=== PATIENT | female | born 1950 | race Caucasian/White ===

== ENCOUNTER 2019-06-17 08:07 | Observation (INO) | payer MEDICARE, OTHER, SELFPAY ==
[2019-06-11 08:24] VITALS: BMI 24.9
[2019-06-17] VITALS (31 sets, daily range): BP systolic 67–143; BP diastolic 41–73; PULSE 53–121; RESP 13–28; TEMP 35.8–36.7; O2SAT 95–100; BMI 24.9
--- NOTE | 2019-06-17 | PATH_ITS ---
[facility] Accession Number: [id number] . 01 Material submitted: . PART A: colon - COLON POLYP 20 CM PART B: anus - ANAL MASS . 02 Diagnosis: A. Colon, Polyp 20 cm, Biopsy: Hyperplastic polyp. . B. Anal Mass, Biopsy: Inflammatory cloacogenic polyp. Negative for dysplasia and malignancy. MRV 06/19/2019 0932 Local . 02 Electronically signed: . Beth Cooper MD, Pathologist NPI- [id number] . 01 Gross description: . A. Received in a formalin-filled container, labeled colon polyp 20 cm, consists of a pink-san unoriented soft tissue, 0.8 x 0.5 x 0.3 cm. The presumed cauterized base is inked blue and the specimen is sectioned and entirely submitted in A1. B. Received in a formalin-filled container, labeled anal biopsy/mass, and consists of two unoriented pink-san smooth to cauterized soft tissue fragments, 2.3 cm up to 2.5 cm, which has a combined weight of 1.0 grams. The cauterized bases are inked blue. Sectioning reveals focally hemorrhagic, otherwise grossly unremarkable cut surfaces. Specimen is sectioned and entirely submitted as follows: B1-2 - smaller tissue fragment; B3-4 - larger tissue fragment, sectioned, entirely submitted. (MS:[id number]) /MRV 06/18/2019 1619 Local . 02 Pathologist provided ICD-10: K63.5 . 02 CPT . 390009, [id number] Performed at: [address], [place], [place] [id number] MD Phil Batres MD Phone: [phone] Performed at: 02 [facility] [place] [address] [place] [id number] MD Beth Cooper MD Phone: [phone]
[2019-06-17] MEDS: LACTATED RINGERS 1,000 ML 100 ML IV (08:41)
--- NOTE | 2019-06-17 09:09 | PM.PREOP ---
Pre-operative Note Interval Note History & Physical reviewed/Exam performed by Physician: Yes Changes to H&P: No
--- NOTE | 2019-06-17 09:55 | SUR.OPER ---
Lithotomy on padded OR bed, head on pillow, arms secured on padded arm boards at <90 degrees abduction. Legs secured in padded yellow fins stirrups.
[2019-06-17] MEDS: BUPIVACAINE 0.25% (PF) VIAL 30 ML INJ (10:19)
[2019-06-17] MEDS: DIBUCAINE 1% OINT 28 GM 1 APPLIC TOP (10:20)
--- NOTE | 2019-06-17 10:57 | PM.OP.1 ---
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 She is brought to the operating room for examination under anesthesia as well as colonoscopy. Surgeon: Shawn Reed Anesthesia Type: General Operative Notes Findings: Polyp < 1cm 20 cm from anal verge. Prolapsed anal mass fribale and fibrotic 2 cm from right lateral position. Specimen(s): other (polyp from 20 cm from anal verge, anal mass) Estimated Blood Loss (mL): 20 Procedure in detail: The was brought to the operating room and placed on the operating room table. Bilateral lower extremity compression devices were applied. General anesthesia was induced and she was intubated with an LMA. She was placed in lithotomy and prepped and draped in the usual fashion. Time out was performed. A rectal exam demonstrated the prolapsing anal mass. Colonoscope was placed into the rectum and advanced through the colon to the cecum. The ileocecal valve was identified. The scope was then slowly withdrawn examining colon thoroughly in all directions. A <1 cm polyp 20 cm from the anal verge was identified and biopsied using forceps. The site was hemostatic. The remainder of the colon was notable only for diverticulosis. Next the exam under anesthesia was performed. 20 ml of 0.25% bupivicaine was injected into the intersphincteric groove. Inspection of the anal canal demonstrated a prolapsed fibrotic mass at the right lateral position. On closed inspection I suspect that it is a chronically prolapsed and fibrotic hemorrhoid. The mass was grapsed and elevated off the internal sphincter and removed using electocautery. The mucosal defect was then closed using a runnning Chromic suture. Hemostatsis was achieved. A gell foam was placed into the canal. She emerged from anesthesia and was transfered to post op in stable condition. Post-operative Condition: stable Disposition: same day surgery
--- NOTE | 2019-06-17 11:32 | SUR.PHASEII ---
Report received. Gauze dressing checked, one pack of gauze half saturated with blood. Dr. Reed notified, VVO that it is ok to change gauze. Gauze changed. Spouse present. Call light within reach.
--- NOTE | 2019-06-17 12:03 | SUR.PHASEII ---
Patient requested to void, up to bathroom, sba. Passed dark red fluid. Pt cleaned and new gauze applied to bottom.
--- NOTE | 2019-06-17 12:07 | SUR.PHASEII ---
Pt reported discomfort. Crackers, pudding, water provided. Pt dozing and has not taken anything po. Spouse at bedside.
--- NOTE | 2019-06-17 13:11 | SUR.PHASEII ---
Dr. Reed notified regarding oozing from rectum, pad changed again by Pito. MD evaluated patient, ok for patient to discharge per MD. Patient reported discomfort at rectum, declined pain medication. Patient ambulated to bathroom, sba.
--- NOTE | 2019-06-17 13:28 | SUR.PHASEII ---
Pt up to the bathroom, dark fluid noted in the toilet. Dr. Reed notified. Also, discussed RR 28. Ok for patient to discharge per MD.
[2019-06-17] MEDS: LACTATED RINGERS 1,000 ML 42 ML IV ×2 (14:25→15:45)
--- NOTE | 2019-06-17 14:26 | SUR.PHASEII ---
1400 Pt up to the bathroom, passed medium red fluid in toilet. C/O feeling dizzy and the floor looked purple. VS taken, BP low. Pt assisted back to bed. Dr. Reed notified, VVO for new IV and fluids. LR infusing to LT AC. PO fluid provided. Monitor placed. Call light within reach. Patient's spouse notified.
--- NOTE | 2019-06-17 14:47 | SUR.PHASEII ---
Pt up to the bathroom, sba. Passed medium/dark red fluid, denied passing urine. Pt c/o feeling dizzy, swayed on her feet. Assisted to sit and transferred to chair and then bed. VS stable. Call light within reach.
--- NOTE | 2019-06-17 16:07 | SUR.PHASEII ---
Report called to Stephanie
--- NOTE | 2019-06-17 16:45 | SUR.PHASEII ---
Dr. Reed evaluated patient and recommended that the patient stay overnight. Pt's spouse at bedside. Pt was up to the bathroom with Suzy and passed dark red fluid, Dr. Reed evaluated the output. Pt had denied voiding during an earlier trip to the bathroom, this RN is unsure if patient has voided, Dr. Reed aware. ordered second bolus of LR. Bag hung. Report called to Stephanie. J-loop applied to IV, bolus infusing. Pt transferred to the floor with two belongings bags. Report given to Stephanie, LYNN stable. Small amt of pink drainage to david-pad. LR infusing.
[2019-06-17] MEDS: DEXTROSE 5%-0.9% NS 1,000 ML 100 ML IV (16:51)
[2019-06-17] MEDS: ONDANSETRON 4 MG/2 ML INJ (17:15)
[2019-06-17] MEDS: ONDANSETRON 4 MG/2 ML INJ IV (17:30)
[2019-06-17 17:47] LABS: Hematocrit 31.2 % (36-46); Hemoglobin 9.8 g/dL (12.0-16.0); Mean Corpuscular HGB Conc 31.4 % (30-36); Mean Corpuscular Hemoglobin 26.7 PG (26-34); Platelet Count 294 X10^3/uL (150-400); Red Blood Cell Count 3.67 X10^6/uL (4.0-5.2); Red Cell Distribution Width 14.6 % (11.6-14.8); White Blood Cell Count 16.5 X10^3/uL (4.5-11.0)
[2019-06-17 18:03] LABS: Neutrophils Absolute Manual 14355 /uL (3000-5900); Total Cells Counted 100
[2019-06-17 18:04] LABS: RBC Morphology Normal Morphology
[2019-06-17 18:26] LABS: BUN Creatinine Ratio 17.1 (6-22); Blood Urea Nitrogen 12 mg/dL (7-17); Carbon Dioxide 23 mmol/L (22-32); Chloride 101 mmol/L (98-107); Estimated Glomerular Filt Rate > 60.0 mL/min (>60); Glucose 286 mg/dL (80-110); HEMOLYSIS < 15 (0-50); Potassium 3.5 mmol/L (3.4-5.1); Sodium 131 mmol/L (137-145)
[2019-06-17 18:38] LABS: Troponin I < 0.012 ng/mL (0.01-0.034)
--- NOTE | 2019-06-17 19:53 | PC.NURSE ---
Addendum entered by Shahla Recinos R.N. 06/17/19 22:51: 2200: Pt has been resting quietly the past 2hrs. IV bolus completed, new rate of 125cc/hr per MD resumed. No clots noted at this time. Call light w/in reach, bed alarm on for pt safety. Continue w/plan of care. Original Note: SHIFT NOTE:[id number] Pt arrived to room at 1620 Alert/drowsy. Lungs clear, SpO2 98% RA Continues w/low B/P of 94/46 Assisted to BSC, pt had red rectal drainage, Became slightly weak after activity. Call light w/in reach, bed alarm on for pt safety. 1710: Pt call light on,. RN answered light, Pt unresponsive, rapid response called. Unresponsive for approximately 2-3 minutes. Pt responded slowly. Dr. Moscoso and Dr. Reed present. B/P 101/61 P= 122, SpO2 100% RA C/O nausea, zofran given at 1730 and EKG completed. Second IV line started by TECHNICAL COMMUNICATION TEACHER. Labs drawn. per MD orders. 1900: Pt repositioned and brief changed. Pt had large amount for rectal drainage and large clots noted Dr. Reed notified and came to check pt. Order received for an NS bolus. Bolus infusing at this time. SO Paul arrived at 1945. Call light w/in reach, bed alrm on for pt safety.
[2019-06-17] MEDS: SODIUM CHLORIDE 0.9% 1,000 ML 1000 ML IV (22:50)
[2019-06-17] MEDS: ACETAMINOPHEN 325 MG TABLET 650 MG PO (23:52)
[2019-06-18] VITALS (22 sets, daily range): BP systolic 99–126; BP diastolic 49–74; PULSE 70–89; RESP 10–22; TEMP 36.4–37; O2SAT 96–100
--- NOTE | 2019-06-18 00:47 | PC.NURSE ---
Addendum entered by Rosario Ortiz R.N. 06/18/19 06:44: H/H critical 6.4/19.5. Dr. Reed notified. Orders to transfuse 2 units PRBC's and recheck H/H post transfusion. If stable and no active bleeding she will be discharged. Addendum entered by Rosario Ortiz R.N. 06/18/19 06:09: Pt asleep in NAD. Dr. Reed at bedside to assess - plan to discharge today. No further rectal bleeding. BP remains stable overnight. Addendum entered by Rosario Ortiz R.N. 06/18/19 02:10: SCD's removed d/t patient agitation and confusion. She is very impulsive and attempts to get OOB. SCD's are adding to her fall risk. Original Note: Pt confused, impulsive. Needs frequent reorientation. VSS, afebrile in NAD. Denies pain. Up to BSC with SBA using FWW. Strength is WNL but coordination is poor as is safety awareness. Voiding without difficulty. No further rectal bleeding at this time and BP remains stable. Bed alarm verified active.
[2019-06-18] MEDS: SODIUM CHLORIDE 0.9% 1,000 ML 125 ML IV (01:19)
[2019-06-18] MEDS: ACETAMINOPHEN 325 MG TABLET 650 MG PO ×2 (05:35→14:32)
[2019-06-18 06:40] LABS: Add Manual Diff / Slide Review NO; Basophils Absolute Auto 0 /uL (0-100); Eosinophils Absolute Auto 0 /uL (0-450); Lymphocytes Absolute Auto 1400 /uL (1100-4500); Lymphocytes Percent Auto 9.5 % (25-40); Mean Corpuscular HGB Conc 32.9 % (30-36); Mean Corpuscular Hemoglobin 27.3 PG (26-34); Mean Corpuscular Volume 82.9 fL (80-100); Monocytes Absolute Auto 900 /uL (0-900); Monocytes Percent Auto 6.2 % (3-14); Neutrophils Absolute Auto 12100 /uL (1500-7000); Neutrophils Percent Auto 84.3 % (50-75); Platelet Count 215 X10^3/uL (150-400); Red Blood Cell Count 2.35 X10^6/uL (4.0-5.2); White Blood Cell Count 14.4 X10^3/uL (4.5-11.0)
[2019-06-18 06:42] LABS: Hematocrit 19.5 % (36-46)
[2019-06-18 06:43] LABS: Hemoglobin 6.4 g/dL (12.0-16.0)
--- NOTE | 2019-06-18 06:43 | P.DS_ITS ---
History of Present Illness History of Present Illness Date Patient Seen: 06/19/19 Time Patient Seen: 08:30 Chief complaint: [id number] Narrative: This 68-year-old female who has chronic rectal bleeding and was found to have a mass within her anal canal. Who is referred to the office for evaluation of the an anal mass which appeared friable and fibrotic prolapsed and originating from near the dentate line. It was difficult for her to tolerate sufficient examination in the the office and therefore she was taken to the operating room for an examination under anesthesia as well as colonoscopy to evaluate for any other source of GI bleed. Discharge Providers Provider Discharge Date: 06/19/19 Primary care physician: Ale Scott DO Discharge provider: Shawn Reed MD Summary Hospital Course Discharge Diagnosis: Acute blood loss anemia Chronic anemia Dementia Traumatic brain injury Anal mass Hospital Course: The patient was taken to the operating room and underwent a colonoscopy as well as an excision of an anal mass.. Postprocedure she had hypotension to the mid 90s as well as was passing some clots of blood per rectum. She was admitted to the hospital for observation and fluid resuscitation. Upon transfer to the floor a rapid response was called for decreased level of consciousness. It should be noted that the patient has a traumatic brain injury and dementia and is disoriented at baseline. A cardiac evaluation was performed including troponin EKG and these studies were normal. The initial hematocrit was the 30 but this was when the patient was dehydrated secondary to the colonoscopy prep. Following morning the hematocrit was 19 and she received 2 units of packed red blood cells and she responded appropriately. She continued to intermittently pass some clots of blood. A bedside anoscopy was performed that was negative for any active bleeding. However her systolic blood pressure remained in the 100s she was not tachycardic but because she was intermittently passing blood clots she was taken to the operating room for examination under anesthesia. The operating room demonstrated that she had some friable mucosa within the anal canal that was persistently oozing there was no franklyn hemorrhage at this time. The area was oversewn and topical hemostatic agent was placed. Overnight she did well she had no further passage of bloody bowel movements her vital signs remain stable and a repeat of HCT was 24. At this point she was stable for discharge home. Exam Vital Signs (past 8 hours): - 06/17/19 23:00 06/17/19 23:59 06/18/19 03:00 Temperature 97.3 F L Pulse Rate 89 Respiratory Rate 18 Blood Pressure 102/46 L Pulse Oximetry 100 100 100 06/18/19 03:29 Temperature 97.8 F Pulse Rate 88 Respiratory Rate 18 Blood Pressure 122/52 L Pulse Oximetry 100 Oxygen Delivery Method Room Air Oxygen Flow Rate 0 Narrative Exam Narrative: General adult female alert disoriented at baseline secondary to dimension traumatic brain injury. Chest nonlabored respirations Abdomen soft nontender nondistended Rectal exam incision clean dry intact no bloody discharge. Objective Labs Result Diagrams: 06/19/19 05:50 06/17/19 18:04 Labs: Laboratory Results - last 24 hr 06/17/19 06/17/19 06/17/19 17:30 18:04 18:04 WBC 16.5 H RBC 3.67 L Hgb 9.8 L Hct 31.2 L MCV 85.0 MCH 26.7 MCHC 31.4 RDW 14.6 Plt Count 294 Neut % (Auto) Lymph % (Auto) [place] % (Auto) Eos % (Auto) Baso % (Auto) Neut # (Auto) Lymph # (Auto) [place] # (Auto) Eos # (Auto) Baso # (Auto) Total Counted 100 Seg Neutrophils % 84.0 H Band Neutrophils % 3.0 Lymphocytes % (Manual) 11.0 L Monocytes % (Manual) 2.0 Neutrophils # (Manual) 00356 H RBC Morphology Normal morphology Sodium 131 L Potassium 3.5 Chloride 101 Carbon Dioxide 23 BUN 12 Creatinine 0.70 Estimated GFR > 60.0 BUN/Creatinine Ratio 17.1 Glucose 286 H Calcium 8.0 L Total Creatine Kinase Cancelled CK-MB (CK-2) Cancelled CK-MB (CK-2) Rel Index Cancelled Troponin I Cancelled < 0.012 06/18/19 05:51 WBC 14.4 H RBC 2.35 L Hgb 6.4 L* Hct 19.5 L* MCV 82.9 MCH 27.3 MCHC 32.9 RDW 14.0 Plt Count 215 Neut % (Auto) 84.3 H Lymph % (Auto) 9.5 L [place] % (Auto) 6.2 Eos % (Auto) 0.0 L Baso % (Auto) 0.0 Neut # (Auto) 39216 H Lymph # (Auto) 1400 [place] # (Auto) 900 Eos # (Auto) 0 Baso # (Auto) 0 Total Counted Seg Neutrophils % Band Neutrophils % Lymphocytes % (Manual) Monocytes % (Manual) Neutrophils # (Manual) RBC Morphology Sodium Potassium Chloride Carbon Dioxide BUN Creatinine Estimated GFR BUN/Creatinine Ratio Glucose Calcium Total Creatine Kinase CK-MB (CK-2) CK-MB (CK-2) Rel Index Troponin I Discharge Plan Discharge Plan Patient Disposition: Home Discharge Med Rec/Prescriptions Prescriptions: New docusate sodium [Colace] 100 mg capsule 100 mg PO BID Qty: 30 RF: 0 oxycodone 5 mg tablet 5 mg PO Q6H PRN (Reason: pain) Qty: 30 RF: 0 ferrous sulfate [Iron (ferrous sulfate)] 325 mg (65 mg iron) tablet 325 mg PO Q OTHER DAY Qty: 90 RF: 0 mineral oil Oil 15 ml PO DAILY Qty: 4000 RF: 0 Continued acetaminophen 500 mg capsule 500 mg PO Q4H PRN (Reason: Pain) RF: 0 Follow up/Referrals: Shawn Reed MD [Physician] - Ale Scott DO [Primary Care Provider] - Provider Discharge Instructions Diet: Regular Skin/Wound/Dressing Care Skin care: Sitz bath three times daily Report to your healthcare provider any signs of infection, such as:: chills, fever and increased pain Visit Report/Discharge Packet Instructions: DI for Colon Polypectomy, DI for Hemorrhoids, DI for Rectal Bleeding Stand Alone Forms: Colonoscopy Result: Is[facility] Surg Discharge Data Primary Care Provider: Ale Scott Attending Provider: Shawn Reed Admit Date/Time: 06/17/19 08:07 Discharges patient from system. Discharge Date/Time: 06/19/19 10:30
[2019-06-18 09:33] LABS: Hematocrit 19.4 % (36-46); Hemoglobin 6.3 g/dL (12.0-16.0)
--- NOTE | 2019-06-18 15:49 | PC.NURSE ---
GI: Pt is difficult to assess due to hx of tbi. She is disoriented to all except she knows her name and birthdate. keeps asking why she is here and whats going on. Information given each time requested. Does have call light and shown use however instead she gets oob on own, she must have bed/chair alarm at all times. Has had a sm amt of dk burgandy stool/clots w/each void, about q1hr. This am was the most and mod size, after that the stool was quarter size but was still clots. Dr. Reed made aware and he has been here twice to see pt. When he came at noon he gave the patient 2 fleets enemas with scant return of some clot/stool material, however after that she has had sl more bleeding and Dr. Reed was made aware. Except for during the time she got the enemas she has had no pain and denies any gi discomfort. Heart up to 120's this am when she got up, now it only goes up to 100's. has received 1 unit of bld and no sxs of transfusion reaction seen. Has been dizzy when up but she thought she was less dizzy this afternoon. Did have a syncopal episode yesterday and pt is a high fall risk, has room close to station and curtain is left open for easy viewing except when care is given. BP sl increased after unit of bld and Dr. Reed made aware and gave okay to give the second one. Cont w/poc.
--- NOTE | 2019-06-18 15:54 | PM.PNPO.1 ---
Subjective Subjective Date Patient Seen: 06/18/19 Time Patient Seen: 15:54 Interval history: Patient had an episode of decreased responsiveness yesterday that triggered a rapid response. She had an EKG that was normal, normal cardiac markers. Her systolic blood pressure was mid 90s not tachycardic. She had undergone a colonoscopy and excision of an anal mass earlier in the day and was passing some clots per rectum for which she was kept in observation. Upon transfer to the floor she had this rapid response. She received crystalloid product with improvement in her blood pressure and continued to intermittently pass clots per rectum overnight. This morning nurses report that she is passing no further clot I examined her performed an anoscopy at the bedside which was negative for active bleeding. Hematocrit this am is 19 from 30 yesterday. 2 units of packed red blood cells have been ordered 1st unit has been transfused as of now with improvement in her BP. Exam Vital Signs (past 8 hours): - 06/18/19 08:30 06/18/19 11:16 06/18/19 11:39 Temperature 97.7 F 97.7 F 97.9 F Pulse Rate 74 71 70 Respiratory Rate 14 16 14 Blood Pressure 99/49 L 108/54 L 100/53 L Pulse Oximetry 100 100 06/18/19 11:40 Temperature Pulse Rate Respiratory Rate Blood Pressure 102/52 L Pulse Oximetry Oxygen Delivery Method Room Air Oxygen Flow Rate 0 Narrative Exam Narrative: General -Adult female alert disoriented at baseline secondary to dementia and TBI Abdomen: soft non tender Rectal-Anoscopy performed no active bleeding observed. Objective Labs Result Diagrams: 06/18/19 08:30 06/17/19 18:04 Labs: Laboratory Results - last 24 hr 06/17/19 06/17/19 06/17/19 17:30 18:04 18:04 WBC 16.5 H RBC 3.67 L Hgb 9.8 L Hct 31.2 L MCV 85.0 MCH 26.7 MCHC 31.4 RDW 14.6 Plt Count 294 Neut % (Auto) Lymph % (Auto) [place] % (Auto) Eos % (Auto) Baso % (Auto) Neut # (Auto) Lymph # (Auto) [place] # (Auto) Eos # (Auto) Baso # (Auto) Total Counted 100 Seg Neutrophils % 84.0 H Band Neutrophils % 3.0 Lymphocytes % (Manual) 11.0 L Monocytes % (Manual) 2.0 Neutrophils # (Manual) 95705 H RBC Morphology Normal morphology Sodium 131 L Potassium 3.5 Chloride 101 Carbon Dioxide 23 BUN 12 Creatinine 0.70 Estimated GFR > 60.0 BUN/Creatinine Ratio 17.1 Glucose 286 H Calcium 8.0 L Total Creatine Kinase Cancelled CK-MB (CK-2) Cancelled CK-MB (CK-2) Rel Index Cancelled Troponin I Cancelled < 0.012 Blood Type Antibody Screen Crossmatch 06/18/19 06/18/19 06/18/19 05:51 08:30 08:30 WBC 14.4 H RBC 2.35 L Hgb 6.4 L* 6.3 L* Hct 19.5 L* 19.4 L* MCV 82.9 MCH 27.3 MCHC 32.9 RDW 14.0 Plt Count 215 Neut % (Auto) 84.3 H Lymph % (Auto) 9.5 L [place] % (Auto) 6.2 Eos % (Auto) 0.0 L Baso % (Auto) 0.0 Neut # (Auto) 27344 H Lymph # (Auto) 1400 [place] # (Auto) 900 Eos # (Auto) 0 Baso # (Auto) 0 Total Counted Seg Neutrophils % Band Neutrophils % Lymphocytes % (Manual) Monocytes % (Manual) Neutrophils # (Manual) RBC Morphology Sodium Potassium Chloride Carbon Dioxide BUN Creatinine Estimated GFR BUN/Creatinine Ratio Glucose Calcium Total Creatine Kinase CK-MB (CK-2) CK-MB (CK-2) Rel Index Troponin I Blood Type O Positive Antibody Screen Negative Crossmatch See Detail Assessment & Plan Post-op Postoperative Procedures: Procedures Operation Date: 06/17/19 09:15 Actual Procedures Side Surgeon p Exam Under Anesthesia Rectal Shawn Reed MD s COLONOSCOPY , POLYPECTOMY, EXCISION ANAL MASS Shawn Reed MD Operation Date: 06/18/19 17:15 <No data on this case meets the specified criteria> Postoperative status narrative: pod 1 SP colonoscopy with polyp biopsy and resection of anal mass with continued bleeding per rectum. Bedside anoscopy performed but unable to visualize source of bleeding, will bring to OR for exam under anesthesia. Discussed and consent obtained from significant other.
--- NOTE | 2019-06-18 16:01 | CM.DANOTE ---
Patient is a 68 year old female who was admitted on 06/17/19 for Surgical Procedure. Pt has [facility] and [facility] for insurance and her PCP is Dr. Ale Scott. EMR was reviewed. Per Surgeon, pt requiring a unit of packed blood and if stable can d/c home this evening. Per RN, pt not remaining stable and Surgeon rounded on pt again and requiring more blood and return to OR this evening due to ongoing rectal bleeding/blood clots and syncope with critical H/H. Plan: SW to follow in the morning for bedside assessment to determine if pt will be safe for d/c home when medically stable and any further identified needs. DOUGLAS Rasmussen
--- NOTE | 2019-06-18 18:55 | SUR.OPER ---
Prone on padded OR bed, head in foam head support, gel chest rolls, gel pad under knees, pillow under lower legs, toes free of pressure, arms secured on padded arm boards at <90 degrees abduction. Safety belt at thigh.
[2019-06-18] MEDS: THROMBIN (RECOMBINANT) 5,000 UNIT VIAL 5000 UNIT TOP (19:23)
[2019-06-18] MEDS: DIBUCAINE 1% OINT 28 GM 1 APPLIC TOP (19:23)
--- NOTE | 2019-06-18 19:44 | PM.OP.1 ---
Operative Date/Time/Diagnoses Date of procedure: 06/18/19 Time of procedure: 19:44 Pre-op diagnosis: rectal bleeding Post-op diagnosis: same Procedure & Clinicians Procedure: Examination under anesthesia, sigmoidoscopy Same procedure as scheduled: Yes Indications: A this is a 68-year-old female who yesterday underwent a colonoscopy and excision of an anal mass. Postoperatively she has continued to pass blood clots per rectum and she has had anemia and mild hypotension. Bedside anoscopy was performed but was unable to visualize the source of bleeding and she returns to the operating room for examination under anesthesia. Surgeon: Shawn Reed Click Yes if Unassisted: Yes Anesthesia Type: General Operative Notes Findings: No franklyn hemorrhage slow mucosal oozing from the site of the anal mass excision. Specimen(s): none sent Estimated Blood Loss (mL): 10 Procedure in detail: Patient was brought to the operating room and the general anesthesia was induced she was intubated with LMA. She was then placed into the prone position. She was prepped and draped in sterile fashion. Time-out was performed ensure the correct patient procedure necessary equipment within the operating room. The [place] retractor was placed. Inspection of the anal canal was made and there was no franklyn hemorrhage. There was some slow mucosal oozing near the prior excision of the anal mass. Using Vicryl suture the area of mucosal bleeding was oversewn in [id number] fashion. There were a couple of other spots of friable mucosa that was oozing and this was controlled with electrocautery. A rigid sigmoidoscopy was then performed which demonstrated no further bleeding. The anal canal and rectum were thoroughly irrigated and the effluent was clear. Topical thrombin and Gelfoam was then placed into the anal canal. Complications: none Post-operative Condition: stable Disposition: observation
[2019-06-18 19:59] LABS: Mean Corpuscular HGB Conc 33.4 % (30-36); Mean Corpuscular Hemoglobin 28.5 PG (26-34); Mean Corpuscular Volume 85.4 fL (80-100); Platelet Count 190 X10^3/uL (150-400); Red Blood Cell Count 3.16 X10^6/uL (4.0-5.2); Red Cell Distribution Width 14.5 % (11.6-14.8); White Blood Cell Count 16.1 X10^3/uL (4.5-11.0)
[2019-06-18] MEDS: LACTATED RINGERS 1,000 ML 42 ML IV (22:21)
[2019-06-19 02:00] VITALS: O2SAT 97
[2019-06-19 04:33] VITALS: BP 113/37; PULSE 91; RESP 20; TEMP 36.8; O2SAT 98
[2019-06-19 06:00] VITALS: O2SAT 97
[2019-06-19 06:02] LABS: Add Manual Diff / Slide Review NO; Basophils Absolute Auto 0 /uL (0-100); Basophils Percent Auto 0.3 % (0-2); Eosinophils Absolute Auto 0 /uL (0-450); Eosinophils Percent Auto 0.2 % (2-4); Hemoglobin 8.1 g/dL (12.0-16.0); Lymphocytes Absolute Auto 1500 /uL (1100-4500); Lymphocytes Percent Auto 11.9 % (25-40); Mean Corpuscular HGB Conc 34.1 % (30-36); Mean Corpuscular Hemoglobin 28.7 PG (26-34); Mean Corpuscular Volume 84.1 fL (80-100); Monocytes Absolute Auto 1000 /uL (0-900); Monocytes Percent Auto 8.4 % (3-14); Neutrophils Absolute Auto 9700 /uL (1500-7000); Neutrophils Percent Auto 79.2 % (50-75); Platelet Count 175 X10^3/uL (150-400); Red Blood Cell Count 2.83 X10^6/uL (4.0-5.2); Red Cell Distribution Width 14.4 % (11.6-14.8); White Blood Cell Count 12.2 X10^3/uL (4.5-11.0)
--- NOTE | 2019-06-19 06:06 | PC.NURSE ---
Pt had 1 small bloody BM this morning around 0500
[2019-06-19 06:08] LABS: Hematocrit 23.8 % (36-46)
[2019-06-19 07:20] VITALS: BP 105/46; PULSE 86; RESP 17; TEMP 37.5; O2SAT 98
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
== END 2019-06-19 10:30 | disposition home or self-care (01) ==
LOC: OR 10:55 → AC 06-18 11:39
PROVIDERS: Admitting Provider Surgery; Family Provider Family Medicine; PCP Family Medicine; Visit Provider Surgery
PROC: (CPT 45990; principal; 2019-06-17 09:15)
PROC: 0DJD8ZZ Inspection of Lower Intestinal Tract, Via Natural or Artificial Opening Endoscopic (ICD-10-PCS; CPT 45378; 2019-06-17 09:15)
DX: K62.89 Other specified diseases of anus and rectum (principal); F03.90 Unspecified dementia, unspecified severity, without behavioral disturbance, psychotic disturbance, mood disturbance, and anxiety; R55 Syncope and collapse; Z87.820 Personal history of traumatic brain injury; K62.0 Anal polyp; K57.30 Diverticulosis of large intestine without perforation or abscess without bleeding; K63.5 Polyp of colon
CPT/HCPCS: 46922; 45380; 45990; 46999; 45330; 36415; 36430; 80048; 82962; 84484; 85014; 85018; 85025; 85027; 86850; 86900; 86901; 93005; 93010; 94762; G0378; P9016; J1100; J1885; J2405; J2704; J3010

== ENCOUNTER → 2019-07-16 13:51 | Outpatient (CLI) | payer MEDICARE, OTHER, SELFPAY ==
[2019-07-16 12:22] VITALS: BMI 24.9
[2019-07-16 14:30] LABS: Add Manual Diff / Slide Review NO; Basophils Absolute Auto 0 /uL (0-100); Basophils Percent Auto 0.5 % (0-2); Eosinophils Absolute Auto 100 /uL (0-450); Eosinophils Percent Auto 1.8 % (2-4); Hematocrit 31.1 % (36-46); Hemoglobin 10.2 g/dL (12.0-16.0); Lymphocytes Absolute Auto 1300 /uL (1100-4500); Lymphocytes Percent Auto 21.8 % (25-40); Mean Corpuscular HGB Conc 32.9 % (30-36); Mean Corpuscular Hemoglobin 27.1 PG (26-34); Mean Corpuscular Volume 82.4 fL (80-100); Monocytes Absolute Auto 800 /uL (0-900); Monocytes Percent Auto 13.8 % (3-14); Neutrophils Absolute Auto 3600 /uL (1500-7000); Neutrophils Percent Auto 62.1 % (50-75); Platelet Count 434 X10^3/uL (150-400); Red Blood Cell Count 3.77 X10^6/uL (4.0-5.2); Red Cell Distribution Width 15.5 % (11.6-14.8); White Blood Cell Count 5.8 X10^3/uL (4.5-11.0)
[2019-07-16 14:34] LABS: Appearance Urine UA CLOUDY; Bilirubin Urine UA NEGATIVE (NEGATIVE); Color Urine UA YELLOW; Glucose Urine UA NEGATIVE (Negative); Ketones Urine UA NEGATIVE (NEGATIVE); Leukocyte Esterase Urine UA 3+ (NEGATIVE); Nitrite Urine UA POSITIVE (Negative); Occult Blood Urine UA 3+ (Negative); Protein Urine UA 1+ (Negative)
[2019-07-16 14:44] LABS: Bacteria Urine Many (>30); RBC Urine >100/HPF (0-5/HPF); Squamous Epithelial Cell Urine 1-5 /HPF (0-5/HPF); WBC Urine >100/HPF (0-5/HPF)
[2019-07-16 15:51] LABS: Alanine Aminotransferase 13 IU/L (<35); Albumin 3.9 g/dL (3.5-5.0); Albumin Globulin Ratio 1.1 (1.0-2.8); Alkaline Phosphatase 101 U/L (38-126); Aspartate Aminotransferase 25 IU/L (14-36); Bilirubin Total 0.4 mg/dL (0.2-1.3); Blood Urea Nitrogen 9 mg/dL (7-17); Calcium 8.9 mg/dL (8.4-10.2); Carbon Dioxide 28 mmol/L (22-32); Chloride 103 mmol/L (98-107); Cholesterol 205 mg/dL (140-199); Estimated Glomerular Filt Rate 54.8 mL/min (>60); Globulin 3.6 g/dL (1.7-4.1); Glucose 121 mg/dL (80-110); HDL Cholesterol 29 mg/dL (40-60); HEMOLYSIS < 15 (0-50); LDL Cholesterol Calculated 150 mg/dL (<100); Potassium 3.5 mmol/L (3.4-5.1); Sodium 140 mmol/L (137-145); Total Protein 7.5 g/dL (6.3-8.2); Triglycerides 128 mg/dL (35-150)
[2019-07-16 16:55] LABS: Folate 5.7 ng/mL (2.76-20.0); Vitamin B12 402 pg/mL (239-931)
== END ==
PROVIDERS: PCP Family Medicine; Visit Provider Family Medicine
DX: K62.5 Hemorrhage of anus and rectum (principal); K62.89 Other specified diseases of anus and rectum; K92.1 Melena; Z91.018 Allergy to other foods; R41.3 Other amnesia
CPT/HCPCS: 36415; 80053; 80061; 81003; 81015; 82607; 82746; 84443; 85025

== ENCOUNTER → 2019-07-22 16:07 | Outpatient (CLI) | payer MEDICARE, OTHER, SELFPAY ==
[2019-07-16 16:33] VITALS: BMI 24.9
[2019-07-22 17:19] LABS: Hematocrit 32.4 % (36-46); Hemoglobin 10.5 g/dL (12.0-16.0); Mean Corpuscular HGB Conc 32.5 % (30-36); Mean Corpuscular Volume 83.1 fL (80-100); Platelet Count 549 X10^3/uL (150-400); Red Cell Distribution Width 15.2 % (11.6-14.8); White Blood Cell Count 6.3 X10^3/uL (4.5-11.0)
== END ==
PROVIDERS: Family Provider Family Medicine; PCP Family Medicine; Visit Provider Nurse Practitioner Family
DX: D64.9 Anemia, unspecified (principal)
CPT/HCPCS: 36415; 85027

== ENCOUNTER → 2020-01-23 16:48 | Outpatient (CLI) | payer MEDICARE, OTHER, SELFPAY ==
[2019-07-16 16:33] VITALS: BMI 24.9
--- NOTE | 2020-01-23 16:50 | DI.RAD.S_ITS ---
PROCEDURE: XR KNEE RT 3V INDICATIONS: knee pain TECHNIQUE: 3 views of the knee were acquired. COMPARISON: None. FINDINGS: Bones: No fractures or dislocations. No suspicious bony lesions. Mild tricompartmental periarticular osteophyte formation. Soft tissues: No joint effusion. No suspicious soft tissue calcifications. IMPRESSION: Osteoarthritis. No acute fracture. No osseous lesion. If symptoms and/or clinical suspicion for pathology persist, further assessment with repeat, or advanced imaging (e.g., CT, MRI, or bone scan) may be helpful for further assessment. Dictated by: Emily Massey M.D. on 01/23/2020 at 17:57 Approved by: Emily Massey M.D. on 01/23/2020 at 17:57
== END ==
PROVIDERS: Family Provider Family Medicine; PCP Nurse Practitioner Family; Referring Provider Nurse Practitioner Family; Visit Provider Nurse Practitioner Family
DX: M25.561 Pain in right knee (principal); M17.11 Unilateral primary osteoarthritis, right knee
CPT/HCPCS: 73562

== ENCOUNTER 2020-07-12 20:35 | Emergency (ER) | payer MEDICARE, OTHER, SELFPAY ==
[2019-07-16 16:33] VITALS: BMI 24.9
[2020-07-12] VITALS (8 sets, daily range): BP systolic 88–143; BP diastolic 52–63; PULSE 75–98; RESP 16; TEMP 36.4–37; O2SAT 98–100; BMI 28.3
--- NOTE | 2020-07-12 20:47 | ED.ABDPAIN ---
HPI - Abdominal Pain General Chief Complaint: Abdominal Pain Stated Complaint: thinks constipated Time Seen by Provider: 07/12/20 20:40 Source: patient and family Mode of arrival: Ambulatory Limitations: altered mental status History of Present Illness HPI narrative: 69-year-old female nonsmoker with history of traumatic brain injury, prior weight loss surgery presents with her significant other the chief complaint of significant abdominal pain. Due to her traumatic brain injury she has a very poor historian and unable to contribute much to the history and review of systems. As a consequence, this is a largely coming from her significant other at the bedside. She has had no change in her diet, no vomiting and no fever. She takes no medications. It seems that this is likely to be present just over the course of today. She has no other symptoms. Related Data Previous Rx's Medication Instructions Recorded diclofenac sodium 1 % topical gel 2 gram TOP QID #100 gram 01/23/20 naproxen 500 mg tablet 500 mg PO BID #60 tab 01/23/20 Allergies Allergy/AdvReac Type Severity Reaction Status Date / Time sulfite Allergy Severe anaphylactic Verified 01/23/20 16:06 shock adhesive AdvReac Mild takes my Verified 01/23/20 16:06 skin off msg Allergy Severe Anaphylaxis Uncoded 01/23/20 16:06 Review of Systems Review of Systems ROS Unobtainable: Unobtainable due to mental status/LOC Patient History Medical History Allergies (~1974) Blood glucose elevated Chicken pox (~1949) Chronic back pain (~2014) Decreased GFR Dementia (~2014) Depression (~2014) Diverticulitis Frequent headaches Headache (~2014) Hearing loss History of musculoskeletal disorder (~2014) Mixed hyperlipidemia Mumps (~1949) Pain Right knee pain TBI (traumatic brain injury) Tinnitus (~2014) Surgical History Anesthesia History of hand surgery (~1998) History of removal of skin mole (~2016) Hx of laparoscopic gastric banding (~2002) Social History household members: significant other Smoking Status: Never smoker alcohol intake: never Smoking Status: Never smoker Substance Use Type: does not use Exam Narrative Exam Narrative: GENERAL: [69] year old patient appears stated age. Well-nourished, well-developed patient, in mild distress. Pleasantly confused HEAD: Atraumatic. Normocephalic. EYES: Pupils equal round and reactive. Extraocular motions intact. No scleral icterus. No injection or drainage. ENT: Nose without bleeding, purulent drainage. Throat without erythema, tonsillar hypertrophy or exudate. Airway patent. NECK: Trachea midline. Non tender CARDIOVASCULAR: Regular rate and rhythm without murmurs, gallops, or rubs. RESPIRATORY: Clear to auscultation. Breath sounds equal bilaterally. No wheezes, rales, or rhonchi. GASTROINTESTINAL: Abdomen soft, non-tender, nondistended. Decreased bowel sounds in all 4 quadrants EXTREMITIES: No edema or joint tenderness. BACK: Nontender without deformity or crepitance. No flank tenderness. NEURO: Alert, confused about date and location (this is baseline per significant other at bedside) SKIN: No rash or erythema of visible areas Initial Vital Signs Initial Vital Signs: Vital Signs Temperature 97.6 F 07/12/20 21:00 Pulse Rate 75 07/12/20 21:00 Respiratory Rate 16 07/12/20 21:00 Blood Pressure 88/52 L 07/12/20 21:00 Pulse Oximetry 100 07/12/20 21:00 Course Course Course Narrative: Patient has had 2 very large bowel movements at the bedside. Orders Ordered: ED Orders 07/12/20 20:43 GI Panel (Film Array) Stat 07/12/20 21:03 EKG-12 Lead Stat 07/12/20 21:20 Complete Blood Count AUTO DIFF Stat Comprehensive Metabolic Panel Stat Lipase Stat Partial Thromboplastin Time Stat Prothrombin Time INR Stat 07/12/20 21:48 CT abdomen pelvis w con Stat Discontinued Medications Sodium Chloride (Normal Saline 0.9%) 500 mls @ 1,000 mls/hr IV BOLUS ONE Stop: 07/12/20 22:16 Last Infusion: 07/12/20 22:34 Dose: 0 mls/hr Documented by: Admin: 07/12/20 21:52 Dose: 1,000 mls/hr Documented by: VICENTE Reevaluation(s) Reevaluation #1: at time of discharge she has a soft, nontender belly with bowel sounds present in all 4 quadrants Vital Signs Vital signs: Vital Signs - 8 hr 07/12/20 21:00 07/12/20 22:21 07/12/20 22:22 Temperature 97.6 F Pulse Rate 75 98 H 93 H Respiratory Rate 16 Blood Pressure 88/52 L 143/63 H Pulse Oximetry 100 98 99 07/12/20 22:30 07/12/20 22:45 07/12/20 23:00 Temperature Pulse Rate 89 88 Respiratory Rate Blood Pressure 128/62 131/56 L 128/62 Pulse Oximetry 99 99 99 07/12/20 23:15 Temperature Pulse Rate 87 Respiratory Rate Blood Pressure 134/55 L Pulse Oximetry 98 MDM - Abdominal Pain Lab Data Result diagrams: 07/12/20 21:20 07/12/20 21:20 Labs: Lab Results 07/12/20 07/12/20 07/12/20 Range/Units 20:43 21:20 21:20 WBC 12.0 H (4.5-11.0) X10^3/uL RBC 4.64 (4.0-5.2) X10^6/uL Hgb 12.1 (12.0-16.0) g/dL Hct 37.9 (36-46) % MCV 81.7 (80-100) fL MCH 26.2 (26-34) PG MCHC 32.0 (30-36) % RDW 14.2 (11.6-14.8) % Plt Count 308 (150-400) X10^3/uL Neut % (Auto) 89.6 H (50-75) % Lymph % (Auto) 4.7 L (25-40) % Roberts % (Auto) 5.4 (3-14) % Eos % (Auto) 0.1 L (2-4) % Baso % (Auto) 0.2 (0-2) % Neut # (Auto) 68884 H (8305-4663) /uL Lymph # (Auto) 600 L (4532-9453) /uL Roberts # (Auto) 600 (0-900) /uL Eos # (Auto) 0 (0-450) /uL Baso # (Auto) 0 (0-100) /uL PT 12.0 (10.1-12.7) SECONDS INR 1.0 (0.9-1.3) APTT 26 L (26.4-36.2) SECONDS Sodium (137-145) mmol/L Potassium (3.4-5.1) mmol/L Chloride (98-107) mmol/L Carbon Dioxide (22-32) mmol/L BUN (7-17) mg/dL Creatinine (0.52-1.04) mg/dL Estimated GFR (>60) mL/min BUN/Creatinine Ratio (6-22) Glucose (80-110) mg/dL Calcium (8.4-10.2) mg/dL Total Bilirubin (0.2-1.3) mg/dL AST (14-36) IU/L ALT (<35) IU/L Alkaline Phosphatase (38-126) U/L Total Protein (6.3-8.2) g/dL Albumin (3.5-5.0) g/dL Globulin (1.7-4.1) g/dL Albumin/Globulin Ratio (1.0-2.8) Lipase (23-300) U/L Stl C. cayetanensis PCR Not detected (Not Detect) Stool Rotavirus (PCR) Not detected (Not Detect) Stool Adenovirus (PCR) Not detected (Not Detect) Stool Astrovirus (PCR) Not detected (Not Detect) Stool Cryptosporidium PCR Not detected (Not Detect) Stl E.coli Shiga Tox PCR Not detected (Not Detect) St Sh/Enteroin Ecoli PCR Not detected (Not Detect) Stool E coli O157 PCR Not detected (Not Detect) Stl Enterotoxigenic E PCR Not detected (Not Detect) Stool EPEC (PCR) Not detected (Not Detect) Stl E. histolytica PCR Not detected (Not Detect) Stool Giardia Lamblia PCR Not detected (Not Detect) Stool Sapovirus (PCR) Not detected (Not Detect) Stl P. shigelloides PCR Not detected (Not Detect) St Y.enterocolitica PCR Not detected (Not Detect) Stool Vibrio (PCR) Not detected (Not Detect) Stl Vibrio cholerae PCR Not detected (Not Detect) Stl Enteroaggr Ecoli PCR Not detected (Not Detect) Stl Norovirus GI/GII PCR Not detected (Not Detect) Campylobacter (PCR) Not detected (Not Detect) C. difficile Tox (PCR) Not detected (Not Detect) Salmonella (PCR) Not detected (Not Detect) 11/30/20 Range/Units 21:20 WBC (4.5-11.0) X10^3/uL RBC (4.0-5.2) X10^6/uL Hgb (12.0-16.0) g/dL Hct (36-46) % MCV (80-100) fL MCH (26-34) PG MCHC (30-36) % RDW (11.6-14.8) % Plt Count (150-400) X10^3/uL Neut % (Auto) (50-75) % Lymph % (Auto) (25-40) % Roberts % (Auto) (3-14) % Eos % (Auto) (2-4) % Baso % (Auto) (0-2) % Neut # (Auto) (5767-4919) /uL Lymph # (Auto) (9760-3860) /uL Roberts # (Auto) (0-900) /uL Eos # (Auto) (0-450) /uL Baso # (Auto) (0-100) /uL PT (10.1-12.7) SECONDS INR (0.9-1.3) APTT (26.4-36.2) SECONDS Sodium 138 (137-145) mmol/L Potassium 3.8 (3.4-5.1) mmol/L Chloride 105 (98-107) mmol/L Carbon Dioxide 25 (22-32) mmol/L BUN 18 H (7-17) mg/dL Creatinine 1.00 (0.52-1.04) mg/dL Estimated GFR 54.7 L (>60) mL/min BUN/Creatinine Ratio 18.0 (6-22) Glucose 148 H (80-110) mg/dL Calcium 9.0 (8.4-10.2) mg/dL Total Bilirubin 0.5 (0.2-1.3) mg/dL AST 24 (14-36) IU/L ALT 11 (<35) IU/L Alkaline Phosphatase 98 (38-126) U/L Total Protein 8.0 (6.3-8.2) g/dL Albumin 4.1 (3.5-5.0) g/dL Globulin 3.9 (1.7-4.1) g/dL Albumin/Globulin Ratio 1.1 (1.0-2.8) Lipase 49 (23-300) U/L Stl C. cayetanensis PCR (Not Detect) Stool Rotavirus (PCR) (Not Detect) Stool Adenovirus (PCR) (Not Detect) Stool Astrovirus (PCR) (Not Detect) Stool Cryptosporidium PCR (Not Detect) Stl E.coli Shiga Tox PCR (Not Detect) St Sh/Enteroin Ecoli PCR (Not Detect) Stool E coli O157 PCR (Not Detect) Stl Enterotoxigenic E PCR (Not Detect) Stool EPEC (PCR) (Not Detect) Stl E. histolytica PCR (Not Detect) Stool Giardia Lamblia PCR (Not Detect) Stool Sapovirus (PCR) (Not Detect) Stl P. shigelloides PCR (Not Detect) St Y.enterocolitica PCR (Not Detect) Stool Vibrio (PCR) (Not Detect) Stl Vibrio cholerae PCR (Not Detect) Stl Enteroaggr Ecoli PCR (Not Detect) Stl Norovirus GI/GII PCR (Not Detect) Campylobacter (PCR) (Not Detect) C. difficile Tox (PCR) (Not Detect) Salmonella (PCR) (Not Detect) Imaging Data CT scan - abdomen/pelvis: Radiologist's Impression: No evidence of acute abdominal or pelvic process MDM Narrative Medical decision making narrative: Multiple etiologies for patient's symptoms considered including: [bowel obstruction vs. gastric surgery problem vs. diverticulitis vs. other] Patient's symptoms improved over duration of stay with above-stated therapies. Findings and discharge diagnosis discussed with patient/family followed by verbalization of understanding Return precautions discussed with patient/family whom verbalize understanding. Discharge Plan Departure Patient Disposition: Home Clinical Impression: Abdominal pain Qualifiers: Abdominal location: generalized Qualified Code(s): R10.84 - Generalized abdominal pain Instructions: DI for Abdominal Pain-Adult Activity Restrictions/Additional Instructions: *You have been diagnosed with [ Abdominal pain, likely due to constipation. Labs and CT scan are very reassuring and don't show any significant abnormalities ] *What to do: *Take medications as directed *Follow up with your primary care provider in 2-3 days, call for an appointment. Let them know you were seen in the Emergency Department and that we ask that you be seen in follow up *Return to ER if you should have any new, worsening or concerning symptoms *You have been diagnosed with [ abdominal pain due to constipation ] *What to do: *Take over the counter medications as directed: 1. Metamucil - bulk forming laxative adds fiber 2. Colace - softens your stool 3. Dulcolax Suppository - stimulates your bowels from the bottom Prescriptions: No Action naproxen 500 mg tablet 500 mg PO BID Qty: 60 RF: 0 diclofenac sodium 1 % gel 2 gram TOP QID Qty: 100 RF: 0 Referrals: Tasneem Romero ARNP [Primary Care Provider] -
[2020-07-12 21:27] LABS: Add Manual Diff / Slide Review NO; Basophils Absolute Auto 0 /uL (0-100); Basophils Percent Auto 0.2 % (0-2); Eosinophils Absolute Auto 0 /uL (0-450); Eosinophils Percent Auto 0.1 % (2-4); Hematocrit 37.9 % (36-46); Hemoglobin 12.1 g/dL (12.0-16.0); Lymphocytes Absolute Auto 600 /uL (1100-4500); Lymphocytes Percent Auto 4.7 % (25-40); Mean Corpuscular Hemoglobin 26.2 PG (26-34); Mean Corpuscular Volume 81.7 fL (80-100); Monocytes Absolute Auto 600 /uL (0-900); Monocytes Percent Auto 5.4 % (3-14); Neutrophils Absolute Auto 10800 /uL (1500-7000); Neutrophils Percent Auto 89.6 % (50-75); Platelet Count 308 X10^3/uL (150-400); Red Blood Cell Count 4.64 X10^6/uL (4.0-5.2); Red Cell Distribution Width 14.2 % (11.6-14.8)
[2020-07-12 21:41] LABS: PTT Partial Thromboplastin Tim 26 SECONDS (26.4-36.2)
[2020-07-12 21:43] LABS: Alanine Aminotransferase 11 IU/L (<35); Albumin 4.1 g/dL (3.5-5.0); Albumin Globulin Ratio 1.1 (1.0-2.8); Alkaline Phosphatase 98 U/L (38-126); Aspartate Aminotransferase 24 IU/L (14-36); Bilirubin Total 0.5 mg/dL (0.2-1.3); Blood Urea Nitrogen 18 mg/dL (7-17); Carbon Dioxide 25 mmol/L (22-32); Chloride 105 mmol/L (98-107); Estimated Glomerular Filt Rate 54.7 mL/min (>60); Globulin 3.9 g/dL (1.7-4.1); Glucose 148 mg/dL (80-110); HEMOLYSIS 16 (0-50); Lipase 49 U/L (23-300); Potassium 3.8 mmol/L (3.4-5.1); Sodium 138 mmol/L (137-145)
--- NOTE | 2020-07-12 21:48 | DI.CT.S_ITS ---
PROCEDURE: CT ABDOMEN PELVIS W CON INDICATIONS: severe abdominal pain, history of gastric sleeve TECHNIQUE: After the administration of intravenous contrast, 5 mm thick sections acquired from the diaphragm to the symphysis. 5 mm coronal and sagittal reformats were acquired. For radiation dose reduction, the following was used: automated exposure control, adjustment of mA and/or kV according to patient size. COMPARISON: None. FINDINGS: Image quality: Excellent. ABDOMEN: Lung bases: Lung bases are clear. Heart size is normal. Solid organs: Liver is normal in size and enhancement. Gallbladder is unremarkable. Biliary system is non dilated. Pancreas enhances normally. Spleen is normal in size and enhancement. No adrenal nodules. Kidneys demonstrate normal size and enhancement, without hydronephrosis. Peritoneum and bowel: Gastric lap band. The bowel has fluid contents. There is mild colonic wall thickening extending from the proximal transverse colon through the rectum. There is a relatively large amount of fecal debris present in the rectum. No free fluid or air. Nodes and vessels: No retroperitoneal or mesenteric adenopathy by size criteria. Aorta and inferior vena cava are normal in size. Miscellaneous: No ventral hernias. PELVIS: Genitourinary: Bladder wall thickness is normal. Miscellaneous: No inguinal hernias or adenopathy. 5.9 x 5.7 x 4.4 cm right adnexal dermoid cyst. Bones: No suspicious bony lesions. No vertebral body compression fractures. IMPRESSION: 1. Findings are consistent with acute colitis extending from the proximal transverse colon through the rectum. Consider infectious versus inflammatory colitis. Ischemic colitis less likely. 2. 5.9 cm dermoid. Comment: Findings were discussed with Shoshana Romero NP at the time of study dictation on 07/13/20 at 0942 hours. Dictated by: Marc Aldana M.D. on 07/13/2020 at 8:22 Approved by: Marc Aldana M.D. on 07/13/2020 at 9:43
[2020-07-12] MEDS: SODIUM CHLORIDE 0.9% 500 ML 1000 ML IV (21:52)
[2020-07-12 22:32] LABS: Adenovirus F 40/41 Not Detected (Not Detect); Astrovirus Not Detected (Not Detect); Campylobacter Not Detected (Not Detect); Clostridium difficile toxin AB Not Detected (Not Detect); Cryptosporidium Not Detected (Not Detect); Cyclospora cayetanensis Not Detected (Not Detect); Entamoeba histolytica Not Detected (Not Detect); Enteroaggregative E.coli Not Detected (Not Detect); Enteropathogenic E.coli Not Detected (Not Detect); Enterotoxigenic E.coli It/st Not Detected (Not Detect); Giardia lamblia Not Detected (Not Detect); Norovirus GI/GII Not Detected (Not Detect); Plesiomonsa shigelloides Not Detected (Not Detect); Rotavirus A Not Detected (Not Detect); Salmonella Not Detected (Not Detect); Sapovirus Not Detected (Not Detect); Shiga-like toxin-prod E.coli Not Detected (Not Detect); Shigella/Enteroinvasive E.coli Not Detected (Not Detect); Vibrio Not Detected (Not Detect); Vibrio cholerae Not Detected (Not Detect); Yersinia enterocolitica Not Detected (Not Detect)
== END 2020-07-12 23:34 | disposition home or self-care (01) ==
PROVIDERS: Emergency Provider Emergency Medicine; Family Provider Family Medicine; PCP Nurse Practitioner Family
DX: R10.84 Generalized abdominal pain (principal); R41.0 Disorientation, unspecified
CPT/HCPCS: 36415; 74177; 80053; 83690; 85025; 85610; 85730; 87507; 93005; 93010; 96360; 99284; Q9967

== ENCOUNTER → 2020-07-23 15:16 | Outpatient (CLI) | payer MEDICARE, OTHER, SELFPAY ==
[2019-07-16 16:33] VITALS: BMI 24.9
--- NOTE | 2020-07-23 15:18 | DI.US.S_ITS ---
PROCEDURE: US PELVIC COMPLETE INDICATIONS: RIGHT ADNEXAL DERMOID CYST SEEN ON CATSCAN TECHNIQUE: Real-time scanning was performed of the pelvic organs, with image documentation. Additional endovaginal scanning was necessary due to incomplete visualization of the adnexal and endometrial structures by transabdominal scanning. COMPARISON: [facility], CT, CT ABDOMEN PELVIS W CON, 07/12/2020, 22:10. FINDINGS: Transabdominal scanning: Limited scanning through the kidneys shows no hydronephrosis. No pathologic free abdominal or pelvic fluid. Endovaginal scanning: Uterus: Uterus is normal in size at 4.9 x 2.5 x 3.1 cm. The endometrium measures 3.0 mm in combined thickness. Mild microcystic changes of the endometrial complex. Myometrial calcifications noted. Ovaries: Right ovary is not visualized. Heterogeneous, solid mass visualized within the right adnexa as was seen on prior CT scan measuring 6.5 x 4.8 x 6.8 cm. Left ovarian simple cyst measuring 1.6 x 1.3 x 1.3 cm. IMPRESSION: 1. Heterogeneous complex right adnexal mass as was seen on prior CT scan with sonographic appearance highly suggestive of ovarian dermoid. 2. Normal endometrial complex thickness with mild microcystic changes. Follow-up ultrasound in 6 weeks is recommended to assess for interval changes/resolution. 3. Simple 16 mm left ovarian cyst. Dictated by: Teodoro GARCIA Interpreted: Concepcion Max MD on 07/23/2020 at 16:57 Approved by: Concepcion Max M.D. on 07/23/2020 at 17:59
== END ==
PROVIDERS: Family Provider Family Medicine; PCP Nurse Practitioner Family; Referring Provider Obstetrics & Gynecology; Visit Provider Obstetrics & Gynecology
DX: R93.5 Abnormal findings on diagnostic imaging of other abdominal regions, including retroperitoneum (principal); N94.9 Unspecified condition associated with female genital organs and menstrual cycle; D27.0 Benign neoplasm of right ovary; N83.292 Other ovarian cyst, left side
CPT/HCPCS: 76830; 76856

== ENCOUNTER → 2020-07-28 17:06 | Outpatient (CLI) | payer MEDICARE, OTHER, SELFPAY ==
[2019-07-16 16:33] VITALS: BMI 24.9
[2020-07-28 17:42] LABS: Hematocrit 37.4 % (36-46); Mean Corpuscular HGB Conc 32.1 % (30-36); Mean Corpuscular Hemoglobin 26.7 PG (26-34); Mean Corpuscular Volume 83.2 fL (80-100); Platelet Count 328 X10^3/uL (150-400); Red Cell Distribution Width 14.3 % (11.6-14.8); White Blood Cell Count 8.7 X10^3/uL (4.5-11.0)
[2020-07-28 17:59] LABS: Hemoglobin A1C% w Est Avg Glu 5.7 % (4.0-6.0)
[2020-07-28 18:11] LABS: Alanine Aminotransferase 12 IU/L (<35); Albumin 4.1 g/dL (3.5-5.0); Albumin Globulin Ratio 1.1 (1.0-2.8); Alkaline Phosphatase 94 U/L (38-126); Aspartate Aminotransferase 25 IU/L (14-36); BUN Creatinine Ratio 12.2 (6-22); Bilirubin Total 0.4 mg/dL (0.2-1.3); Blood Urea Nitrogen 11 mg/dL (7-17); Calcium 9.1 mg/dL (8.4-10.2); Carbon Dioxide 29 mmol/L (22-32); Chloride 103 mmol/L (98-107); Cholesterol 232 mg/dL (140-199); Estimated Glomerular Filt Rate > 60.0 mL/min (>60); Globulin 3.6 g/dL (1.7-4.1); Glucose 112 mg/dL (80-110); HDL Cholesterol 57 mg/dL (40-60); HEMOLYSIS < 15 (0-50); LDL Cholesterol Calculated 137 mg/dL (<100); Potassium 4.2 mmol/L (3.4-5.1); Sodium 138 mmol/L (137-145); Total Protein 7.7 g/dL (6.3-8.2); Triglycerides 192 mg/dL (35-150)
[2020-07-28 18:33] LABS: Carcinoembryonic Antigen 0.9 ng/mL (0.1-3.0)
[2020-07-29 07:14] LABS: Cancer (Carbohydrate) Ag 19-9 < 2 U/mL (0-35)
[2020-07-30 12:03] LABS: Human Epididymis Prot 4 80.5 pmol/L (0.0-96.9)
== END ==
PROVIDERS: Family Provider Family Medicine; PCP Nurse Practitioner Family; Referring Provider Obstetrics & Gynecology; Visit Provider Obstetrics & Gynecology
DX: E78.2 Mixed hyperlipidemia (principal); R73.9 Hyperglycemia, unspecified; N94.9 Unspecified condition associated with female genital organs and menstrual cycle; D64.9 Anemia, unspecified; R94.4 Abnormal results of kidney function studies
CPT/HCPCS: 36415; 80053; 80061; 82378; 83036; 85027; 86301; 86304; 86305

== ENCOUNTER → 2020-09-15 15:46 | Outpatient (CLI) | payer MEDICARE, OTHER, SELFPAY ==
[2019-07-16 16:33] VITALS: BMI 24.9
--- NOTE | 2020-09-15 15:48 | DI.US.S_ITS ---
PROCEDURE: US PELVIC COMPLETE INDICATIONS: F/U adnexal mass, cysts TECHNIQUE: Real-time scanning was performed of the pelvic organs, with image documentation. Additional endovaginal scanning was necessary due to incomplete visualization of the adnexal and endometrial structures by transabdominal scanning. COMPARISON: [facility], , US PELVIC COMPLETE, 07/23/2020, 15:54. FINDINGS: Uterus: Uterus is normal in size at 5.8 x 2.2 x 3.5 cm. The endometrium measures 2 mm in combined thickness. No discrete uterine fibroid is seen. No gross endometrial mass or fluid. Ovaries: Compared to previous study, previously described heterogeneously hypoechoic and solid appearing mass within right adnexa is again seen now measures 6.2 x 4.5 x 6.4 cm in size. This was previously measured at 6.5 x 4.8 x 6.8 centimeters in size. Left ovary measures 2.8 x 1.2 x 2.1 cm in size. A 1.6 x 1.3 x 1.6 centimeter simple cyst is seen in left ovary unchanged from previous study. Other: No pathologic free abdominal or pelvic fluid. IMPRESSION: 1. Interval slight decrease in size of patient's known complex right adnexal mass as above with sonographic features suggestive of ovarian dermoid. 2. Patient's known left ovarian cyst is unchanged in size and appearance. 3. No endometrial mass or fluid is seen on the current study. No discrete uterine fibroid. Dictated by: Mason Paula M.D. on 09/15/2020 at 17:34 Approved by: Mason Paula M.D. on 09/15/2020 at 17:41
== END ==
PROVIDERS: Family Provider Family Medicine; PCP Nurse Practitioner Family; Referring Provider Obstetrics & Gynecology; Visit Provider Obstetrics & Gynecology
DX: N83.292 Other ovarian cyst, left side (principal); N94.89 Other specified conditions associated with female genital organs and menstrual cycle; R93.89 Abnormal findings on diagnostic imaging of other specified body structures
CPT/HCPCS: 76856

== ENCOUNTER → 2020-11-23 07:56 | Outpatient (CLI) | payer MEDICARE, OTHER, SELFPAY ==
[2019-07-16 16:33] VITALS: BMI 24.9
[2020-11-23] MEDS: COVID-19 VACC #1, MRNA(MOD) 100 MCG/0.5 ML VIAL IM (08:10)
== END ==
PROVIDERS: Family Provider Family Medicine; PCP Nurse Practitioner Family; Visit Provider Internal Medicine
DX: Z23 Encounter for immunization (principal)
CPT/HCPCS: 0011A; 91301

== ENCOUNTER → 2020-12-22 12:53 | Outpatient (CLI) | payer MEDICARE, OTHER, SELFPAY ==
[2019-07-16 16:33] VITALS: BMI 24.9
[2020-12-22] MEDS: COVID-19 VACC #2, MRNA(MOD) 100 MCG/0.5 ML VIAL IM (12:55)
== END ==
PROVIDERS: Family Provider Family Medicine; PCP Nurse Practitioner Family; Visit Provider Internal Medicine
DX: Z23 Encounter for immunization (principal)
CPT/HCPCS: 0012A; 91301

== ENCOUNTER → 2021-03-14 15:51 | Outpatient (CLI) | payer MEDICARE, OTHER, SELFPAY ==
[2019-07-16 16:33] VITALS: BMI 24.9
--- NOTE | 2021-03-14 15:53 | DI.US.S_ITS ---
PROCEDURE: US PELVIC COMPLETE INDICATIONS: 6 MO FOLLOW UP. TECHNIQUE: Real-time scanning was performed of the pelvic organs, with image documentation. Additional endovaginal scanning was necessary due to incomplete visualization of the adnexal and endometrial structures by transabdominal scanning. COMPARISON: [facility], CT, CT ABDOMEN PELVIS W CON, 07/12/2020, 22:10. [facility], US, US PELVIC COMPLETE, 09/15/2020, 16:11. FINDINGS: Uterus: Uterus is normal in size at 5.7 x 1.9 x 2.8 cm. The endometrium measures 2.8 mm in combined thickness. Microcystic changes of the endometrial complex. Ovaries: Complex right ovarian mass with characteristics suspicious for ovarian dermoid similar to prior examination measuring 6.4 x 4.9 x 6.1 cm compared to 6.1 x 4.5 x 6.4 cm on prior examination. Left ovarian cyst also is present measuring up to 1.6 cm. Other: No pathologic free abdominal or pelvic fluid. IMPRESSION: 1. Probable right ovarian dermoid not significant changed from prior examination. If indicated, pre and post-contrast gynecologic protocol MRI could be performed for further assessment. 2. Simple left ovarian cyst. 3. Microcystic changes of the endometrial complex which is otherwise normal in thickness at 2.8 mm. Recommend clinical correlation and follow-up. Dictated by: Teodoro GARCIA Interpreted: Sahil Jc MD on 03/14/2021 at 16:50 Transcribed by: CORINNA on 03/14/2021 at 16:52 Approved by: Sahil Jc M.D. on 03/14/2021 at 17:22
== END ==
PROVIDERS: Family Provider Family Medicine; PCP Nurse Practitioner Family; Referring Provider Obstetrics & Gynecology; Visit Provider Obstetrics & Gynecology
DX: Z09 Encounter for follow-up examination after completed treatment for conditions other than malignant neoplasm (principal); N83.292 Other ovarian cyst, left side; N94.9 Unspecified condition associated with female genital organs and menstrual cycle
CPT/HCPCS: 76830; 76856

== ENCOUNTER 2021-04-04 11:14 | Emergency (ER) | payer MEDICARE, OTHER, SELFPAY ==
[2019-07-16 16:33] VITALS: BMI 24.9
[2021-04-04 11:36] VITALS: BP 119/59; PULSE 68; RESP 18; TEMP 36.9; O2SAT 97
--- NOTE | 2021-04-04 11:59 | DI.CT.S_ITS ---
PROCEDURE: CT HEAD/BRAIN WO CON INDICATIONS: Fall TECHNIQUE: Noncontrast 4.5 mm thick angled axial sections acquired from the foramen magnum to the vertex, with coronal and sagittal reformats. For radiation dose reduction, the following was used: automated exposure control, adjustment of mA and/or kV according to patient size. COMPARISON: [facility], MR, BRAIN W&WO CONTRAST, 04/20/2015, 18:03. FINDINGS: Image quality: Excellent. CSF spaces: Basal cisterns are patent. No extra-axial fluid collections. The ventricles are symmetric in size and shape. Brain: No intracranial bleeds or masses. There is cerebral volume loss for age, with resultant ventricular and sulcal prominence. There are periventricular and deep white matter chronic small vessel ischemic changes. There is intracranial internal carotid artery atherosclerosis. Skull and face: Calvarium and visualized facial bones appear intact, without suspicious lesions. Sinuses: Visualized sinuses and mastoids are clear. IMPRESSION: No acute intracranial hemorrhage is seen. No acute intracranial process is seen. Note is made of age-appropriate brain parenchymal volume loss and chronic small vessel ischemic changes. Dictated by: Don Covington M.D. on 04/04/2021 at 11:08 Approved by: Don Covington M.D. on 04/04/2021 at 11:10
[2021-04-04 12:30] LABS: Add Manual Diff / Slide Review NO; Basophils Absolute Auto 100 /uL (0-100); Basophils Percent Auto 0.9 % (0-2); Eosinophils Absolute Auto 100 /uL (0-450); Eosinophils Percent Auto 0.9 % (2-4); Hematocrit 36.6 % (36-46); Hemoglobin 11.8 g/dL (12.0-16.0); Lymphocytes Absolute Auto 1700 /uL (1100-4500); Lymphocytes Percent Auto 18.9 % (25-40); Mean Corpuscular HGB Conc 32.3 % (30-36); Mean Corpuscular Hemoglobin 26.4 PG (26-34); Mean Corpuscular Volume 81.6 fL (80-100); Monocytes Absolute Auto 900 /uL (0-900); Neutrophils Absolute Auto 6300 /uL (1500-7000); Neutrophils Percent Auto 69.3 % (50-75); Platelet Count 282 X10^3/uL (150-400); Red Blood Cell Count 4.49 X10^6/uL (4.0-5.2); Red Cell Distribution Width 13.9 % (11.6-14.8); White Blood Cell Count 9.1 X10^3/uL (4.5-11.0)
[2021-04-04 12:38] LABS: Alanine Aminotransferase 10 IU/L (<35); Albumin Globulin Ratio 1.2 (1.0-2.8); Alkaline Phosphatase 85 U/L (38-126); Aspartate Aminotransferase 24 IU/L (14-36); BUN Creatinine Ratio 11.1 (6-22); Bilirubin Total 0.8 mg/dL (0.2-1.3); Blood Urea Nitrogen 10 mg/dL (7-17); Calcium 9.1 mg/dL (8.4-10.2); Carbon Dioxide 26 mmol/L (22-32); Chloride 106 mmol/L (98-107); Estimated Glomerular Filt Rate > 60.0 mL/min (>60); Globulin 3.4 g/dL (1.7-4.1); Glucose 104 mg/dL (80-110); HEMOLYSIS < 15 (0-50); Lipase 25 U/L (23-300); Potassium 3.9 mmol/L (3.4-5.1); Sodium 138 mmol/L (137-145); Total Protein 7.4 g/dL (6.3-8.2)
--- NOTE | 2021-04-04 12:42 | DI.RAD.S_ITS ---
PROCEDURE: XR TIBIA FUBULA RT 2V INDICATIONS: Fall, knee pain TECHNIQUE: 2 views of the tibia and fibula were acquired. COMPARISON: [facility], CR, XR ANKLE RT 2V, 04/04/2021, 12:44. [facility], CR, XR FEMUR RT MIN 2V, 04/04/2021, 12:44. [facility], CR, XR KNEE RT 1TO2V, 04/04/2021, 12:44. FINDINGS: Bones: No fractures or dislocations. No suspicious bony lesions. Degenerative joint disease in right knee. Calcaneal spurring. Soft tissues: No suspicious soft tissue calcifications or masses. IMPRESSION: No fracture or dislocation. Dictated by: Jun Wade M.D. on 04/04/2021 at 13:38 Approved by: Jun Wade M.D. on 04/04/2021 at 13:39
--- NOTE | 2021-04-04 12:42 | DI.RAD.S_ITS ---
PROCEDURE: XR KNEE RT 1TO2V INDICATIONS: Fall , knee pain TECHNIQUE: 2 views of the knee were acquired. COMPARISON: [facility], , XR KNEE RT 3V, 01/23/2020, 16:44. FINDINGS: Bones: No fractures or dislocations. No suspicious bony lesions. Degenerative joint disease, severe at the patellofemoral joint and moderate at the medial femorotibial joint. Soft tissues: Small joint effusion. No suspicious soft tissue calcifications. IMPRESSION: 1. No acute osseous abnormalities. 2. Degenerative joint disease. 3. Small knee joint effusion. Dictated by: Jun Wade M.D. on 04/04/2021 at 13:36 Approved by: Jun Wade M.D. on 04/04/2021 at 13:37
--- NOTE | 2021-04-04 12:42 | DI.RAD.S_ITS ---
PROCEDURE: XR CHEST 1V INDICATIONS: ?Syncope TECHNIQUE: One view of the chest was acquired. COMPARISON: [facility], CT, CT ABDOMEN PELVIS W CON, 04/04/2021, 12:48. [facility], CR, CHEST 1VW (PORTABLE), 02/09/2015, 9:28. FINDINGS: Surgical changes and devices: None. Lungs and pleura: Lungs are clear. No pleural effusions or pneumothorax. Mediastinum: The cardiac contours are within normal limits. The aorta demonstrates calcification and tortuosity. Bones and chest wall: No suspicious bony lesions. Age-appropriate bony degenerative changes are seen. Mild levoconvex scoliotic curvature is noted. Overlying soft tissues appear unremarkable. IMPRESSION: No acute portable chest abnormality can be seen. Dictated by: Don Covington M.D. on 04/04/2021 at 12:17 Approved by: Don Covington M.D. on 04/04/2021 at 12:18
--- NOTE | 2021-04-04 12:42 | DI.RAD.S_ITS ---
PROCEDURE: XR FEMUR RT MIN 2V INDICATIONS: WENT DOWN SLOW ON SUNDAY TECHNIQUE: 2 views of the femur were acquired. COMPARISON: [facility], CR, XR KNEE RT 3V, 01/23/2020, 16:44. [facility], CT, CT ABDOMEN PELVIS W CON, 04/04/2021, 12:48. [facility], CR, XR FOOT RT 2V, 04/04/2021, 12:44. [facility], CR, XR KNEE RT 1TO2V, 04/04/2021, 12:44. [facility], CR, XR ANKLE RT 2V, 04/04/2021, 12:44. [facility], CR, XR TIBIA FIBULA RT 2V, 04/04/2021, 12:44. [facility], CR, XR TIBIA FIBULA LT 2V, 04/04/2021, 12:44. [facility], CR, XR CHEST 1V, 04/04/2021, 12:44. [facility], CT, CT HEAD/BRAIN WO CON, 04/04/2021, 12:00. FINDINGS: Bones: No fractures or dislocations. No suspicious bony lesions. (The distal femur is not included within the field of view of this study, yet it is included on the accompanying knee plain films. Age-appropriate bony degenerative changes are seen. Soft tissues: No suspicious soft tissue calcifications or masses. IMPRESSION: Unremarkable femur plain films. Dictated by: Don Covington M.D. on 04/04/2021 at 12:21 Approved by: Don Covington M.D. on 04/04/2021 at 12:21
--- NOTE | 2021-04-04 12:42 | DI.RAD.S_ITS ---
PROCEDURE: XR ANKLE RT 2V INDICATIONS: Fall TECHNIQUE: 2 views of the ankle were acquired. COMPARISON: [facility], CT, CT ABDOMEN PELVIS W CON, 04/04/2021, 12:48. [facility], CR, XR FOOT RT 2V, 04/04/2021, 12:44. [facility], CR, XR KNEE RT 1TO2V, 04/04/2021, 12:44. [facility], CR, XR FEMUR RT MIN 2V, 04/04/2021, 12:44. [facility], CR, XR TIBIA FIBULA RT 2V, 04/04/2021, 12:44. [facility], CR, XR TIBIA FIBULA LT 2V, 04/04/2021, 12:44. [facility], CR, XR CHEST 1V, 04/04/2021, 12:44. FINDINGS: Bones: No acute fractures or dislocations. There is a remote, chronic unhealed rounded fracture fragment seen distal to the medial malleolus measuring 2 mm. Ankle mortise is normally aligned. No suspicious bony lesions. The talar dome demonstrates no franklyn abnormality. Age-appropriate bony degenerative changes are seen. A plantar calcaneal spur is seen. Soft tissues: No tibiotalar joint effusion. Achilles tendon appears normal. IMPRESSION: No acute fractures are seen by plain film. Remote medial malleolar avulsion fracture fragment seen. Dictated by: Don Covington M.D. on 04/04/2021 at 12:18 Approved by: Don Covington M.D. on 04/04/2021 at 12:20
--- NOTE | 2021-04-04 12:42 | DI.RAD.S_ITS ---
PROCEDURE: XR TIBIA FIBULA LT 2V INDICATIONS: Fall, knee pain TECHNIQUE: 2 views of the tibia and fibula were acquired. COMPARISON: [facility], CT, CT ABDOMEN PELVIS W CON, 04/04/2021, 12:48. [facility], CR, XR ANKLE RT 2V, 04/04/2021, 12:44. [facility], CR, XR KNEE RT 1TO2V, 04/04/2021, 12:44. [facility], CR, XR FEMUR RT MIN 2V, 04/04/2021, 12:44. [facility], CR, XR TIBIA FIBULA RT 2V, 04/04/2021, 12:44. [facility], CR, XR CHEST 1V, 04/04/2021, 12:44. [facility], CR, XR FOOT RT 2V, 04/04/2021, 12:44. [facility], CT, CT HEAD/BRAIN WO CON, 04/04/2021, 12:00. FINDINGS: Bones: No fractures or dislocations. No suspicious bony lesions. Age-appropriate bony degenerative changes are seen. Soft tissues: No suspicious soft tissue calcifications or masses. IMPRESSION: No displaced fractures can be seen on these plain films. Dictated by: Don Covington M.D. on 04/04/2021 at 12:22 Approved by: Don Covington M.D. on 04/04/2021 at 12:22
--- NOTE | 2021-04-04 12:45 | DI.CT.S_ITS ---
PROCEDURE: CT ABDOMEN PELVIS W CON INDICATIONS: Abdominal pain. The patient fell yesterday. TECHNIQUE: After the administration of intravenous contrast, axial sections acquired from the lung bases to the pubic symphysis. Coronal and sagittal reformats were performed. For radiation dose reduction, the following was used: automated exposure control, adjustment of mA and/or kV according to patient size. COMPARISON: [facility], CT, CT ABDOMEN PELVIS W CON, 07/12/2020, 22:10. FINDINGS: Image quality: Excellent. Lung bases: Lung bases a clear. Esophagus is mildly distended. There is concentric thickening of the distal esophagus. Small hiatal hernia. Heart: No significant findings. ABDOMEN: Liver: Liver is normal in size. Mild hepatic steatosis. Gallbladder: Unremarkable. Biliary ducts: Unremarkable. Pancreas: Unremarkable. Spleen: Unremarkable. Adrenal Glands: Unremarkable. Kidneys and Ureters: Kidneys are normal in size. There are cortical scars in kidneys bilaterally, left greater than right. No renal stone or hydronephrosis. Stomach and Bowel: Postsurgical changes related to gastric banding. Small bowel loops and colon are normal in caliber. There is a moderate amount of stool in colon. There are a few colonic diverticula. No CT findings to suggest acute diverticulitis. Appendix is normal. Peritoneum: No abnormal intraperitoneal fluid. No free air. Ventral Wall: No hernias. Abdominal Nodes: No retroperitoneal or mesenteric adenopathy by size criteria. Vessels: Aorta and inferior vena cava are normal in size. Mild atherosclerosis. PELVIS: Pelvic Organs: There is a mass in the right adnexa measuring 4.5 x 5.1 x 6.1 cm, containing both fluid and fat, compatible with an ovarian dermoid. It is unchanged compared to 07/12/2020. Uterus and left ovary are normal. No pathological free-fluid in the cul-de-sac. Bladder: Unremarkable. Pelvic Nodes: No enlarged lymph nodes. Miscellaneous: No hernias are seen. Bones: No fractures. Mild degenerative changes in lumbar spine. IMPRESSION: 1. No acute visceral injuries in abdomen or pelvis. 2. Small hiatal hernia. Mild distension and concentric thickening of the distal esophagus. If clinically indicated, EGD may be obtained for further evaluation. 3. Mild diverticulosis without diverticulitis. 4. A 4.5 x 5.1 x 6.1 cm right ovarian dermoid. 5. Hepatic steatosis. Dictated by: Jun Wade M.D. on 04/04/2021 at 13:09 Approved by: Jun Wade M.D. on 04/04/2021 at 13:35
--- NOTE | 2021-04-04 12:46 | DI.RAD.S_ITS ---
PROCEDURE: XR FOOT RT 2V INDICATIONS: Fall TECHNIQUE: 2 views of the foot were acquired. COMPARISON: [facility], CT, CT ABDOMEN PELVIS W CON, 04/04/2021, 12:48. [facility], CR, XR ANKLE RT 2V, 04/04/2021, 12:44. [facility], CR, XR KNEE RT 1TO2V, 04/04/2021, 12:44. [facility], CR, XR FEMUR RT MIN 2V, 04/04/2021, 12:44. [facility], CR, XR TIBIA FIBULA RT 2V, 04/04/2021, 12:44. [facility], CR, XR TIBIA FIBULA LT 2V, 04/04/2021, 12:44. [facility], CR, XR CHEST 1V, 04/04/2021, 12:44. [facility], CT, CT HEAD/BRAIN WO CON, 04/04/2021, 12:00. FINDINGS: Bones: No fractures or dislocations. No suspicious bony lesions. Toe alignment abnormalities are seen. A plantar calcaneal spur is seen. Soft tissues: No tibiotalar joint effusion. Achilles tendon appears normal. IMPRESSION: No acute fractures are seen. Degenerative changes can be seen. Dictated by: Don Covington M.D. on 04/04/2021 at 12:20 Approved by: Don Covington M.D. on 04/04/2021 at 12:20
[2021-04-04 13:13] VITALS: PULSE 62; RESP 19; O2SAT 100
[2021-04-04 13:14] VITALS: BP 139/64; PULSE 60; RESP 24; O2SAT 100
[2021-04-04] MEDS: ACETAMINOPHEN 325 MG TABLET 975 MG PO (13:14)
[2021-04-04 13:34] LABS: Troponin I < 0.012 ng/mL (0.01-0.034)
[2021-04-04 13:43] LABS: Appearance Urine UA SL CLOUDY; Bilirubin Urine UA NEGATIVE (NEGATIVE); Color Urine UA YELLOW; Glucose Urine UA NEGATIVE (Negative); Ketones Urine UA NEGATIVE (NEGATIVE); Leukocyte Esterase Urine UA 2+ (NEGATIVE); Nitrite Urine UA POSITIVE (Negative); Occult Blood Urine UA 2+ (Negative); Protein Urine UA NEGATIVE (Negative); Specific Gravity Urine UA <=1.005 (1.000-1.035); Urobilinogen Urine UA 0.2 E.U./dL (0.2)
--- NOTE | 2021-04-04 13:51 | PC.NURSE ---
DOUGLAS Barriga in to consult on pt
[2021-04-04 13:52] LABS: Bacteria Urine Many (>30); Culture Indicated Urine Specimen Cultured; RBC Urine 1-5/HPF (0-5/HPF); Squamous Epithelial Cell Urine 1-5 /HPF (0-5/HPF); WBC Urine 10-30/HPF (0-5/HPF)
--- NOTE | 2021-04-04 13:55 | CM.SWNOTE ---
SCREEN MAKING SUPERVISOR Note SCREEN MAKING SUPERVISOR receives consult and enters room to meet with patient and S/O Paul. Patient is 70 y/o female who present to this ED with concern for abdominal pain and recent fall. S/O endorses that patient is typically independent with ambulating and does not have trouble with walking. 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 Patient receives Medicare insurance and S/O endorses patient would not qualify for medicaid. S/O endorses that he cooks for patient but she does not eat food provided to her and he has concern for her nutrition, he endorses he cooks well balanced meals and has even tried providing her with ensure. S/O endorses that patient has memory loss issues, where she lets the dog out, locks doors, and reorganizes things and S/O has difficulty locating them. S/O endorses that he works but he is starting to realize that he doesn't want to leave her alone for long periods of time. It is reported that patient has son and daughter in law in [place] and S/O has contacted son to discuss appropriate higher level of care for patient. SCREEN MAKING SUPERVISOR discusses caregivers and HH. S/O endorses that he knows that caregivers are thousands of dollars a week and he does not want to drain her money. S/O and patient decline HH and believe it will not be helpful, S/O endorses that it is a memory issue for her. S/O endorses that she can take care of herself but sometimes does not wash her hair. SCREEN MAKING SUPERVISOR discusses caregivers as an appropriate option if the goal is for patient to stay at home. SCREEN MAKING SUPERVISOR encourages patient's son coordinate with s/o to identify higher level of care for patient. SCREEN MAKING SUPERVISOR discusses support groups for S/O, he declines. SCREEN MAKING SUPERVISOR provides S/O with senior resource guide. Plan: Patient to d/c to home when medically clear, family to coordinate higher level of care for patient. DOUGLAS Agee
[2021-04-04] MEDS: NITROFURANTOIN ER 100 MG CAPSULE PO (16:03)
[2021-04-04 16:12] VITALS: BP 128/78; PULSE 80; RESP 16; O2SAT 97
--- NOTE | 2021-04-09 10:19 | ED.ABDPAIN ---
HPI - Abdominal Pain <Celine Armenta PA-C - Last Filed: 04/09/21 11:06> General Chief Complaint: Abdominal Pain Stated Complaint: Fell from abd pain- hit head and knee on pavement Time Seen by Provider: 04/04/21 11:50 Source: patient Mode of arrival: Wheelchair Limitations: no limitations History of Present Illness HPI narrative: 70-year-old female with past medical history dementia, depression, headaches, chronic back pain presents to the ED with 2 days of abdominal pain. patient brought in by her partner who states that patient complained of abdominal pain last night while in the car, patient asked to stop at the store to use the bathroom. When patient got out of the car, she doubled over in pain collapsed to the sidewalk. From sitting position, patient fell sideways. Positive head strike with abrasion to right forehead , right knee injury. Patient endorses right-sided knee pain, pain with and ambulation. in the ED, patient denies abdominal pain, endorses right-sided, denies headache. Patient not on blood thinners. Patient denies fever, chills, chest pain, shortness of breath, nausea, vomiting, dysuria, back pain, numbness, tingling, weakness. The patient's partner, patient's memory loss has been worsening over the last 6 years, with increased anorexia and confusion. Patient's partner endorses being overwhelmed trying to manage this situation, does not have any outside help to assist with patient. Would like to obtain some assistance. tetanus up-to-date. Related Data Allergies Allergy/AdvReac Type Severity Reaction Status Date / Time sulfite Allergy Severe anaphylactic Verified 08/09/20 15:42 shock adhesive AdvReac Mild takes my Verified 08/09/20 15:42 skin off msg Allergy Severe Anaphylaxis Uncoded 08/09/20 15:42 Review of Systems <Celine Armenta PA-C - Last Filed: 04/09/21 11:06> Constitutional Constitutional: Denies chills, Denies fatigue, Denies fever(s), Denies frequent falls, Denies lethargy and Denies weakness Eyes Eyes: Denies change in vision, Denies eye discharge, Denies irritation and Denies loss of vision ENT Ears, Nose, Mouth, and Throat: Denies change in voice, Denies dizziness, Denies neck pain, Denies sore throat and Denies throat swelling Cardiovascular Cardiovascular: Denies chest pain, Denies irregular heart rhythm, Denies lightheadedness, Denies palpitations, Denies dyspnea, Denies dyspnea on exertion and Denies orthopnea Respiratory Respiratory: Denies cough, Denies dyspnea, Denies dyspnea on exertion and Denies wheezing Gastrointestinal Gastrointestinal: Reports abdominal pain, Denies change in bowel habits, Denies diarrhea, Denies nausea and Denies vomiting Genitourinary Genitourinary: Denies hematuria, Denies dysuria and Denies urinary urgency Musculoskeletal Musculoskeletal: Denies neck pain and Denies numbness Comments: R knee pain Integumentary/Breasts Skin/Breast: Denies pruritus, Denies erythema, Denies rash and Denies wounds Neurologic Neurologic: Denies behavioral changes, Denies confusion, Denies dizziness, Denies frequent falls, Denies loss of vision, Denies numbness and Denies weakness Psychiatric Psychiatric: Denies anxiety, Denies behavioral changes, Denies confusion, Denies depression, Denies homicidal ideation and Denies suicidal ideation Endocrine Endocrine: Denies fatigue, Denies flushing and Denies palpitations Hematologic/Lymphatic Hematologic/Lymphatic: Denies easy bruising Allergic/Immunologic Allergic/Immunologic: Denies urticaria, Denies throat swelling and Denies wheezing Patient History <Celine Armenta PA-C - Last Filed: 04/09/21 11:06> Medical History Adnexal cyst (06/2020) Allergies (~1974) Blood glucose elevated Chicken pox (~1949) Chronic back pain (~2014) Colitis, infectious Constipation Decreased GFR Dementia (~2014) Depression (~2014) Diverticulitis Frequent headaches Headache (~2014) Hearing loss History of musculoskeletal disorder (~2014) Mixed hyperlipidemia Mumps (~1949) Pain Right knee pain TBI (traumatic brain injury) Tinnitus (~2014) Surgical History Anesthesia History of hand surgery (~1998) History of removal of skin mole (~2016) Hx of laparoscopic gastric banding (~2002) Social History household members: significant other Smoking Status: Never smoker alcohol intake: never Smoking Status: Never smoker Substance Use Type: does not use Exam <Hymkacie Armenta PA-C - Last Filed: 04/09/21 11:06> Initial Vital Signs Initial Vital Signs: Vital Signs Temperature 98.5 F 04/04/21 11:36 Pulse Rate 68 04/04/21 11:36 Respiratory Rate 18 04/04/21 11:36 Blood Pressure 119/59 L 04/04/21 11:36 Pulse Oximetry 97 04/04/21 11:36 Const General: cooperative HENMT Head: normocephalic and abrasion (Abrasion to R brow. Not bleeding, no signs of infection.) Ears: external ears normal and TM's normal bilaterally Nose: external nose normal and No nasal discharge Face and sinus: sinuses nontender, face symmetric, no sinus tenderness and No dry mucous membranes Mouth: oral mucosae normal and moist mucous membranes Teeth and gingiva: dentition normal Throat: tonsils normal and uvula midline Eyes General: appearance normal, both eyes and all related structures Eyelids: eyelids normal Conjunctivae: conjunctivae normal Sclera: sclerae normal Pupils: PERRL EOM: EOM intact bilaterally Neck Neck: normal visual inspection, trachea midline, No lymphadenopathy, No midline deformity and No JVD Lymphatic: No lymphedema Chest Chest: normal inspection of the chest Resp Effort & Inspection: normal respiratory effort, able to speak in complete sentences, no respiratory distress and no use of accessory muscles Auscultation: clear to auscultation bilaterally, no rales, no rhonchi and no wheezes Cardio Rate: regular rate Rhythm: regular rhythm Heart Sounds: no click, no gallops, no murmurs and no rubs Pulses: normal peripheral pulses GI Inspection: non-distended Palpation: soft, no hepatosplenomegaly, No guarding, No pulsatile mass and tender Auscultation: normal bowel sounds Other: abdomen my snell tender to palpation, lower quadrants, left greater than right. Negative CVA tenderness General: No CVA tenderness Back/Spine/Pelvis Back: No CVA tenderness Cervical Spine: cervical ROM normal and No pain with cervical ROM Thoracic/Lumbar Spine: thoracic and lumbar spine normal to inspection Skin General: no rashes or lesions noted, No jaundice and No petechiae Trauma: abrasion ( right brow, right knee) Neuro General: patient alert, patient oriented x3, gait normal and no focal motor deficits Speech: speech normal Extrem General: full ROM, no clubbing, cyanosis or edema, no pedal edema and no calf tenderness Other: tenderness to palpation of right knee, ambulation limited by pain in right leg. Full range of motion of bilateral extremities, neurovascularly intact, cap refill less than 2 seconds Psych Appearance: well kempt Mental Status: mental status grossly normal Attitude: cooperative Thought Content: normal and suicidality Judgment: judgment good <Radames Harden DO - Last Filed: 04/21/21 07:08> Initial Vital Signs Initial Vital Signs: Vital Signs Temperature 98.5 F 04/04/21 11:36 Pulse Rate 68 04/04/21 11:36 Respiratory Rate 18 04/04/21 11:36 Blood Pressure 119/59 L 04/04/21 11:36 Pulse Oximetry 97 04/04/21 11:36 Course <Celine Armenta PA-C - Last Filed: 04/09/21 11:06> Course Course Narrative: Negative head CT, negative CT abdomen and pelvis, x-rays negative for fractures/dislocations, EKG NSR, CXR with no acute processes. UA positive for UTI, will treat with Macrobid. Discharge home with ED return precautions. Orders Ordered: Discontinued Medications Acetaminophen (Acetaminophen 325 Mg Tablet) 975 mg PO NOW ONE Stop: 04/04/21 12:48 Last Admin: 04/04/21 13:14 Dose: 975 mg Documented by: LORRILE Sodium Chloride (Normal Saline 0.9%) 1,000 mls @ 150 mls/hr IV CONT [facility] Last Admin: 04/04/21 13:14 Dose: Not Given Documented by: HANS Nitrofurantoin Macrocrystals (Nitrofurantoin Er 100 Mg Capsule) 100 mg PO NOW ONE Stop: 04/04/21 15:54 Last Admin: 04/04/21 16:03 Dose: 100 mg Documented by: HANS <Radames Harden DO - Last Filed: 04/21/21 07:08> Orders Ordered: Discontinued Medications Acetaminophen (Acetaminophen 325 Mg Tablet) 975 mg PO NOW ONE Stop: 04/04/21 12:48 Last Admin: 04/04/21 13:14 Dose: 975 mg Documented by: LORRILE Sodium Chloride (Normal Saline 0.9%) 1,000 mls @ 150 mls/hr IV CONT [facility] Last Admin: 04/04/21 13:14 Dose: Not Given Documented by: HANS Nitrofurantoin Macrocrystals (Nitrofurantoin Er 100 Mg Capsule) 100 mg PO NOW ONE Stop: 04/04/21 15:54 Last Admin: 04/04/21 16:03 Dose: 100 mg Documented by: HANS MDM - Abdominal Pain <Hyma ALEJANDRO Armenta - Last Filed: 04/09/21 11:06> Lab Data Lab results narrative: Labs within normal limits. Positive UTI. Result diagrams: 04/04/21 12:19 04/04/21 12:19 Labs: Lab Results 04/04/21 04/04/21 04/04/21 Range/Units 12:19 12:19 12:19 WBC 9.1 (4.5-11.0) X10^3/uL RBC 4.49 (4.0-5.2) X10^6/uL Hgb 11.8 L (12.0-16.0) g/dL Hct 36.6 (36-46) % MCV 81.6 (80-100) fL MCH 26.4 (26-34) PG MCHC 32.3 (30-36) % RDW 13.9 (11.6-14.8) % Plt Count 282 (150-400) X10^3/uL Neut % (Auto) 69.3 (50-75) % Lymph % (Auto) 18.9 L (25-40) % Barrow % (Auto) 10.0 (3-14) % Eos % (Auto) 0.9 L (2-4) % Baso % (Auto) 0.9 (0-2) % Neut # (Auto) 6300 (8775-1068) /uL Lymph # (Auto) 1700 (4069-6634) /uL Barrow # (Auto) 900 (0-900) /uL Eos # (Auto) 100 (0-450) /uL Baso # (Auto) 100 (0-100) /uL Sodium 138 (137-145) mmol/L Potassium 3.9 (3.4-5.1) mmol/L Chloride 106 (98-107) mmol/L Carbon Dioxide 26 (22-32) mmol/L BUN 10 (7-17) mg/dL Creatinine 0.90 (0.52-1.04) mg/dL Estimated GFR > 60.0 (>60) mL/min BUN/Creatinine Ratio 11.1 (6-22) Glucose 104 (80-110) mg/dL Calcium 9.1 (8.4-10.2) mg/dL Total Bilirubin 0.8 (0.2-1.3) mg/dL AST 24 (14-36) IU/L ALT 10 (<35) IU/L Alkaline Phosphatase 85 (38-126) U/L Troponin I < 0.012 (0.01-0.034) ng/mL Total Protein 7.4 (6.3-8.2) g/dL Albumin 4.0 (3.5-5.0) g/dL Globulin 3.4 (1.7-4.1) g/dL Albumin/Globulin Ratio 1.2 (1.0-2.8) Lipase 25 (23-300) U/L Urine Color Urine Appearance Urine pH (4.5-8.0) Ur Specific Jenison (1.000-1.035) Urine Protein (Negative) Urine Glucose (UA) (Negative) g/dL Urine Ketones (NEGATIVE) Urine Occult Blood (Negative) Urine Nitrate (Negative) Urine Bilirubin (NEGATIVE) Urine Urobilinogen (0.2) E.U./dL Ur Leukocyte Esterase (NEGATIVE) Urine RBC (0-5/HPF) Urine WBC (0-5/HPF) Ur Squamous Epith Cells (0-5/HPF) Urine Bacteria (None) Ur Culture Indicated? 04/04/21 Range/Units 13:35 WBC (4.5-11.0) X10^3/uL RBC (4.0-5.2) X10^6/uL Hgb (12.0-16.0) g/dL Hct (36-46) % MCV (80-100) fL MCH (26-34) PG MCHC (30-36) % RDW (11.6-14.8) % Plt Count (150-400) X10^3/uL Neut % (Auto) (50-75) % Lymph % (Auto) (25-40) % Barrow % (Auto) (3-14) % Eos % (Auto) (2-4) % Baso % (Auto) (0-2) % Neut # (Auto) (6361-3147) /uL Lymph # (Auto) (9344-1237) /uL Barrow # (Auto) (0-900) /uL Eos # (Auto) (0-450) /uL Baso # (Auto) (0-100) /uL Sodium (137-145) mmol/L Potassium (3.4-5.1) mmol/L Chloride (98-107) mmol/L Carbon Dioxide (22-32) mmol/L BUN (7-17) mg/dL Creatinine (0.52-1.04) mg/dL Estimated GFR (>60) mL/min BUN/Creatinine Ratio (6-22) Glucose (80-110) mg/dL Calcium (8.4-10.2) mg/dL Total Bilirubin (0.2-1.3) mg/dL AST (14-36) IU/L ALT (<35) IU/L Alkaline Phosphatase (38-126) U/L Troponin I (0.01-0.034) ng/mL Total Protein (6.3-8.2) g/dL Albumin (3.5-5.0) g/dL Globulin (1.7-4.1) g/dL Albumin/Globulin Ratio (1.0-2.8) Lipase (23-300) U/L Urine Color Yellow Urine Appearance Sl cloudy Urine pH 7.0 (4.5-8.0) Ur Specific Jenison <=1.005 (1.000-1.035) Urine Protein Negative (Negative) Urine Glucose (UA) Negative (Negative) g/dL Urine Ketones Negative (NEGATIVE) Urine Occult Blood 2+ H (Negative) Urine Nitrate Positive H (Negative) Urine Bilirubin Negative (NEGATIVE) Urine Urobilinogen 0.2 (0.2) E.U./dL Ur Leukocyte Esterase 2+ H (NEGATIVE) Urine RBC 1-5/hpf D (0-5/HPF) Urine WBC 10-30/hpf H (0-5/HPF) Ur Squamous Epith Cells 1-5 /hpf (0-5/HPF) Urine Bacteria Many (>30) H (None) Ur Culture Indicated? Specimen cultured Imaging Data Extremity x-ray #1: Radiologist's Impression: PROCEDURE: XR FOOT RT 2V INDICATIONS: Fall TECHNIQUE: 2 views of the foot were acquired. COMPARISON: Merged With [facility], CT, CT ABDOMEN PELVIS W CON, 04/04/2021, 12:48. Merged With [facility], CR, XR ANKLE RT 2V, 04/04/2021, 12:44. Merged With [facility], CR, XR KNEE RT 1TO2V, 04/04/2021, 12:44. Merged With [facility], CR, XR FEMUR RT MIN 2V, 04/04/2021, 12:44. Merged With [facility], CR, XR TIBIA FIBULA RT 2V, 04/04/2021, 12:44. Merged With [facility], CR, XR TIBIA FIBULA LT 2V, 04/04/2021, 12:44. Merged With [facility], CR, XR CHEST 1V, 04/04/2021, 12:44. Merged With [facility], CT, CT HEAD/BRAIN WO CON, 04/04/2021, 12:00. FINDINGS: Bones: No fractures or dislocations. No suspicious bony lesions. Toe alignment abnormalities are seen. A plantar calcaneal spur is seen. Soft tissues: No tibiotalar joint effusion. Achilles tendon appears normal. IMPRESSION: No acute fractures are seen. Degenerative changes can be seen. Dictated by: Don Covington M.D. on 04/04/2021 at 12:20 Approved by: Don Covington M.D. on 04/04/2021 at 12:20 Extremity x-ray #2: Radiologist's Impression: PROCEDURE: XR TIBIA FUBULA RT 2V INDICATIONS: Fall, knee pain TECHNIQUE: 2 views of the tibia and fibula were acquired. COMPARISON: Merged With [facility], CR, XR ANKLE RT 2V, 04/04/2021, 12:44. Merged With [facility], CR, XR FEMUR RT MIN 2V, 04/04/2021, 12:44. Merged With [facility], CR, XR KNEE RT 1TO2V, 04/04/2021, 12:44. FINDINGS: Bones: No fractures or dislocations. No suspicious bony lesions. Degenerative joint disease in right knee. Calcaneal spurring. Soft tissues: No suspicious soft tissue calcifications or masses. IMPRESSION: No fracture or dislocation. Dictated by: Jun Wade M.D. on 04/04/2021 at 13:38 Approved by: Jun Wade M.D. on 04/04/2021 at 13 Extremity x-ray #3: Radiologist's Impression: PROCEDURE: XR KNEE RT 1TO2V INDICATIONS: Fall , knee pain TECHNIQUE: 2 views of the knee were acquired. COMPARISON: Merged With [facility], CR, XR KNEE RT 3V, 01/23/2020, 16:44. FINDINGS: Bones: No fractures or dislocations. No suspicious bony lesions. Degenerative joint disease, severe at the patellofemoral joint and moderate at the medial femorotibial joint. Soft tissues: Small joint effusion. No suspicious soft tissue calcifications. IMPRESSION: 1. No acute osseous abnormalities. 2. Degenerative joint disease. 3. Small knee joint effusion. Dictated by: Jun Wade M.D. on 04/04/2021 at 13:36 Approved by: Jun Wade M.D. on 04/04/2021 at 13:37 Femur x-ray: Radiologist's Impression: PROCEDURE: XR FEMUR RT MIN 2V INDICATIONS: WENT DOWN SLOW ON SUNDAY TECHNIQUE: 2 views of the femur were acquired. COMPARISON: Merged With [facility], CR, XR KNEE RT 3V, 01/23/2020, 16:44. Merged With [facility], CT, CT ABDOMEN PELVIS W CON, 04/04/2021, 12:48. Merged With [facility], CR, XR FOOT RT 2V, 04/04/2021, 12:44. Merged With [facility], CR, XR KNEE RT 1TO2V, 04/04/2021, 12:44. Merged With [facility], CR, XR ANKLE RT 2V, 04/04/2021, 12:44. Merged With [facility], CR, XR TIBIA FIBULA RT 2V, 04/04/2021, 12:44. Merged With [facility], CR, XR TIBIA FIBULA LT 2V, 04/04/2021, 12:44. Merged With [facility], CR, XR CHEST 1V, 04/04/2021, 12:44. Merged With [facility], CT, CT HEAD/BRAIN WO CON, 04/04/2021, 12:00. FINDINGS: Bones: No fractures or dislocations. No suspicious bony lesions. (The distal femur is not included within the field of view of this study, yet it is included on the accompanying knee plain films. Age-appropriate bony degenerative changes are seen. Soft tissues: No suspicious soft tissue calcifications or masses. IMPRESSION: Unremarkable femur plain films. Dictated by: Don Covington M.D. on 04/04/2021 at 12:21 Approved by: Don Covington M.D. on 04/04/2021 at 12:21 CT scan - abdomen/pelvis: Radiologist's Impression: PROCEDURE: CT ABDOMEN PELVIS W CON INDICATIONS: Abdominal pain. The patient fell yesterday. TECHNIQUE: After the administration of intravenous contrast, axial sections acquired from the lung bases to the pubic symphysis. Coronal and sagittal reformats were performed. For radiation dose reduction, the following was used: automated exposure control, adjustment of mA and/or kV according to patient size. COMPARISON: Merged With [facility], CT, CT ABDOMEN PELVIS W CON, 07/12/2020, 22:10. FINDINGS: Image quality: Excellent. Lung bases: Lung bases a clear. Esophagus is mildly distended. There is concentric thickening of the distal esophagus. Small hiatal hernia. Heart: No significant findings. ABDOMEN: Liver: Liver is normal in size. Mild hepatic steatosis. Gallbladder: Unremarkable. Biliary ducts: Unremarkable. Pancreas: Unremarkable. Spleen: Unremarkable. Adrenal Glands: Unremarkable. Kidneys and Ureters: Kidneys are normal in size. There are cortical scars in kidneys bilaterally, left greater than right. No renal stone or hydronephrosis. Stomach and Bowel: Postsurgical changes related to gastric banding. Small bowel loops and colon are normal in caliber. There is a moderate amount of stool in colon. There are a few colonic diverticula. No CT findings to suggest acute diverticulitis. Appendix is normal. Peritoneum: No abnormal intraperitoneal fluid. No free air. Ventral Wall: No hernias. Abdominal Nodes: No retroperitoneal or mesenteric adenopathy by size criteria. Vessels: Aorta and inferior vena cava are normal in size. Mild atherosclerosis. PELVIS: Pelvic Organs: There is a mass in the right adnexa measuring 4.5 x 5.1 x 6.1 cm, containing both fluid and fat, compatible with an ovarian dermoid. It is unchanged compared to 07/12/2020. Uterus and left ovary are normal. No pathological free-fluid in the cul-de-sac. Bladder: Unremarkable. Pelvic Nodes: No enlarged lymph nodes. Miscellaneous: No hernias are seen. Bones: No fractures. Mild degenerative changes in lumbar spine. IMPRESSION: 1. No acute visceral injuries in abdomen or pelvis. 2. Small hiatal hernia. Mild distension and concentric thickening of the distal esophagus. If clinically indicated, EGD may be obtained for further evaluation. 3. Mild diverticulosis without diverticulitis. 4. A 4.5 x 5.1 x 6.1 cm right ovarian dermoid. 5. Hepatic steatosis. Dictated by: Jun Wade M.D. on 04/04/2021 at 13:09 Approved by: Jun Wade M.D. on 04/04/2021 at 13:35 CT scan - head: Radiologist's Impression: PROCEDURE: CT ABDOMEN PELVIS W CON INDICATIONS: Abdominal pain. The patient fell yesterday. TECHNIQUE: After the administration of intravenous contrast, axial sections acquired from the lung bases to the pubic symphysis. Coronal and sagittal reformats were performed. For radiation dose reduction, the following was used: automated exposure control, adjustment of mA and/or kV according to patient size. COMPARISON: Merged With [facility], CT, CT ABDOMEN PELVIS W CON, 07/12/2020, 22:10. FINDINGS: Image quality: Excellent. Lung bases: Lung bases a clear. Esophagus is mildly distended. There is concentric thickening of the distal esophagus. Small hiatal hernia. Heart: No significant findings. ABDOMEN: Liver: Liver is normal in size. Mild hepatic steatosis. Gallbladder: Unremarkable. Biliary ducts: Unremarkable. Pancreas: Unremarkable. Spleen: Unremarkable. Adrenal Glands: Unremarkable. Kidneys and Ureters: Kidneys are normal in size. There are cortical scars in kidneys bilaterally, left greater than right. No renal stone or hydronephrosis. Stomach and Bowel: Postsurgical changes related to gastric banding. Small bowel loops and colon are normal in caliber. There is a moderate amount of stool in colon. There are a few colonic diverticula. No CT findings to suggest acute diverticulitis. Appendix is normal. Peritoneum: No abnormal intraperitoneal fluid. No free air. Ventral Wall: No hernias. Abdominal Nodes: No retroperitoneal or mesenteric adenopathy by size criteria. Vessels: Aorta and inferior vena cava are normal in size. Mild atherosclerosis. PELVIS: Pelvic Organs: There is a mass in the right adnexa measuring 4.5 x 5.1 x 6.1 cm, containing both fluid and fat, compatible with an ovarian dermoid. It is unchanged compared to 07/12/2020. Uterus and left ovary are normal. No pathological free-fluid in the cul-de-sac. Bladder: Unremarkable. Pelvic Nodes: No enlarged lymph nodes. Miscellaneous: No hernias are seen. Bones: No fractures. Mild degenerative changes in lumbar spine. IMPRESSION: 1. No acute visceral injuries in abdomen or pelvis. 2. Small hiatal hernia. Mild distension and concentric thickening of the distal esophagus. If clinically indicated, EGD may be obtained for further evaluation. 3. Mild diverticulosis without diverticulitis. 4. A 4.5 x 5.1 x 6.1 cm right ovarian dermoid. 5. Hepatic steatosis. Dictated by: Jun Wade M.D. on 04/04/2021 at 13:09 Approved by: uJn Wade M.D. on 04/04/2021 at 13:35 Chest x-ray: Radiologist's Impression: ROCEDURE: XR CHEST 1V INDICATIONS: ?Syncope TECHNIQUE: One view of the chest was acquired. COMPARISON: Merged With [facility], CT, CT ABDOMEN PELVIS W CON, 04/04/2021, 12:48. [facility], CR, CHEST 1VW (PORTABLE), 02/09/2015, 9:28. FINDINGS: Surgical changes and devices: None. Lungs and pleura: Lungs are clear. No pleural effusions or pneumothorax. Mediastinum: The cardiac contours are within normal limits. The aorta demonstrates calcification and tortuosity. Bones and chest wall: No suspicious bony lesions. Age-appropriate bony degenerative changes are seen. Mild levoconvex scoliotic curvature is noted. Overlying soft tissues appear unremarkable. IMPRESSION: No acute portable chest abnormality can be seen. Dictated by: Don Covington M.D. on 04/04/2021 at 12:17 Approved by: Don Covington M.D. on 04/04/2021 at 12:18 ECG Data Interpretation: NSR MDM Narrative Medical decision making narrative: 70-year-old female with past medical history dementia, depression, headaches, chronic back pain presents to the ED with 2 days of abdominal pain. Consider diverticulitis versus appendicitis versus UTI versus constipation versus syncope vs ACS vs intracranial hemorrhage versus fractures /dislocations. will order labs, UA, right extremity x-rays, CT head, CT abdomen pelvis, CXR, troponin. Will give Tylenol for pain, IV hydration. Will reassess. Dispo dependent on results of workup. <Radames Harden DO - Last Filed: 04/21/21 07:08> Lab Data Labs: Lab Results 04/04/21 04/04/21 04/04/21 Range/Units 12:19 12:19 12:19 WBC 9.1 (4.5-11.0) X10^3/uL RBC 4.49 (4.0-5.2) X10^6/uL Hgb 11.8 L (12.0-16.0) g/dL Hct 36.6 (36-46) % MCV 81.6 (80-100) fL MCH 26.4 (26-34) PG MCHC 32.3 (30-36) % RDW 13.9 (11.6-14.8) % Plt Count 282 (150-400) X10^3/uL Neut % (Auto) 69.3 (50-75) % Lymph % (Auto) 18.9 L (25-40) % Barrow % (Auto) 10.0 (3-14) % Eos % (Auto) 0.9 L (2-4) % Baso % (Auto) 0.9 (0-2) % Neut # (Auto) 6300 (2106-0350) /uL Lymph # (Auto) 1700 (1587-7207) /uL Barrow # (Auto) 900 (0-900) /uL Eos # (Auto) 100 (0-450) /uL Baso # (Auto) 100 (0-100) /uL Sodium 138 (137-145) mmol/L Potassium 3.9 (3.4-5.1) mmol/L Chloride 106 (98-107) mmol/L Carbon Dioxide 26 (22-32) mmol/L BUN 10 (7-17) mg/dL Creatinine 0.90 (0.52-1.04) mg/dL Estimated GFR > 60.0 (>60) mL/min BUN/Creatinine Ratio 11.1 (6-22) Glucose 104 (80-110) mg/dL Calcium 9.1 (8.4-10.2) mg/dL Total Bilirubin 0.8 (0.2-1.3) mg/dL AST 24 (14-36) IU/L ALT 10 (<35) IU/L Alkaline Phosphatase 85 (38-126) U/L Troponin I < 0.012 (0.01-0.034) ng/mL Total Protein 7.4 (6.3-8.2) g/dL Albumin 4.0 (3.5-5.0) g/dL Globulin 3.4 (1.7-4.1) g/dL Albumin/Globulin Ratio 1.2 (1.0-2.8) Lipase 25 (23-300) U/L Urine Color Urine Appearance Urine pH (4.5-8.0) Ur Specific Jenison (1.000-1.035) Urine Protein (Negative) Urine Glucose (UA) (Negative) g/dL Urine Ketones (NEGATIVE) Urine Occult Blood (Negative) Urine Nitrate (Negative) Urine Bilirubin (NEGATIVE) Urine Urobilinogen (0.2) E.U./dL Ur Leukocyte Esterase (NEGATIVE) Urine RBC (0-5/HPF) Urine WBC (0-5/HPF) Ur Squamous Epith Cells (0-5/HPF) Urine Bacteria (None) Ur Culture Indicated? 04/04/21 Range/Units 13:35 WBC (4.5-11.0) X10^3/uL RBC (4.0-5.2) X10^6/uL Hgb (12.0-16.0) g/dL Hct (36-46) % MCV (80-100) fL MCH (26-34) PG MCHC (30-36) % RDW (11.6-14.8) % Plt Count (150-400) X10^3/uL Neut % (Auto) (50-75) % Lymph % (Auto) (25-40) % Barrow % (Auto) (3-14) % Eos % (Auto) (2-4) % Baso % (Auto) (0-2) % Neut # (Auto) (9306-4342) /uL Lymph # (Auto) (3079-2594) /uL Barrow # (Auto) (0-900) /uL Eos # (Auto) (0-450) /uL Baso # (Auto) (0-100) /uL Sodium (137-145) mmol/L Potassium (3.4-5.1) mmol/L Chloride (98-107) mmol/L Carbon Dioxide (22-32) mmol/L BUN (7-17) mg/dL Creatinine (0.52-1.04) mg/dL Estimated GFR (>60) mL/min BUN/Creatinine Ratio (6-22) Glucose (80-110) mg/dL Calcium (8.4-10.2) mg/dL Total Bilirubin (0.2-1.3) mg/dL AST (14-36) IU/L ALT (<35) IU/L Alkaline Phosphatase (38-126) U/L Troponin I (0.01-0.034) ng/mL Total Protein (6.3-8.2) g/dL Albumin (3.5-5.0) g/dL Globulin (1.7-4.1) g/dL Albumin/Globulin Ratio (1.0-2.8) Lipase (23-300) U/L Urine Color Yellow Urine Appearance Sl cloudy Urine pH 7.0 (4.5-8.0) Ur Specific Jenison <=1.005 (1.000-1.035) Urine Protein Negative (Negative) Urine Glucose (UA) Negative (Negative) g/dL Urine Ketones Negative (NEGATIVE) Urine Occult Blood 2+ H (Negative) Urine Nitrate Positive H (Negative) Urine Bilirubin Negative (NEGATIVE) Urine Urobilinogen 0.2 (0.2) E.U./dL Ur Leukocyte Esterase 2+ H (NEGATIVE) Urine RBC 1-5/hpf D (0-5/HPF) Urine WBC 10-30/hpf H (0-5/HPF) Ur Squamous Epith Cells 1-5 /hpf (0-5/HPF) Urine Bacteria Many (>30) H (None) Ur Culture Indicated? Specimen cultured Discharge Plan Departure Patient Disposition: Home Clinical Impression: Abdominal pain Instructions: DI for Urinary Tract Infection (UTI) Referrals: Tasneem Romero ARNP [Primary Care Provider] - <Radames Harden DO - Last Filed: 04/21/21 07:08> Cosign ED Attending Cosignature Attestation: Dr Harden Co-Sign Statement: I was available for consultation during this patient's emergency department visit. This chart is signed by myself for administrative purposes only. I did not have direct contact with this patient during this visit. They were seen independently by the APC.
== END 2021-04-04 16:13 | disposition home or self-care (01) ==
PROVIDERS: Emergency Provider Student in an Organized Health Care Education/Training Program; Family Provider Family Medicine; PCP Nurse Practitioner Family
DX: R10.9 Unspecified abdominal pain (principal); S00.81XA Abrasion of other part of head, initial encounter; M25.561 Pain in right knee; R55 Syncope and collapse; F03.90 Unspecified dementia, unspecified severity, without behavioral disturbance, psychotic disturbance, mood disturbance, and anxiety; W19.XXXA Unspecified fall, initial encounter
CPT/HCPCS: 36415; 70450; 71045; 73552; 73560; 73590; 73600; 73620; 74177; 80053; 81001; 83690; 84484; 85025; 87077; 87086; 87186; 93005; 93010; 99284; Q9967

== ENCOUNTER → 2021-05-23 08:38 | Outpatient (CLI) | payer MEDICARE, OTHER, SELFPAY ==
[2019-07-16 16:33] VITALS: BMI 24.9
[2021-05-23 11:53] LABS: COVID19 -Nasal RAPID Negative (Negative)
== END ==
PROVIDERS: Family Provider Family Medicine; PCP Nurse Practitioner Family; Referring Provider Surgery; Visit Provider Surgery
DX: Z20.822 Contact with and (suspected) exposure to COVID-19 (principal); Z01.812 Encounter for preprocedural laboratory examination
CPT/HCPCS: 87635; C9803

== ENCOUNTER 2021-05-24 07:49 | Day surgery (SDC) | payer MEDICARE, OTHER, SELFPAY ==
[2019-07-16 16:33] VITALS: BMI 24.9
[2021-05-24] VITALS (8 sets, daily range): BP systolic 75–121; BP diastolic 32–66; PULSE 56–70; RESP 10–16; TEMP 35.5–36.6; O2SAT 96–100; BMI 26.1
--- NOTE | 2021-05-24 | PATH_ITS ---
[facility] Accession Number: [id number] . 01 Material submitted: . esophagus - DISTAL ESOPHAGUS . 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 Negative for fungal organisms on AB/PAS stain. Negative for cytomegalovirus or herpes simplex virus inclusions by immunohistochemistry. Negative for dysplasia or malignancy. MRV 05/27/2021 1452 Local . 02 Comment: The histologic findings would be consistent with Adrian's esophagus in the appropriate endoscopic setting. . 02 Electronically signed: . Rufus Jo MD, PhD, Pathologist NPI- [id number] . 01 Gross description: . DISTAL ESOPHAGUS: Received in formalin are 4 fragment(s) of san, soft tissue measuring 0.8 x 0.3 x 0.1 cm to 0.3 x 0.2 x 0.1 cm submitted entirely in 1 cassette(s) /KAYLA 05/25/2021 0503 Local . 02 Microscopic: . An AB/PAS stain highlights an area of specialized intestinal metaplasia; no fungal organisms are identified. Immunohistochemical stains* are negative for cytomegalovirus or herpes simplex virus inclusions, respectively. All control stains show appropriate reactivity. . * This test was developed and its performance characteristics determined by [facility]. It has not been cleared or approved by the U.S. Food and Drug Administration. The FDA has determined that such clearance or approval is not necessary. This test is used for clinical purposes. It should not be regarded as investigational or for research. . 02 Pathologist provided ICD-10: K22.70, K22.10 . 02 CPT . 438259, O29939, S66165, 122722 Performed at: [address], [facility] [place] [id number] MD Phil Batres MD Phone: [phone] Performed at: 02 [facility] [address] [place] [id number] MD Beth Cooper MD Phone: [phone]
[2021-05-24] MEDS: LACTATED RINGERS 1,000 ML 200 ML IV (08:28)
--- NOTE | 2021-05-24 09:47 | PM.PREOP ---
Pre-operative Note Interval Note History & Physical reviewed/Exam performed by Physician: Yes Changes to H&P: No
--- NOTE | 2021-05-24 10:22 | PM.OP.EGD ---
Operative Date/Time/Diagnoses Date of procedure: 05/24/21 Time of procedure: 10:23 Pre-op diagnosis: esophageal dysphagia Post-op diagnosis: other (errosive esophagitis) Procedure & Clinicians Study performed: EGD Same procedure as scheduled: Yes Indications: dysphagia Surgeon: Shawn Reed Procedure Notes Procedure in detail: Time out was performed. Procedural sedation was administered by anesthesia. A bite block was placed. the scope was inserted into the mouth and advanced through the esophagus. The distal esophagous was significant for extensive cirrumferential errosive esophagitis. There was no esophageal stricture. The scope passed easily into the stomach. The pylorus was intubated and the duodenum was normal to the 2nd portion. The scope was retroflexed within the stomach and there was a moderate sized hiatal hernia. No gastric ulcers, or gastritis. The scope was withdrawn into the esophagus the Z line was seen at approximately 35 cm from the incisions but this was difficult to assess as there was signficant inflamation and mucosal errosion. Multiple biopsies of the inflamed distal esophagus were taken with the forceps. Stomach was desufflated and scope removed. Patient tolerated procedure well. Findings: other findings (extensive errosive esophagitis) Specimen(s): other (distal esophagus) Complications: none Impression: errosive esophagitis Post-procedure Recommendations: Reflux diet, Start medication(s) (Omeprazole, Carafate) and Other recommendation(s) Disposition: same day surgery
== END 2021-05-24 11:35 | disposition home or self-care (01) ==
PROVIDERS: Family Provider Family Medicine; PCP Nurse Practitioner Family; Referring Provider Surgery; Visit Provider Surgery
PROC: 0DJ08ZZ Inspection of Upper Intestinal Tract, Via Natural or Artificial Opening Endoscopic (ICD-10-PCS; CPT 43235; principal; 2021-05-24 09:15)
DX: K22.70 Barrett's esophagus without dysplasia (principal); K44.9 Diaphragmatic hernia without obstruction or gangrene
CPT/HCPCS: 43239; J2704; J3010

== ENCOUNTER 2021-07-04 06:51 | Inpatient (IN) | payer MEDICARE, OTHER, SELFPAY ==
[2019-07-16 16:33] VITALS: BMI 24.9
[2021-07-04] VITALS (26 sets, daily range): BP systolic 88–161; BP diastolic 32–70; PULSE 67–92; RESP 12–18; TEMP 36.4–38.8; O2SAT 92–99; BMI 24.3
--- NOTE | 2021-07-04 | DI.RAD.S_ITS ---
PROCEDURE: XR ABDOMEN 1V INDICATIONS: RIGHT STENT PLACEMENT TECHNIQUE: One intraoperative view of the abdomen acquired. COMPARISON: [facility], CT, CT ABDOMEN PELVIS W CON, 07/04/2021, 8:47. FINDINGS: Right renal stent superior aspect is within the renal collecting system. There is mild to moderate right hydronephrosis. IMPRESSION: Intraoperative guidance provided. Expected appearance of the superior portion of the right ureteral stent. Dictated by: Noam Holm M.D. on 07/04/2021 at 14:46 Approved by: Noam Holm M.D. on 07/04/2021 at 14:48
--- NOTE | 2021-07-04 07:09 | DI.RAD.S_ITS ---
PROCEDURE: XR LUMBAR SPINE 2-3V INDICATIONS: lower back pain TECHNIQUE: 3 views of the lumbar spine were acquired. COMPARISON: [facility], , -SPINE 2-3 VIEWS, 03/03/2015, 12:41. FINDINGS: Bones: 5 [id number] vertebrae are present. There is normal bony alignment. No vertebral body compression fractures. No suspicious bony lesions. Multilevel degenerative disc and foraminal narrowing is present most severe at L5-S1. Soft tissues: Overlying bowel gas pattern is normal. No suspicious soft tissue calcifications. Moderate colonic stool. IMPRESSION: Lumbar degenerative changes. Colonic stool consistent with constipation. Dictated by: Rina Valle M.D. on 07/04/2021 at 8:21 Approved by: Rina Valle M.D. on 07/04/2021 at 8:22
--- NOTE | 2021-07-04 07:10 | DI.RAD.S_ITS ---
PROCEDURE: XR CHEST 1V INDICATIONS: cough TECHNIQUE: One view of the chest was acquired. COMPARISON: [facility], CR, XR CHEST 1V, 04/04/2021, 12:44. FINDINGS: Surgical changes and devices: None. Lungs and pleura: There is a very minimal coarsening within the right base. Mediastinum: Mediastinal contours appear normal. Heart size is normal. Bones and chest wall: No suspicious bony lesions. Overlying soft tissues appear unremarkable. IMPRESSION: Minimal right basilar coarsening possibly dependent change versus developing pneumonia. Dictated by: Rina Valle M.D. on 07/04/2021 at 8:22 Approved by: Rina Valle M.D. on 07/04/2021 at 8:23
--- NOTE | 2021-07-04 07:12 | ED_ITS ---
HPI - Back Pain/Injury General Chief Complaint: Back Pain/Injury Stated Complaint: body pain/coughing up saliva Time Seen by Provider: 07/04/21 06:59 Source: patient and family Mode of arrival: Wheelchair Limitations: other (Dementia) History of Present Illness HPI Narrative: Patient is a 70-year-old female. 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 She does have a history of dementia and memory loss. Recently had procedures performed by general surgery for evaluation of epigastric pain and there was ?inflammation ?in the area. He does have Protonix that he is giving her however he states that she does have quite a bit of difficulty with swallowing the medication. He brought her in today because overnight she started to complain of lower back pain and then ?whole body pain? he also states she is coughing up quite a bit of saliva. The patient complains of low back pain. Seems uncomfortable in the bed. She denies chest pain. She denies shortness of breath. She denies abdominal pain. Related Data Previous Rx's Medication Instructions Recorded omeprazole 40 mg capsule,delayed 40 mg PO BID #90 cap 05/24/21 release Allergies Allergy/AdvReac Type Severity Reaction Status Date / Time sulfite Allergy Severe anaphylactic Verified 05/24/21 08:11 shock adhesive AdvReac Mild takes my Verified 05/24/21 08:11 skin off msg Allergy Severe Anaphylaxis Uncoded 05/24/21 08:11 Review of Systems Review of Systems Narrative: Review systems is provided by the patient however cotton breeder bedside states she does have quite a bit of memory issues. Constitutional Constitutional: Denies fever(s) and Denies headache(s) ENT Ears, Nose, Mouth, and Throat: Denies headache(s) Cardiovascular Cardiovascular: Denies chest pain Respiratory Respiratory: Reports cough and Reports excessive phlegm production Gastrointestinal Gastrointestinal: Denies abdominal pain Genitourinary Genitourinary: Denies dysuria Musculoskeletal Musculoskeletal: Reports back pain Integumentary/Breasts Skin/Breast: Reports system reviewed and no additional complaints, except as documented Neurologic Neurologic: Reports confusion and Denies headache(s) Psychiatric Psychiatric: Reports confusion Hematologic/Lymphatic On Anticoagulants: No Allergic/Immunologic Allergic/Immunologic: Reports system reviewed and no additional complaints, except as documented Patient History Medical History Adnexal cyst (06/2020) Allergies (~1974) Blood glucose elevated Chicken pox (~1949) Chronic back pain (~2014) Colitis, infectious Constipation Decreased GFR Dementia (~2014) Depression (~2014) Diverticulitis Esophageal thickening (04/2021) Frequent headaches Headache (~2014) Hearing loss History of musculoskeletal disorder (~2014) Mixed hyperlipidemia Mumps (~1949) Pain Right knee pain TBI (traumatic brain injury) Tinnitus (~2014) Surgical History Anesthesia History of hand surgery (~1998) History of removal of skin mole (~2016) Hx of laparoscopic gastric banding (~2002) Social History household members: significant other Previous occupational history: retired Smoking Status: Never smoker alcohol intake: never substance use type: does not use Smoking Status: Never smoker Substance Use Type: does not use Exam Initial Vital Signs Initial Vital Signs: Vital Signs Temperature 97.6 F 07/04/21 07:03 Pulse Rate 68 07/04/21 07:03 Respiratory Rate 16 07/04/21 07:03 Blood Pressure 144/63 H 07/04/21 07:03 Pulse Oximetry 99 07/04/21 07:03 Const General: No acute distress HENMT Head: normal to inspection and normocephalic Chest Chest: normal inspection of the chest Resp Effort & Inspection: normal respiratory effort Auscultation: clear to auscultation bilaterally Cardio Rate: regular rate Rhythm: regular rhythm GI Inspection: non-distended Palpation: soft and No tender Back/Spine/Pelvis Thoracic/Lumbar Spine: paraspinal tenderness and lumbar spinal tenderness Skin General: no rashes or lesions noted Neuro General: patient alert, patient awake and moves all extremities Extrem General: capillary refill normal Psych Appearance: grossly normal and well kempt Scores GCS [place] coma scale eye opening: Spontaneous [place] coma scale verbal response: Confused [place] coma scale motor response: Obey commands Jesus Manuel coma scale total score: 14 Course Orders Ordered: ED Orders 07/04/21 07:09 XR lumbar spine 2-3V Stat 07/04/21 07:10 XR chest 1V Stat EKG-12 Lead Stat 07/04/21 07:47 Complete Blood Count AUTO DIFF Stat Comprehensive Metabolic Panel Stat Lactate (Lactic Acid) Stat Lipase Stat Procalcitonin Stat Troponin & CK Cardiac Panel Stat 07/04/21 08:00 COVID19 -Nasal swab/Pre-Proc Stat 07/04/21 08:47 CT abdomen pelvis w con Stat 07/04/21 09:00 Urinalysis and Microscopic Stat Urine Culture Stat 07/04/21 09:10 Blood Culture Stat 07/04/21 10:09 Consult to Urology Stat Bisacodyl (Bisacodyl 10 Mg Supp) 10 mg NE DAILY PRN PRN Reason: Constipation Haloperidol (Haloperidol 5 Mg/Ml Vial) 5 mg IV Q8HR PRN PRN Reason: Agitation Last Admin: 07/04/21 11:58 Dose: 5 mg Documented by: ALVA Heparin Sodium (Porcine) (Heparin 5,000 Unit/Ml Vial) 5,000 unit SUBCUT BID DOMINGO Sodium Chloride (Normal Saline 0.45%) 1,000 mls @ 100 mls/hr IV CONT DOMINGO Last Admin: 07/04/21 12:05 Dose: 100 mls/hr Documented by: ALVA Morphine Sulfate (Morphine 2 Mg/Ml Inj) 2 mg IV Q4HR PRN PRN Reason: Pain, Moderate (4-6) Naloxone HCl (Naloxone 0.4 Mg/Ml Vial) 0.2 mg IV Q2MIN PRN PRN Reason: Opiate Reversal Ondansetron HCl (Ondansetron 4 Mg/2 Ml Inj) 4 mg IV Q8HR PRN PRN Reason: Nausea And Vomiting Sennosides (Sennosides 8.6 Mg Tablet) 17.2 mg PO BEDTIME DOMINGO Discontinued Medications Sodium Chloride (Normal Saline 0.9%) 1,000 mls @ 1,000 mls/hr IV BOLUS ONE Stop: 07/04/21 09:33 Last Infusion: 07/04/21 11:14 Dose: 0 mls/hr Documented by: Admin: 07/04/21 08:50 Dose: 1,000 mls/hr Documented by: ZOEY Ceftriaxone Sodium 1,000 mg/ (Sodium Chloride) 100 mls @ 200 mls/hr IV NOW ONE Stop: 07/04/21 09:53 Last Admin: 07/04/21 12:04 Dose: 200 mls/hr Documented by: ALVA Lorazepam (Lorazepam 2 Mg/Ml Inj) 1 mg IV NOW ONE Stop: 07/04/21 09:34 Last Admin: 07/04/21 09:36 Dose: 1 mg Documented by: ZOEY Morphine Sulfate (Morphine 4 Mg/Ml Inj) 4 mg IV NOW ONE Stop: 07/04/21 07:10 Last Admin: 07/04/21 07:42 Dose: 4 mg Documented by: ZOEY Vital Signs Vital signs: Vital Signs - 8 hr 07/04/21 07:03 07/04/21 08:04 07/04/21 08:30 Temperature 97.6 F Pulse Rate 68 69 69 Respiratory Rate 16 Blood Pressure 144/63 H 161/70 H Pulse Oximetry 99 97 98 07/04/21 08:31 07/04/21 08:51 Temperature Pulse Rate 67 84 Respiratory Rate Blood Pressure 112/55 L 145/67 H Pulse Oximetry 99 98 MDM - Back Pain/Injury Lab Data Attestation: I reviewed the patient's lab results. Result diagrams: 07/04/21 07:47 07/04/21 07:47 Labs: Lab Results 07/04/21 07/04/21 07/04/21 Range/Units 07:47 07:47 07:47 WBC 15.2 H (4.5-11.0) X10^3/uL RBC 4.72 (4.0-5.2) X10^6/uL Hgb 12.3 (12.0-16.0) g/dL Hct 38.2 (36-46) % MCV 80.9 (80-100) fL MCH 26.1 (26-34) PG MCHC 32.2 (30-36) % RDW 14.2 (11.6-14.8) % Plt Count 276 (150-400) X10^3/uL Neut % (Auto) 92.7 H (50-75) % Lymph % (Auto) 4.0 L (25-40) % [place] % (Auto) 2.6 L (3-14) % Eos % (Auto) 0.0 L (2-4) % Baso % (Auto) 0.7 (0-2) % Neut # (Auto) 95846 H (5602-3384) /uL Lymph # (Auto) 600 L (9592-4338) /uL [place] # (Auto) 400 (0-900) /uL Eos # (Auto) 0 (0-450) /uL Baso # (Auto) 100 (0-100) /uL Sodium 139 (137-145) mmol/L Potassium 3.2 L (3.4-5.1) mmol/L Chloride 102 (98-107) mmol/L Carbon Dioxide 27 (22-32) mmol/L BUN 12 (7-17) mg/dL Creatinine 1.18 H (0.52-1.04) mg/dL Estimated GFR 45.0 L (>60) mL/min BUN/Creatinine Ratio 10.2 (6-22) Glucose 168 H (80-110) mg/dL Lactate 2.4 H (0.7-2.1) mmol/L Calcium 9.5 (8.4-10.2) mg/dL Total Bilirubin 0.9 (0.2-1.3) mg/dL AST 26 (14-36) IU/L ALT 13 (<35) IU/L Alkaline Phosphatase 82 (38-126) U/L Total Creatine Kinase 93 (30-135) U/L CK-MB (CK-2) TNP CK-MB (CK-2) Rel Index TNP Troponin I < 0.012 (0.01-0.034) ng/mL Total Protein 7.9 (6.3-8.2) g/dL Albumin 4.3 (3.5-5.0) g/dL Globulin 3.6 (1.7-4.1) g/dL Albumin/Globulin Ratio 1.2 (1.0-2.8) Lipase 44 (23-300) U/L Procalcitonin (<0.5) ng/mL Urine Color Urine Appearance Urine pH (4.5-8.0) Ur Specific [place] (1.000-1.035) Urine Protein (Negative) Urine Glucose (UA) (Negative) g/dL Urine Ketones (NEGATIVE) Urine Occult Blood (Negative) Urine Nitrate (Negative) Urine Bilirubin (NEGATIVE) Urine Urobilinogen (0.2) E.U./dL Ur Leukocyte Esterase (NEGATIVE) Urine RBC (0-5/HPF) Urine WBC (0-5/HPF) Ur Squamous Epith Cells (0-5/HPF) Urine Bacteria (None) Ur Culture Indicated? SARS-CoV-2 (PCR) (Negative) 11/22/21 11/22/21 11/22/21 Range/Units 07:47 08:00 09:00 WBC (4.5-11.0) X10^3/uL RBC (4.0-5.2) X10^6/uL Hgb (12.0-16.0) g/dL Hct (36-46) % MCV (80-100) fL MCH (26-34) PG MCHC (30-36) % RDW (11.6-14.8) % Plt Count (150-400) X10^3/uL Neut % (Auto) (50-75) % Lymph % (Auto) (25-40) % [place] % (Auto) (3-14) % Eos % (Auto) (2-4) % Baso % (Auto) (0-2) % Neut # (Auto) (2318-6730) /uL Lymph # (Auto) (0719-8485) /uL [place] # (Auto) (0-900) /uL Eos # (Auto) (0-450) /uL Baso # (Auto) (0-100) /uL Sodium (137-145) mmol/L Potassium (3.4-5.1) mmol/L Chloride (98-107) mmol/L Carbon Dioxide (22-32) mmol/L BUN (7-17) mg/dL Creatinine (0.52-1.04) mg/dL Estimated GFR (>60) mL/min BUN/Creatinine Ratio (6-22) Glucose (80-110) mg/dL Lactate (0.7-2.1) mmol/L Calcium (8.4-10.2) mg/dL Total Bilirubin (0.2-1.3) mg/dL AST (14-36) IU/L ALT (<35) IU/L Alkaline Phosphatase (38-126) U/L Total Creatine Kinase (30-135) U/L CK-MB (CK-2) CK-MB (CK-2) Rel Index Troponin I (0.01-0.034) ng/mL Total Protein (6.3-8.2) g/dL Albumin (3.5-5.0) g/dL Globulin (1.7-4.1) g/dL Albumin/Globulin Ratio (1.0-2.8) Lipase (23-300) U/L Procalcitonin 0.08 (<0.5) ng/mL Urine Color Yellow Urine Appearance Cloudy Urine pH 6.5 (4.5-8.0) Ur Specific [place] 1.010 (1.000-1.035) Urine Protein 1+ H (Negative) Urine Glucose (UA) Negative (Negative) g/dL Urine Ketones Trace H (NEGATIVE) Urine Occult Blood 3+ H (Negative) Urine Nitrate Positive H (Negative) Urine Bilirubin Negative (NEGATIVE) Urine Urobilinogen 0.2 (0.2) E.U./dL Ur Leukocyte Esterase 2+ H (NEGATIVE) Urine RBC 10-30/hpf H (0-5/HPF) Urine WBC >100/hpf H (0-5/HPF) Ur Squamous Epith Cells 0-1 /hpf (0-5/HPF) Urine Bacteria Many (>30) H (None) Ur Culture Indicated? Specimen cultured SARS-CoV-2 (PCR) Negative (Negative) Imaging Data Chest x-ray: Radiologist's Impression: [address] [address] XRay Report Signed Patient: Marlin Aleman MR#: [id number] : 1950 Acct:[id number] Age/Sex: 70 / F Date of Service: 07/04/21 Loc: ED Accession Number: [id number] ?? Procedure: XR chest 1V Ordering Provider: Radames Harden D.O. PROCEDURE:? XR CHEST 1V ? INDICATIONS:? cough ? TECHNIQUE:? One view of the chest was acquired.? ? COMPARISON:? [facility], , XR CHEST 1V, 04/04/2021, 12:44. ? FINDINGS:? ? Surgical changes and devices:? None.? ? Lungs and pleura:? There is a very minimal coarsening within the right base. ? Mediastinum:? Mediastinal contours appear normal.? Heart size is normal.? ? Bones and chest wall:? No suspicious bony lesions.? Overlying soft tissues appear unremarkable.? ? IMPRESSION:? Minimal right basilar coarsening possibly dependent change versus developing pneumonia. ? ? Dictated by: Rina Valle M.D. on 07/04/2021 at 8:22 ? ? Approved by: Rina Valle M.D. on 07/04/2021 at 8:23? lumbar spine x-ray: Radiologist's Impression: [address] [address] XRay Report Signed Patient: Marlin Aleman MR#: [id number] : 1950 Acct:[id number] Age/Sex: 70 / F Date of Service: 07/04/21 Loc: ED Accession Number: [id number] ?? Procedure: XR lumbar spine 2-3V Ordering Provider: Radames Harden D.O. PROCEDURE:? XR LUMBAR SPINE 2-3V ? INDICATIONS:? lower back pain ? TECHNIQUE:? 3 views of the lumbar spine were acquired.? ? COMPARISON:? [facility], , L-SPINE 2-3 VIEWS, 03/03/2015, 12:41. ? FINDINGS:? ? Bones:? 5 [id number] vertebrae are present.? There is normal bony alignment.? No vertebral body compression fractures.? No suspicious bony lesions.? Multilevel degenerative disc and foraminal narrowing is present most severe at L5-S1. ? Soft tissues:? Overlying bowel gas pattern is normal.? No suspicious soft tissue calcifications.? Moderate colonic stool. ? ? IMPRESSION:? Lumbar degenerative changes.? Colonic stool consistent with constipation. ? ? Dictated by: Rina Valle M.D. on 07/04/2021 at 8:21 ? ? Approved by: Rina Valle M.D. on 07/04/2021 at 8:22? CT scan - abdomen/pelvis: Radiologist's Impression: [address] [address] [address] Scan Report Signed Patient: Marlin Aleman MR#: [id number] : 1950 Acct:[id number] Age/Sex: 70 / F Date of Service: 07/04/21 Loc: ED Accession Number: [id number] ?? Procedure: CT abdomen pelvis w con Ordering Provider: Radames Harden D.O. PROCEDURE:? CT ABDOMEN PELVIS W CON ? INDICATIONS:? Generalized abdominal pain ? TECHNIQUE:? After the administration of IV contrast, axial sections were acquired from the lung bases to the pubic symphysis.? Coronal and sagittal reformats were performed.? For radiation dose reduction, the following was used:? automated exposure control, adjustment of mA and/or kV according to patient size. ? COMPARISON:? [facility], CT, CT ABDOMEN PELVIS W CON, 04/04/2021, 12:48. ? FINDINGS:? Image quality:? Excellent.? ? Lung bases:? Unremarkable.? ? Heart:? No significant findings. ? ? ABDOMEN: Liver:? Liver is at the upper limits of normal in size with steatosis. Gallbladder:? The gallbladder is unremarkable.? ? Biliary ducts:? Unremarkable.? ? Pancreas:? Unremarkable.? ? Spleen:? Unremarkable.? ? Adrenal Glands:? Unremarkable.? ? Kidneys and Ureters:? The right kidney demonstrates interval [id number] hydronephrosis and hydroureter.? There is a calcification within the mid ureter seen on series 2, image 60 measuring 3 mm, not visualized within this region on prior exam.? In addition, there is an ill-defined soft tissue prominence at the anterior margin of the right psoas muscle measuring 10 and my 17 mm seen on series 2, image 44. It causes mild anterior displacement of the right ureter.? This was not present on prior exam.. ? Stomach and Bowel:? Stomach, small bowel loops, and colon are unremarkable.? There is marked diffuse esophageal thickening within the visualized distal portion.? It is noted that this was present on prior exam.? Postsurgical changes reflecting gastric banding are noted.? Peritoneum:? No abnormal intraperitoneal fluid.? No free air.? ? Ventral Wall: ? No hernia.? Abdominal Nodes:? No retroperitoneal or mesenteric adenopathy by size criteria.? Vessels:? Aorta and inferior vena cava are normal in size.? ? PELVIS: Pelvic Organs:? As identified on prior exam, there is a fat containing mass within the right adnexa it is unchanged compared to prior exam. Bladder:? Unremarkable.? ? Pelvic Nodes: No enlarged lymph nodes.? Miscellaneous: No inguinal hernias are seen. ? ? ? Bones:? Unremarkable.? IMPRESSION:? ? 1.? Interval development of right hydronephrosis and hydroureter secondary to calcification within the mid ureter. ? 2. Soft tissue density along the anterior margin of the right psoas muscle possibly lymph node or focus of infection or inflammation.? Recommend interval follow-up to document resolution. ? 3. Fat containing mass within the pelvis, unchanged.? ? ? Dictated by: Rina Valle M.D. on 07/04/2021 at 9:12 ? ? Approved by: Rina Valle M.D. on 07/04/2021 at 9:39?? ECG Data Attestation: I personally reviewed and interpreted this ECG as follows: Interpretation: Sinus rhythm Ventricular rate of 77 Normal QRS Normal axis No ST T wave changes MDM Narrative Medical decision making narrative: The review of systems that is listed above is with the patient stated upon arrival however I do have some concern about her ability to answer questions. The family member at bedside states she has been more altered recently. Her urinalysis today is consistent with a urinary tract infection. Review of prior culture shows at pansensitive E coli. She was given Rocephin here in the emergency department. We will hold on 30 cc/kilogram of fluid based on her normal blood pressure. I also would like to hold on this because the CT scan does show a right-sided ureteral stone with hydronephrosis and giving that amount of fluid would cause more discomfort and more hydronephrosis. I did discuss the case with Dr. De La Torre on-call for Urology who will see the patient as a inpatient. I do feel that the patient needs admitted for further evaluation and treatment. Also discussed the case with hospitalist who will admit. I did discuss the admission with the patient's family at bedside. They expressed understanding and agreement. Discharge Plan Departure Patient Disposition: Admitted As Inpatient Clinical Impression: Urinary tract infection, Altered mental status, Right ureteral stone, Hydronephrosis Admit Date/Time: 07/04/21 10:18 Admit Provider: Sheryl Orozco
[2021-07-04] MEDS: MORPHINE 4 MG/ML INJ IV (07:42)
[2021-07-04] MEDS: ONDANSETRON 4 MG/2 ML INJ (07:46)
[2021-07-04 08:06] LABS: Add Manual Diff / Slide Review NO; Basophils Absolute Auto 100 /uL (0-100); Basophils Percent Auto 0.7 % (0-2); Eosinophils Absolute Auto 0 /uL (0-450); Hematocrit 38.2 % (36-46); Hemoglobin 12.3 g/dL (12.0-16.0); Lymphocytes Absolute Auto 600 /uL (1100-4500); Mean Corpuscular HGB Conc 32.2 % (30-36); Mean Corpuscular Hemoglobin 26.1 PG (26-34); Mean Corpuscular Volume 80.9 fL (80-100); Monocytes Absolute Auto 400 /uL (0-900); Monocytes Percent Auto 2.6 % (3-14); Neutrophils Absolute Auto 14100 /uL (1500-7000); Neutrophils Percent Auto 92.7 % (50-75); Platelet Count 276 X10^3/uL (150-400); Red Blood Cell Count 4.72 X10^6/uL (4.0-5.2); Red Cell Distribution Width 14.2 % (11.6-14.8); White Blood Cell Count 15.2 X10^3/uL (4.5-11.0)
[2021-07-04 08:20] LABS: Lactate (Lactic Acid) 2.4 mmol/L (0.7-2.1)
[2021-07-04 08:21] LABS: Alanine Aminotransferase 13 IU/L (<35); Albumin 4.3 g/dL (3.5-5.0); Albumin Globulin Ratio 1.2 (1.0-2.8); Alkaline Phosphatase 82 U/L (38-126); Aspartate Aminotransferase 26 IU/L (14-36); BUN Creatinine Ratio 10.2 (6-22); Bilirubin Total 0.9 mg/dL (0.2-1.3); Blood Urea Nitrogen 12 mg/dL (7-17); Calcium 9.5 mg/dL (8.4-10.2); Carbon Dioxide 27 mmol/L (22-32); Chloride 102 mmol/L (98-107); Creatine Kinase 93 U/L (30-135); Globulin 3.6 g/dL (1.7-4.1); Glucose 168 mg/dL (80-110); HEMOLYSIS < 15 (0-50); Lipase 44 U/L (23-300); Potassium 3.2 mmol/L (3.4-5.1); Sodium 139 mmol/L (137-145); Total Protein 7.9 g/dL (6.3-8.2)
[2021-07-04 08:30] LABS: COVID19 -Nasal RAPID Negative (Negative)
[2021-07-04 08:33] LABS: Troponin I < 0.012 ng/mL (0.01-0.034)
--- NOTE | 2021-07-04 08:47 | DI.CT.S_ITS ---
PROCEDURE: CT ABDOMEN PELVIS W CON INDICATIONS: Generalized abdominal pain TECHNIQUE: After the administration of IV contrast, axial sections were acquired from the lung bases to the pubic symphysis. Coronal and sagittal reformats were performed. For radiation dose reduction, the following was used: automated exposure control, adjustment of mA and/or kV according to patient size. COMPARISON: [facility], CT, CT ABDOMEN PELVIS W CON, 04/04/2021, 12:48. FINDINGS: Image quality: Excellent. Lung bases: Unremarkable. Heart: No significant findings. ABDOMEN: Liver: Liver is at the upper limits of normal in size with steatosis. Gallbladder: The gallbladder is unremarkable. Biliary ducts: Unremarkable. Pancreas: Unremarkable. Spleen: Unremarkable. Adrenal Glands: Unremarkable. Kidneys and Ureters: The right kidney demonstrates interval [id number] hydronephrosis and hydroureter. There is a calcification within the mid ureter seen on series 2, image 60 measuring 3 mm, not visualized within this region on prior exam. In addition, there is an ill-defined soft tissue prominence at the anterior margin of the right psoas muscle measuring 10 and my 17 mm seen on series 2, image 44. It causes mild anterior displacement of the right ureter. This was not present on prior exam.. Stomach and Bowel: Stomach, small bowel loops, and colon are unremarkable. There is marked diffuse esophageal thickening within the visualized distal portion. It is noted that this was present on prior exam. Postsurgical changes reflecting gastric banding are noted. Peritoneum: No abnormal intraperitoneal fluid. No free air. Ventral Wall: No hernia. Abdominal Nodes: No retroperitoneal or mesenteric adenopathy by size criteria. Vessels: Aorta and inferior vena cava are normal in size. PELVIS: Pelvic Organs: As identified on prior exam, there is a fat containing mass within the right adnexa it is unchanged compared to prior exam. Bladder: Unremarkable. Pelvic Nodes: No enlarged lymph nodes. Miscellaneous: No inguinal hernias are seen. Bones: Unremarkable. IMPRESSION: 1. Interval development of right hydronephrosis and hydroureter secondary to calcification within the mid ureter. 2. Soft tissue density along the anterior margin of the right psoas muscle possibly lymph node or focus of infection or inflammation. Recommend interval follow-up to document resolution. 3. Fat containing mass within the pelvis, unchanged. Dictated by: Rina Valle M.D. on 07/04/2021 at 9:12 Approved by: Rina Valle M.D. on 07/04/2021 at 9:39
[2021-07-04] MEDS: SODIUM CHLORIDE 0.9% 1,000 ML 1000 ML IV (08:50)
[2021-07-04 08:56] LABS: Procalcitonin 0.08 ng/mL (<0.5)
[2021-07-04 09:29] LABS: Appearance Urine UA CLOUDY; Bilirubin Urine UA NEGATIVE (NEGATIVE); Color Urine UA YELLOW; Glucose Urine UA NEGATIVE (Negative); Ketones Urine UA TRACE (NEGATIVE); Leukocyte Esterase Urine UA 2+ (NEGATIVE); Nitrite Urine UA POSITIVE (Negative); Occult Blood Urine UA 3+ (Negative); Protein Urine UA 1+ (Negative); Urobilinogen Urine UA 0.2 E.U./dL (0.2)
[2021-07-04] MEDS: LORazepam 2 MG/ML INJ 1 MG IV (09:36)
[2021-07-04 09:46] LABS: RBC Urine 10-30/HPF (0-5/HPF); WBC Urine >100/HPF (0-5/HPF); pH Urine UA 6.5 (4.5-8.0)
[2021-07-04 09:47] LABS: Bacteria Urine Many (>30); Culture Indicated Urine Specimen Cultured; Squamous Epithelial Cell Urine 0-1 /HPF (0-5/HPF)
[2021-07-04 09:51] LABS: Reflexed Lactate in 2 Hours Y
[2021-07-04 10:59] LABS: Lactate 2HR (Lactic Acid Rflx) 2.4 mmol/L (0.7-2.1)
--- NOTE | 2021-07-04 11:23 | PC.NURSE ---
pt started to have hematuria via cath.. dr. bermudez aware. pt had a very large soft bm on bsc
[2021-07-04] MEDS: HALOPERIDOL 5 MG/ML VIAL IV (11:58)
[2021-07-04] MEDS: cefTRIAXone 1,000 MG in SODIUM CHLORIDE 0.9% 100 ML 200 ML IV (12:04)
[2021-07-04] MEDS: SODIUM CHLORIDE 0.45% 1,000 ML 100 ML IV (12:05)
--- NOTE | 2021-07-04 12:39 | PM.HP.1 ---
History of Present Illness History of Present Illness Date Patient Seen: 07/04/21 Chief complaint: body pain/coughing up saliva Narrative: PLEASANTLY ALTERED 71-YEAR-OLD FEMALE PRESENTED TO THE HOSPITAL ER DUE TO BODY ACHE. PATIENT WAS DIAGNOSED WITH A URINARY TRACT INFECTION. SHE HAS A HISTORY OF FOR PRIOR E COLI UTI. PER LAST CULTURE THIS WAS A PANSENSITIVE ORGANISM. AT THIS TIME SHE IS SIGNIFICANTLY ALTERED AND UNABLE TO PROVIDE A RELIABLE REVIEW OF SYSTEM OR HISTORY. MOST OF THE HISTORY WAS TAKEN FROM THE EMR /ER REPORT. IN THE ER, A SLIGHT ELEVATED BLOOD PRESSURE WELL TEMPERATURE NOTED. SIGNIFICANT LEUKOCYTOSIS WITH A WBC LEVEL ABOVE 15,000 APPRECIATED. SOME DECREASED KIDNEY FUNCTION ALSO APPRECIATED. URINALYSIS WAS POSITIVE FOR NITRATES WELL LEUKOCYTES ESTERASE CT OF THE HEAD WAS NEGATIVE Patient History Medical History Adnexal cyst (06/2020) Allergies (~1974) Blood glucose elevated Chicken pox (~1949) Chronic back pain (~2014) Colitis, infectious Constipation Decreased GFR Dementia (~2014) Depression (~2014) Diverticulitis Esophageal thickening (04/2021) Frequent headaches Headache (~2014) Hearing loss History of musculoskeletal disorder (~2014) Mixed hyperlipidemia Mumps (~1949) Pain Right knee pain TBI (traumatic brain injury) Tinnitus (~2014) Surgical History Anesthesia History of hand surgery (~1998) History of removal of skin mole (~2016) Hx of laparoscopic gastric banding (~2002) Family & Social History Social History: household members significant other Prior Living Arrangements House Safety & Behavioral: Feels Safe in Current Yes Environment Been Physically Hurt or No Threatened By a Person Suicidal Ideation Description None Suicide Plan Description No Plan Tobacco & Substance use: Smoking Status Never smoker alcohol intake never Substance Use Type does not use Meds Home Medications and Allergies Home Medications Medication Instructions Recorded Confirmed Type omeprazole 40 mg capsule,delayed 40 mg PO BID #90 cap 05/24/21 07/04/21 Rx release Allergies Allergy/AdvReac Type Severity Reaction Status Date / Time sulfite Allergy Severe anaphylactic Verified 05/24/21 08:11 shock adhesive AdvReac Mild takes my Verified 05/24/21 08:11 skin off msg Allergy Severe Anaphylaxis Uncoded 05/24/21 08:11 Exam Vital Signs (past 8 hours): - 07/04/21 07:03 07/04/21 08:04 07/04/21 08:30 Temperature 97.6 F Pulse Rate 68 69 69 Respiratory Rate 16 Blood Pressure 144/63 H 161/70 H Pulse Oximetry 99 97 98 07/04/21 08:31 07/04/21 08:51 07/04/21 11:35 Temperature 97.6 F Pulse Rate 67 84 74 Respiratory Rate 18 Blood Pressure 112/55 L 145/67 H 144/62 H Pulse Oximetry 99 98 98 Oxygen Delivery Method Room Air Oxygen Flow Rate 0 Narrative Exam Narrative: NO ACUTE DISTRESS. PATIENT IS ALTERED MENTALLY HEAD ATRAUMATIC NORMOCEPHALIC NECK : SUPPLE WITHOUT ADENOPATHY NO CAROTID BRUITS EYE: PERRLA, NORMAL CONJUNCTIVA; NO JAUNDICE CHEST: REGULAR RATE. NO RUBS. PMI IS NON DISPLACED. NO MURMURS; NORMAL S1-S2 PULMONARY: DECREASED BS OVER THE BASES. MILD BIBASILAR CRACKLES NOTED; NO INCREASED DULLNESS TO PERCUSSION ABDOMEN: SOFT. NONTENDER. NONDISTENDED. BOWEL SOUNDS ARE PRESENT IN ALL 4 QUADRANTS. NO MASS. EXTREMITIES: NO EDEMA.. NO CYANOSIS CLUBBING NOTED. NEURO: CRANIAL NERVES 2-12 GROSSLY INTACT. NO FOCAL NEUROLOGICAL DEFICIT NOTED. SOME RIGORS APPRECIATED. ENCEPHALOPATHY MSK: NORMAL PASSIVE AND ACTIVERANGE OF MOTION FOR AGE. NO JOINT EFFUSION. SKIN: NORMAL FOR ETHNICITY; NO ECCHYMOSIS. NO LESION. GOOD TURGOR.; NO RASHES : NORMAL EXTERNAL GENITALIA. NO PURULENT DRAINAGE. NGUYEN CATHETER IN PLACE. YELLOWISH URINE APPRECIATED PSYCH : ALTERED AND SLIGHTLY AGITATED. Objective Labs Result Diagrams: 07/04/21 07:47 07/04/21 07:47 Labs: Laboratory Results - last 24 hr 07/04/21 07/04/21 07/04/21 07:47 07:47 07:47 WBC 15.2 H RBC 4.72 Hgb 12.3 Hct 38.2 MCV 80.9 MCH 26.1 MCHC 32.2 RDW 14.2 Plt Count 276 Neut % (Auto) 92.7 H Lymph % (Auto) 4.0 L [place] % (Auto) 2.6 L Eos % (Auto) 0.0 L Baso % (Auto) 0.7 Neut # (Auto) 02264 H Lymph # (Auto) 600 L [place] # (Auto) 400 Eos # (Auto) 0 Baso # (Auto) 100 Sodium 139 Potassium 3.2 L Chloride 102 Carbon Dioxide 27 BUN 12 Creatinine 1.18 H Estimated GFR 45.0 L BUN/Creatinine Ratio 10.2 Glucose 168 H Lactate 2.4 H Calcium 9.5 Total Bilirubin 0.9 AST 26 ALT 13 Alkaline Phosphatase 82 Total Creatine Kinase 93 CK-MB (CK-2) TNP CK-MB (CK-2) Rel Index TNP Troponin I < 0.012 Total Protein 7.9 Albumin 4.3 Globulin 3.6 Albumin/Globulin Ratio 1.2 Lipase 44 Procalcitonin Urine Color Urine Appearance Urine pH Ur Specific [place] Urine Protein Urine Glucose (UA) Urine Ketones Urine Occult Blood Urine Nitrate Urine Bilirubin Urine Urobilinogen Ur Leukocyte Esterase Urine RBC Urine WBC Ur Squamous Epith Cells Urine Bacteria Ur Culture Indicated? SARS-CoV-2 (PCR) 07/04/21 07/04/21 07/04/21 07:47 08:00 09:00 WBC RBC Hgb Hct MCV MCH MCHC RDW Plt Count Neut % (Auto) Lymph % (Auto) [place] % (Auto) Eos % (Auto) Baso % (Auto) Neut # (Auto) Lymph # (Auto) [place] # (Auto) Eos # (Auto) Baso # (Auto) Sodium Potassium Chloride Carbon Dioxide BUN Creatinine Estimated GFR BUN/Creatinine Ratio Glucose Lactate Calcium Total Bilirubin AST ALT Alkaline Phosphatase Total Creatine Kinase CK-MB (CK-2) CK-MB (CK-2) Rel Index Troponin I Total Protein Albumin Globulin Albumin/Globulin Ratio Lipase Procalcitonin 0.08 Urine Color Yellow Urine Appearance Cloudy Urine pH 6.5 Ur Specific [place] 1.010 Urine Protein 1+ H Urine Glucose (UA) Negative Urine Ketones Trace H Urine Occult Blood 3+ H Urine Nitrate Positive H Urine Bilirubin Negative Urine Urobilinogen 0.2 Ur Leukocyte Esterase 2+ H Urine RBC 10-30/hpf H Urine WBC >100/hpf H Ur Squamous Epith Cells 0-1 /hpf Urine Bacteria Many (>30) H Ur Culture Indicated? Specimen cultured SARS-CoV-2 (PCR) Negative 07/04/21 10:30 WBC RBC Hgb Hct MCV MCH MCHC RDW Plt Count Neut % (Auto) Lymph % (Auto) [place] % (Auto) Eos % (Auto) Baso % (Auto) Neut # (Auto) Lymph # (Auto) [place] # (Auto) Eos # (Auto) Baso # (Auto) Sodium Potassium Chloride Carbon Dioxide BUN Creatinine Estimated GFR BUN/Creatinine Ratio Glucose Lactate 2.4 H Calcium Total Bilirubin AST ALT Alkaline Phosphatase Total Creatine Kinase CK-MB (CK-2) CK-MB (CK-2) Rel Index Troponin I Total Protein Albumin Globulin Albumin/Globulin Ratio Lipase Procalcitonin Urine Color Urine Appearance Urine pH Ur Specific [place] Urine Protein Urine Glucose (UA) Urine Ketones Urine Occult Blood Urine Nitrate Urine Bilirubin Urine Urobilinogen Ur Leukocyte Esterase Urine RBC Urine WBC Ur Squamous Epith Cells Urine Bacteria Ur Culture Indicated? SARS-CoV-2 (PCR) Assessment & Plan Assessment & Plan narrative: PROBLEM LIST METABOLIC/ TOXIC ENCEPHALOPATHY URINARY TRACT INFECTION. LIKES A GRAM-NEGATIVE RODS KIDNEY STONE. UROLOGY ON BOARD SEPSIS. PRESENT ON ARRIVAL LEUKOCYTOSIS FAILED LIKELY EXERCISE DUE TO INFECTIOUS PROCESS ACUTE KIDNEY INJURY. COULD BE PRERENAL AZOTEMIA POSSIBLE INTRAVASCULAR FLUID DEPLETION HYPERTENSION. ESSENTIAL HYPOKALEMIA. PLAN PATIENT HAS BEEN REFERRED TO THE UROLOGY TEAM FOR ASSISTANCE SHE WILL BE KEPT NPO IN PREPARATION FOR POSSIBLE TRIP TO THE OR FOR STENT PLACEMENT CONTINUE IV ANTIBIOTICS WITH ROCEPHIN DAILY LABS WILL BE ORDERED TO FOLLOW KIDNEY FUNCTION CLOSELY MONITOR INPUT AND OUTPUT CLOSELY AVOID ALL NEPHROTOXINS PHARMACY TO DOSE ALL MEDICATIONS FOR GFR MONITOR ELECTROLYTES CLOSELY WILL FOLLOW CULTURE CLOSELY IN REGARD TO HER SEPSIS BLOOD CULTURES BEEN SENT FROM THE ER WILL AWAIT URINE CULTURE WELL. PREVIOUS URINE CULTURE GREW E COLI SHOWS PANSENSITIVE ASPIRATION, FALL, AND SKIN PRECAUTIONS WILL BE ORDERED INCENTIVE SPIROMETER TO BE ORDERED WHEN POSSIBLE PATIENT WILL BE REFERRED TO PHYSICAL THERAPY TEAM WELL ONCE MENTATION IMPROVED ADDITIONAL MANAGEMENT PER CLINICAL COURSE DURATION OF STAY POSSIBLE 2-4 DAYS Time Spent With Patient Critical Care time: I spent a total of [] minutes of critical care time on this patient's care today; this time is exclusive of procedural time.
--- NOTE | 2021-07-04 13:16 | PM.CN ---
History of Present Illness Consult details Date Patient Seen: 07/04/21 Time Patient Seen: 13:16 Chief complaint: body pain/coughing up saliva Reason for consult: Right mid ureteral calculus and urinary tract infection, altered mental sta Requesting provider: Radames Harden Narrative: This is a 70-year-old female who reported to the emergency department with altered mental status, coughing up saliva, body pain. While in the emergency department she was found to have evidence of urinary tract infection and a mid ureteral right-sided calculus. Dr. goode her asked that I be consulted for cystoscopy with stent placement to relieve the obstruction. Patient has multiple other medical concerns at this point. Her white count is in the 15,000 range. She has a history of urinary tract infection which was a pansensitive E coli, this was approximately 1 month ago. She has received ceftriaxone. She is seen in the intensive care unit and is sedated the us know history of present illness can be obtained from her. Consent was obtained from her son, with which the procedure, risks, alternatives were discussed with the patient and his questions were answered. He wishes for me to proceed. Meds Home Medications and Allergies Home Medications Medication Instructions Recorded Confirmed Type omeprazole 40 mg capsule,delayed 40 mg PO BID #90 cap 05/24/21 07/04/21 Rx release Allergies Allergy/AdvReac Type Severity Reaction Status Date / Time sulfite Allergy Severe anaphylactic Verified 05/24/21 08:11 shock adhesive AdvReac Mild takes my Verified 05/24/21 08:11 skin off msg Allergy Severe Anaphylaxis Uncoded 05/24/21 08:11 Review of Systems Review of Systems ROS: Yes unobtainable due to mental status Exam Vital Signs (past 8 hours): - 07/04/21 07:03 07/04/21 08:04 07/04/21 08:30 Temperature 97.6 F Pulse Rate 68 69 69 Respiratory Rate 16 Blood Pressure 144/63 H 161/70 H Pulse Oximetry 99 97 98 07/04/21 08:31 07/04/21 08:51 07/04/21 11:35 Temperature 97.6 F Pulse Rate 67 84 74 Respiratory Rate 18 Blood Pressure 112/55 L 145/67 H 144/62 H Pulse Oximetry 99 98 98 Oxygen Delivery Method Room Air Oxygen Flow Rate 0 Narrative Exam Narrative: General: This is a sedated female resting in the bed. She has obvious [place] and rigors. Her temperature has risen to 99. Lungs: Coarse distant breath sounds Cardiovascular exam: Regular rate and rhythm at approximately 84 beats per minute Abdomen: Soft, without appreciable mass. Unable to assess tenderness due to sedation Objective Labs Result Diagrams: 07/04/21 07:47 07/04/21 07:47 Labs: Laboratory Results - last 24 hr 07/04/21 07/04/21 07/04/21 07:47 07:47 07:47 WBC 15.2 H RBC 4.72 Hgb 12.3 Hct 38.2 MCV 80.9 MCH 26.1 MCHC 32.2 RDW 14.2 Plt Count 276 Neut % (Auto) 92.7 H Lymph % (Auto) 4.0 L [place] % (Auto) 2.6 L Eos % (Auto) 0.0 L Baso % (Auto) 0.7 Neut # (Auto) 02144 H Lymph # (Auto) 600 L [place] # (Auto) 400 Eos # (Auto) 0 Baso # (Auto) 100 Sodium 139 Potassium 3.2 L Chloride 102 Carbon Dioxide 27 BUN 12 Creatinine 1.18 H Estimated GFR 45.0 L BUN/Creatinine Ratio 10.2 Glucose 168 H Lactate 2.4 H Calcium 9.5 Total Bilirubin 0.9 AST 26 ALT 13 Alkaline Phosphatase 82 Total Creatine Kinase 93 CK-MB (CK-2) TNP CK-MB (CK-2) Rel Index TNP Troponin I < 0.012 Total Protein 7.9 Albumin 4.3 Globulin 3.6 Albumin/Globulin Ratio 1.2 Lipase 44 Procalcitonin Urine Color Urine Appearance Urine pH Ur Specific [place] Urine Protein Urine Glucose (UA) Urine Ketones Urine Occult Blood Urine Nitrate Urine Bilirubin Urine Urobilinogen Ur Leukocyte Esterase Urine RBC Urine WBC Ur Squamous Epith Cells Urine Bacteria Ur Culture Indicated? SARS-CoV-2 (PCR) 07/04/21 07/04/21 07/04/21 07:47 08:00 09:00 WBC RBC Hgb Hct MCV MCH MCHC RDW Plt Count Neut % (Auto) Lymph % (Auto) [place] % (Auto) Eos % (Auto) Baso % (Auto) Neut # (Auto) Lymph # (Auto) [place] # (Auto) Eos # (Auto) Baso # (Auto) Sodium Potassium Chloride Carbon Dioxide BUN Creatinine Estimated GFR BUN/Creatinine Ratio Glucose Lactate Calcium Total Bilirubin AST ALT Alkaline Phosphatase Total Creatine Kinase CK-MB (CK-2) CK-MB (CK-2) Rel Index Troponin I Total Protein Albumin Globulin Albumin/Globulin Ratio Lipase Procalcitonin 0.08 Urine Color Yellow Urine Appearance Cloudy Urine pH 6.5 Ur Specific [place] 1.010 Urine Protein 1+ H Urine Glucose (UA) Negative Urine Ketones Trace H Urine Occult Blood 3+ H Urine Nitrate Positive H Urine Bilirubin Negative Urine Urobilinogen 0.2 Ur Leukocyte Esterase 2+ H Urine RBC 10-30/hpf H Urine WBC >100/hpf H Ur Squamous Epith Cells 0-1 /hpf Urine Bacteria Many (>30) H Ur Culture Indicated? Specimen cultured SARS-CoV-2 (PCR) Negative 07/04/21 10:30 WBC RBC Hgb Hct MCV MCH MCHC RDW Plt Count Neut % (Auto) Lymph % (Auto) [place] % (Auto) Eos % (Auto) Baso % (Auto) Neut # (Auto) Lymph # (Auto) [place] # (Auto) Eos # (Auto) Baso # (Auto) Sodium Potassium Chloride Carbon Dioxide BUN Creatinine Estimated GFR BUN/Creatinine Ratio Glucose Lactate 2.4 H Calcium Total Bilirubin AST ALT Alkaline Phosphatase Total Creatine Kinase CK-MB (CK-2) CK-MB (CK-2) Rel Index Troponin I Total Protein Albumin Globulin Albumin/Globulin Ratio Lipase Procalcitonin Urine Color Urine Appearance Urine pH Ur Specific [place] Urine Protein Urine Glucose (UA) Urine Ketones Urine Occult Blood Urine Nitrate Urine Bilirubin Urine Urobilinogen Ur Leukocyte Esterase Urine RBC Urine WBC Ur Squamous Epith Cells Urine Bacteria Ur Culture Indicated? SARS-CoV-2 (PCR) COUNT INCLUDES THE [facility] Medical History Adnexal cyst (06/2020) Allergies (~1974) Blood glucose elevated Chicken pox (~1949) Chronic back pain (~2014) Colitis, infectious Constipation Decreased GFR Dementia (~2014) Depression (~2014) Diverticulitis Esophageal thickening (04/2021) Frequent headaches Headache (~2014) Hearing loss History of musculoskeletal disorder (~2014) Mixed hyperlipidemia Mumps (~1949) Pain Right knee pain TBI (traumatic brain injury) Tinnitus (~2014) Surgical History Anesthesia History of hand surgery (~1998) History of removal of skin mole (~2017) Hx of laparoscopic gastric banding (~2002) Social History household members: significant other Previous occupational history: retired Tobacco & Substance Use Smoking Status: Never smoker alcohol intake: never substance use type: does not use Assessment & Plan Assessment and plan (1) Right ureteral stone: Status: Acute (2) Urinary tract infection: Qualifiers: Urinary tract infection type: acute cystitis Hematuria presence: without hematuria Qualified Code(s): N30.00 - Acute cystitis without hematuria Status: Acute (3) Altered mental status: Qualifiers: Altered mental status type: delirium Qualified Code(s): R41.0 - Disorientation, unspecified Status: Acute (4) Hydronephrosis: Qualifiers: Hydronephrosis type: with renal calculous obstruction Qualified Code(s): N13.2 - Hydronephrosis with renal and ureteral calculous obstruction Status: Acute Plan Assessment and plan: Patient with multiple medical problems at present that in the face of an obstructing right ureteral stone 3 mm and urinary tract infection. Plan is for cystoscopy with right ureteral stent placement the patient then will return to the ICU in care of the hospitalist. COVID-19 COVID-19 status: Negative Result date/Date tested (Pos, Neg/Pending): 07/04/21 Time Spent With Patient Time with patient: less than 30 minutes Critical Care time: I spent a total of [] minutes of critical care time on this patient's care today; this time is exclusive of procedural time.
--- NOTE | 2021-07-04 13:18 | SUR.OPER ---
Lithotomy on padded OR bed, head on pillow, arms secured on padded arm boards at <90 degrees abduction. Legs secured in padded yellow fins stirrups.
--- NOTE | 2021-07-04 13:25 | PM.PREOP ---
Pre-operative Note COVID-19 COVID-19 status: Negative Result date/Date tested (Pos, Neg/Pending): 07/04/21 Interval Note History & Physical reviewed/Exam performed by Physician: Yes Changes to H&P: No
[2021-07-04] MEDS: LACTATED RINGERS 1,000 ML 42 ML IV (13:36)
--- NOTE | 2021-07-04 13:39 | SUR.HOLD ---
1315 Brought down from Acute care for kidney stone removal. Altered level of consciousness. Consents signed by son. Has fever of 102, blankets removed
--- NOTE | 2021-07-04 14:25 | P.OP_ITS ---
Procedure & Clinicians Procedure: Cystoscopy with right ureteral stent placement Same procedure as scheduled: Yes Indications: This is a 70-year-old female who presented to the emergency department with complaint of coughing of saliva, abdominal pain, mental status changes. She was found to have in addition to these things a mid right ureteral calculus and evidence of urinary tract infection. She was admitted to the hospitalist service and I was consulted for stent placement. Specific patient presents at this time for cystoscopy with right ureteral stent placement. Surgeon: Paul De La Torre Click Yes if Unassisted: Yes Anesthesia Type: General Operative Notes Findings: Findings: External genitalia was normal. The urethral meatus exhibits a small caruncle and mucosa is normal along the length of the urethra. The bladder exhibits changes of cystitis ureteral orifices in normal position the left exhibiting clear efflux. At the right ureteral orifice there is some purulent material in evidence. At fluoroscopy there is evidence of contrast retention in the collecting system. The stone is not distinctly identified. There is mild hydronephrosis. Within the bladder there are no masses tumors or growths no stones are noted within the bladder. The 7 [place] multi length stent was left in good position without a string. After placement of the stent a vigorous purulent outflow was noted. Closure Type: not applicable Specimen(s): none sent Prosthetic devices, grafts, tissues, transplants, or devices: Seven [place] multi length stent left in the right collecting system. Applied: other (Seven [place] multilink stent right collecting system no string) Estimated Blood Loss (mL): 0 Blood products transfused: none Procedure in detail: Procedure in detail: After an informed consent was obtained from her son, the patient was identified and brought to the operating room where she was placed in the supine position. Anesthesia was induced and maintained. With insurance of adequate anesthesia the patient was transitioned to the lithotomy position, prepped and draped in a sterile fashion for transurethral procedure. After prepping, draping and ensuring an adequate level of anesthesia 21 [place] cystoscope was passed through the urethra into the bladder. Cystoscopy was performed. Findings are as noted. The right ureteral orifice was identified and a hybrid guidewire was passed up and in into the collecting system under fluoroscopic visualization. With the wire in place the stent was passed over the wire position in the renal pelvis under fluoroscopic visualization and in the bladder under direct vision. A grasping forceps was inserted and the stent grasped and the nylon harness was cut on 1 side and removed. The position of the stent was reassessed again for during with direct vision and fluoroscopically. With the stent in good position the scope was removed and a 16 [place] 5 cc Harper catheter passed through the urethra and into the bladder. Once in the bladder the balloon was filled with 10 cc of sterile water in the catheter was placed to gravity drainage. The patient was awakened taken to the postanesthesia care unit to be transition back to the ICU under the care of the hospitalist service. There were no complications and the patient tolerated the procedure well Complications: none Post-operative Condition: critical Disposition: PACU Plan for aftercare: Patient will transition to the ICU where she came from and back to the care of the hospitalist.
--- NOTE | 2021-07-04 15:18 | SUR.PHASEI ---
report called to [facility]. patient is back at baseline per pre-op RN and MDA.
[2021-07-04] MEDS: KCL 20 MEQ IN NS 1,000 ML 84 MEQ IV (15:39)
[2021-07-04] MEDS: HEPARIN 5,000 UNIT/ML VIAL 5000 UNIT SUBCUT (21:35)
[2021-07-05] VITALS (10 sets, daily range): BP systolic 93–127; BP diastolic 44–72; PULSE 58–68; RESP 14–19; TEMP 36.3–36.8; O2SAT 94–98
--- NOTE | 2021-07-05 00:50 | PC.NURSE ---
Patient is mostly nonresponsive. Does arouse to voice but responds only with sounds but did follow simple direction. Breath sounds diminished but CTA with RA sat of 97%. HRR. BP initially 105/49 but now at 0000 is hypotensive at 96/44. BT present. Indwelling catheter is patent; urine is peach colored. Is not moving on her own so staff is repositioning q2h. Bilateral calf SCD's applied at shift change. FLACC score is 0. Fall risk score is high at RN discretion and bed alarm is activated.
[2021-07-05] MEDS: KCL 20 MEQ IN NS 1,000 ML 84 MEQ IV (03:49)
[2021-07-05 05:10] LABS: Add Manual Diff / Slide Review NO; Basophils Absolute Auto 200 /uL (0-100); Basophils Percent Auto 1.3 % (0-2); Eosinophils Absolute Auto 0 /uL (0-450); Hematocrit 32.6 % (36-46); Hemoglobin 10.5 g/dL (12.0-16.0); Lymphocytes Absolute Auto 800 /uL (1100-4500); Lymphocytes Percent Auto 4.7 % (25-40); Mean Corpuscular HGB Conc 32.1 % (30-36); Mean Corpuscular Hemoglobin 26.2 PG (26-34); Mean Corpuscular Volume 81.4 fL (80-100); Monocytes Absolute Auto 500 /uL (0-900); Neutrophils Absolute Auto 16200 /uL (1500-7000); Platelet Count 197 X10^3/uL (150-400); Red Cell Distribution Width 14.8 % (11.6-14.8); White Blood Cell Count 17.8 X10^3/uL (4.5-11.0)
[2021-07-05 05:30] LABS: Alanine Aminotransferase 9 IU/L (<35); Alkaline Phosphatase 50 U/L (38-126); Aspartate Aminotransferase 21 IU/L (14-36); Bilirubin Total 0.3 mg/dL (0.2-1.3); Blood Urea Nitrogen 16 mg/dL (7-17); Calcium 8.5 mg/dL (8.4-10.2); Carbon Dioxide 25 mmol/L (22-32); Chloride 109 mmol/L (98-107); Estimated Glomerular Filt Rate 46.9 mL/min (>60); Glucose 119 mg/dL (80-110); HEMOLYSIS < 15 (0-50); Potassium 4.4 mmol/L (3.4-5.1); Sodium 139 mmol/L (137-145)
[2021-07-05] MEDS: HEPARIN 5,000 UNIT/ML VIAL 5000 UNIT SUBCUT ×2 (09:49→21:08)
--- NOTE | 2021-07-05 11:22 | PM.PN.1 ---
Subjective Subjective Date Patient Seen: 07/05/21 Interval history: PATIENT IS ALTERED MENTALLY. REVIEW OF SYSTEM REMAINS UNRELIABLE NO SIGNIFICANT ISSUES REPORTED BY NURSING OVERNIGHT PATIENT HAS BEEN VERY SOMNOLENT Exam Vital Signs (past 8 hours): - 07/05/21 03:51 07/05/21 03:53 07/05/21 07:35 Temperature 97.4 F L 97.3 F L Pulse Rate 58 L 67 Respiratory Rate 14 18 Blood Pressure 93/49 L 102/60 Pulse Oximetry 94 95 98 Oxygen Delivery Method Room Air Oxygen Flow Rate 0 Narrative Exam Narrative: NO ACUTE DISTRESS. PATIENT IS ALERT AND AWAKE BUT NOT ORIENTED TO TIME / PLACE VITAL SIGNS STABLE HEAD ATRAUMATIC NORMOCEPHALIC NECK : SUPPLE WITHOUT ADENOPATHY NO CAROTID BRUITS EYE: EOMI, PERRLA, NORMAL CONJUNCTIVA; NO JAUNDICE CHEST: REGULAR RATE. NO RUBS. PMI IS NON DISPLACED. NO MURMURS; NORMAL S1-S2 PULMONARY: DECREASED BS OVER THE BASES. MILD BIBASILAR CRACKLES NOTED; NO INCREASED DULLNESS TO PERCUSSION ABDOMEN: OBESE BUTSOFT. NONTENDER. NONDISTENDED. BOWEL SOUNDS ARE PRESENT IN ALL 4 QUADRANTS. NO MASS. EXTREMITIES: TRACE BILATERAL LOWER EXTREMITY EDEMA.. NO CYANOSIS CLUBBING NOTED. NEURO: CRANIAL NERVES 2-12 GROSSLY INTACT. NO FOCAL NEUROLOGICAL DEFICIT NOTED. ENCEPHALOPATHY MSK: NORMAL RANGE OF MOTION FOR AGE. NO JOINT EFFUSION. SKIN: FAIR SKIN TURGOR. NO OPEN LESION : NORMAL EXTERNAL GENITALIA. NGUYEN CATHETER IN PLACE. YELLOWISH URINE APPRECIATED PSYCH : CALM. COOPERATIVE. HOWEVER ENCEPHALOPATHY/ CONFUSION APPRECIATED. Objective Labs Result Diagrams: 07/05/21 04:55 07/05/21 04:55 Labs: Laboratory Results - last 24 hr 07/05/21 07/05/21 04:55 04:55 WBC 17.8 H RBC 4.00 Hgb 10.5 L Hct 32.6 L MCV 81.4 MCH 26.2 MCHC 32.1 RDW 14.8 Plt Count 197 Neut % (Auto) 91.0 H Lymph % (Auto) 4.7 L [place] % (Auto) 3.0 Eos % (Auto) 0.0 L Baso % (Auto) 1.3 Neut # (Auto) 81446 H Lymph # (Auto) 800 L [place] # (Auto) 500 Eos # (Auto) 0 Baso # (Auto) 200 H Sodium 139 Potassium 4.4 D Chloride 109 H Carbon Dioxide 25 BUN 16 Creatinine 1.14 H Estimated GFR 46.9 L BUN/Creatinine Ratio 14.0 Glucose 119 H Calcium 8.5 Phosphorus 4.0 Total Bilirubin 0.3 AST 21 ALT 9 Alkaline Phosphatase 50 Total Protein 6.0 L Albumin 3.0 L Globulin 3.0 Albumin/Globulin Ratio 1.0 PFSH Medical History Adnexal cyst (06/2020) Allergies (~1974) Blood glucose elevated Chicken pox (~1949) Chronic back pain (~2014) Colitis, infectious Constipation Decreased GFR Dementia (~2014) Depression (~2014) Diverticulitis Esophageal thickening (04/2021) Frequent headaches Headache (~2014) Hearing loss History of musculoskeletal disorder (~2014) Mixed hyperlipidemia Mumps (~1949) Pain Right knee pain TBI (traumatic brain injury) Tinnitus (~2014) Surgical History Anesthesia History of hand surgery (~1998) History of removal of skin mole (~2016) Hx of laparoscopic gastric banding (~2002) Social History household members: significant other Previous occupational history: retired Smoking Status: Never smoker alcohol intake: never substance use type: does not use Assessment & Plan Assessment & Plan narrative: ?PROBLEM LIST ?METABOLIC/ TOXIC ENCEPHALOPATHY . SLIGHT IMPROVEMENT THIS MORNING ?URINARY TRACT INFECTION.? GRAM-NEGATIVE RODS. AWAITING CULTURES ?KIDNEY STONE.? STATUS POST DAY 0 OF STENT URETHRAL PLACEMENT ON THE RIGHT. UROLOGY ON BOARD ?SEPSIS.? PRESENT ON ARRIVAL ?LEUKOCYTOSIS DUE TO INFECTIOUS PROCESS. WORSENING OVERNIGHT ?ACUTE KIDNEY INJURY.? COULD BE PRERENAL AZOTEMIA. STABLE ?POSSIBLE INTRAVASCULAR FLUID DEPLETION ?HYPERTENSION.? ESSENTIAL ?HYPOKALEMIA.? RESOLVED PLAN THE PATIENT WILL BE CONTINUED ON IV FLUID WITH OUR DECREASE THE RATE TO DECREASE THE RISK OF FLUID OVERLOAD CONTINUE IV ANTIBIOTICS. CEFEPIME AND FLAGYL WILL BE ORDERED URINE CULTURE GROWING GRAM-NEGATIVE RODS AWAITING SENSITIVITY IN IDENTIFICATION REPORT PRIOR TO MAKE SIGNIFICANT CHANGES TO THE ANTIBIOTICS WBC NOTED TO BE SLIGHTLY MORE ELEVATED TODAY HOWEVER THIS IS EXPECTED NO SIGN OF ACUTE COMPLICATIONS POSTOPERATIVELY NGUYEN CATHETER WITH URINE PRESENT IN THE BAG. NO GROSS BLOODY SUBSTANCE APPRECIATED ASSISTANCE FROM NEUROLOGY IS GREATLY APPRECIATED SINCE PATIENT MENTATION HAS IMPROVED, WILL START ON FULL LIQUID DIET AND ADVANCE DIET TOLERATED ASPIRATION PRECAUTION TO BE MAINTAINED AT ALL TIMES WILL CONSULT PHYSICAL THERAPY ORDER PLACED FOR PATIENT TO BE OUT OF BED AND IN CHAIR. SHOULD BE IN CHAIR FOR EVERY MEAL ADDITIONAL MANAGEMENT PER CLINICAL COURSE POSSIBLE DISCHARGE IN 2-3 DAYS Time Spent With Patient Critical Care time: I spent a total of [] minutes of critical care time on this patient's care today; this time is exclusive of procedural time.
[2021-07-05] MEDS: CEFEPIME 1 GM in SODIUM CHLORIDE 0.9% 100 ML 200 ML IV ×2 (11:44→21:15)
[2021-07-05] MEDS: metroNIDAZOLE 500 MG TABLET PO ×3 (14:18→21:23)
--- NOTE | 2021-07-05 14:45 | PT.IIE ---
Current Diagnoses Hydronephrosis with renal and ureteral calculous obstruction (07/04/21) Calculus of ureter (07/04/21) Acute cystitis without hematuria (07/04/21) Disorientation, unspecified (07/04/21) Surgery Performed Operation Date: 07/04/21 13:30 Actual Procedures p Cystoscopy w/ Ureteral Procedure Placement of Ureteral Stent(Right) - Paul De La Torre MD Surgical History (Last Reviewed 07/04/21 @ 13:20 by Paul De La Torre MD) Anesthesia Medical History (Last Reviewed 07/04/21 @ 13:20 by Paul De La Torre MD) Adnexal cyst (06/2020) Allergies (~1974) Blood glucose elevated Chicken pox (~1949) Chronic back pain (~2014) Colitis, infectious Constipation Decreased GFR Dementia (~2014) Depression (~2014) Diverticulitis Esophageal thickening (04/2021) Frequent headaches Headache (~2014) Hearing loss History of musculoskeletal disorder (~2014) Mixed hyperlipidemia Mumps (~1949) Pain Right knee pain TBI (traumatic brain injury) Tinnitus (~2014) Physical Therapy Inpatient Evaluation/Re-Eval M1 PT/OT-IP Prior Functional Status Start: 07/05/21 16:25 Freq: NEEDED Status: Active Protocol: Document 07/05/21 14:45 AB (Rec: 07/05/21 16:41 AB [id number]) Medical Review Prior Functional Status Medical History Reviewed Yes Communication able to make needs known but unable to provide info due to cognitive issues; pt has dx of dementia Mobility and Gait pt unable to provide accurate information and stated stated she does not know; stated that she is independent with mobility but does not know if she uses an AD or not Social History Household Members significant other Living Arrangements House Number of Stairs To Enter/Railing? stated that she has cement steps with R rail to get into the house but cannot remember how many and does not know if they only have 1 level or a 2 level house M2 PT-IP Current Condition Start: 07/05/21 16:25 Freq: NEEDED Status: Active Protocol: Document 07/05/21 14:45 AB (Rec: 07/05/21 16:41 AB [id number]) Physical Therapy Current Condition Current Condition Evaluation Date 07/05/21 Treatment Diagnosis UTI; difficulty in walking Onset Date 07/04/21 M3 PT-IP Subjective Start: 07/05/21 16:25 Freq: NEEDED Status: Active Protocol: Document 07/05/21 14:45 AB (Rec: 07/05/21 16:41 AB [email or web address]) Subjective Physical Therapy Visit Type Type Initial Evaluation Visit Start Time 14:45 Visit Stop Time 15:15 Total Visit Minutes 30 Number of PHOTO EDITOR Visits 0 Physical Therapy Visit Comments Patient Comments pt is agreeable to do PT M4 PT-IP Mobility and Gait Start: 07/05/21 16:25 Freq: NEEDED Status: Active Protocol: Document 07/05/21 14:45 AB (Rec: 07/05/21 16:41 AB [email or web address]) PT-Bed Mobility Assessment Supine to Sit Supine to Sit Standby Assistance PT-Transfer Assessment Sit to and From Stand Sit to and from Stand Contact Guard Assistance,1 Person Assistance,Use of Upper Extremities Equipment Transfer Assistive Device Gait Belt,Front Wheeled Walker Orthotic/Prosthetic Devices or Brace: No Transfers Transfer Destination Chair Transfer Technique ambulated using FWW Transfer Ability Level of Assist Contact Guard Assistance, Minimal Assistance,1 Person Assistance,Use of Upper Extremities Comments Mobility Comments pt completed supine to sit SBA . able to sit on EOB SBA. completed sit to stand CGA and ambulated to the chair using FWW CGA to min A. Assessed ambulation without AD and completed 10 ft min A and cues . presents with unsteady gait with increase lateral trunk lean to the L, decrease LE elevation during ambulation. pt agreed to stay up on chair and positioned. call light and table placed within reach. informed NAC that pt will need a chair alarm. pt with short term and snf memory loss affecting safety awareness. Gait Assessment Gait Gait Assistance Required: Contact Guard Assist,Minimum Assistance Distance (Feet) 20 Able to Maintain Weight Bearing Status Yes During Gait Assistive Devices Assistive Device None,Gait Belt,Front Wheeled Walker Orthotic/Prosthetic Devices or Brace: No Gait Deviations General Gait Pattern Antalgic,Decreased Stride Length,Decreased Feet Clearance,Lateral Trunk Lean Factors Limiting Gait Function Factors Limiting Gait Function Decreased Activity Tolerance, Decreased Strength,Difficulty Following Directions,Poor Balance,Poor Safety Awareness PT-Balance Assessment Sitting Balance and Reactions Static Sitting Balance Ability Good Dynamic Sitting Balance Ability Good Standing Balance and Reactions Static Standing Balance Ability Fair Dynamic Standing Balance Ability Fair Device Used FWW M5 PT-IP Objective Assessments Start: 07/05/21 16:25 Freq: NEEDED Status: Active Protocol: Document 07/05/21 14:45 AB (Rec: 07/05/21 16:41 AB [email or web address]) Orientation Orientation/Cognition Level of Alertness Confusional State Orientation Name Safety Awareness Decreased Safety Awareness Memory Description Short Term Impaired,Differential Specialist Impaired Gross Range of Motion Lower Extremity ROM Assessment Within Functional Limits Strength Lower Extremity Strength Assessment Within Functional Limits Muscle Tone Muscle Tone WNL Yes M6 PT-IP Treatment Start: 07/05/21 16:25 Freq: NEEDED Status: Active Protocol: Document 07/05/21 14:45 AB (Rec: 07/05/21 16:41 AB [email or web address]) Physical Therapy Treatment Education Education Provided Safety M7 PT-IP Assessment and Plan Start: 07/05/21 16:25 Freq: NEEDED Status: Active Protocol: Document 07/05/21 14:45 AB (Rec: 07/05/21 16:41 AB [email or web address]) PT Summary Assessment and Plan Potential Rehabilitation Potential Fair Status of Condition at Evaluation Stable Summary Impairments Pain,ROM,Strength,Balance, Coordination,Sensation,Tone, Cognition,Bed Mobility, Transfers,Gait,Activity Tolerance Assessment Summary pt requiring CGA to min A with ambulation using FWW but with cognitive issues affecting safety awareness. Pt needs 24 /7 assist availability for safe d/c home. pt lives with her spouse but stated that spouse goes to work but pt has dx dementia and information provided is not accurate. will have to assess further. Goals Bed Mobility Goal Independent Transfer Goal Independent,Front Wheeled Walker Gait Goal Independent,Front Wheel Walker Gait Distance 300 Other Goals improve ambulation without AD 250 ft mod I Days to Meet Goals 10 Frequency of Treatment Frequency Of Treatment Once a Day Treatment Plan Physical Therapy Treatment Plan Bed Mobility Training,Transfer Training,Gait Training, Therapeutic Exercise,Balance Retraining,Discharge Planning, Hot or Cold Pack,Neuromuscular Re-ed,Coordination Retraining Recommendations To Nursing Amount of Assist Needed 1 Person Assist Discharge Recommendations PT Discharge Recommendations Home with 24/7 Assist Available Transportation Needs at Discharge Private Vehicle
--- NOTE | 2021-07-05 17:15 | CM.DANOTE ---
DCP Assessment: patient is a 70 yr old female who was admitted for UTI and altered mental status. CM attempted to meet with patient but she was very altered and unable to work on DC planning with CM at this time. Cm attempted to call patients and LVM for him. According to PT notes- she is independent with ADLs unknown if she lives in a single story or two story home I: Medicare and [facility] Plan: Unknown at this time- CM department will follow up with patient tomorrow to see if she is able to work on DC plan. Mackenzie Osborne RN Case manger Discharge Planning/Care Management Advanced directive, confirm from FAMILY Start: 07/04/21 12:04 Freq: Q24H Status: Active Protocol: Document 07/04/21 12:04 HCW (Rec: 07/04/21 18:16 HCW [id number]) Advance Directive, confirm on record Time 18:16 Person contacted son Copy received No Document 07/05/21 12:04 JDG (Rec: 07/05/21 14:35 JDG [id number]) Advance Directive, confirm on record Time 18:16 Person contacted son Copy received No CM Discharge Assessment Start: 07/05/21 17:11 Freq: Status: Active Protocol: Document 07/05/21 17:11 HS (Rec: 07/05/21 17:14 HS [id number]) Discharge Planning Assessment Assigned Brisket Puller Mackenzie Osborne RNmedical practice manager DPOA/Assigned Designee Name Paul Simental Contact Information [phone] Advance Directives? Yes Advance Directives on File No History Provided By Patient Prior Living Arrangements House Household Members significant other Comment unknown patient unable to remember Independent with ADL's Yes: patient states she is Independent with ADL Is patient alert and oriented? No: A&O x3 DME Already Rented / Owned FWW / Walker Barriers to Discharge No Discharge Plan Home Referrals Initiated None needed Whiteboard Updated in Patient Room with Yes name and ext. # of Brisket Puller Review Status In Process Next Review Type Continued Stay Review
[2021-07-05] MEDS: SENNOSIDES 8.6 MG TABLET 17.2 MG PO (21:12)
[2021-07-05] MEDS: HALOPERIDOL 5 MG/ML VIAL IV (23:59)
[2021-07-06] VITALS (10 sets, daily range): BP systolic 120–127; BP diastolic 58–65; PULSE 75–80; RESP 16–18; TEMP 36.8–37; O2SAT 94–96
[2021-07-06] MEDS: MORPHINE 2 MG/ML INJ IV ×2 (01:51→22:22)
[2021-07-06] MEDS: KCL 20 MEQ IN NS 1,000 ML 50 MEQ IV ×2 (02:41→15:39)
[2021-07-06] MEDS: QUETIAPINE 25 MG TABLET PO (03:38)
[2021-07-06 05:16] LABS: Add Manual Diff / Slide Review NO; Basophils Absolute Auto 0 /uL (0-100); Basophils Percent Auto 0.2 % (0-2); Eosinophils Absolute Auto 0 /uL (0-450); Eosinophils Percent Auto 0.1 % (2-4); Hematocrit 33.9 % (36-46); Hemoglobin 10.8 g/dL (12.0-16.0); Lymphocytes Absolute Auto 1100 /uL (1100-4500); Lymphocytes Percent Auto 8.2 % (25-40); Mean Corpuscular HGB Conc 31.7 % (30-36); Mean Corpuscular Hemoglobin 25.7 PG (26-34); Monocytes Absolute Auto 700 /uL (0-900); Monocytes Percent Auto 5.3 % (3-14); Neutrophils Absolute Auto 12000 /uL (1500-7000); Neutrophils Percent Auto 86.2 % (50-75); Platelet Count 189 X10^3/uL (150-400); Red Blood Cell Count 4.19 X10^6/uL (4.0-5.2); Red Cell Distribution Width 14.7 % (11.6-14.8); White Blood Cell Count 13.9 X10^3/uL (4.5-11.0)
[2021-07-06 05:32] LABS: Alanine Aminotransferase 11 IU/L (<35); Albumin 3.2 g/dL (3.5-5.0); Alkaline Phosphatase 70 U/L (38-126); Aspartate Aminotransferase 26 IU/L (14-36); BUN Creatinine Ratio 18.2 (6-22); Bilirubin Total 0.4 mg/dL (0.2-1.3); Blood Urea Nitrogen 18 mg/dL (7-17); Calcium 8.5 mg/dL (8.4-10.2); Carbon Dioxide 23 mmol/L (22-32); Chloride 108 mmol/L (98-107); Estimated Glomerular Filt Rate 55.1 mL/min (>60); Globulin 3.2 g/dL (1.7-4.1); Glucose 66 mg/dL (80-110); HEMOLYSIS < 15 (0-50); Phosphorous 2.3 mg/dL (2.8-4.1); Potassium 3.8 mmol/L (3.4-5.1); Sodium 137 mmol/L (137-145); Total Protein 6.4 g/dL (6.3-8.2)
[2021-07-06] MEDS: HEPARIN 5,000 UNIT/ML VIAL 5000 UNIT SUBCUT ×2 (09:59→22:22)
[2021-07-06] MEDS: metroNIDAZOLE 500 MG TABLET PO (10:02)
[2021-07-06] MEDS: CEFEPIME 1 GM in SODIUM CHLORIDE 0.9% 100 ML 200 ML IV (10:09)
--- NOTE | 2021-07-06 11:40 | PT.IPTN ---
Current Diagnoses Hydronephrosis with renal and ureteral calculous obstruction (07/04/21) Calculus of ureter (07/04/21) Acute cystitis without hematuria (07/04/21) Disorientation, unspecified (07/04/21) Surgery Performed Operation Date: 07/04/21 13:30 Actual Procedures p Cystoscopy w/ Ureteral Procedure Placement of Ureteral Stent(Right) - Paul De La Torre MD Physical Therapy Treatment Note M2 PT-IP Current Condition Start: 07/05/21 16:25 Freq: NEEDED Status: Active Protocol: Document 07/05/21 14:45 AB (Rec: 07/05/21 16:41 AB [email or web address]) Physical Therapy Current Condition Current Condition Evaluation Date 07/05/21 Treatment Diagnosis UTI; difficulty in walking Onset Date 07/04/21 M3 PT-IP Subjective Start: 07/05/21 16:25 Freq: NEEDED Status: Active Protocol: Document 07/06/21 11:40 AB (Rec: 07/06/21 13:10 AB [email or web address]) Subjective Physical Therapy Visit Type Type Treatment Note Visit Start Time 11:40 Visit Stop Time 12:00 Total Visit Minutes 20 Number of SMALL BUSINESS DIRECTOR Visits 0 Physical Therapy Visit Comments Patient Comments agreed to get out of bed M4 PT-IP Mobility and Gait Start: 07/05/21 16:25 Freq: NEEDED Status: Active Protocol: Document 07/06/21 11:40 AB (Rec: 07/06/21 13:10 AB [email or web address]) PT-Bed Mobility Assessment Supine to Sit Supine to Sit Standby Assistance PT-Transfer Assessment Sit to and From Stand Sit to and from Stand Minimal Assistance,1 Person Assistance,Use of Upper Extremities Equipment Transfer Assistive Device Gait Belt,Front Wheeled Walker Orthotic/Prosthetic Devices or Brace: No Transfers Transfer Destination Chair Transfer Technique ambulated using FWW Transfer Ability Level of Assist Moderate Assistance,1 Person Assistance,Use of Upper Extremities Comments Mobility Comments checked on pt this morning and son in room. Pt is asleep and a bit restless in bed. son confirmed that pt is independent with all mobilities and ambulation without AD and that she is usually by herself at home when her significant other goes to work. son unable to provide much home set up information. check nurse and stated that pt did not sleep well last night and just started falling asleep early this morning. informed son that PT will have pt sleep for a while and come back to get pt up for lunch and agreed. Checked back on pt and pt is awake but still groggy. agreed to get up. completed supine to sit SBA. able to sit on EOB SBA. tends to keep her eyes closed and required cues to open her eyes. completed sit to stand min A and ambulated using FWW mod A and cues to the chair. positioned pt on chair. call light and table placed within reach. Gait Assessment Gait Gait Assistance Required: Moderate Assistance Distance (Feet) 12 Able to Maintain Weight Bearing Status Yes During Gait Assistive Devices Assistive Device Gait Belt,Front Wheeled Walker Orthotic/Prosthetic Devices or Brace: No Gait Deviations General Gait Pattern Antalgic,Decreased Stride Length,Decreased Feet Clearance Factors Limiting Gait Function Factors Limiting Gait Function Decreased Activity Tolerance, Decreased Strength,Difficulty Following Directions,Limited Range of Motion,Poor Balance, Poor Safety Awareness M5 PT-IP Objective Assessments Start: 07/05/21 16:25 Freq: NEEDED Status: Active Protocol: Document 07/05/21 14:45 AB (Rec: 07/05/21 16:41 AB [email or web address]) Orientation Orientation/Cognition Level of Alertness Confusional State Orientation Name Safety Awareness Decreased Safety Awareness Memory Description Short Term Impaired,Jail Impaired Gross Range of Motion Lower Extremity ROM Assessment Within Functional Limits Strength Lower Extremity Strength Assessment Within Functional Limits Muscle Tone Muscle Tone WNL Yes M6 PT-IP Treatment Start: 07/05/21 16:25 Freq: NEEDED Status: Active Protocol: Document 07/06/21 11:40 AB (Rec: 07/06/21 13:10 AB [email or web address]) Physical Therapy Treatment Education Education Provided Safety M7 PT-IP Assessment and Plan Start: 07/05/21 16:25 Freq: NEEDED Status: Active Protocol: Document 07/06/21 11:40 AB (Rec: 07/06/21 13:10 AB [email or web address]) PT Summary Assessment and Plan Potential Rehabilitation Potential Fair Summary Impairments Pain,ROM,Strength,Balance, Coordination,Sensation,Tone, Cognition,Bed Mobility, Transfers,Gait,Activity Tolerance Progress Towards Goals Slow Progress due to Medical Issues,Slow Progress due to Activity Tolerance Assessment Summary pt requiring increase assistance today due to pt being sleepy. Nurse stated that pt did not sleep well last night. pt assisted on chair for lunch and pt agreed to move but still sleepy during mobility. Son confirmed that pt is mostly by herself at home and currently require 24/7 assist availability. pt will require SNF rehab to improve strength and function. Goals Bed Mobility Goal Independent Transfer Goal Independent,Front Wheeled Walker Gait Goal Independent,Front Wheel Walker Gait Distance 300 Other Goals improve ambulation without AD 250 ft mod I Days to Meet Goals 10 Frequency of Treatment Frequency Of Treatment Once a Day Treatment Plan Physical Therapy Treatment Plan Bed Mobility Training,Transfer Training,Gait Training, Therapeutic Exercise,Balance Retraining,Discharge Planning, Hot or Cold Pack,Neuromuscular Re-ed,Coordination Retraining Recommendations To Nursing Amount of Assist Needed 1 Person Assist Discharge Recommendations PT Discharge Recommendations SNF Rehab Transportation Needs at Discharge Private Vehicle
--- NOTE | 2021-07-06 12:48 | PM.PN.1 ---
Subjective Subjective Interval history: PATIENT IS ALERT, AWAKE HOWEVER SHE REMAINS SOMEHOW ENCEPHALOPATHIC NOT SURE OF HER BASELINE MENTATION HER REVIEW OF SYSTEM IS UNRELIABLE DUE TO MENTATION AT THIS TIME Exam Vital Signs (past 8 hours): - 07/06/21 11:15 07/06/21 12:01 Temperature 98.5 F Pulse Rate 80 Respiratory Rate 16 Blood Pressure 127/58 L Pulse Oximetry 94 95 Oxygen Delivery Method Room Air Oxygen Flow Rate 0 Narrative Exam Narrative: NO ACUTE DISTRESS.? PATIENT IS ALERT AND AWAKE? BUT NOT ORIENTED TO TIME / PLACE. ORIENTED TO PERSON VITAL SIGNS STABLE HEAD ATRAUMATIC NORMOCEPHALIC NECK : SUPPLE WITHOUT ADENOPATHY NO CAROTID BRUITS EYE:? EOMI, PERRLA, NORMAL CONJUNCTIVA; NO JAUNDICE CHEST:? REGULAR RATE.? ? NO RUBS.? PMI IS NON DISPLACED.? NO MURMURS; NORMAL S1-S2 PULMONARY:? DECREASED BS OVER THE BASES.? MILD BIBASILAR CRACKLES NOTED; NO INCREASED DULLNESS TO PERCUSSION ABDOMEN: ? OBESE BUTSOFT.? NONTENDER.? NONDISTENDED.? BOWEL SOUNDS ARE PRESENT IN ALL 4 QUADRANTS.? NO MASS. EXTREMITIES:? TRACE BILATERAL LOWER EXTREMITY EDEMA..? NO CYANOSIS CLUBBING NOTED. NEURO:? CRANIAL NERVES 2-12 GROSSLY INTACT. NO FOCAL NEUROLOGICAL DEFICIT NOTED. ENCEPHALOPATHY MSK:? NORMAL RANGE OF MOTION FOR AGE.? NO JOINT EFFUSION. SKIN: ? FAIR SKIN TURGOR.? NO OPEN LESION :? NORMAL EXTERNAL GENITALIA. NGUYEN CATHETER IN PLACE.? YELLOWISH URINE APPRECIATED PSYCH : ? CALM.? COOPERATIVE.? HOWEVER ENCEPHALOPATHY/ CONFUSION APPRECIATED. Objective Labs Result Diagrams: 07/06/21 04:45 07/06/21 04:45 Labs: Laboratory Results - last 24 hr 07/06/21 07/06/21 04:45 04:45 WBC 13.9 H RBC 4.19 Hgb 10.8 L Hct 33.9 L MCV 81.0 MCH 25.7 L MCHC 31.7 RDW 14.7 Plt Count 189 Neut % (Auto) 86.2 H Lymph % (Auto) 8.2 L [place] % (Auto) 5.3 Eos % (Auto) 0.1 L Baso % (Auto) 0.2 Neut # (Auto) 17870 H Lymph # (Auto) 1100 [place] # (Auto) 700 Eos # (Auto) 0 Baso # (Auto) 0 Sodium 137 Potassium 3.8 Chloride 108 H Carbon Dioxide 23 BUN 18 H Creatinine 0.99 Estimated GFR 55.1 L BUN/Creatinine Ratio 18.2 Glucose 66 L Calcium 8.5 Phosphorus 2.3 L D Total Bilirubin 0.4 AST 26 ALT 11 Alkaline Phosphatase 70 Total Protein 6.4 Albumin 3.2 L Globulin 3.2 Albumin/Globulin Ratio 1.0 [facility] Medical History Adnexal cyst (06/2020) Allergies (~1974) Blood glucose elevated Chicken pox (~1949) Chronic back pain (~2014) Colitis, infectious Constipation Decreased GFR Dementia (~2014) Depression (~2014) Diverticulitis Esophageal thickening (04/2021) Frequent headaches Headache (~2014) Hearing loss History of musculoskeletal disorder (~2014) Mixed hyperlipidemia Mumps (~1949) Pain Right knee pain TBI (traumatic brain injury) Tinnitus (~2014) Surgical History Anesthesia History of hand surgery (~1998) History of removal of skin mole (~2016) Hx of laparoscopic gastric banding (~2002) Social History household members: significant other Previous occupational history: retired Smoking Status: Never smoker alcohol intake: never substance use type: does not use Assessment & Plan Assessment & Plan narrative: PROBLEM LIST ?METABOLIC/ TOXIC ENCEPHALOPATHY .? SLIGHT IMPROVEMENT THIS MORNING ?URINARY TRACT INFECTION.? GRAM-NEGATIVE RODS.? AWAITING CULTURES ?KIDNEY STONE.?? STATUS POST DAY 0 OF STENT URETHRAL PLACEMENT? ON THE RIGHT. UROLOGY ON BOARD ?SEPSIS.? PRESENT ON ARRIVAL ?LEUKOCYTOSIS ? DUE TO INFECTIOUS PROCESS.? IMPROVED OVERNIGHT ?ACUTE KIDNEY INJURY.? COULD BE PRERENAL AZOTEMIA.? STABLE ?POSSIBLE INTRAVASCULAR FLUID DEPLETION ?HYPERTENSION.? ESSENTIAL ?HYPOKALEMIA.? RESOLVED ?PLAN 07/05 CULTURE RESULTS NOTED WITH PANSENSITIVE E COLI SPOKE TO PHARMACY TEAM AND ANTIBIOTICS SWITCHED TO ORAL TABLETS WILL START ON CEFDINIR FOR ANOTHER 7 DAYS WBC DID IMPROVE OVERNIGHT HOWEVER WILL MONITOR CLOSELY AND SWITCH BACK TO IV ANTIBIOTICS IF NEEDED PATIENT REMAINED WITH ENCEPHALOPATHY COULD BE UNDERLYING DEMENTIA. WORSENING WITH THE CURRENT DISEASE PROCESS WILL CONTINUE CURRENT MANAGEMENT OTHERWISE DISCHARGE FOR CLINICAL COURSE. MIGHT NEED PLACEMENT TO [facility] ON DISPOSITION 07/04 ?THE PATIENT WILL BE CONTINUED ON IV FLUID ?WITH OUR DECREASE THE RATE TO DECREASE THE RISK OF FLUID OVERLOAD ?CONTINUE IV? ANTIBIOTICS.? CEFEPIME AND FLAGYL WILL BE ORDERED ?URINE CULTURE GROWING GRAM-NEGATIVE RODS ?AWAITING SENSITIVITY IN IDENTIFICATION REPORT PRIOR TO MAKE SIGNIFICANT CHANGES TO THE ANTIBIOTICS ?WBC NOTED TO BE SLIGHTLY MORE ELEVATED TODAY HOWEVER THIS IS EXPECTED ?NO SIGN OF ACUTE COMPLICATIONS POSTOPERATIVELY ?NGUYEN CATHETER WITH URINE PRESENT IN THE BAG.? NO GROSS BLOODY SUBSTANCE APPRECIATED ?ASSISTANCE FROM NEUROLOGY IS GREATLY APPRECIATED ?SINCE PATIENT MENTATION HAS IMPROVED, WILL START ON FULL LIQUID DIET AND ADVANCE DIET TOLERATED ?ASPIRATION PRECAUTION TO BE MAINTAINED AT ALL TIMES ?WILL CONSULT PHYSICAL THERAPY ?ORDER PLACED FOR PATIENT TO BE OUT OF BED AND IN CHAIR. ? SHOULD BE IN CHAIR FOR? EVERY MEAL ?ADDITIONAL MANAGEMENT PER CLINICAL COURSE ?POSSIBLE DISCHARGE IN 2-3 DAYS Time Spent With Patient Critical Care time: I spent a total of [] minutes of critical care time on this patient's care today; this time is exclusive of procedural time.
[2021-07-06] MEDS: SODIUM,POTASSIUM PHOSPHATES PACKET 2 EACH PO (13:56)
--- NOTE | 2021-07-06 16:44 | PC.NURSE ---
Pt napping most of shift. Sat in chair for some time this afternoon Lungs clear, SpO2 94% RA Call light w/in reach, bed alarm on for pt safety. Continue w/plan of care.
[2021-07-06] MEDS: HALOPERIDOL 5 MG/ML VIAL IV (22:22)
[2021-07-06] MEDS: SENNOSIDES 8.6 MG TABLET 17.2 MG PO (22:51)
[2021-07-06] MEDS: CEFDINIR 300 MG CAPSULE PO (22:51)
[2021-07-07] VITALS: O2SAT 94
[2021-07-07 00:36] VITALS: O2SAT 94
[2021-07-07] MEDS: MORPHINE 2 MG/ML INJ IV (02:03)
[2021-07-07 04:00] VITALS: O2SAT 94
[2021-07-07 04:57] LABS: Add Manual Diff / Slide Review NO; Basophils Absolute Auto 0 /uL (0-100); Basophils Percent Auto 0.4 % (0-2); Eosinophils Absolute Auto 0 /uL (0-450); Eosinophils Percent Auto 0.6 % (2-4); Hematocrit 32.5 % (36-46); Hemoglobin 10.5 g/dL (12.0-16.0); Lymphocytes Absolute Auto 1100 /uL (1100-4500); Lymphocytes Percent Auto 13.4 % (25-40); Mean Corpuscular HGB Conc 32.3 % (30-36); Mean Corpuscular Volume 80.5 fL (80-100); Monocytes Absolute Auto 600 /uL (0-900); Monocytes Percent Auto 7.8 % (3-14); Neutrophils Absolute Auto 6100 /uL (1500-7000); Neutrophils Percent Auto 77.8 % (50-75); Platelet Count 200 X10^3/uL (150-400); Red Blood Cell Count 4.04 X10^6/uL (4.0-5.2); Red Cell Distribution Width 14.5 % (11.6-14.8); White Blood Cell Count 7.9 X10^3/uL (4.5-11.0)
[2021-07-07 05:15] LABS: Alanine Aminotransferase 9 IU/L (<35); Alkaline Phosphatase 54 U/L (38-126); Aspartate Aminotransferase 21 IU/L (14-36); Bilirubin Total 0.4 mg/dL (0.2-1.3); Blood Urea Nitrogen 11 mg/dL (7-17); Calcium 8.3 mg/dL (8.4-10.2); Carbon Dioxide 22 mmol/L (22-32); Chloride 108 mmol/L (98-107); Estimated Glomerular Filt Rate > 60.0 mL/min (>60); Globulin 2.9 g/dL (1.7-4.1); Glucose 60 mg/dL (80-110); HEMOLYSIS < 15 (0-50); Phosphorous 2.9 mg/dL (2.8-4.1); Potassium 3.8 mmol/L (3.4-5.1); Sodium 137 mmol/L (137-145); Total Protein 5.9 g/dL (6.3-8.2)
[2021-07-07] MEDS: KCL 20 MEQ IN NS 1,000 ML 50 MEQ IV (06:42)
--- NOTE | 2021-07-07 08:26 | PC.NURSE ---
Pt attempting to get out of bed. Sitting on edge of bed. Assisted to get back into bed and repositioned. Pt states I have to use the restroom. I have to pee. Reminded patient that she has a catheter in her bladder that is draining her urine. Pt relaxed for the remainder of the assessment.
[2021-07-07] MEDS: HEPARIN 5,000 UNIT/ML VIAL 5000 UNIT SUBCUT (10:10)
[2021-07-07] MEDS: CEFDINIR 300 MG CAPSULE PO (10:10)
[2021-07-07 11:00] VITALS: BP 140/71; PULSE 71; RESP 18; TEMP 36.4; O2SAT 96
--- NOTE | 2021-07-07 11:22 | P.DS_ITS ---
History of Present Illness History of Present Illness Chief complaint: body pain/coughing up saliva Narrative: PLEASANTLY ALTERED 71-YEAR-OLD FEMALE PRESENTED TO THE HOSPITAL ER DUE TO BODY ACHE. PATIENT WAS DIAGNOSED WITH A URINARY TRACT INFECTION. SHE HAS A HISTORY OF FOR PRIOR E COLI UTI. PER LAST CULTURE THIS WAS A PANSENSITIVE ORGANISM. AT THIS TIME SHE IS SIGNIFICANTLY ALTERED AND UNABLE TO PROVIDE A RELIABLE REVIEW OF SYSTEM OR HISTORY. MOST OF THE HISTORY WAS TAKEN FROM THE EMR /ER REPORT. IN THE ER, A SLIGHT ELEVATED BLOOD PRESSURE WELL TEMPERATURE NOTED. SIGNIFICANT LEUKOCYTOSIS WITH A WBC LEVEL ABOVE 15,000 APPRECIATED. SOME DECREASED KIDNEY FUNCTION ALSO APPRECIATED. URINALYSIS WAS POSITIVE FOR NITRATES WELL LEUKOCYTES ESTERASE CT OF THE HEAD WAS NEGATIVE Discharge Providers Provider Date of admission: 07/04/21 10:18 Discharge Date: 07/07/21 Primary care physician: LYNDON López Consults: 07/04/21 10:09 Consult to Urology Stat Comment: Consulting Provider: Paul De La Torre Reason for consultation: Ureteral stone Has provider been notified: Yes 07/05/21 11:29 Consult to Physical Therapy Evaluate & Treat Comment: Physician Instructions: Evaluate and Treat Discharge provider: Asuncion Wyatt DO Summary Hospital Course Discharge Diagnosis: ACUTE METABOLIC /TOXIC ENCEPHALOPATHY. BACK TO BASELINE SEPSIS. PRESENT ON ARRIVAL URINARY TRACT INFECTION/ ACUTE PYELONEPHRITIS DUE TO E COLI LEUKOCYTOSIS RESOLVED Hospital Course: THIS IS A VERY PLEASANT BUT DEMENTED 68-YEAR-OLD FEMALE ADMITTED TO THE HOSPITAL WITH CHANGE IN MENTATION THIS WAS SECONDARY TO URINARY TRACT INFECTION CAUSING SEVERE TOXIC ENCEPHALOPATHY. AT THIS TIME E COLI IS GROWING FROM THE URINE CULTURE. PANSENSITIVE E COLI IS REPORTED. SHE WILL BE DISCHARGED ON CEFDINIR. I SPOKE TO PATIENT'S SONS AT LENGTH IN REGARD TO THE CASE PRIOR TO DISCHARGE. QUESTIONS AND CONCERNS ADDRESSED EVERYONE IN THE ROOM SATISFACTION AND UNDERSTANDING Status at Discharge Cognitive/behavioral status at discharge: at baseline, confused Functional status at discharge: uses cane/walker Overall status at discharge: patient is progressing back to baseline Exam Vital Signs (past 8 hours): - 07/07/21 04:00 07/07/21 11:00 Temperature 97.5 F L Pulse Rate 71 Respiratory Rate 18 Blood Pressure 140/71 Pulse Oximetry 94 96 Oxygen Delivery Method Room Air Oxygen Flow Rate 0 Narrative Exam Narrative: NO ACUTE DISTRESS.? PATIENT IS ALERT AND AWAKE, ORIENTED PLACE AND TO PERSON THIS MORNING VITAL SIGNS STABLE HEAD ATRAUMATIC NORMOCEPHALIC NECK : SUPPLE WITHOUT ADENOPATHY NO CAROTID BRUITS EYE:? EOMI, PERRLA, NORMAL CONJUNCTIVA; NO JAUNDICE CHEST:? REGULAR RATE.? ? NO RUBS.? PMI IS NON DISPLACED.? NO MURMURS; NORMAL S1- S2 PULMONARY:? DECREASED BS OVER THE BASES.? MILD BIBASILAR CRACKLES NOTED; NO INCREASED DULLNESS TO PERCUSSION ABDOMEN: ? OBESE BUTSOFT.? NONTENDER.? NONDISTENDED.? BOWEL SOUNDS ARE PRESENT IN ALL 4 QUADRANTS.? NO MASS. EXTREMITIES:? TRACE BILATERAL LOWER EXTREMITY EDEMA..? NO CYANOSIS CLUBBING NOTED. NEURO:? CRANIAL NERVES 2-12 GROSSLY INTACT. NO FOCAL NEUROLOGICAL DEFICIT NOTED. BASELINE DEMENTIA MSK:? NORMAL RANGE OF MOTION FOR AGE.? NO JOINT EFFUSION. SKIN: ? FAIR SKIN TURGOR.? NO OPEN LESION :? NORMAL EXTERNAL GENITALIA. NGUYEN CATHETER IN PLACE.? YELLOWISH URINE APPRECIATED PSYCH : ? CALM.? COOPERATIVE.? BASELINE DEMENTIA Objective Labs Result Diagrams: 07/07/21 04:40 07/07/21 04:40 Labs: Laboratory Results - last 24 hr 07/07/21 07/07/21 04:40 04:40 WBC 7.9 RBC 4.04 Hgb 10.5 L Hct 32.5 L MCV 80.5 MCH 26.0 MCHC 32.3 RDW 14.5 Plt Count 200 Neut % (Auto) 77.8 H Lymph % (Auto) 13.4 L [place] % (Auto) 7.8 Eos % (Auto) 0.6 L Baso % (Auto) 0.4 Neut # (Auto) 6100 Lymph # (Auto) 1100 [place] # (Auto) 600 Eos # (Auto) 0 Baso # (Auto) 0 Sodium 137 Potassium 3.8 Chloride 108 H Carbon Dioxide 22 BUN 11 Creatinine 0.92 Estimated GFR > 60.0 BUN/Creatinine Ratio 12.0 Glucose 60 L Calcium 8.3 L Phosphorus 2.9 Total Bilirubin 0.4 AST 21 ALT 9 Alkaline Phosphatase 54 Total Protein 5.9 L Albumin 3.0 L Globulin 2.9 Albumin/Globulin Ratio 1.0 [facility] Medical History Adnexal cyst (06/2020) Allergies (~1974) Blood glucose elevated Chicken pox (~1950) Chronic back pain (~2014) Colitis, infectious Constipation Decreased GFR Dementia (~2014) Depression (~2014) Diverticulitis Esophageal thickening (04/2021) Frequent headaches Headache (~2014) Hearing loss History of musculoskeletal disorder (~2014) Mixed hyperlipidemia Mumps (~1949) Pain Right knee pain TBI (traumatic brain injury) Tinnitus (~2014) Surgical History Anesthesia History of hand surgery (~1998) History of removal of skin mole (~2016) Hx of laparoscopic gastric banding (~2002) Social History household members: significant other Previous occupational history: retired Smoking Status: Never smoker alcohol intake: never substance use type: does not use Discharge Plan Discharge Plan Patient Disposition: Home Health Service Discharge orders & Medications Prescriptions: New cefdinir 300 mg Capsule 300 mg PO BID Qty: 14 0RF Acidophilus Capsule 500 mmu cells PO TID Qty: 30 0RF Discontinued omeprazole 40 mg capsule,delayed release(DR/EC) 40 mg PO BID Qty: 90 0RF Follow up/Referrals: Tasneem Romero ARNP [Primary Care Provider] - Diet/Activity/Treatments Diet: Low-fat and Low-cholesterol Diet comment: MECHANICAL SOFT Skin/Wound/Dressing Care Report to your healthcare provider any signs of infection, such as:: chills, fever, night sweats, increased pain and unusual drainage Discharge Data Primary Care Provider: Tasneem Romero
--- NOTE | 2021-07-07 13:05 | PT.IPTN ---
Addendum entered and electronically signed by Dylon Ibrahim 07/07/21 13:21: Dispensed FWW for DC home use. Discharging to son's home that has a ramp entrance. No stair training required. Original Note: Current Diagnoses Hydronephrosis with renal and ureteral calculous obstruction (07/04/21) Calculus of ureter (07/04/21) Acute cystitis without hematuria (07/04/21) Disorientation, unspecified (07/04/21) Surgery Performed Operation Date: 07/04/21 13:30 Actual Procedures p Cystoscopy w/ Ureteral Procedure Placement of Ureteral Stent(Right) - Paul De La Torre MD Physical Therapy Treatment Note M2 PT-IP Current Condition Start: 07/05/21 16:25 Freq: NEEDED Status: Active Protocol: Document 07/05/21 14:45 AB (Rec: 07/05/21 16:41 AB [id number]) Physical Therapy Current Condition Current Condition Evaluation Date 07/05/21 Treatment Diagnosis UTI; difficulty in walking Onset Date 07/04/21 M3 PT-IP Subjective Start: 07/05/21 16:25 Freq: NEEDED Status: Active Protocol: Document 07/07/21 09:52 ER (Rec: 07/07/21 12:13 ER [id number]) Subjective Physical Therapy Visit Type Type Treatment Note Visit Start Time 09:52 Visit Stop Time 10:19 Total Visit Minutes 27 Notes STANTON Osborne lead treatement and provided education under the direct supervision of MARJORIE Mejia. Number of [employer] Visits 1 Physical Therapy Visit Comments Patient Comments Pt agreeable to do PT. M4 PT-IP Mobility and Gait Start: 07/05/21 16:25 Freq: NEEDED Status: Active Protocol: Document 07/07/21 09:52 ER (Rec: 07/07/21 12:13 ER [id number]) PT-Bed Mobility Assessment Supine to Sit Supine to Sit Minimal Assistance,1 Person Assistance Scooting Scooting to Edge of Bed Standby Assistance PT-Transfer Assessment Sit to and From Stand Sit to and from Stand Contact Guard Assistance,1 Person Assistance,Use of Upper Extremities Equipment Transfer Assistive Device Gait Belt,Front Wheeled Walker Orthotic/Prosthetic Devices or Brace: No Transfers Transfer Destination Chair Transfer Technique ambulated using FWW Transfer Ability Level of Assist Contact Guard Assistance,1 Person Assistance,Use of Upper Extremities Comments Mobility Comments Pt in bed, asleep, upon arrival. Vitals: Supine: BP 135/68, HR 70, SaO2 95%, EOB: BP 129/78, HR 76, Sao2 95; Standing: BP 131/75, HR 85. Pt sup>sit with Iliana+1 and cues for supporting on UE. Pt. scooted to EOB SBA, with repeated cues to scoot until feet touched floor. Pt sit> stand using FWW with UE support and CGA+1 plus cues for hand placement and coming to fully erect posture. Pt ambulated 15' around bed to cabinet and back to chair using FWW and CGA. Cues for when to turn, obstacle avoidance. Pt stand>sit onto chair with FWW and UE support. CGA plus cues for looking back to see chair, alligning body with chair, backing up to chair, lreaching back to chair, however Pt demonstrated good descent control without plopping. Pt. left in chair with chair alarm armed. Call light and all needs within easy reach. SonShree was present at end of treatment. Updated communications board to Iliana for nursing transfers and ambulation, and advised nursing of the status change. Gait Assessment Gait Gait Assistance Required: Contact Guard Assist Distance (Feet) 15 Able to Maintain Weight Bearing Status Yes During Gait Assistive Devices Assistive Device Gait Belt,Front Wheeled Walker Orthotic/Prosthetic Devices or Brace: No Gait Deviations General Gait Pattern Antalgic,Decreased Stride Length,Decreased Feet Clearance Factors Limiting Gait Function Factors Limiting Gait Function Decreased Activity Tolerance, Decreased Strength,Difficulty Following Directions,Limited Range of Motion,Poor Balance, Poor Safety Awareness Comments Gait Comments See mobility notes. PT-Balance Assessment Sitting Balance and Reactions Static Sitting Balance Ability Good Dynamic Sitting Balance Ability Good Standing Balance and Reactions Static Standing Balance Ability Fair Dynamic Standing Balance Ability Fair Device Used FWW M5 PT-IP Objective Assessments Start: 07/05/21 16:25 Freq: NEEDED Status: Active Protocol: Document 07/05/21 14:45 AB (Rec: 07/05/21 16:41 AB [id number]) Orientation Orientation/Cognition Level of Alertness Confusional State Orientation Name Safety Awareness Decreased Safety Awareness Memory Description Short Term Impaired,Fci Impaired Gross Range of Motion Lower Extremity ROM Assessment Within Functional Limits Strength Lower Extremity Strength Assessment Within Functional Limits Muscle Tone Muscle Tone WNL Yes M6 PT-IP Treatment Start: 07/05/21 16:25 Freq: NEEDED Status: Active Protocol: Document 07/07/21 09:52 ER (Rec: 07/07/21 12:13 ER [id number]) Physical Therapy Treatment Education Education Provided Safety M7 PT-IP Assessment and Plan Start: 07/05/21 16:25 Freq: NEEDED Status: Active Protocol: Document 07/07/21 09:52 ER (Rec: 07/07/21 12:13 ER [id number]) PT Summary Assessment and Plan Potential Rehabilitation Potential Fair Summary Impairments Pain,ROM,Strength,Balance, Coordination,Sensation,Tone, Cognition,Bed Mobility, Transfers,Gait,Activity Tolerance Progress Towards Goals Slow Progress due to Medical Issues,Slow Progress due to Activity Tolerance,Slow Progress - Other Assessment Summary Pt required Iliana+1 to come to sitting, but was CGA+1 for transfers and ambulation with FWW. Pt required repeated cues to keep eyes open throughout tx, and could only follow one step commands with repeated cueing. Son, Shree arrived partway through treatment and indicated that Pt was at home alone most of the time and that he and his brother were working on a plan to manage Pt care moving forward, taking her home with him vs going to rehab facility. Advised that Pt will need 24/7 care currently. Recommends SNF vs home 24/7 with HHPT to improve Pt strength, safety, balance, and functional mobility. Goals Bed Mobility Goal Independent Transfer Goal Independent,Front Wheeled Walker Gait Goal Independent,Front Wheel Walker Gait Distance 300 Other Goals improve ambulation without AD 250 ft mod I Days to Meet Goals 10 Frequency of Treatment Frequency Of Treatment Once a Day Treatment Plan Physical Therapy Treatment Plan Bed Mobility Training,Transfer Training,Gait Training, Therapeutic Exercise,Balance Retraining,Discharge Planning, Hot or Cold Pack,Neuromuscular Re-ed,Coordination Retraining Recommendations To Nursing Amount of Assist Needed 1 Person Assist Discharge Recommendations PT Discharge Recommendations Home with 24/7 Assist Available,Home Health,SNF Rehab,Home vs SNF Equipment Needed for Home Before need FWW at discharge if Discharge needed, when safe to return home. Transportation Needs at Discharge Private Vehicle
--- NOTE | 2021-07-07 13:45 | PC.NURSE ---
Discharged home with home health consult and going to stay with johnny Shah. Discharge instructions reviewed with johnny Shah. Per hospitalist, clay cath left in and home health can eval. Taken to private vehicle in wheelchair; son driving. All belongings with patient.
--- NOTE | 2021-07-07 14:20 | CM.DPNOTE ---
DC Note According to hospitalist, patient medically ready for DC. Met w/patient and son/DPMARICHUY Reddy. He explained that he and patient's partner Paul had been planning for the eventual move of patient from her home w/Paul to her son and LISA's home. DIL available to provide 05/03 assist. Barry requesting that patient return home w/he and his family today (Thanksgiving) w/HH, no agency preference. Updated Dr Wyatt. [facility] call [facility] per calendar rotation and they did not have openings for another week. Next placed call to [facility], they had availability for start of care Sunday07.11.21. Faxed completed and signed F2F, HH order for RN/PT/OT/SOCIAL SECURITY BENEFITS INTERVIEWER, H+P, DC Summary to [facility] Plan: DC home w/family and [facility] RN/PT/OT/SOCIAL SECURITY BENEFITS INTERVIEWER. Jd Reddy's address- [id number] [address] [id number] Brenda Mondragon MSW
== END 2021-07-07 13:00 | disposition home or self-care (01) | DRG 871 ==
LOC: ED 10:04 → AC 10:19
PROVIDERS: Hospitalist; Urology; Admitting Provider Internal Medicine; Emergency Provider Emergency Medicine; Family Provider Family Medicine; PCP Nurse Practitioner Family; Referring Provider Emergency Medicine; Visit Provider Internal Medicine
PROC: 0T9680Z Drainage of Right Ureter with Drainage Device, Via Natural or Artificial Opening Endoscopic (ICD-10-PCS; principal; 2021-07-04 13:30)
DX: A41.9 Sepsis, unspecified organism (principal); G92.8 Other toxic encephalopathy; N13.6 Pyonephrosis; N20.1 Calculus of ureter; N17.9 Acute kidney failure, unspecified; E87.6 Hypokalemia; R65.20 Severe sepsis without septic shock; B96.20 Unspecified Escherichia coli [E. coli] as the cause of diseases classified elsewhere; Z20.822 Contact with and (suspected) exposure to COVID-19
CPT/HCPCS: 36415; 52332; 71045; 72100; 74018; 74177; 76000; 80053; 81001; 82550; 83605; 83690; 84100; 84145; 84484; 85025; 87040; 87077; 87086; 87186; 87635; 93005; 94760; 96361; 96374; 96375; 97116; 97161; 97530; 99232; 99284; C9803; J0330; J0692; J0696; J1100; J1630; J1644; J2060; J2270; J2405; J2704; J3010; J7050

== ENCOUNTER 2021-07-09 13:35 | Emergency (ER) | payer MEDICARE, OTHER, SELFPAY ==
[2021-07-04 11:44] VITALS: BMI 24.3
[2021-07-09 13:41] VITALS: BP 127/58; PULSE 76; RESP 18; TEMP 36.4; O2SAT 98
--- NOTE | 2021-07-09 14:01 | ED.GENADULT ---
HPI - General Adult General Chief complaint: Urogenital-Female Stated complaint: pulled out catheter Time Seen by Provider: 07/09/21 13:59 Source: family Mode of arrival: Ambulatory Limitations: altered mental status History of Present Illness HPI narrative: Patient is a 70-year-old female. Has a history of dementia. Has a urinary catheter in place after having a urinary stent placement. Is here with her son. Reports were that the patient pulled the Harper catheter out. Patient is unable to provide any HPI. Related Data Previous Rx's Medication Instructions Recorded Lactobacillus acidophilus 500 mmu cells PO TID #30 cap 07/07/21 (Acidophilus) cefdinir 300 mg capsule 300 mg PO BID #14 cap 07/07/21 Allergies Allergy/AdvReac Type Severity Reaction Status Date / Time sulfite Allergy Severe anaphylactic Verified 05/24/21 08:11 shock adhesive AdvReac Mild takes my Verified 05/24/21 08:11 skin off msg Allergy Severe Anaphylaxis Uncoded 05/24/21 08:11 Review of Systems Review of Systems ROS Unobtainable: Unobtainable due to mental condition Genitourinary Genitourinary: Reports as per HPI Patient History Medical History Adnexal cyst (06/2020) Allergies (~1974) Blood glucose elevated Chicken pox (~1949) Chronic back pain (~2014) Colitis, infectious Constipation Decreased GFR Dementia (~2014) Depression (~2014) Diverticulitis Esophageal thickening (04/2021) Frequent headaches Headache (~2014) Hearing loss History of musculoskeletal disorder (~2014) Mixed hyperlipidemia Mumps (~1949) Pain Right knee pain TBI (traumatic brain injury) Tinnitus (~2014) Surgical History Anesthesia History of hand surgery (~1998) History of removal of skin mole (~2016) Hx of laparoscopic gastric banding (~2002) Social History household members: significant other Previous occupational history: retired Smoking Status: Never smoker alcohol intake: never substance use type: does not use Smoking Status: Never smoker Substance Use Type: does not use Exam Initial Vital Signs Initial Vital Signs: Vital Signs Temperature 97.6 F 07/09/21 13:41 Pulse Rate 76 07/09/21 13:41 Respiratory Rate 18 07/09/21 13:41 Blood Pressure 127/58 L 07/09/21 13:41 Pulse Oximetry 98 07/09/21 13:41 Resp Effort & Inspection: normal respiratory effort Cardio Rate: regular rate Other: Normal external genitalia. The Harper catheter itself is actually still in place. There is urine coming from the catheter. It appears that it was the tube that attaches the back get to the catheter that was dislodged. Neuro Other: Patient does follow commands Course Vital Signs Vital signs: Vital Signs - 8 hr 07/09/21 13:41 Temperature 97.6 F Pulse Rate 76 Respiratory Rate 18 Blood Pressure 127/58 L Pulse Oximetry 98 Medical Decision Making MDM Narrative Medical decision making narrative: Given her recent urologic procedures and stent placement I did not feel the need to remove the Harper catheter. I did not want to dislodge any stents. It was in the right position because it was draining urine. The tubing was replaced. Discharged home with return precautions. Discharge Plan Departure Patient Disposition: Home Clinical Impression: Complication of Harper catheter Instructions: How to Care for Your Harper Catheter -- Female Activity Restrictions/Additional Instructions: I recommend on Sunday you contact the urologist office and also her primary doctor for further workup. Return to the emergency department for any new or worsening symptoms Prescriptions: No Action cefdinir 300 mg Capsule 300 mg PO BID Qty: 14 0RF Acidophilus Capsule 500 mmu cells PO TID Qty: 30 0RF Referrals: Tasneem Romero ARNP [Primary Care Provider] -
--- NOTE | 2021-07-09 14:17 | PC.NURSE ---
patient came in with her son who is her DPOA. Son states that mom has memory issues, and pulled out her catheter. They brought the clay bag in. MD and nurse assessed and found the clay still in place and draining urine. A new clay bag was placed on her leg and education was given to the son to about clay care.
[2021-07-09 14:52] VITALS: BP 142/67; PULSE 98; RESP 14; O2SAT 98
== END 2021-07-09 14:52 | disposition home or self-care (01) ==
PROVIDERS: Emergency Provider Emergency Medicine; Family Provider Family Medicine; PCP Nurse Practitioner Family
DX: T83.028A Displacement of other urinary catheter, initial encounter (principal); Y73.2 Prosthetic and other implants, materials and accessory gastroenterology and urology devices associated with adverse incidents
CPT/HCPCS: 99281

== ENCOUNTER → 2021-07-21 12:09 | Outpatient (CLI) | payer MEDICARE, OTHER, SELFPAY ==
[2021-07-13 10:19] VITALS: BMI 24.3
--- NOTE | 2021-07-21 12:12 | DI.RAD.S_ITS ---
PROCEDURE: XR KUB INDICATIONS: catheter TECHNIQUE: One view of the abdomen acquired. COMPARISON: [facility], CT, CT ABDOMEN PELVIS W CON, 07/04/2021, 8:47. FINDINGS: Surgical changes and devices: Right-sided ureteral stent is seen. Left-sided lap band is again seen and unchanged. Bowel: Bowel gas pattern is normal. Soft tissues: No definite renal or ureteral calcification is identified in the current study. Visualized solid organ contours appear normal in size. Bones: No suspicious bony lesions. IMPRESSION: Right-sided ureteral stent in place. No obvious renal stone or ureteral stone is identified. No bowel obstruction or gross free air. Dictated by: Mason Paula M.D. on 07/21/2021 at 13:23 Approved by: Mason Paula M.D. on 07/21/2021 at 13:37
== END ==
PROVIDERS: Family Provider Family Medicine; PCP Nurse Practitioner Family; Referring Provider Urology; Visit Provider Urology
DX: N20.1 Calculus of ureter (principal); N30.00 Acute cystitis without hematuria; T83.9XXA Unspecified complication of genitourinary prosthetic device, implant and graft, initial encounter
CPT/HCPCS: 74018

== ENCOUNTER → 2021-07-21 13:36 | Outpatient (CLI) | payer MEDICARE, OTHER, SELFPAY ==
[2021-07-13 10:19] VITALS: BMI 24.3
== END ==
PROVIDERS: Family Provider Family Medicine; PCP Nurse Practitioner Family; Visit Provider Urology
DX: R30.0 Dysuria (principal)
CPT/HCPCS: 87086

== ENCOUNTER → 2021-07-21 13:59 | Outpatient (CLI) | payer MEDICARE, OTHER, SELFPAY ==
[2021-07-13 10:19] VITALS: BMI 24.3
--- NOTE | 2021-07-21 14:02 | DI.CT.S_ITS ---
PROCEDURE: CT ABDOMEN PELVIS WO/W CON INDICATIONS: Right calculus and right psoas soft tissue mass TECHNIQUE: Optional 5 mm thick noncontrast images acquired from the diaphragm to the symphysis pubis. After the administration of intravenous contrast, 5 mm thick images acquired from the diaphragm to the symphysis pubis after a 10-minute delay. 2 mm thick coronal and sagittal reformats were then performed of the kidneys and ureters. For radiation dose reduction, the following was used: automated exposure control, adjustment of mA and/or kV according to patient size. COMPARISON: [facility], CT, CT ABDOMEN PELVIS W CON, 07/04/2021, 8:47. FINDINGS: Image quality: Excellent. Lung bases: Lung bases are clear. Heart size is normal. Moderate calcification of the coronary vasculature. Urinary system: Both kidneys are normal in size, without hydronephrosis or nephrolithiasis on pre-contrast images. Moderate multifocal left renal scarring is present. Mild multifocal right renal scarring is present. A right ureteral stent is present. No perinephric fat stranding. There is normal bilateral renal enhancement. Renal calyces appear normal in morphology when filled with contrast. Opacified portions of both ureters demonstrate normal caliber. Bladder wall thickness is normal. No calcified bladder stones. Other solid organs: Liver is normal in size and enhancement. Gallbladder is grossly unremarkable . Biliary system is non dilated. Pancreas enhances normally. Spleen is normal in size and enhancement. No adrenal nodules. Peritoneum and bowel: There is moderate to severe distention of the distal esophagus. A gastric lap band is present. Moderate thickening of the distal esophagus. Bowel loops demonstrate normal wall thickness and caliber. No free fluid or air. Nodes and vessels: No retroperitoneal or mesenteric adenopathy by size criteria. Aorta and inferior vena cava are normal in size. Abdominal wall: No ventral hernias. Pelvis: No pathologic free pelvic fluid. No inguinal hernias or adenopathy. No change in well-circumscribed mass within the right anterior pelvis measuring 65 mm, containing predominantly fat density and a small amount of soft tissue density and curvilinear calcifications. Bones: No suspicious bony lesions. No vertebral body compression fractures. IMPRESSION: 1. No evidence of urinary tract calcification, nor obstruction. 2. Left greater than right renal scarring. 3. No evidence of renal neoplasm. 4. 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 5. Coronary artery disease. 6. Dilatation and thickening of the distal esophagus. Further assessment with endoscopy is recommended. Dictated by: Emily Massey M.D. on 07/21/2021 at 16:24 Approved by: Emily Massey M.D. on 07/21/2021 at 16:50
== END ==
PROVIDERS: Family Provider Family Medicine; PCP Nurse Practitioner Family; Referring Provider Urology; Visit Provider Urology
DX: T83.9XXA Unspecified complication of genitourinary prosthetic device, implant and graft, initial encounter (principal); N13.2 Hydronephrosis with renal and ureteral calculous obstruction; N30.00 Acute cystitis without hematuria; R41.0 Disorientation, unspecified; R19.00 Intra-abdominal and pelvic swelling, mass and lump, unspecified site; R30.0 Dysuria; K22.89 Other specified disease of esophagus; I25.10 Atherosclerotic heart disease of native coronary artery without angina pectoris
CPT/HCPCS: 74018; 74178; 81002; 87086; 99214; Q9967

== ENCOUNTER → 2021-07-27 16:13 | Outpatient (CLI) | payer MEDICARE, OTHER, SELFPAY ==
[2021-07-13 10:19] VITALS: BMI 24.3
== END ==
PROVIDERS: Family Provider Family Medicine; PCP Nurse Practitioner Family; Visit Provider Urology
DX: R30.0 Dysuria (principal)
CPT/HCPCS: 51701; 87086

== ENCOUNTER → 2021-08-03 13:20 | Outpatient (CLI) | payer MEDICARE, OTHER, SELFPAY ==
[2021-07-13 10:19] VITALS: BMI 24.3
== END ==
PROVIDERS: Family Provider Family Medicine; PCP Nurse Practitioner Family; Visit Provider Urology
DX: N39.0 Urinary tract infection, site not specified (principal); N13.2 Hydronephrosis with renal and ureteral calculous obstruction; R19.00 Intra-abdominal and pelvic swelling, mass and lump, unspecified site; Z96.0 Presence of urogenital implants
CPT/HCPCS: 52310; 81002; 87086

== ENCOUNTER 2021-08-14 17:06 | Inpatient (IN) | payer MEDICARE, OTHER, SELFPAY ==
[2021-07-13 10:19] VITALS: BMI 24.3
[2021-08-14] VITALS (20 sets, daily range): BP systolic 101–134; BP diastolic 53–66; PULSE 77–96; RESP 16–30; TEMP 36.2–36.7; O2SAT 96–100; BMI 24.9
[2021-08-14 18:33] LABS: COVID19 -Nasal RAPID Negative (Negative)
--- NOTE | 2021-08-14 18:55 | DI.CT.S_ITS ---
PROCEDURE: CT HEAD/BRAIN WO CON INDICATIONS: ? fall, dementia TECHNIQUE: Noncontrast 4.5 mm thick angled axial sections acquired from the foramen magnum to the vertex, with coronal and sagittal reformats. For radiation dose reduction, the following was used: automated exposure control, adjustment of mA and/or kV according to patient size. COMPARISON: [facility], CT, CT HEAD/BRAIN WO CON, 04/04/2021, 12:00. FINDINGS: Image quality: Excellent. CSF spaces: Basal cisterns are patent. No extra-axial fluid collections. The ventricles are symmetric in size and shape. Brain: No intracranial bleeds or masses. There is cerebral volume loss for age, with resultant ventricular and sulcal prominence. There are periventricular and deep white matter chronic small vessel ischemic changes. There is intracranial internal carotid artery atherosclerosis. Skull and face: Calvarium and visualized facial bones appear intact, without suspicious lesions. Sinuses: Visualized sinuses and mastoids are clear. IMPRESSION: No acute process. Dictated by: Emily Massey M.D. on 08/14/2021 at 19:42 Approved by: Emily Massey M.D. on 08/14/2021 at 19:43
[2021-08-14] MEDS: SODIUM CHLORIDE 0.9% 1,000 ML 1000 ML IV ×2 (19:27→21:00)
--- NOTE | 2021-08-14 19:44 | ED.NAVMDI ---
HPI - Nausea/Vomiting/Diarrhea General Chief complaint: Nausea/Vomiting/Diarrhea Stated complaint: throwing up and diarreha Time Seen by Provider: 08/14/21 18:55 Source: family Mode of arrival: Family Vehicle Limitations: no limitations History of Present Illness HPI Narrative: This is a 71-year-old female with possible fall. says she was in the bathroom he found her on the ground having vomiting and diarrhea. He states he thinks that she laid down. 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 He did not fall here fall or a thump. He states she has been doing well up until today. She was recently hospitalized with a UTI and a renal stent which was then removed. He states that she was on antibiotics. She had a repeat urine sample and her stent removed and is now off antibiotics. She does not take any other medications daily. Besides her TBI and short-term memory loss he states she does not have a lot of other medical issues. She had some sort of gastric bypass in [place] and frequently has difficulty eating solids and vomiting those up. She has not had any fevers or chills that they are aware of but she has been shaky today. He states she slept till noon and then stays up late at night which is her normal. Both the patient and he states she has not had any chest pain or shortness of breath. She denies any abdominal pain. She has had a little bit of a cough. Patient did have an episode of urinary incontinence today which is atypical. She does not have any other urinary symptoms she is aware of. He states she can be low in her blood pressure particularly when she is sick. Patient's states that he and her son are both the POA. Related Data Home Medications Medication Instructions Recorded Confirmed No Known Home Medications 08/15/21 08/15/21 Allergies Allergy/AdvReac Type Severity Reaction Status Date / Time sulfite Allergy Severe anaphylactic Verified 08/14/21 17:29 shock adhesive AdvReac Mild takes my Verified 08/14/21 17:29 skin off msg Allergy Severe Anaphylaxis Uncoded 08/14/21 17:29 nitrite AdvReac Diarrhea Uncoded 08/14/21 17:29 Review of Systems Review of Systems ROS Unobtainable: All systems reviewed & are unremarkable except as noted in HPI and below Patient History Medical History Adnexal cyst (06/2020) Allergies (~1974) Blood glucose elevated Chicken pox (~1949) Chronic back pain (~2014) Colitis, infectious Constipation Decreased GFR Dementia (~2014) Depression (~2014) Diverticulitis Esophageal thickening (04/2021) Frequent headaches Headache (~2014) Hearing loss History of musculoskeletal disorder (~2014) Mixed hyperlipidemia Mumps (~1949) Pain Retroperitoneal mass Right knee pain TBI (traumatic brain injury) Tinnitus (~2014) Surgical History Anesthesia History of hand surgery (~1998) History of removal of skin mole (~2016) Hx of laparoscopic gastric banding (~2002) Retained ureteral stent Family History Family/Other Kidney stones Urinary tract infection Social History household members: significant other Previous occupational history: retired Smoking Status: Never smoker alcohol intake: never substance use type: does not use Smoking Status: Never smoker Substance Use Type: does not use Exam Narrative Exam Narrative: GEN: well nourished, well appearing female, alert and oriented self and family, patient appears to be in mild distress. HEENT: Atraumatic, pupils are equal round reactive to light, extraocular movements are intact, nares are clear. Throat is clear without any exudates, erythema, tonsillar enlargement or uvular deviation HEART: Regular rate and rhythm without murmur, clicks, rubs. Pulses are equal in upper and lower extremities LUNGS:Lungs clear to auscultation, no wheezes, rales, crackles, chest moves symmetrically, no tachypnea accessory muscle use. ABD:bowel sounds normal, soft, non-tender, no guarding, rebound, rigidity, no masses noted, no hepatosplenomegaly, non-distended. :No CVA tenderness MSCL: Non-tender, no muscle atrophy, muscles strength 5/5 upper and lower extremities, full range of motion, normal gait NEURO:CN 2-12 intact, sensation normal SKIN: No rash, erythema or other skin changes noted. Initial Vital Signs Initial Vital Signs: Vital Signs Pulse Rate 88 08/14/21 17:52 Blood Pressure 102/58 L 08/14/21 17:52 Pulse Oximetry 99 08/14/21 17:52 Procedures Central Line Placement Right IJ: Time of procedure: 21:27 Time Out Performed: Yes Patient Placed on Monitor/Pulse Ox: Yes Prep: mask, gown and gloves Central Line Prep: Povidone-Iodine 1%, Chlorhexidine scrub and sterile drapes applied Local Anesthetic: lidocaine 1% Amount of anesthesia used (mL): 4 Ultrasound Used for Placement: Yes Central Line Lumen Inserted: triple Post Procedure: sutured in place, good blood return, all ports aspirated, flushed, capped and sterile dressing applied Post Procedure X-Ray: tip of catheter in good position and no pneumothorax seen Patient Tolerated Procedure: Well Complications: none Scores GCS [place] coma scale eye opening: Spontaneous [place] coma scale verbal response: Confused [place] coma scale motor response: Obey commands Jesus Manuel coma scale total score: 14 Course Orders Ordered: ED Orders 08/14/21 20:01 Chest [XR chest 1V] Stat 08/14/21 20:29 GI Panel (Film Array) Stat 08/14/21 20:42 Ictotest Urine Stat UA Complete [Urinalysis and Microscopic] Stat Urine Culture Stat 08/14/21 20:44 Respiratory Panel (Film Array) Stat 08/14/21 21:26 Chest [XR chest 1V] Stat 08/14/21 21:39 Complete Blood Count AUTO DIFF Stat Comprehensive Metabolic Panel Stat Lactate (Lactic Acid) Stat Lipase Stat Procalcitonin Stat Troponin & CK Cardiac Panel Stat 08/14/21 22:10 CT abdomen pelvis w con Stat 08/14/21 22:35 Blood Culture Stat Acetaminophen (Acetaminophen 325 Mg Tablet) 650 mg PO Q6HR PRN PRN Reason: Fever/Mild Pain (1-3) Enoxaparin Sodium (Enoxaparin 40 Mg/0.4 Ml Syringe) 40 mg SUBCUT DAILY DOMINGO Heparin Sodium (Porcine) (Heparin Flush (Cl/Picc/Mid-Line) 50 Unit/5 Ml Syringe) 50 unit IV PRN PRN PRN Reason: Flush Heparin Sodium (Porcine) (Heparin Flush (Cl/Picc/Mid-Line) 50 Unit/5 Ml Syringe) 50 unit IV BID DOMINGO Sodium Chloride (Normal Saline 0.9%) 1,000 mls @ 125 mls/hr IV CONT DOMINGO Stop: 09/14/21 06:14 Last Infusion: 08/15/21 00:36 Dose: 125 mls/hr Documented by: MARCO ANTONIO Infusion: 08/15/21 00:17 Dose: 0 mls/hr Documented by: Admin: 08/14/21 23:45 Dose: 150 mls/hr Documented by: NALDO Ceftriaxone Sodium 1,000 mg/ (Sodium Chloride) 100 mls @ 200 mls/hr IV Q24H DOMINGO Last Infusion: 08/15/21 02:05 Dose: 0 mls/hr Documented by: MARCO ANTONIO Admin: 08/15/21 01:33 Dose: 200 mls/hr Documented by: MARCO ANTONIO Naloxone HCl (Naloxone 0.4 Mg/Ml Vial) 0.2 mg IV Q2MIN PRN PRN Reason: Opiate Reversal Ondansetron HCl (Ondansetron 4 Mg/2 Ml Inj) 4 mg IV Q8HR PRN PRN Reason: Nausea And Vomiting Sodium Chloride (Sodium Chloride 0.9% Flush) 10 ml IV PRN PRN PRN Reason: Flush Sodium Chloride (Sodium Chloride 0.9% Flush) 10 ml IV BID [facility] Discontinued Medications Enoxaparin Sodium (Enoxaparin 40 Mg/0.4 Ml Syringe) 40 mg SUBCUT DAILY [facility] Sodium Chloride (Normal Saline 0.9%) 1,000 mls @ 1,000 mls/hr IV BOLUS ONE Stop: 08/14/21 19:55 Last Infusion: 08/14/21 22:18 Dose: 0 mls/hr Documented by: Admin: 08/14/21 19:27 Dose: 1,000 mls/hr Documented by: NALDO Sodium Chloride (Normal Saline 0.9%) 1,000 mls @ 1,000 mls/hr IV BOLUS ONE Stop: 08/14/21 21:02 Last Infusion: 08/15/21 00:11 Dose: 0 mls/hr Documented by: Admin: 08/14/21 21:00 Dose: 1,000 mls/hr Documented by: NALDO Piperacillin Sod/Tazobactam (Sod 4.5 gm/ Sodium Chloride) 100 mls @ 200 mls/hr IV NOW ONE Stop: 08/14/21 21:29 Last Infusion: 08/14/21 22:45 Dose: 0 mls/hr Documented by: Admin: 08/14/21 21:52 Dose: 200 mls/hr Documented by: NALDO Vancomycin HCl (Vancomycin) 1,000 mg in 200 mls @ 200 mls/hr IV NOW ONE Stop: 08/15/21 00:44 Last Infusion: 08/15/21 01:36 Dose: 0 mls/hr Documented by: MARCO ANTONIO Infusion: 08/15/21 00:36 Dose: 200 mls/hr Documented by: MARCO ANTONIO Infusion: 08/15/21 00:17 Dose: 0 mls/hr Documented by: Admin: 08/15/21 00:10 Dose: 200 mls/hr Documented by: NALDO Ondansetron HCl (Ondansetron 4 Mg/2 Ml Inj) 4 mg IV NOW ONE Stop: 08/14/21 20:16 Last Admin: 08/14/21 20:37 Dose: 4 mg Documented by: NALDO Reevaluation(s) Reevaluation #1: Patient is at normal baseline with confusion typically present. According to . Patient had some diarrhea here sample was collected. She has been hypotensive persistently and was difficult to access blood. She has a line and receiving fluids but after discussion with patient, who also spoke with her son decision was made to place a central line for ability to for repeated lab draws, pressors if needed as she will be admitted. Reevaluation #2: Patient appears much improved after fluids. She tolerated CT placement well. Consultations Consultation #1: [employer] Gabriella Beck, accepts for admission. Suspects UTI sepsis although nitrates leukocyte esterase negative, patient is positive for wbc's and bacteria. Patient's renal stent has been removed. There is no other obstructing changes. There is potential for other causes patient was covered with Zosyn and vanco admission. C diff was considered in stool sample was obtained and is currently pending. Other labs have all returned. Vital Signs Vital signs: Vital Signs - 8 hr 08/14/21 20:50 08/14/21 21:00 08/14/21 21:30 Pulse Rate 82 80 82 Respiratory Rate 16 30 H 20 Blood Pressure 127/66 119/58 L Pulse Oximetry 100 100 97 08/14/21 21:31 08/14/21 22:00 08/14/21 22:30 Pulse Rate 85 80 85 Respiratory Rate 20 23 18 Blood Pressure 111/53 L 109/54 L Pulse Oximetry 98 97 99 08/14/21 22:40 08/14/21 23:00 08/14/21 23:30 Pulse Rate 80 77 79 Respiratory Rate 20 20 Blood Pressure 108/54 L 101/53 L 114/55 L Pulse Oximetry 100 98 96 MDM - Nausea/Vomiting/Diarrhea Lab Data Result diagrams: 08/14/21 21:39 08/14/21 21:39 Labs: Lab Results 08/14/21 08/14/21 08/14/21 Range/Units 18:17 20:29 20:42 WBC (4.5-11.0) X10^3/uL RBC (4.0-5.2) X10^6/uL Hgb (12.0-16.0) g/dL Hct (36-46) % MCV (80-100) fL MCH (26-34) PG MCHC (30-36) % RDW (11.6-14.8) % Plt Count (150-400) X10^3/uL Neut % (Auto) (50-75) % Lymph % (Auto) (25-40) % [place] % (Auto) (3-14) % Eos % (Auto) (2-4) % Baso % (Auto) (0-2) % Neut # (Auto) (0074-9748) /uL Lymph # (Auto) (2512-1189) /uL [place] # (Auto) (0-900) /uL Eos # (Auto) (0-450) /uL Baso # (Auto) (0-100) /uL Sodium (137-145) mmol/L Potassium (3.4-5.1) mmol/L Chloride (98-107) mmol/L Carbon Dioxide (22-32) mmol/L BUN (7-17) mg/dL Creatinine (0.52-1.04) mg/dL Estimated GFR (>60) mL/min BUN/Creatinine Ratio (6-22) Glucose (80-110) mg/dL Lactate (0.7-2.1) mmol/L Calcium (8.4-10.2) mg/dL Total Bilirubin (0.2-1.3) mg/dL AST (14-36) IU/L ALT (<35) IU/L Alkaline Phosphatase (38-126) U/L Total Creatine Kinase (30-135) U/L CK-MB (CK-2) CK-MB (CK-2) Rel Index Troponin I (0.01-0.034) ng/mL Total Protein (6.3-8.2) g/dL Albumin (3.5-5.0) g/dL Globulin (1.7-4.1) g/dL Albumin/Globulin Ratio (1.0-2.8) Lipase (23-300) U/L Procalcitonin (<0.5) ng/mL Urine Color Yellow Urine Appearance Cloudy Urine pH 5.0 (4.5-8.0) Ur Specific [place] >=1.030 H (1.000-1.035) Urine Protein 2+ H (Negative) Urine Glucose (UA) Trace H (Negative) g/dL Urine Ketones Trace H (NEGATIVE) Urine Occult Blood 2+ H (Negative) Urine Nitrate Negative (Negative) Urine Bilirubin 2+ H (NEGATIVE) Ur Bilirubin Confirm Negative (Negative) Urine Urobilinogen 0.2 (0.2) E.U./dL Ur Leukocyte Esterase Negative (NEGATIVE) Urine RBC 5-10/hpf H (0-5/HPF) Urine WBC 5-10/hpf H (0-5/HPF) Urine Bacteria Many (>30) H (None) Hyaline Casts 5-10/lpf (None) Granular Casts 1-5/lpf (None) Urine Mucus 2+ H (Negative) Ur Culture Indicated? Specimen cultured Stl C. cayetanensis PCR Not detected (Not Detect) Stool Rotavirus (PCR) Not detected (Not Detect) Stool Adenovirus (PCR) Not detected (Not Detect) Stool Astrovirus (PCR) Not detected (Not Detect) Stool Cryptosporidium PCR Not detected (Not Detect) Stl E.coli Shiga Tox PCR Not detected (Not Detect) St Sh/Enteroin Ecoli PCR Not detected (Not Detect) Stool E coli O157 PCR Not Reportable Stl Enterotoxigenic E PCR Not detected (Not Detect) Stool EPEC (PCR) Not detected (Not Detect) Stl E. histolytica PCR Not detected (Not Detect) Stool Giardia Lamblia PCR Not detected (Not Detect) Stool Sapovirus (PCR) Not detected (Not Detect) Stl P. shigelloides PCR Not detected (Not Detect) St Y.enterocolitica PCR Not detected (Not Detect) Stool Vibrio (PCR) Not detected (Not Detect) Stl Vibrio cholerae PCR Not detected (Not Detect) Stl Enteroaggr Ecoli PCR Not detected (Not Detect) Stl Norovirus GI/GII PCR Not detected (Not Detect) Chlamy pneumoniae PCR (Not Detect) Adenovirus (PCR) (Not Detect) B. pertussis DNA (PCR) (Not Detecte) B.parapertussis DNA PCR (Not Detecte) Campylobacter (PCR) Not detected (Not Detect) C. difficile Tox (PCR) Not detected (Not Detect) Coronavirus OC43 (PCR) (Not Detect) Coronavirus HKU1 (PCR) (Not Detect) Coronavirus 229E (PCR) (Not Detect) SARS-CoV-2 (PCR) Negative (Negative) Coronavirus NL63 (PCR) (Not Detect) Human Metapneumovir PCR (Not Detect) Influenza Type A (PCR) (Not Detect) Influenza Type B (PCR) (Not Detect) M. pneumoniae (PCR) (Not Detect) Parainfluenza 1 (PCR) (Not Detect) Parainfluenza 2 (PCR) (Not Detect) Parainfluenza 3 (PCR) (Not Detect) Parainfluenza 4 (PCR) (Not Detect) RSV (PCR) (Not Detect) Entero/Rhino (PCR) (Not Detect) Salmonella (PCR) Not detected (Not Detect) 08/14/21 08/14/21 08/14/21 Range/Units 20:44 21:39 21:39 WBC 17.4 H (4.5-11.0) X10^3/uL RBC 4.29 (4.0-5.2) X10^6/uL Hgb 11.2 L (12.0-16.0) g/dL Hct 35.0 L (36-46) % MCV 81.6 (80-100) fL MCH 26.1 (26-34) PG MCHC 31.9 (30-36) % RDW 15.4 H (11.6-14.8) % Plt Count 316 (150-400) X10^3/uL Neut % (Auto) 93.0 H (50-75) % Lymph % (Auto) 3.1 L (25-40) % [place] % (Auto) 3.6 (3-14) % Eos % (Auto) 0.1 L (2-4) % Baso % (Auto) 0.2 (0-2) % Neut # (Auto) 45507 H (1789-4286) /uL Lymph # (Auto) 500 L (3517-0029) /uL [place] # (Auto) 600 (0-900) /uL Eos # (Auto) 0 (0-450) /uL Baso # (Auto) 0 (0-100) /uL Sodium 141 (137-145) mmol/L Potassium 3.6 (3.4-5.1) mmol/L Chloride 112 H (98-107) mmol/L Carbon Dioxide 24 (22-32) mmol/L BUN 14 (7-17) mg/dL Creatinine 1.02 (0.52-1.04) mg/dL Estimated GFR 53.1 L (>60) mL/min BUN/Creatinine Ratio 13.7 (6-22) Glucose 139 H (80-110) mg/dL Lactate (0.7-2.1) mmol/L Calcium 8.8 (8.4-10.2) mg/dL Total Bilirubin 0.5 (0.2-1.3) mg/dL AST 24 (14-36) IU/L ALT 15 (<35) IU/L Alkaline Phosphatase 79 (38-126) U/L Total Creatine Kinase (30-135) U/L CK-MB (CK-2) CK-MB (CK-2) Rel Index Troponin I (0.01-0.034) ng/mL Total Protein 7.1 (6.3-8.2) g/dL Albumin 3.6 (3.5-5.0) g/dL Globulin 3.5 (1.7-4.1) g/dL Albumin/Globulin Ratio 1.0 (1.0-2.8) Lipase 47 (23-300) U/L Procalcitonin (<0.5) ng/mL Urine Color Urine Appearance Urine pH (4.5-8.0) Ur Specific [place] (1.000-1.035) Urine Protein (Negative) Urine Glucose (UA) (Negative) g/dL Urine Ketones (NEGATIVE) Urine Occult Blood (Negative) Urine Nitrate (Negative) Urine Bilirubin (NEGATIVE) Ur Bilirubin Confirm (Negative) Urine Urobilinogen (0.2) E.U./dL Ur Leukocyte Esterase (NEGATIVE) Urine RBC (0-5/HPF) Urine WBC (0-5/HPF) Urine Bacteria (None) Hyaline Casts (None) Granular Casts (None) Urine Mucus (Negative) Ur Culture Indicated? Stl C. cayetanensis PCR (Not Detect) Stool Rotavirus (PCR) (Not Detect) Stool Adenovirus (PCR) (Not Detect) Stool Astrovirus (PCR) (Not Detect) Stool Cryptosporidium PCR (Not Detect) Stl E.coli Shiga Tox PCR (Not Detect) St Sh/Enteroin Ecoli PCR (Not Detect) Stool E coli O157 PCR Stl Enterotoxigenic E PCR (Not Detect) Stool EPEC (PCR) (Not Detect) Stl E. histolytica PCR (Not Detect) Stool Giardia Lamblia PCR (Not Detect) Stool Sapovirus (PCR) (Not Detect) Stl P. shigelloides PCR (Not Detect) St Y.enterocolitica PCR (Not Detect) Stool Vibrio (PCR) (Not Detect) Stl Vibrio cholerae PCR (Not Detect) Stl Enteroaggr Ecoli PCR (Not Detect) Stl Norovirus GI/GII PCR (Not Detect) Chlamy pneumoniae PCR Not detected (Not Detect) Adenovirus (PCR) Not detected (Not Detect) B. pertussis DNA (PCR) Not detected (Not Detecte) B.parapertussis DNA PCR Not detected (Not Detecte) Campylobacter (PCR) (Not Detect) C. difficile Tox (PCR) (Not Detect) Coronavirus OC43 (PCR) Not detected (Not Detect) Coronavirus HKU1 (PCR) Not detected (Not Detect) Coronavirus 229E (PCR) Not detected (Not Detect) SARS-CoV-2 (PCR) Not detected (Negative) Coronavirus NL63 (PCR) Not detected (Not Detect) Human Metapneumovir PCR Not detected (Not Detect) Influenza Type A (PCR) Not detected (Not Detect) Influenza Type B (PCR) Not detected (Not Detect) M. pneumoniae (PCR) Not detected (Not Detect) Parainfluenza 1 (PCR) Not detected (Not Detect) Parainfluenza 2 (PCR) Not detected (Not Detect) Parainfluenza 3 (PCR) Not detected (Not Detect) Parainfluenza 4 (PCR) Not detected (Not Detect) RSV (PCR) Not detected (Not Detect) Entero/Rhino (PCR) Not detected (Not Detect) Salmonella (PCR) (Not Detect) 08/14/21 08/14/21 08/14/21 Range/Units 21:39 21:39 21:39 WBC (4.5-11.0) X10^3/uL RBC (4.0-5.2) X10^6/uL Hgb (12.0-16.0) g/dL Hct (36-46) % MCV (80-100) fL MCH (26-34) PG MCHC (30-36) % RDW (11.6-14.8) % Plt Count (150-400) X10^3/uL Neut % (Auto) (50-75) % Lymph % (Auto) (25-40) % [place] % (Auto) (3-14) % Eos % (Auto) (2-4) % Baso % (Auto) (0-2) % Neut # (Auto) (9331-8299) /uL Lymph # (Auto) (3063-0823) /uL [place] # (Auto) (0-900) /uL Eos # (Auto) (0-450) /uL Baso # (Auto) (0-100) /uL Sodium (137-145) mmol/L Potassium (3.4-5.1) mmol/L Chloride (98-107) mmol/L Carbon Dioxide (22-32) mmol/L BUN (7-17) mg/dL Creatinine (0.52-1.04) mg/dL Estimated GFR (>60) mL/min BUN/Creatinine Ratio (6-22) Glucose (80-110) mg/dL Lactate 2.2 H (0.7-2.1) mmol/L Calcium (8.4-10.2) mg/dL Total Bilirubin (0.2-1.3) mg/dL AST (14-36) IU/L ALT (<35) IU/L Alkaline Phosphatase (38-126) U/L Total Creatine Kinase 67 (30-135) U/L CK-MB (CK-2) TNP CK-MB (CK-2) Rel Index TNP Troponin I < 0.012 (0.01-0.034) ng/mL Total Protein (6.3-8.2) g/dL Albumin (3.5-5.0) g/dL Globulin (1.7-4.1) g/dL Albumin/Globulin Ratio (1.0-2.8) Lipase (23-300) U/L Procalcitonin 8.68 H (<0.5) ng/mL Urine Color Urine Appearance Urine pH (4.5-8.0) Ur Specific [place] (1.000-1.035) Urine Protein (Negative) Urine Glucose (UA) (Negative) g/dL Urine Ketones (NEGATIVE) Urine Occult Blood (Negative) Urine Nitrate (Negative) Urine Bilirubin (NEGATIVE) Ur Bilirubin Confirm (Negative) Urine Urobilinogen (0.2) E.U./dL Ur Leukocyte Esterase (NEGATIVE) Urine RBC (0-5/HPF) Urine WBC (0-5/HPF) Urine Bacteria (None) Hyaline Casts (None) Granular Casts (None) Urine Mucus (Negative) Ur Culture Indicated? Stl C. cayetanensis PCR (Not Detect) Stool Rotavirus (PCR) (Not Detect) Stool Adenovirus (PCR) (Not Detect) Stool Astrovirus (PCR) (Not Detect) Stool Cryptosporidium PCR (Not Detect) Stl E.coli Shiga Tox PCR (Not Detect) St Sh/Enteroin Ecoli PCR (Not Detect) Stool E coli O157 PCR Stl Enterotoxigenic E PCR (Not Detect) Stool EPEC (PCR) (Not Detect) Stl E. histolytica PCR (Not Detect) Stool Giardia Lamblia PCR (Not Detect) Stool Sapovirus (PCR) (Not Detect) Stl P. shigelloides PCR (Not Detect) St Y.enterocolitica PCR (Not Detect) Stool Vibrio (PCR) (Not Detect) Stl Vibrio cholerae PCR (Not Detect) Stl Enteroaggr Ecoli PCR (Not Detect) Stl Norovirus GI/GII PCR (Not Detect) Chlamy pneumoniae PCR (Not Detect) Adenovirus (PCR) (Not Detect) B. pertussis DNA (PCR) (Not Detecte) B.parapertussis DNA PCR (Not Detecte) Campylobacter (PCR) (Not Detect) C. difficile Tox (PCR) (Not Detect) Coronavirus OC43 (PCR) (Not Detect) Coronavirus HKU1 (PCR) (Not Detect) Coronavirus 229E (PCR) (Not Detect) SARS-CoV-2 (PCR) (Negative) Coronavirus NL63 (PCR) (Not Detect) Human Metapneumovir PCR (Not Detect) Influenza Type A (PCR) (Not Detect) Influenza Type B (PCR) (Not Detect) M. pneumoniae (PCR) (Not Detect) Parainfluenza 1 (PCR) (Not Detect) Parainfluenza 2 (PCR) (Not Detect) Parainfluenza 3 (PCR) (Not Detect) Parainfluenza 4 (PCR) (Not Detect) RSV (PCR) (Not Detect) Entero/Rhino (PCR) (Not Detect) Salmonella (PCR) (Not Detect) 08/14/21 Range/Units 23:57 WBC (4.5-11.0) X10^3/uL RBC (4.0-5.2) X10^6/uL Hgb (12.0-16.0) g/dL Hct (36-46) % MCV (80-100) fL MCH (26-34) PG MCHC (30-36) % RDW (11.6-14.8) % Plt Count (150-400) X10^3/uL Neut % (Auto) (50-75) % Lymph % (Auto) (25-40) % [place] % (Auto) (3-14) % Eos % (Auto) (2-4) % Baso % (Auto) (0-2) % Neut # (Auto) (5010-9064) /uL Lymph # (Auto) (6035-8569) /uL [place] # (Auto) (0-900) /uL Eos # (Auto) (0-450) /uL Baso # (Auto) (0-100) /uL Sodium (137-145) mmol/L Potassium (3.4-5.1) mmol/L Chloride (98-107) mmol/L Carbon Dioxide (22-32) mmol/L BUN (7-17) mg/dL Creatinine (0.52-1.04) mg/dL Estimated GFR (>60) mL/min BUN/Creatinine Ratio (6-22) Glucose (80-110) mg/dL Lactate 1.0 (0.7-2.1) mmol/L Calcium (8.4-10.2) mg/dL Total Bilirubin (0.2-1.3) mg/dL AST (14-36) IU/L ALT (<35) IU/L Alkaline Phosphatase (38-126) U/L Total Creatine Kinase (30-135) U/L CK-MB (CK-2) CK-MB (CK-2) Rel Index Troponin I (0.01-0.034) ng/mL Total Protein (6.3-8.2) g/dL Albumin (3.5-5.0) g/dL Globulin (1.7-4.1) g/dL Albumin/Globulin Ratio (1.0-2.8) Lipase (23-300) U/L Procalcitonin (<0.5) ng/mL Urine Color Urine Appearance Urine pH (4.5-8.0) Ur Specific [place] (1.000-1.035) Urine Protein (Negative) Urine Glucose (UA) (Negative) g/dL Urine Ketones (NEGATIVE) Urine Occult Blood (Negative) Urine Nitrate (Negative) Urine Bilirubin (NEGATIVE) Ur Bilirubin Confirm (Negative) Urine Urobilinogen (0.2) E.U./dL Ur Leukocyte Esterase (NEGATIVE) Urine RBC (0-5/HPF) Urine WBC (0-5/HPF) Urine Bacteria (None) Hyaline Casts (None) Granular Casts (None) Urine Mucus (Negative) Ur Culture Indicated? Stl C. cayetanensis PCR (Not Detect) Stool Rotavirus (PCR) (Not Detect) Stool Adenovirus (PCR) (Not Detect) Stool Astrovirus (PCR) (Not Detect) Stool Cryptosporidium PCR (Not Detect) Stl E.coli Shiga Tox PCR (Not Detect) St Sh/Enteroin Ecoli PCR (Not Detect) Stool E coli O157 PCR Stl Enterotoxigenic E PCR (Not Detect) Stool EPEC (PCR) (Not Detect) Stl E. histolytica PCR (Not Detect) Stool Giardia Lamblia PCR (Not Detect) Stool Sapovirus (PCR) (Not Detect) Stl P. shigelloides PCR (Not Detect) St Y.enterocolitica PCR (Not Detect) Stool Vibrio (PCR) (Not Detect) Stl Vibrio cholerae PCR (Not Detect) Stl Enteroaggr Ecoli PCR (Not Detect) Stl Norovirus GI/GII PCR (Not Detect) Chlamy pneumoniae PCR (Not Detect) Adenovirus (PCR) (Not Detect) B. pertussis DNA (PCR) (Not Detecte) B.parapertussis DNA PCR (Not Detecte) Campylobacter (PCR) (Not Detect) C. difficile Tox (PCR) (Not Detect) Coronavirus OC43 (PCR) (Not Detect) Coronavirus HKU1 (PCR) (Not Detect) Coronavirus 229E (PCR) (Not Detect) SARS-CoV-2 (PCR) (Negative) Coronavirus NL63 (PCR) (Not Detect) Human Metapneumovir PCR (Not Detect) Influenza Type A (PCR) (Not Detect) Influenza Type B (PCR) (Not Detect) M. pneumoniae (PCR) (Not Detect) Parainfluenza 1 (PCR) (Not Detect) Parainfluenza 2 (PCR) (Not Detect) Parainfluenza 3 (PCR) (Not Detect) Parainfluenza 4 (PCR) (Not Detect) RSV (PCR) (Not Detect) Entero/Rhino (PCR) (Not Detect) Salmonella (PCR) (Not Detect) Imaging Data CT scan - head: Radiologist's Impression: Launch?[place] [address] CT Scan Report Signed Patient: Marlin Aleman MR#: [id number] : 1950 Acct:[id number] Age/Sex: 71 / F Date of Service: 08/14/21 Loc: ED Accession Number: [id number] ?? Procedure: CT head/brain wo con Ordering Provider: Lizet Sood D.O. PROCEDURE:? CT HEAD/BRAIN WO CON ? INDICATIONS:? ? fall, dementia ? TECHNIQUE:? Noncontrast 4.5 mm thick angled axial sections acquired from the foramen magnum to the vertex, with coronal and sagittal reformats.? For radiation dose reduction, the following was used:? automated exposure control, adjustment of mA and/or kV according to patient size.? ? COMPARISON:? [facility], CT, CT HEAD/BRAIN WO CON, 04/04/2021, 12:00. ? FINDINGS:? Image quality:? Excellent.? ? CSF spaces:? Basal cisterns are patent.? No extra-axial fluid collections.? The ventricles are symmetric in size and shape.? ? Brain:? No intracranial bleeds or masses.? There is cerebral volume loss for age, with resultant ventricular and sulcal prominence.? There are periventricular and deep white matter chronic small vessel ischemic changes.? There is intracranial internal carotid artery atherosclerosis.? ? Skull and face:? Calvarium and visualized facial bones appear intact, without suspicious lesions.? ? Sinuses:? Visualized sinuses and mastoids are clear.? ? IMPRESSION:? No acute process. ? ? Dictated by: Emily Massey M.D. on 08/14/2021 at 19:42 ? ? Approved by: Emily Massey M.D. on 08/14/2021 at 19:43?? CT scan - abdomen/pelvis: Radiologist's Impression: Launch?[place] [address] CT Scan Report Signed Patient: Marlin Aleman MR#: [id number] : 1950 Acct:[id number] Age/Sex: 71 / F Date of Service: 08/14/21 Loc: ED Accession Number: [id number] ?? Procedure: CT abdomen pelvis w con Ordering Provider: Lizet Sood D.O. PROCEDURE:? CT ABDOMEN PELVIS W CON ? INDICATIONS:? n/v recent stent removed, uti ? TECHNIQUE:? After the administration of IV contrast, axial sections were acquired from the lung bases to the pubic symphysis.? Coronal and sagittal reformats were performed.? For radiation dose reduction, the following was used:? automated exposure control, adjustment of mA and/or kV according to patient size. ? COMPARISON:? [facility], CT, CT ABDOMEN PELVIS W CON, 07/12/2020, 22:10.? [facility], CT, CT ABDOMEN PELVIS WO/W CON, 07/21/2021, 14:16.? [facility], CT, CT ABDOMEN PELVIS W CON, 07/04/2021, 8:47. ? FINDINGS:? Image quality:? Excellent.? ? Lung bases:? There is mild dependent atelectasis bilaterally.? There is a small hiatal hernia.? Concentric wall thickening of the visualized distal esophagus is redemonstrated. ? Heart:? Heart is normal in size. ? ? ABDOMEN: Liver:? There is hypodensity anteriorly within the left hepatic lobe along the falciform ligament consistent with focal fatty infiltration. Gallbladder:? Within normal limits without gallstones.? ? Biliary ducts:? No biliary ductal dilatation.? ? Pancreas:? Mild indistinct hypodensities redemonstrated within the pancreatic head and uncinate process without a discrete mass identified.? No pancreatic duct dilatation.? The appearance is similar to compared to the prior studies. Spleen:? Normal in size.? ? Adrenal Glands:? No adrenal nodules.? ? Kidneys and Ureters:? There is interval removal of the right ureteral stent.? No hydronephrosis.? No renal or ureteral stones identified.? Kidneys demonstrate symmetric enhancement bilaterally.? Areas cortical thinning are redemonstrated within the left kidney likely representing sequelae of prior infection, versus prior infarcts or trauma.? ? ? Stomach and Bowel:? A gastric lap band is redemonstrated.? Stomach, small bowel loops, and colon are normal in caliber and wall thickness.? No evidence of appendicitis.? Peritoneum:? No abnormal intraperitoneal fluid.? No free air.? ? Ventral Wall: ? No hernia.? Abdominal Nodes:? No retroperitoneal or mesenteric adenopathy by size criteria.? Vessels:? Aorta and inferior vena cava are normal in size.? ? PELVIS: Pelvic Organs:? A heterogeneous fat-containing mass is redemonstrated within the right hemipelvis, measuring up to approximately 5.7 x 4.9 cm in transverse dimension, similar in size compared to the prior studies.? The findings again consistent with an ovarian dermoid. Bladder:? There is a Harper catheter within a nondistended urinary bladder.? ? Pelvic Nodes: No enlarged lymph nodes.? Miscellaneous: No inguinal hernias are seen. ? ? ? Bones:? Visualized osseous structures demonstrate no suspicious focal lesions. ? IMPRESSION:? ? 1. No definite acute intra-abdominal abnormality. ? 2. Interval removal of the right ureteral stent.? No evidence of hydronephrosis or nephrolithiasis.? No perinephric stranding or perinephric fluid collections. ? 3. No evidence of appendicitis. ? 4. Concentric wall thickening of the visualized distal esophagus redemonstrated suggestive an esophagitis.? A gastric lap band is redemonstrated.? Recommend correlation clinically and with endoscopy if indicated. ? 5. Heterogeneous fat-containing right pelvic mass redemonstrated likely representing and ovarian dermoid.? ? ? Dictated by: Phil Sarah M.D. on 08/14/2021 at 22:40 ? ? Approved by: Phil Sarah M.D. on 08/14/2021 at 22:51? ECG Data Attestation: I personally reviewed and interpreted this ECG as follows: Prior ECG tracings: available for review Interpretation: Sinus rhythm, rate of 78 ME 136 QRS 86 and QTC of 469. No acute changes appreciated. Patient has prior from 07/04/2021 no new changes appreciated. MDM Narrative Medical decision making narrative: This is a 71-year-old female who comes emergency department for vomiting and diarrhea. Patient was recently hospitalized, she had urine infection and ultimately cried ureteral stent. She was discharged home followed up with urology who removed the stent and rechecked her urine which was negative after completing her antibiotics. Patient so far has been afebrile. She has been hypotensive, labs were difficult to obtain and ultimately or obtained via central line placement. Patient did respond to fluids and her pressure improved after 30 cc/kilos bolus. Patient urine is suspicious for infection with bacteria and white cells but no leukocyte esterase or nitrates. No other clear source of infection was found. C diff was entertained but is negative. She does have a leukocytosis, positive procalcitonin, cultures are pending. Her lactate was initially elevated and this is after at least a L bolus. It is trending down words. And her electrolytes and LFTs are otherwise reassuring. EKG, troponin are both negative. Patient was covered with Zosyn as well as vanco as she has had recent hospitalizations. She has not had any cold cough or congestion and is negative for COVID with no obvious signs of pneumonia on chest x-ray. The patient case was discussed with the hospitalist service who accepts for admission. Discharge Plan Departure Patient Disposition: Admitted As Inpatient Clinical Impression: Acute UTI, Sepsis Admit Date/Time: 08/14/21 23:58 Admit Provider: Pam Beck
--- NOTE | 2021-08-14 20:01 | DI.RAD.S_ITS ---
PROCEDURE: XR CHEST 1V INDICATIONS: n/v, cough TECHNIQUE: One view of the chest was acquired. COMPARISON: [facility], CR, XR CHEST 1V, 07/04/2021, 7:18. FINDINGS: Surgical changes and devices: None. Lungs and pleura: Lungs are clear. No pleural effusions or pneumothorax. Mediastinum: Mediastinal contours appear unchanged. Heart size is normal. There are mitral annular calcifications redemonstrated. Bones and chest wall: No suspicious bony lesions. Overlying soft tissues appear unremarkable. IMPRESSION: 1. No acute cardiopulmonary disease. Dictated by: Phil Sarah M.D. on 08/14/2021 at 20:35 Approved by: Phil Sarah M.D. on 08/14/2021 at 20:37
[2021-08-14] MEDS: ONDANSETRON 4 MG/2 ML INJ IV (20:37)
[2021-08-14 20:53] LABS: Appearance Urine UA CLOUDY; Bilirubin Urine UA 2+ (NEGATIVE); Color Urine UA YELLOW; Glucose Urine UA TRACE g/dL (Negative); Ketones Urine UA TRACE (NEGATIVE); Leukocyte Esterase Urine UA NEGATIVE (NEGATIVE); Nitrite Urine UA NEGATIVE (Negative); Occult Blood Urine UA 2+ (Negative); Protein Urine UA 2+ (Negative); Specific Gravity Urine UA >=1.030 (1.000-1.035); Urobilinogen Urine UA 0.2 E.U./dL (0.2)
[2021-08-14 21:10] LABS: Bacteria Urine Many (>30); Culture Indicated Urine Specimen Cultured; Granular Casts Urine 1-5/LPF; Hyaline Casts Urine 5-10/LPF; Ictotest Urine Negative (Negative); Mucus Urine 2+ (Negative); RBC Urine 5-10/HPF (0-5/HPF); WBC Urine 5-10/HPF (0-5/HPF)
--- NOTE | 2021-08-14 21:26 | DI.RAD.S_ITS ---
PROCEDURE: XR CHEST 1V INDICATIONS: central line placement TECHNIQUE: One view of the chest was acquired. COMPARISON: [facility], CR, XR CHEST 1V, 08/14/2021, 20:02. FINDINGS: Surgical changes and devices: There is a new right internal jugular catheter with the tip extending to the cavoatrial junction. Lungs and pleura: Lungs are clear. No pleural effusions or pneumothorax. Mediastinum: Mediastinal contours appear normal. Heart size is normal. Bones and chest wall: No suspicious bony lesions. Overlying soft tissues appear unremarkable. IMPRESSION: 1. No evidence of pneumothorax. 2. Right internal jugular catheter extends to the cavoatrial junction. Dictated by: Phil Sarah M.D. on 08/14/2021 at 21:55 Approved by: Phil Sarah M.D. on 08/14/2021 at 21:57
[2021-08-14] MEDS: PIPERACILLIN/TAZO 4.5 GM in SODIUM CHLORIDE 0.9% 100 ML 200 ML IV (21:52)
[2021-08-14 22:00] LABS: Add Manual Diff / Slide Review NO; Basophils Absolute Auto 0 /uL (0-100); Basophils Percent Auto 0.2 % (0-2); Creatine Kinase 67 U/L (30-135); Eosinophils Absolute Auto 0 /uL (0-450); Eosinophils Percent Auto 0.1 % (2-4); Hemoglobin 11.2 g/dL (12.0-16.0); Lymphocytes Absolute Auto 500 /uL (1100-4500); Lymphocytes Percent Auto 3.1 % (25-40); Mean Corpuscular HGB Conc 31.9 % (30-36); Mean Corpuscular Hemoglobin 26.1 PG (26-34); Mean Corpuscular Volume 81.6 fL (80-100); Monocytes Absolute Auto 600 /uL (0-900); Monocytes Percent Auto 3.6 % (3-14); Neutrophils Absolute Auto 16200 /uL (1500-7000); Platelet Count 316 X10^3/uL (150-400); Red Blood Cell Count 4.29 X10^6/uL (4.0-5.2); Red Cell Distribution Width 15.4 % (11.6-14.8); White Blood Cell Count 17.4 X10^3/uL (4.5-11.0)
[2021-08-14 22:01] LABS: Alanine Aminotransferase 15 IU/L (<35); Albumin 3.6 g/dL (3.5-5.0); Alkaline Phosphatase 79 U/L (38-126); Aspartate Aminotransferase 24 IU/L (14-36); BUN Creatinine Ratio 13.7 (6-22); Bilirubin Total 0.5 mg/dL (0.2-1.3); Blood Urea Nitrogen 14 mg/dL (7-17); Calcium 8.8 mg/dL (8.4-10.2); Carbon Dioxide 24 mmol/L (22-32); Chloride 112 mmol/L (98-107); Estimated Glomerular Filt Rate 53.1 mL/min (>60); Globulin 3.5 g/dL (1.7-4.1); Glucose 139 mg/dL (80-110); HEMOLYSIS < 15 (0-50); Lipase 47 U/L (23-300); Potassium 3.6 mmol/L (3.4-5.1); Sodium 141 mmol/L (137-145); Total Protein 7.1 g/dL (6.3-8.2)
[2021-08-14 22:06] LABS: Adenovirus Not Detected (Not Detect); B. parapertussis Not Detected (Not Detecte); Bordetella pertussis Not Detected (Not Detecte); Chlamydophila pneumoniae Not Detected (Not Detect); Coronavirus 229E Not Detected (Not Detect); Coronavirus HKU1 Not Detected (Not Detect); Coronavirus NL 63 Not Detected (Not Detect); Coronavirus OC43 Not Detected (Not Detect); Human Metapneumovirus Not Detected (Not Detect); Human Rhinovirus/Enterovirus Not Detected (Not Detect); Influenza A Not Detected (Not Detect); Influenza B Not Detected (Not Detect); Mycoplasma pneumoniae Not Detected (Not Detect); Parainfluenza Virus 1 Not Detected (Not Detect); Parainfluenza Virus 2 Not Detected (Not Detect); Parainfluenza Virus 3 Not Detected (Not Detect); Parainfluenza Virus 4 Not Detected (Not Detect); Respiratory Syncytial Virus Not Detected (Not Detect); SARS- CoV-2 Not Detected (Not Detecte)
--- NOTE | 2021-08-14 22:10 | DI.CT.S_ITS ---
PROCEDURE: CT ABDOMEN PELVIS W CON INDICATIONS: n/v recent stent removed, uti TECHNIQUE: After the administration of IV contrast, axial sections were acquired from the lung bases to the pubic symphysis. Coronal and sagittal reformats were performed. For radiation dose reduction, the following was used: automated exposure control, adjustment of mA and/or kV according to patient size. COMPARISON: [facility], CT, CT ABDOMEN PELVIS W CON, 07/12/2020, 22:10. [facility], CT, CT ABDOMEN PELVIS WO/W CON, 07/21/2021, 14:16. [facility], CT, CT ABDOMEN PELVIS W CON, 07/04/2021, 8:47. FINDINGS: Image quality: Excellent. Lung bases: There is mild dependent atelectasis bilaterally. There is a small hiatal hernia. Concentric wall thickening of the visualized distal esophagus is redemonstrated. Heart: Heart is normal in size. ABDOMEN: Liver: There is hypodensity anteriorly within the left hepatic lobe along the falciform ligament consistent with focal fatty infiltration. Gallbladder: Within normal limits without gallstones. Biliary ducts: No biliary ductal dilatation. Pancreas: Mild indistinct hypodensities redemonstrated within the pancreatic head and uncinate process without a discrete mass identified. No pancreatic duct dilatation. The appearance is similar to compared to the prior studies. Spleen: Normal in size. Adrenal Glands: No adrenal nodules. Kidneys and Ureters: There is interval removal of the right ureteral stent. No hydronephrosis. No renal or ureteral stones identified. Kidneys demonstrate symmetric enhancement bilaterally. Areas cortical thinning are redemonstrated within the left kidney likely representing sequelae of prior infection, versus prior infarcts or trauma. Stomach and Bowel: A gastric lap band is redemonstrated. Stomach, small bowel loops, and colon are normal in caliber and wall thickness. No evidence of appendicitis. Peritoneum: No abnormal intraperitoneal fluid. No free air. Ventral Wall: No hernia. Abdominal Nodes: No retroperitoneal or mesenteric adenopathy by size criteria. Vessels: Aorta and inferior vena cava are normal in size. PELVIS: Pelvic Organs: A heterogeneous fat-containing mass is redemonstrated within the right hemipelvis, measuring up to approximately 5.7 x 4.9 cm in transverse dimension, similar in size compared to the prior studies. The findings again consistent with an ovarian dermoid. Bladder: There is a Harper catheter within a nondistended urinary bladder. Pelvic Nodes: No enlarged lymph nodes. Miscellaneous: No inguinal hernias are seen. Bones: Visualized osseous structures demonstrate no suspicious focal lesions. IMPRESSION: 1. No definite acute intra-abdominal abnormality. 2. Interval removal of the right ureteral stent. No evidence of hydronephrosis or nephrolithiasis. No perinephric stranding or perinephric fluid collections. 3. No evidence of appendicitis. 4. Concentric wall thickening of the visualized distal esophagus redemonstrated suggestive an esophagitis. A gastric lap band is redemonstrated. Recommend correlation clinically and with endoscopy if indicated. 5. Heterogeneous fat-containing right pelvic mass redemonstrated likely representing and ovarian dermoid. Dictated by: Phil Sarah M.D. on 08/14/2021 at 22:40 Approved by: Phil Sarah M.D. on 08/14/2021 at 22:51
[2021-08-14 22:12] LABS: Troponin I < 0.012 ng/mL (0.01-0.034)
[2021-08-14 22:16] LABS: Lactate (Lactic Acid) 2.2 mmol/L (0.7-2.1)
[2021-08-14 22:50] LABS: Procalcitonin 8.68 ng/mL (<0.5)
--- NOTE | 2021-08-14 23:08 | PC.NURSE ---
Pt's partner states she was recently inpatient, treated for severe UTI and kidney stone symptoms. Partner states pt barely survived the infection, per the treating MD. Pt was found today, by partner, laying on the bathroom floor with vomit and feces surrounding her. Patient was bowel incontinent in the ER as well. Partner states this is new for pt. 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 MD aware.
[2021-08-14 23:45] LABS: Reflexed Lactate in 2 Hours Y
[2021-08-14] MEDS: SODIUM CHLORIDE 0.9% 1,000 ML 150 ML IV (23:45)
[2021-08-14 23:54] LABS: Campylobacter Not Detected (Not Detect); Clostridium difficile toxin AB Not Detected (Not Detect); Plesiomonsa shigelloides Not Detected (Not Detect); Salmonella Not Detected (Not Detect)
[2021-08-14 23:55] LABS: Adenovirus F 40/41 Not Detected (Not Detect); Astrovirus Not Detected (Not Detect); Cryptosporidium Not Detected (Not Detect); Cyclospora cayetanensis Not Detected (Not Detect); Entamoeba histolytica Not Detected (Not Detect); Enteroaggregative E.coli Not Detected (Not Detect); Enteropathogenic E.coli Not Detected (Not Detect); Enterotoxigenic E.coli It/st Not Detected (Not Detect); Giardia lamblia Not Detected (Not Detect); Norovirus GI/GII Not Detected (Not Detect); Rotavirus A Not Detected (Not Detect); Sapovirus Not Detected (Not Detect); Shiga-like toxin-prod E.coli Not Detected (Not Detect); Shigella/Enteroinvasive E.coli Not Detected (Not Detect); Vibrio Not Detected (Not Detect); Vibrio cholerae Not Detected (Not Detect); Yersinia enterocolitica Not Detected (Not Detect)
[2021-08-15] VITALS (7 sets, daily range): BP systolic 94–121; BP diastolic 42–67; PULSE 72–83; RESP 12–18; TEMP 36.2–36.9; O2SAT 96–100; BMI 24.4
[2021-08-15] MEDS: VANCOMYCIN 1,000 MG/200 ML PIGGYBACK 200 MG IV (00:10)
--- NOTE | 2021-08-15 00:52 | P.HP_ITS ---
History of Present Illness History of Present Illness Date Patient Seen: 08/15/21 Time Patient Seen: 00:30 Chief complaint: throwing up and diarreha Narrative: Marlin Aleman is a 71 y.o. 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 He had left before the patient arrived to the floor, history is provided by the ED provider and review of her internal medical record. Per the ED provider, she was in her usual state of health yesterday, but today, she slept in until noon, then he apparently thought she went to her bedroom to take a nap. He went in to check in on her and found her in the bathroom lying in vomit, urine and stool which is new for her. SO told the ED provider that he did not hear her fall or any signs of falling. She does not recall what happened. She recently had a urethral stent placed on July 04 and removed in the urologist's office on August 03. CT of the abdomen and pelvic, CT of the head and chest xray were negative for any acute process. She is afebrile, blood pressure 108/67, heart rate 73, respiratory rate 16, oxygen saturation of 97% on room air, she weighs 64.5 kg with a BMI of 24.4. She does have a elevated white count at 17.4, hemoglobin and hematocrit are 11.2 and 35 respectively, platelet count 316, she does have a left shift with a neutrophil count of 16,200, chloride is 112, her GFR is 53 though BUN creatinine are within normal limits, glucose 139, procalcitonin is 8.68, C difficile PCR was negative, viral PCR was negative including COVID-19 PCR. Stool PCR was negative for any bacterial organisms. Patient History Medical History Adnexal cyst (06/2020) Allergies (~1974) Blood glucose elevated Chicken pox (~1949) Chronic back pain (~2014) Colitis, infectious Constipation Decreased GFR Dementia (~2014) Depression (~2014) Diverticulitis Esophageal thickening (04/2021) Frequent headaches Headache (~2014) Hearing loss History of musculoskeletal disorder (~2014) Mixed hyperlipidemia Mumps (~1949) Pain Retroperitoneal mass Right knee pain TBI (traumatic brain injury) Tinnitus (~2014) Surgical History Anesthesia History of hand surgery (~1998) History of removal of skin mole (~2016) Hx of laparoscopic gastric banding (~2002) Retained ureteral stent Family & Social History Family History Family/Other Kidney stones Urinary tract infection Social History: household members significant other Safety & Behavioral: Feels Safe in Current Yes Environment Been Physically Hurt or No Threatened By a Person Tobacco & Substance use: Smoking Status Never smoker alcohol intake never Substance Use Type does not use Meds Home Medications and Allergies Home Medications Medication Instructions Recorded Confirmed Type No Known Home Medications 08/15/21 08/15/21 History Allergies Allergy/AdvReac Type Severity Reaction Status Date / Time sulfite Allergy Severe anaphylactic Verified 08/14/21 17:29 shock adhesive AdvReac Mild takes my Verified 08/14/21 17:29 skin off msg Allergy Severe Anaphylaxis Uncoded 08/14/21 17:29 nitrite AdvReac Diarrhea Uncoded 08/14/21 17:29 Review of Systems Review of Systems ROS: Yes unobtainable due to mental status Exam Vital Signs (past 8 hours): - 08/14/21 17:52 08/14/21 18:12 08/14/21 18:24 Temperature 97.1 F L Pulse Rate 88 83 82 Respiratory Rate 22 21 Blood Pressure 102/58 L 102/58 L 132/60 Pulse Oximetry 99 98 99 08/14/21 18:30 08/14/21 18:31 08/14/21 19:00 Temperature Pulse Rate 80 80 85 Respiratory Rate 20 18 21 Blood Pressure 102/55 L Pulse Oximetry 98 99 100 08/14/21 19:52 08/14/21 19:55 08/14/21 20:00 Temperature Pulse Rate 94 H 96 H 95 H Respiratory Rate 20 22 Blood Pressure 134/59 L 128/61 Pulse Oximetry 98 99 99 08/14/21 20:01 08/14/21 20:30 08/14/21 20:50 Temperature 98.1 F Pulse Rate 90 82 Respiratory Rate 16 Blood Pressure 127/61 127/66 Pulse Oximetry 98 100 08/14/21 21:00 08/14/21 21:30 08/14/21 21:31 Temperature Pulse Rate 80 82 85 Respiratory Rate 30 H 20 20 Blood Pressure 119/58 L 111/53 L Pulse Oximetry 100 97 98 08/14/21 22:00 08/14/21 22:30 08/14/21 22:40 Temperature Pulse Rate 80 85 80 Respiratory Rate 23 18 Blood Pressure 109/54 L 108/54 L Pulse Oximetry 97 99 100 08/14/21 23:00 08/14/21 23:30 08/15/21 00:38 Temperature Pulse Rate 77 79 Respiratory Rate 20 20 Blood Pressure 101/53 L 114/55 L Pulse Oximetry 98 96 97 Oxygen Delivery Method Room Air Oxygen Flow Rate 0 Narrative Exam Narrative: Gen: Alert, oriented to self, chronically ill appearing 70 y.o. female, appears to be in mild distress HEENT: normocephalic, atraumatic, conjunctiva clear, sclera non-icteric, oral mucosa pink and moist Neck: right sided central line intact. supple, full ROM, no JVD, trachea is midline Resp: Lungs CTA, non-labored breathing CV: RRR, no murmur or rubs Abd: soft, non-tender, normoactive BTs Skin: no lesions or rashes, dry and intact Neuro: Somewhat confused, alert and oriented to self only, w/no focal deficits. Speech weak and soft. Extremities: moves all 4 extremities, is ambulatory, negative Cynthia?s sign Psyche: normal mood and affect. Objective Labs Result Diagrams: 08/14/21 21:39 08/14/21 21:39 Labs: Laboratory Results - last 24 hr 08/14/21 08/14/21 08/14/21 18:17 20:29 20:42 WBC RBC Hgb Hct MCV MCH MCHC RDW Plt Count Neut % (Auto) Lymph % (Auto) [place] % (Auto) Eos % (Auto) Baso % (Auto) Neut # (Auto) Lymph # (Auto) [place] # (Auto) Eos # (Auto) Baso # (Auto) Sodium Potassium Chloride Carbon Dioxide BUN Creatinine Estimated GFR BUN/Creatinine Ratio Glucose Lactate Calcium Total Bilirubin AST ALT Alkaline Phosphatase Total Creatine Kinase CK-MB (CK-2) CK-MB (CK-2) Rel Index Troponin I Total Protein Albumin Globulin Albumin/Globulin Ratio Lipase Procalcitonin Urine Color Yellow Urine Appearance Cloudy Urine pH 5.0 Ur Specific Hope >=1.030 H Urine Protein 2+ H Urine Glucose (UA) Trace H Urine Ketones Trace H Urine Occult Blood 2+ H Urine Nitrate Negative Urine Bilirubin 2+ H Ur Bilirubin Confirm Negative Urine Urobilinogen 0.2 Ur Leukocyte Esterase Negative Urine RBC 5-10/hpf H Urine WBC 5-10/hpf H Urine Bacteria Many (>30) H Hyaline Casts 5-10/lpf Granular Casts 1-5/lpf Urine Mucus 2+ H Ur Culture Indicated? Specimen cultured Stl C. cayetanensis PCR Not detected Stool Rotavirus (PCR) Not detected Stool Adenovirus (PCR) Not detected Stool Astrovirus (PCR) Not detected Stool Cryptosporidium PCR Not detected Stl E.coli Shiga Tox PCR Not detected St Sh/Enteroin Ecoli PCR Not detected Stool E coli O157 PCR Not Reportable Stl Enterotoxigenic E PCR Not detected Stool EPEC (PCR) Not detected Stl E. histolytica PCR Not detected Stool Giardia Lamblia PCR Not detected Stool Sapovirus (PCR) Not detected Stl P. shigelloides PCR Not detected St Y.enterocolitica PCR Not detected Stool Vibrio (PCR) Not detected Stl Vibrio cholerae PCR Not detected Stl Enteroaggr Ecoli PCR Not detected Stl Norovirus GI/GII PCR Not detected Chlamy pneumoniae PCR Adenovirus (PCR) B. pertussis DNA (PCR) B.parapertussis DNA PCR Campylobacter (PCR) Not detected C. difficile Tox (PCR) Not detected Coronavirus OC43 (PCR) Coronavirus HKU1 (PCR) Coronavirus 229E (PCR) SARS-CoV-2 (PCR) Negative Coronavirus NL63 (PCR) Human Metapneumovir PCR Influenza Type A (PCR) Influenza Type B (PCR) M. pneumoniae (PCR) Parainfluenza 1 (PCR) Parainfluenza 2 (PCR) Parainfluenza 3 (PCR) Parainfluenza 4 (PCR) RSV (PCR) Entero/Rhino (PCR) Salmonella (PCR) Not detected 08/14/21 08/14/21 08/14/21 20:44 21:39 21:39 WBC 17.4 H RBC 4.29 Hgb 11.2 L Hct 35.0 L MCV 81.6 MCH 26.1 MCHC 31.9 RDW 15.4 H Plt Count 316 Neut % (Auto) 93.0 H Lymph % (Auto) 3.1 L [place] % (Auto) 3.6 Eos % (Auto) 0.1 L Baso % (Auto) 0.2 Neut # (Auto) 53553 H Lymph # (Auto) 500 L [place] # (Auto) 600 Eos # (Auto) 0 Baso # (Auto) 0 Sodium 141 Potassium 3.6 Chloride 112 H Carbon Dioxide 24 BUN 14 Creatinine 1.02 Estimated GFR 53.1 L BUN/Creatinine Ratio 13.7 Glucose 139 H Lactate Calcium 8.8 Total Bilirubin 0.5 AST 24 ALT 15 Alkaline Phosphatase 79 Total Creatine Kinase CK-MB (CK-2) CK-MB (CK-2) Rel Index Troponin I Total Protein 7.1 Albumin 3.6 Globulin 3.5 Albumin/Globulin Ratio 1.0 Lipase 47 Procalcitonin Urine Color Urine Appearance Urine pH Ur Specific Hope Urine Protein Urine Glucose (UA) Urine Ketones Urine Occult Blood Urine Nitrate Urine Bilirubin Ur Bilirubin Confirm Urine Urobilinogen Ur Leukocyte Esterase Urine RBC Urine WBC Urine Bacteria Hyaline Casts Granular Casts Urine Mucus Ur Culture Indicated? Stl C. cayetanensis PCR Stool Rotavirus (PCR) Stool Adenovirus (PCR) Stool Astrovirus (PCR) Stool Cryptosporidium PCR Stl E.coli Shiga Tox PCR St Sh/Enteroin Ecoli PCR Stool E coli O157 PCR Stl Enterotoxigenic E PCR Stool EPEC (PCR) Stl E. histolytica PCR Stool Giardia Lamblia PCR Stool Sapovirus (PCR) Stl P. shigelloides PCR St Y.enterocolitica PCR Stool Vibrio (PCR) Stl Vibrio cholerae PCR Stl Enteroaggr Ecoli PCR Stl Norovirus GI/GII PCR Chlamy pneumoniae PCR Not detected Adenovirus (PCR) Not detected B. pertussis DNA (PCR) Not detected B.parapertussis DNA PCR Not detected Campylobacter (PCR) C. difficile Tox (PCR) Coronavirus OC43 (PCR) Not detected Coronavirus HKU1 (PCR) Not detected Coronavirus 229E (PCR) Not detected SARS-CoV-2 (PCR) Not detected Coronavirus NL63 (PCR) Not detected Human Metapneumovir PCR Not detected Influenza Type A (PCR) Not detected Influenza Type B (PCR) Not detected M. pneumoniae (PCR) Not detected Parainfluenza 1 (PCR) Not detected Parainfluenza 2 (PCR) Not detected Parainfluenza 3 (PCR) Not detected Parainfluenza 4 (PCR) Not detected RSV (PCR) Not detected Entero/Rhino (PCR) Not detected Salmonella (PCR) 08/14/21 08/14/21 08/14/21 21:39 21:39 21:39 WBC RBC Hgb Hct MCV MCH MCHC RDW Plt Count Neut % (Auto) Lymph % (Auto) [place] % (Auto) Eos % (Auto) Baso % (Auto) Neut # (Auto) Lymph # (Auto) [place] # (Auto) Eos # (Auto) Baso # (Auto) Sodium Potassium Chloride Carbon Dioxide BUN Creatinine Estimated GFR BUN/Creatinine Ratio Glucose Lactate 2.2 H Calcium Total Bilirubin AST ALT Alkaline Phosphatase Total Creatine Kinase 67 CK-MB (CK-2) TNP CK-MB (CK-2) Rel Index TNP Troponin I < 0.012 Total Protein Albumin Globulin Albumin/Globulin Ratio Lipase Procalcitonin 8.68 H Urine Color Urine Appearance Urine pH Ur Specific Hope Urine Protein Urine Glucose (UA) Urine Ketones Urine Occult Blood Urine Nitrate Urine Bilirubin Ur Bilirubin Confirm Urine Urobilinogen Ur Leukocyte Esterase Urine RBC Urine WBC Urine Bacteria Hyaline Casts Granular Casts Urine Mucus Ur Culture Indicated? Stl C. cayetanensis PCR Stool Rotavirus (PCR) Stool Adenovirus (PCR) Stool Astrovirus (PCR) Stool Cryptosporidium PCR Stl E.coli Shiga Tox PCR St Sh/Enteroin Ecoli PCR Stool E coli O157 PCR Stl Enterotoxigenic E PCR Stool EPEC (PCR) Stl E. histolytica PCR Stool Giardia Lamblia PCR Stool Sapovirus (PCR) Stl P. shigelloides PCR St Y.enterocolitica PCR Stool Vibrio (PCR) Stl Vibrio cholerae PCR Stl Enteroaggr Ecoli PCR Stl Norovirus GI/GII PCR Chlamy pneumoniae PCR Adenovirus (PCR) B. pertussis DNA (PCR) B.parapertussis DNA PCR Campylobacter (PCR) C. difficile Tox (PCR) Coronavirus OC43 (PCR) Coronavirus HKU1 (PCR) Coronavirus 229E (PCR) SARS-CoV-2 (PCR) Coronavirus NL63 (PCR) Human Metapneumovir PCR Influenza Type A (PCR) Influenza Type B (PCR) M. pneumoniae (PCR) Parainfluenza 1 (PCR) Parainfluenza 2 (PCR) Parainfluenza 3 (PCR) Parainfluenza 4 (PCR) RSV (PCR) Entero/Rhino (PCR) Salmonella (PCR) 08/14/21 23:57 WBC RBC Hgb Hct MCV MCH MCHC RDW Plt Count Neut % (Auto) Lymph % (Auto) [place] % (Auto) Eos % (Auto) Baso % (Auto) Neut # (Auto) Lymph # (Auto) [place] # (Auto) Eos # (Auto) Baso # (Auto) Sodium Potassium Chloride Carbon Dioxide BUN Creatinine Estimated GFR BUN/Creatinine Ratio Glucose Lactate 1.0 Calcium Total Bilirubin AST ALT Alkaline Phosphatase Total Creatine Kinase CK-MB (CK-2) CK-MB (CK-2) Rel Index Troponin I Total Protein Albumin Globulin Albumin/Globulin Ratio Lipase Procalcitonin Urine Color Urine Appearance Urine pH Ur Specific Hope Urine Protein Urine Glucose (UA) Urine Ketones Urine Occult Blood Urine Nitrate Urine Bilirubin Ur Bilirubin Confirm Urine Urobilinogen Ur Leukocyte Esterase Urine RBC Urine WBC Urine Bacteria Hyaline Casts Granular Casts Urine Mucus Ur Culture Indicated? Stl C. cayetanensis PCR Stool Rotavirus (PCR) Stool Adenovirus (PCR) Stool Astrovirus (PCR) Stool Cryptosporidium PCR Stl E.coli Shiga Tox PCR St Sh/Enteroin Ecoli PCR Stool E coli O157 PCR Stl Enterotoxigenic E PCR Stool EPEC (PCR) Stl E. histolytica PCR Stool Giardia Lamblia PCR Stool Sapovirus (PCR) Stl P. shigelloides PCR St Y.enterocolitica PCR Stool Vibrio (PCR) Stl Vibrio cholerae PCR Stl Enteroaggr Ecoli PCR Stl Norovirus GI/GII PCR Chlamy pneumoniae PCR Adenovirus (PCR) B. pertussis DNA (PCR) B.parapertussis DNA PCR Campylobacter (PCR) C. difficile Tox (PCR) Coronavirus OC43 (PCR) Coronavirus HKU1 (PCR) Coronavirus 229E (PCR) SARS-CoV-2 (PCR) Coronavirus NL63 (PCR) Human Metapneumovir PCR Influenza Type A (PCR) Influenza Type B (PCR) M. pneumoniae (PCR) Parainfluenza 1 (PCR) Parainfluenza 2 (PCR) Parainfluenza 3 (PCR) Parainfluenza 4 (PCR) RSV (PCR) Entero/Rhino (PCR) Salmonella (PCR) Assessment & Plan Assessment & Plan narrative: Shahnaz Aleman is admitted for suspected sepsis secondary to a UTI. 1. Urinary tract infection, acute and present on admission * She was started on IV vancomycin and Zosyn in the emergency department * She will be continued on ceftriaxone 1 g daily * She was suspected of having sepsis however she had a errant reading of tachypnea on the monitor. Lactate was mildly elevated at 2.2 however came down nicely to 1.0 with fluid hydration so suspect she had dehydration secondary to vomiting and diarrhea * Urine cultures are pending * Patient has a Harper catheter, monitor fluid output * She had a elevated procalcitonin of 8.6 and will be repeated in the morning * Consider urology consult in the morning if no improvement 2. Diarrhea, nausea and vomiting, acute, present on admission * Clostridium difficile was negative * She will receive IV Zofran for nausea and vomiting * IV fluids for dehydration VTE Prophylaxis: Wells risk score 0 Enoxaparin 40 mg subQ once daily Bilateral SCDs Patient is admitted to the inpatient service due to the severity of disease, risks of further disease progression and this stay is expected to exceed 2 midnights. FEN: IV fluids: Normal saline at 125 mL per hour x2 L diet: General diet labs: CBC, C/BMP, liver enzymes, Mag, PT/INR Consultants None Dispo: Unknown at this time Code status: Presumed to be full code, earlier notes of indicated that the patient's life partner and her son are her surrogate and POA. Per ED nurse, patient's life partner will be contacting family members to get more involved decision making regarding her care. [X] I have utilized all available immediate resources to obtain, update, or review of the patient's current medications COVID-19 COVID-19 status: Negative Result date/Date tested (Pos, Neg/Pending): 08/14/21 Time Spent With Patient Critical Care time: I spent a total of [] minutes of critical care time on this patient's care today; this time is exclusive of procedural time. Scores Wells' Criteria for PE Clinical signs and symptoms of DVT: No PE is #1 Dx or equally likely: No Heart rate > 100: No Immobilization at least 3 days or surg in previous 4 weeks: No History of PE or DVT: No Hemoptysis: No Malignancy w/Treatment within 6 months or palliative: No Wells' PE Score total: 0 Quality VTE Deep Vein Thrombosis/Pulmonary Embolism Present on Admission: No MIPS - Admit I confirm the patient?s Advance Care Plan is present, Code status is documented, Surrogate decision maker is in patient?s record [If Yes, STOP here]: Yes MIPS - DC The patient has current or prior documentation of left ventricular ejection fraction (LVEF) less than 40%, or moderate or severely depressed left ventricular systolic function.: No
--- NOTE | 2021-08-15 01:15 | PC.ADMIT ---
Addendum entered by Morenita Bazzi R.N. 08/15/21 05:53: Kiran HANEY, informed that patient still complaining of nausea and is tachypneic. Tearful stating just shoot me. See new order for Harley and LYNDON states to give in addition to previous Zofran. Addendum entered by Morenita Bazzi R.N. 08/15/21 05:30: Patient attempting to crawl out of bed. Complaining of neck (central line site) discomfort with FLACC of 3. Medicated with Tylenol but only able to swallow 1 of the pills and then began belching and complaining of nausea. Afebrile with HR of 80 and respiratory rate of 40 and shallow; is tremory. Medicated with IV Zofran and is no longer belching but still states she is nauseated. Original Note: Patient admitted to room 215 per stretcher from ER. Reportedly came in due to nausea, vomiting and diarrhea. Is able to state her name and birthdate but is otherwise disoriented. Will follow commands. Can be impulsive but easily redirected. Breath sounds CTA with RA sat of 97%. HRR. Denied nausea (received Zofran in ER). BT present and abdomen is soft and non tender. Indwelling catheter (placed in ER) patent with clear, dark yellow urine in bag. Denied pain except for discomfort at site of central line placement. Able to move all extremities but is weak. Bilateral calf SCD's applied. Unable to state if she has fallen but due to dementia is considered high risk for falls so bed alarm activated. Instructed in call light and bed controls but doubtful if she will be able to remember how to use. Does appear to be able to reposition herself but will monitor and set up turn schedule if she does not do so. [id number] [facility] [address] Admission Note: The patient,Marlin Aleman,71 y/o, was given written information regarding hospital policies, unit procedures and contact persons. Patient's smoking status: Never smoker. Vital Signs - 8 hr 08/14/21 17:52 08/14/21 18:12 08/14/21 18:24 Temperature 97.1 F L Pulse Rate 88 83 82 Respiratory Rate 22 21 Blood Pressure 102/58 L 102/58 L 132/60 Pulse Oximetry 99 98 99 08/14/21 18:30 01/02/22 18:31 08/14/21 19:00 Temperature Pulse Rate 80 80 85 Respiratory Rate 20 18 21 Blood Pressure 102/55 L Pulse Oximetry 98 99 100 08/14/21 19:52 08/14/21 19:55 08/14/21 20:00 Temperature Pulse Rate 94 H 96 H 95 H Respiratory Rate 20 22 Blood Pressure 134/59 L 128/61 Pulse Oximetry 98 99 99 08/14/21 20:01 08/14/21 20:30 08/14/21 20:50 Temperature 98.1 F Pulse Rate 90 82 Respiratory Rate 16 Blood Pressure 127/61 127/66 Pulse Oximetry 98 100 08/14/21 21:00 08/14/21 21:30 08/14/21 21:31 Temperature Pulse Rate 80 82 85 Respiratory Rate 30 H 20 20 Blood Pressure 119/58 L 111/53 L Pulse Oximetry 100 97 98 08/14/21 22:00 08/14/21 22:30 08/14/21 22:40 Temperature Pulse Rate 80 85 80 Respiratory Rate 23 18 Blood Pressure 109/54 L 108/54 L Pulse Oximetry 97 99 100 08/14/21 23:00 08/14/21 23:30 08/15/21 00:38 Temperature 97.2 F L Pulse Rate 77 79 73 Respiratory Rate 20 20 16 Blood Pressure 101/53 L 114/55 L 108/67 Pulse Oximetry 98 96 97
[2021-08-15] MEDS: cefTRIAXone 1,000 MG in SODIUM CHLORIDE 0.9% 100 ML 200 ML IV (01:33)
[2021-08-15] MEDS: ACETAMINOPHEN 325 MG TABLET 650 MG PO (05:11)
[2021-08-15] MEDS: SODIUM CHLORIDE 0.9% FLUSH 10 ML IV ×2 (05:12→09:46)
[2021-08-15] MEDS: ONDANSETRON 4 MG/2 ML INJ IV (05:17)
[2021-08-15] MEDS: METOCLOPRAMIDE 10 MG/2 ML INJ 5 MG IV ×2 (06:08→18:29)
[2021-08-15 06:11] LABS: Procalcitonin 17.2 ng/mL (<0.5)
[2021-08-15] MEDS: SODIUM CHLORIDE 0.9% 1,000 ML 125 ML IV (09:43)
[2021-08-15] MEDS: ENOXAPARIN 40 MG/0.4 ML SYRINGE SUBCUT (09:46)
--- NOTE | 2021-08-15 11:22 | PC.NURSE ---
Patient's significant other (Paul) called to check in on patient. He reports she has short term memory loss chronically but it has worsened with her UTI problems. He also reports that she is a night owl and normally sleeps in until noon time each day. He is also concerns that she may not be bathing/showering frequently enough and that this could be part of her re occuring UTI's. Patient sleeping in bed at this time, will let her rest, call light within reach and bed alarm on for safety.
--- NOTE | 2021-08-15 14:20 | PM.PN.1 ---
Subjective Subjective Date Patient Seen: 08/15/21 Interval history: THIS IS A 71-YEAR-OLD FEMALE ADMITTED TO THE HOSPITAL WITH A URINARY TRACT INFECTION SHE HAS WHAT APPEAR TO BE UNDERLYING DEMENTIA BUT SEEMS TO BE AT BASELINE MENTALLY THIS MORNING SHE DENIES ANY ABDOMINAL PAIN. NO CHEST PAIN. NO SHORTNESS OF BREATH. NO DYSPNEA ON EXERTION SHE DENIES ANY FEVER OR CHILLS OVERNIGHT NO SIGNIFICANT ISSUES SEES ADMITTED TO THE HOSPITAL Exam Vital Signs (past 8 hours): - 08/15/21 08:00 Temperature 97.8 F Pulse Rate 72 Respiratory Rate 16 Blood Pressure 111/57 L Pulse Oximetry 96 Oxygen Delivery Method Room Air Oxygen Flow Rate 0 Narrative Exam Narrative: NO ACUTE DISTRESS. . WELL NOURISHED. VITAL SIGNS STABLE /AFEBRILE HEAD ATRAUMATIC NORMOCEPHALIC NECK : SUPPLE WITHOUT ADENOPATHY NO CAROTID BRUITS EYE: EOMI, PERRLA, NORMAL CONJUNCTIVA; NO JAUNDICE CHEST: REGULAR RATE. NO RUBS. PMI IS NON DISPLACED. NO MURMURS; NORMAL S1-S2 PULMONARY: DECREASED BS OVER THE BASES. MILD BIBASILAR CRACKLES NOTED; NO INCREASED DULLNESS TO PERCUSSION ABDOMEN: SOFT. NONTENDER. NONDISTENDED. BOWEL SOUNDS ARE PRESENT IN ALL 4 QUADRANTS. NO MASS. EXTREMITIES: 1+ NONPITTING BILATERAL LOWER EXTREMITY EDEMA.. NO CYANOSIS OR CLUBBING NOTED. NEURO: CRANIAL NERVES 2-12 GROSSLY INTACT. NO FOCAL NEUROLOGICAL DEFICIT NOTED. MSK: NORMAL RANGE OF MOTION FOR AGE. NO JOINT EFFUSION. NO GROSS DEFORMITIES. POOR MUSCULATURE SKIN: FAIR SKIN TURGOR. NO RASH : NORMAL EXTERNAL GENITALIA. PSYCH : APPROPRIATE MOOD AND AFFECT. ALERT AWAKE ORIENTED X2 Objective Labs Result Diagrams: 08/14/21 21:39 08/14/21 21:39 Labs: Laboratory Results - last 24 hr 08/14/21 08/14/21 08/14/21 18:17 20:29 20:42 WBC RBC Hgb Hct MCV MCH MCHC RDW Plt Count Neut % (Auto) Lymph % (Auto) [place] % (Auto) Eos % (Auto) Baso % (Auto) Neut # (Auto) Lymph # (Auto) [place] # (Auto) Eos # (Auto) Baso # (Auto) Sodium Potassium Chloride Carbon Dioxide BUN Creatinine Estimated GFR BUN/Creatinine Ratio Glucose Lactate Calcium Total Bilirubin AST ALT Alkaline Phosphatase Total Creatine Kinase CK-MB (CK-2) CK-MB (CK-2) Rel Index Troponin I Total Protein Albumin Globulin Albumin/Globulin Ratio Lipase Procalcitonin Urine Color Yellow Urine Appearance Cloudy Urine pH 5.0 Ur Specific [place] >=1.030 H Urine Protein 2+ H Urine Glucose (UA) Trace H Urine Ketones Trace H Urine Occult Blood 2+ H Urine Nitrate Negative Urine Bilirubin 2+ H Ur Bilirubin Confirm Negative Urine Urobilinogen 0.2 Ur Leukocyte Esterase Negative Urine RBC 5-10/hpf H Urine WBC 5-10/hpf H Urine Bacteria Many (>30) H Hyaline Casts 5-10/lpf Granular Casts 1-5/lpf Urine Mucus 2+ H Ur Culture Indicated? Specimen cultured Stl C. cayetanensis PCR Not detected Stool Rotavirus (PCR) Not detected Stool Adenovirus (PCR) Not detected Stool Astrovirus (PCR) Not detected Stool Cryptosporidium PCR Not detected Stl E.coli Shiga Tox PCR Not detected St Sh/Enteroin Ecoli PCR Not detected Stool E coli O157 PCR Not Reportable Stl Enterotoxigenic E PCR Not detected Stool EPEC (PCR) Not detected Stl E. histolytica PCR Not detected Stool Giardia Lamblia PCR Not detected Stool Sapovirus (PCR) Not detected Stl P. shigelloides PCR Not detected St Y.enterocolitica PCR Not detected Stool Vibrio (PCR) Not detected Stl Vibrio cholerae PCR Not detected Stl Enteroaggr Ecoli PCR Not detected Stl Norovirus GI/GII PCR Not detected Chlamy pneumoniae PCR Adenovirus (PCR) B. pertussis DNA (PCR) B.parapertussis DNA PCR Campylobacter (PCR) Not detected C. difficile Tox (PCR) Not detected Coronavirus OC43 (PCR) Coronavirus HKU1 (PCR) Coronavirus 229E (PCR) SARS-CoV-2 (PCR) Negative Coronavirus NL63 (PCR) Human Metapneumovir PCR Influenza Type A (PCR) Influenza Type B (PCR) M. pneumoniae (PCR) Parainfluenza 1 (PCR) Parainfluenza 2 (PCR) Parainfluenza 3 (PCR) Parainfluenza 4 (PCR) RSV (PCR) Entero/Rhino (PCR) Salmonella (PCR) Not detected 08/14/21 08/14/21 08/14/21 20:44 21:39 21:39 WBC 17.4 H RBC 4.29 Hgb 11.2 L Hct 35.0 L MCV 81.6 MCH 26.1 MCHC 31.9 RDW 15.4 H Plt Count 316 Neut % (Auto) 93.0 H Lymph % (Auto) 3.1 L [place] % (Auto) 3.6 Eos % (Auto) 0.1 L Baso % (Auto) 0.2 Neut # (Auto) 41104 H Lymph # (Auto) 500 L [place] # (Auto) 600 Eos # (Auto) 0 Baso # (Auto) 0 Sodium 141 Potassium 3.6 Chloride 112 H Carbon Dioxide 24 BUN 14 Creatinine 1.02 Estimated GFR 53.1 L BUN/Creatinine Ratio 13.7 Glucose 139 H Lactate Calcium 8.8 Total Bilirubin 0.5 AST 24 ALT 15 Alkaline Phosphatase 79 Total Creatine Kinase CK-MB (CK-2) CK-MB (CK-2) Rel Index Troponin I Total Protein 7.1 Albumin 3.6 Globulin 3.5 Albumin/Globulin Ratio 1.0 Lipase 47 Procalcitonin Urine Color Urine Appearance Urine pH Ur Specific [place] Urine Protein Urine Glucose (UA) Urine Ketones Urine Occult Blood Urine Nitrate Urine Bilirubin Ur Bilirubin Confirm Urine Urobilinogen Ur Leukocyte Esterase Urine RBC Urine WBC Urine Bacteria Hyaline Casts Granular Casts Urine Mucus Ur Culture Indicated? Stl C. cayetanensis PCR Stool Rotavirus (PCR) Stool Adenovirus (PCR) Stool Astrovirus (PCR) Stool Cryptosporidium PCR Stl E.coli Shiga Tox PCR St Sh/Enteroin Ecoli PCR Stool E coli O157 PCR Stl Enterotoxigenic E PCR Stool EPEC (PCR) Stl E. histolytica PCR Stool Giardia Lamblia PCR Stool Sapovirus (PCR) Stl P. shigelloides PCR St Y.enterocolitica PCR Stool Vibrio (PCR) Stl Vibrio cholerae PCR Stl Enteroaggr Ecoli PCR Stl Norovirus GI/GII PCR Chlamy pneumoniae PCR Not detected Adenovirus (PCR) Not detected B. pertussis DNA (PCR) Not detected B.parapertussis DNA PCR Not detected Campylobacter (PCR) C. difficile Tox (PCR) Coronavirus OC43 (PCR) Not detected Coronavirus HKU1 (PCR) Not detected Coronavirus 229E (PCR) Not detected SARS-CoV-2 (PCR) Not detected Coronavirus NL63 (PCR) Not detected Human Metapneumovir PCR Not detected Influenza Type A (PCR) Not detected Influenza Type B (PCR) Not detected M. pneumoniae (PCR) Not detected Parainfluenza 1 (PCR) Not detected Parainfluenza 2 (PCR) Not detected Parainfluenza 3 (PCR) Not detected Parainfluenza 4 (PCR) Not detected RSV (PCR) Not detected Entero/Rhino (PCR) Not detected Salmonella (PCR) 08/14/21 08/14/21 08/14/21 21:39 21:39 21:39 WBC RBC Hgb Hct MCV MCH MCHC RDW Plt Count Neut % (Auto) Lymph % (Auto) [place] % (Auto) Eos % (Auto) Baso % (Auto) Neut # (Auto) Lymph # (Auto) [place] # (Auto) Eos # (Auto) Baso # (Auto) Sodium Potassium Chloride Carbon Dioxide BUN Creatinine Estimated GFR BUN/Creatinine Ratio Glucose Lactate 2.2 H Calcium Total Bilirubin AST ALT Alkaline Phosphatase Total Creatine Kinase 67 CK-MB (CK-2) TNP CK-MB (CK-2) Rel Index TNP Troponin I < 0.012 Total Protein Albumin Globulin Albumin/Globulin Ratio Lipase Procalcitonin 8.68 H Urine Color Urine Appearance Urine pH Ur Specific [place] Urine Protein Urine Glucose (UA) Urine Ketones Urine Occult Blood Urine Nitrate Urine Bilirubin Ur Bilirubin Confirm Urine Urobilinogen Ur Leukocyte Esterase Urine RBC Urine WBC Urine Bacteria Hyaline Casts Granular Casts Urine Mucus Ur Culture Indicated? Stl C. cayetanensis PCR Stool Rotavirus (PCR) Stool Adenovirus (PCR) Stool Astrovirus (PCR) Stool Cryptosporidium PCR Stl E.coli Shiga Tox PCR St Sh/Enteroin Ecoli PCR Stool E coli O157 PCR Stl Enterotoxigenic E PCR Stool EPEC (PCR) Stl E. histolytica PCR Stool Giardia Lamblia PCR Stool Sapovirus (PCR) Stl P. shigelloides PCR St Y.enterocolitica PCR Stool Vibrio (PCR) Stl Vibrio cholerae PCR Stl Enteroaggr Ecoli PCR Stl Norovirus GI/GII PCR Chlamy pneumoniae PCR Adenovirus (PCR) B. pertussis DNA (PCR) B.parapertussis DNA PCR Campylobacter (PCR) C. difficile Tox (PCR) Coronavirus OC43 (PCR) Coronavirus HKU1 (PCR) Coronavirus 229E (PCR) SARS-CoV-2 (PCR) Coronavirus NL63 (PCR) Human Metapneumovir PCR Influenza Type A (PCR) Influenza Type B (PCR) M. pneumoniae (PCR) Parainfluenza 1 (PCR) Parainfluenza 2 (PCR) Parainfluenza 3 (PCR) Parainfluenza 4 (PCR) RSV (PCR) Entero/Rhino (PCR) Salmonella (PCR) 08/14/21 08/15/21 23:57 05:23 WBC RBC Hgb Hct MCV MCH MCHC RDW Plt Count Neut % (Auto) Lymph % (Auto) [place] % (Auto) Eos % (Auto) Baso % (Auto) Neut # (Auto) Lymph # (Auto) [place] # (Auto) Eos # (Auto) Baso # (Auto) Sodium Potassium Chloride Carbon Dioxide BUN Creatinine Estimated GFR BUN/Creatinine Ratio Glucose Lactate 1.0 Calcium Total Bilirubin AST ALT Alkaline Phosphatase Total Creatine Kinase CK-MB (CK-2) CK-MB (CK-2) Rel Index Troponin I Total Protein Albumin Globulin Albumin/Globulin Ratio Lipase Procalcitonin 17.2 H Urine Color Urine Appearance Urine pH Ur Specific [place] Urine Protein Urine Glucose (UA) Urine Ketones Urine Occult Blood Urine Nitrate Urine Bilirubin Ur Bilirubin Confirm Urine Urobilinogen Ur Leukocyte Esterase Urine RBC Urine WBC Urine Bacteria Hyaline Casts Granular Casts Urine Mucus Ur Culture Indicated? Stl C. cayetanensis PCR Stool Rotavirus (PCR) Stool Adenovirus (PCR) Stool Astrovirus (PCR) Stool Cryptosporidium PCR Stl E.coli Shiga Tox PCR St Sh/Enteroin Ecoli PCR Stool E coli O157 PCR Stl Enterotoxigenic E PCR Stool EPEC (PCR) Stl E. histolytica PCR Stool Giardia Lamblia PCR Stool Sapovirus (PCR) Stl P. shigelloides PCR St Y.enterocolitica PCR Stool Vibrio (PCR) Stl Vibrio cholerae PCR Stl Enteroaggr Ecoli PCR Stl Norovirus GI/GII PCR Chlamy pneumoniae PCR Adenovirus (PCR) B. pertussis DNA (PCR) B.parapertussis DNA PCR Campylobacter (PCR) C. difficile Tox (PCR) Coronavirus OC43 (PCR) Coronavirus HKU1 (PCR) Coronavirus 229E (PCR) SARS-CoV-2 (PCR) Coronavirus NL63 (PCR) Human Metapneumovir PCR Influenza Type A (PCR) Influenza Type B (PCR) M. pneumoniae (PCR) Parainfluenza 1 (PCR) Parainfluenza 2 (PCR) Parainfluenza 3 (PCR) Parainfluenza 4 (PCR) RSV (PCR) Entero/Rhino (PCR) Salmonella (PCR) [facility] Medical History Adnexal cyst (06/2020) Allergies (~1974) Blood glucose elevated Chicken pox (~1950) Chronic back pain (~2014) Colitis, infectious Constipation Decreased GFR Dementia (~2014) Depression (~2014) Diverticulitis Esophageal thickening (04/2021) Frequent headaches Headache (~2014) Hearing loss History of musculoskeletal disorder (~2014) Mixed hyperlipidemia Mumps (~1949) Pain Retroperitoneal mass Right knee pain TBI (traumatic brain injury) Tinnitus (~2014) Surgical History Anesthesia History of hand surgery (~1998) History of removal of skin mole (~2016) Hx of laparoscopic gastric banding (~2002) Retained ureteral stent Family History Family/Other Kidney stones Urinary tract infection Social History household members: significant other Previous occupational history: retired Smoking Status: Never smoker alcohol intake: never substance use type: does not use Assessment & Plan Assessment & Plan narrative: PROBLEM LIST POSSIBLE METABOLIC ENCEPHALOPATHY. RESOLVING SEPSIS. ASSOCIATED W/ TRACT INFECTION. PRESENT ON ARRIVAL URINARY TRACT INFECTION. G NEGATIVE BACTERIA SUSPECTED DEMENTIA. PER HISTORY PHYSICAL DEBILITY/DECONDITIONING. PHYSICAL THERAPY CONSULTED DIARRHEA. CONTINUE SYMPTOMATIC MANAGEMENT POSSIBLE FALL. NO S/S OF TRAUMA PLAN AWAITING BLOOD AND URINE CULTURE SENT ON ADMISSION CONTINUE CURRENT ANTIBIOTICS. PATIENT IS ON ROCEPHIN WILL ADD LACTOBACILLUS CHANGES TO THE ANTIBIOTICS THERAPY BE MADE ONCE CULTURE RESULTS ARE FINAL FOLLOW LABS DAILY MONITOR INPUT OUTPUT CLOSELY WILL CONSULT PT AND OT TO EVALUATE AND TREAT INDICATED WILL CONSULT CASE MANAGEMENT WELL AND REFER TO ALF FACILITY IF INDICATED FALL AND ASPIRATION PRECAUTION TO BE MAINTAINED AT ALL TIMES MONITOR SKIN CLOSELY FOR ANY SIGN OF BREAKDOWN PATIENT TO BE OUT OF BED WITH EACH MEAL NURSING STAFF TO KEEP THE LIGHT IN THE ROOM ON AT ALL TIMES TO DECREASE THE RISK OF SUNDOWNING ADDITIONAL MANAGEMENT PER CLINICAL COURSE Time Spent With Patient Critical Care time: I spent a total of [] minutes of critical care time on this patient's care today; this time is exclusive of procedural time. Quality VTE Deep Vein Thrombosis/Pulmonary Embolism Present on Admission: No
--- NOTE | 2021-08-15 15:20 | PT.IIE ---
Surgical History (Last Reviewed 08/15/21 @ 01:06 by LYNDON Khan) Anesthesia Retained ureteral stent Medical History (Last Reviewed 08/15/21 @ 01:06 by LYNDON Khan) Adnexal cyst (06/2020) Allergies (~1974) Blood glucose elevated Chicken pox (~1950) Chronic back pain (~2014) Colitis, infectious Constipation Decreased GFR Dementia (~2014) Depression (~2014) Diverticulitis Esophageal thickening (04/2021) Frequent headaches Headache (~2014) Hearing loss History of musculoskeletal disorder (~2014) Mixed hyperlipidemia Mumps (~1949) Pain Retroperitoneal mass Right knee pain TBI (traumatic brain injury) Tinnitus (~2014) Physical Therapy Inpatient Evaluation/Re-Eval M1 PT/OT-IP Prior Functional Status Start: 08/15/21 14:25 Freq: NEEDED Status: Active Protocol: Document 08/15/21 15:20 AW (Rec: 08/15/21 15:46 AW [id number]) Medical Review Prior Functional Status Medical History Reviewed Yes Communication Pt is able to make needs known but is inconsistent in responses and a poor historian . Mobility and Gait Pt states she uses no AD but then recognizes FWW and says she uses one sometimes. Further conversation with her partner, Paul, confirms that Marlin does not use any assistive device at home. Never needed one. Paul does state pt has chronic bilateral knee pain which limits her mobility occasionally. Activities of Daily Living and IADL's Pt's partner states pt is independent with dressing and toileting tasks. Frequent UTI' s have complicated toileting but pt remains independent typically. Per pt's partner, pt has lost interest in showering for the past 3-4 months even with caregiver support. Prior Functional Level (Other details) Pt was hospitalized in June with UTI and discharged to her son's home where her daughter in law has been filling in gaps to provide 24/ caregiver assist. Social History Household Members significant other Living Arrangements House Number of Floors (Floors) 3 or More Floors Number of Stairs To Enter/Railing? Cement steps with R rail to enter to main living level. Bedrooms are up one flight with unilateral rail. Daylight basement is accessible by stairs with unilateral rail. Home Environment High Toilet,Tub/Shower Additional Social History Comment Pt lives with her partner, Paul. Paul works full-time and is gone during daytime hours. Pt's daughter in law is a personal companion who left her job to become pt's full- time caregiver. M2 PT-IP Current Condition Start: 08/15/21 14:25 Freq: NEEDED Status: Active Protocol: Document 08/15/21 15:20 AW (Rec: 08/15/21 15:46 AW [id number]) Physical Therapy Current Condition Current Condition Evaluation Date 08/15/21 Treatment Diagnosis sepsis, UTI, impaired mobility and gait Onset Date 08/14/21 M3 PT-IP Subjective Start: 08/15/21 14:25 Freq: NEEDED Status: Active Protocol: Document 08/15/21 15:20 AW (Rec: 08/15/21 15:46 AW [id number]) Subjective Physical Therapy Visit Type Type Initial Evaluation Visit Start Time 14:42 Visit Stop Time 15:20 Total Visit Minutes 38 Notes Pt's partner contributed heavily to history over the phone after initial encounter. Physical Therapy Visit Comments Patient Comments Pt is willing to participate with PT Patient Goals Return home with family support. Therapy Pain Assessment Pain When Pain Assessed During Mobility Pain Present Pain Present Denied Pain M4 PT-IP Mobility and Gait Start: 08/15/21 14:25 Freq: NEEDED Status: Active Protocol: Document 08/15/21 15:20 AW (Rec: 08/15/21 16:00 AW [id number]) PT-Bed Mobility Assessment Rolling Type of Rolling Roll to Right,Roll to Left Level of Assist Contact Guard Assistance Supine to Sit Supine to Sit Standby Assistance Scooting Scooting to Edge of Bed Standby Assistance PT-Transfer Assessment Sit to and From Stand Sit to and from Stand Contact Guard Assistance,Use of Upper Extremities Equipment Transfer Assistive Device Gait Belt,Front Wheeled Walker Orthotic/Prosthetic Devices or Brace: No Transfers Transfer Destination Chair Transfer Technique Stand Step Pivot Transfer Ability Level of Assist Contact Guard Assistance Comments Mobility Comments Pt was lying in bed as PT arrived. BP 103/49 HR 74. During supine strength assesssment, PT noted soiled bed and called nursing. Nursing assisted with bed change as pt rolled side to side with use of bedrails but otherwise SBA. She sat up EOB SBA and stood CGA with some initial unsteadiness. She walked with FWW CGA 100 feet. She walked another 25 feet without AD CGA/min A for balance. On return to the room , she transferred to the chair CGA and RN placed chair alarm . Pt was left with call light and tray table in reach. Gait Assessment Gait Gait Assistance Required: Contact Guard Assist,Minimum Assistance Distance (Feet) 125 Assistive Devices Assistive Device None,Gait Belt,Front Wheeled Walker Orthotic/Prosthetic Devices or Brace: No Gait Deviations General Gait Pattern Antalgic,Decreased Stride Length,Decreased Feet Clearance,Flexed Trunk Factors Limiting Gait Function Factors Limiting Gait Function Decreased Activity Tolerance, Poor Balance,Poor Safety Awareness Comments Gait Comments Pt can be impulsive and needed frequent reminders to allow time for IV and catheter management during mobility. SBA/CGA with FWW. Terra without AD. See mobility comments for details. Stair Climbing Assessment Comments Stair Climbing Comments Not assessed. PT-Balance Assessment Sitting Balance and Reactions Static Sitting Balance Ability Good Dynamic Sitting Balance Ability Good Standing Balance and Reactions Static Standing Balance Ability Fair Dynamic Standing Balance Ability Fair Device Used with and without FWW M5 PT-IP Objective Assessments Start: 08/15/21 14:25 Freq: NEEDED Status: Active Protocol: Document 08/15/21 15:20 AW (Rec: 08/15/21 16:00 AW [id number]) Orientation Orientation/Cognition Level of Alertness Confusional State Orientation Name Language Function Ability No Deficits Noted Safety Awareness Decreased Safety Awareness Memory Description Short Term Impaired Comments Oriented to self only. Gross Range of Motion Lower Extremity ROM Assessment Within Functional Limits Strength Lower Extremity Strength Assessment Within Functional Limits Sensation Assessment Sensation Gross Sensation WNL Muscle Tone Muscle Tone WNL Yes M6 PT-IP Treatment Start: 08/15/21 14:25 Freq: NEEDED Status: Active Protocol: Document 08/15/21 15:20 AW (Rec: 08/15/21 16:00 AW [id number]) Physical Therapy Treatment Education Education Provided Safety M7 PT-IP Assessment and Plan Start: 08/15/21 14:25 Freq: NEEDED Status: Active Protocol: Document 08/15/21 15:20 AW (Rec: 08/15/21 16:00 AW [id number]) PT Summary Assessment and Plan Potential Rehabilitation Potential Fair Status of Condition at Evaluation Evolving Summary Impairments Balance,Cognition,Gait, Activity Tolerance Assessment Summary Marlin is a 71 yo woman admitted with sepsis secondary to UTI. This is her second admission in two months for same. She has underlying dementia and is a poor historian. Per phone conversation with her partner, Paul, pt is ambulatory without assistive device at baseline. She needs some assist with ADL's and caregivers manage her medications. On assessment, pt required CGA for ambulation with FWW and min assist without assistive device. Pt's partner indicates she will discharge back to his house and his [id number] (a personal companion) will continue to provide 24/7 assist. Paul notes that having 24/7 care and social interaction has improved pt's mood and mentation. PT anticipates pt will be safe to return home with 24/7 assist and would benefit from home health PT although pt's family is currently refusing HH. Goals Bed Mobility Goal Independent Transfer Goal Standby Assistance Gait Goal Standby Assistance,Front Wheel Walker Gait Distance 150 Other Goals - up/down 15 steps with unilateral rail SBA - improve gait to 150 feet without AD SBA Days to Meet Goals 5 Frequency of Treatment Frequency Of Treatment Once a Day Treatment Plan Physical Therapy Treatment Plan Bed Mobility Training,Transfer Training,Gait Training, Therapeutic Exercise,Balance Retraining,Discharge Planning, Hot or Cold Pack,Neuromuscular Re-ed Other Recommendations and Next Treatment gait training with and without Focus FWW; assess for safety at home without AD; stairs when able Precautions Other Precautions falls risk Recommendations To Nursing Amount of Assist Needed 1 Person Assist Discharge Recommendations PT Discharge Recommendations Home with 24/7 Assist Available,Home Health Equipment Needed for Home Before FWW if unsafe without Discharge Transportation Needs at Discharge Private Vehicle
--- NOTE | 2021-08-15 15:46 | CM.DANOTE ---
Patient is a 71 yo female who was admitted on 08/14/21 for V/N/Diarrhea. Pt has MCR and NICHOLAS DEWITT for insurance and her PCP is Tasneem Romero. EMR was reviewed. Per MD, pt with hx of TBI which resulted in memory issues/dementia and admitted for UTI likely sepsis. PT/OT ordered and pending. Pt was last admitted in Jun 2021 a couple months ago for similar and was able to d/c home with son/DIL assist and [facility]. Pt lives in [place] alone but has [facility] who stays with pt sometimes and assists and son/DIL have been discussing moving pt into their home in [facility] ([address] [facility] [address]) but has not happened yet. SW met bedside with pt and explained role and RN stepped bedside too for update as pt remains pleasantly confused with memory issues and not reliable historian. Pt states she felt good walking with PT today and not weak or unsteady. Per RN, pt was able to ambulate well with walker with PT and RN spoke to pt's son who confirms that plan is his quit her job and will be pt's evp global multimedia sales caregiver after d/c and they will likely try CG in pt's home first although there are multiple stairs and they may need to move pt to their home in [facility] if not manageable in pt's home. Son confirmed that [facility] had been working with pt but due to memory issues could not retain the training and therefore they may not feel HH needed at d/c. SW called [facility] and confirmed pt is open to services with them and would just need Resume Orders if HH needed. SW faxed H&P to review. Plan: SW to follow for further PT/OT and discussion with son to confirm plan of d/c home with family assist and if they want to Resume [facility]. DOUGLAS Rasmussen Discharge Planning/Care Management Advanced directive, confirm from FAMILY Start: 08/15/21 00:44 Freq: Q24H Status: Active Protocol: Document 08/15/21 09:00 CLP (Rec: 08/15/21 11:22 CLP [id number]) Advance Directive, confirm on record Time 09:30 Person contacted Paul MITCHELL) Copy received No CM Discharge Assessment Start: 08/15/21 15:43 Freq: Status: Active Protocol: Document 08/15/21 15:44 BF (Rec: 08/15/21 15:46 BF [id number]) Discharge Planning Assessment Assigned Inbound Sales Representative DOUGLAS Santos/Assigned Designee Name johnny Colby Advance Directives? Yes Advance Directives on File No History Provided By Patient,Family Member,Medical Record Has Patient been admitted in last 30 No days? Comment here in Jun 2021 couple months ago and went home with family assist and [facility] Prior Living Arrangements House Household Members significant other,none Type of transporation used prior to Relies on Others admit Independent with ADL's No Is patient alert and oriented? No Needs Assistance With Bathing,Meal Prep,Managing Medications,Home Chores / Shopping Caregiver for Another No Community Services used prior to Physical Therapy,Home Health admission: Nurse Comment Open with [facility] DME Already Rented / Owned FWW / Walker Patient/Family Preference Home with Home Health Barriers to Discharge No Discharge Plan Home with Home Health Community Services Physical Therapy,Occupational Therapy,Home Health Aid,Home Health Nurse Transportation Arrangement Likely family to transport home when stable Referrals Initiated None needed Additional Comment Already open with [facility] Whiteboard Updated in Patient Room with Yes name and ext. # of Inbound Sales Representative Review Status In Process Please Provide Date Initial DC 08/15/21 Assessment Was Performed Next Review Type Continued Stay Review
[2021-08-15] MEDS: LACTOBACILLUS ACIDOPHILUS TABLET 1 EACH PO (16:35)
--- NOTE | 2021-08-15 18:01 | PC.NURSE ---
Patient accidentally pulled out her right wrist IV. New IV placed to right wrist/forearm without difficulty, and IV fluids restarted at normal saline 50cc/hr to run continuously per MD order. Harper catheter dc'd per order, patient tolerated well. Neckline dc'd per order, patient tolerated well, gauze with tegaderm in place to site, CDI. Patient sitting upright in bed having dinner. Ate lunch without difficulty. Denies n/v or abdominal pain. Bed alarm on and call light within reach for safety.
[2021-08-15] MEDS: SODIUM CHLORIDE 0.9% 1,000 ML 50 ML IV (18:31)
[2021-08-16] VITALS (7 sets, daily range): BP systolic 102–141; BP diastolic 52–71; PULSE 70–90; RESP 16–22; TEMP 36.6–37.4; O2SAT 94–99
--- NOTE | 2021-08-16 00:29 | PC.NURSE ---
Patient is more alert and communicative tonight. Is able to state her name and birthdate but is otherwise confused and sometimes interaction is more word salad. Breath sounds CTA with RA sat of 100%. HRR. Denied nausea. BT present and did get up to bathroom and had moderate, loose, brown incontinent stool in pad and small amount in toilet. Had catheter removed on previous shift and voided in toilet but was unmeasured. Is able to turn herself in bed. Is impulsive and does not use call light and attempts to get up by herself so is requiring close staff observation to prevent falls and IV dislodgement; bed alarm is activated. Ambulated to bathroom without assistive device and appeared steady on feet. Denied pain. SCD's not in use as increases patient restlessness. Fall risk score is high.
[2021-08-16] MEDS: cefTRIAXone 1,000 MG in SODIUM CHLORIDE 0.9% 100 ML 200 ML IV (00:41)
[2021-08-16 06:44] LABS: Add Manual Diff / Slide Review NO; Basophils Absolute Auto 0 /uL (0-100); Basophils Percent Auto 0.3 % (0-2); Eosinophils Absolute Auto 100 /uL (0-450); Eosinophils Percent Auto 2.4 % (2-4); Hematocrit 28.5 % (36-46); Hemoglobin 9.2 g/dL (12.0-16.0); Lymphocytes Absolute Auto 1700 /uL (1100-4500); Lymphocytes Percent Auto 26.7 % (25-40); Mean Corpuscular HGB Conc 32.1 % (30-36); Mean Corpuscular Hemoglobin 26.6 PG (26-34); Mean Corpuscular Volume 82.9 fL (80-100); Monocytes Absolute Auto 500 /uL (0-900); Monocytes Percent Auto 8.4 % (3-14); Neutrophils Absolute Auto 3900 /uL (1500-7000); Neutrophils Percent Auto 62.2 % (50-75); Platelet Count 218 X10^3/uL (150-400); Red Blood Cell Count 3.44 X10^6/uL (4.0-5.2); Red Cell Distribution Width 16.2 % (11.6-14.8); White Blood Cell Count 6.2 X10^3/uL (4.5-11.0)
[2021-08-16 06:58] LABS: Alanine Aminotransferase 9 IU/L (<35); Alkaline Phosphatase 57 U/L (38-126); Aspartate Aminotransferase 20 IU/L (14-36); BUN Creatinine Ratio 9.2 (6-22); Bilirubin Total 0.3 mg/dL (0.2-1.3); Blood Urea Nitrogen 8 mg/dL (7-17); Calcium 8.5 mg/dL (8.4-10.2); Carbon Dioxide 21 mmol/L (22-32); Chloride 117 mmol/L (98-107); Estimated Glomerular Filt Rate > 60.0 mL/min (>60); Globulin 2.9 g/dL (1.7-4.1); Glucose 80 mg/dL (80-110); HEMOLYSIS < 15 (0-50); Phosphorous 3.1 mg/dL (2.8-4.1); Potassium 3.4 mmol/L (3.4-5.1); Sodium 144 mmol/L (137-145); Total Protein 5.9 g/dL (6.3-8.2)
[2021-08-16] MEDS: LACTOBACILLUS ACIDOPHILUS TABLET 1 EACH PO ×2 (09:27→13:01)
[2021-08-16] MEDS: SODIUM CHLORIDE 0.9% FLUSH 10 ML IV (09:27)
[2021-08-16] MEDS: POTASSIUM CHLORIDE 20 MEQ/15 ML UDC 40 MEQ PO (09:27)
[2021-08-16] MEDS: ENOXAPARIN 40 MG/0.4 ML SYRINGE SUBCUT (09:27)
--- NOTE | 2021-08-16 10:21 | OT.IP.EVAL ---
Past Medical History (Last Reviewed 08/15/21 @ 01:06 by LYNDON Khan) Adnexal cyst (06/2020) Allergies (~1974) Blood glucose elevated Chicken pox (~1949) Chronic back pain (~2014) Colitis, infectious Constipation Decreased GFR Dementia (~2014) Depression (~2014) Diverticulitis Esophageal thickening (04/2021) Frequent headaches Headache (~2014) Hearing loss History of hand surgery (~1998) History of musculoskeletal disorder (~2014) History of removal of skin mole (~2016) Hx of laparoscopic gastric banding (~2002) Mixed hyperlipidemia Mumps (~1949) Pain Retroperitoneal mass Right knee pain TBI (traumatic brain injury) Tinnitus (~2014) Surgical History (Last Reviewed 08/15/21 @ 01:06 by LYNDON Khan) Anesthesia History of hand surgery (~1998) History of removal of skin mole (~2016) Hx of laparoscopic gastric banding (~2002) Retained ureteral stent Occupational Therapy Inpatient Evaluation/Re-Eval M1 PT/OT-IP Prior Functional Status Start: 08/15/21 14:25 Freq: NEEDED Status: Active Protocol: Document 08/16/21 10:00 [facility] (Rec: 08/16/21 11:40 [facility] [id number]) Medical Review Prior Functional Status Medical History Reviewed Yes Communication Pt is able to make needs known but is inconsistent in responses and a poor historian . Mobility and Gait Pt states she uses no AD but then recognizes FWW and says she uses one sometimes. Further conversation with her partner, Paul, confirms that Marlin does not use any assistive device at home. Never needed one. Paul does state pt has chronic bilateral knee pain which limits her mobility occasionally. Activities of Daily Living and IADL's Pt's partner states pt is independent with dressing and toileting tasks. Frequent UTI' s have complicated toileting but pt remains independent typically. Per pt's partner, pt has lost interest in showering for the past 3-4 months even with caregiver support. Prior Functional Level (Other details) Pt was hospitalized in June with UTI and discharged to her son's home where her daughter in law has been filling in gaps to provide 24/7 caregiver assist. Social History Household Members significant other,none Living Arrangements House Number of Floors (Floors) 3 or More Floors Number of Stairs To Enter/Railing? Cement steps with R rail to enter to main living level. Bedrooms are up one flight with unilateral rail. Daylight basement is accessible by stairs with unilateral rail. Home Environment High Toilet,Tub/Shower Additional Social History Comment Pt lives with her partner, Paul. Paul works full-time and is gone during daytime hours. Pt's daughter in law is a marine animal trainer who left her job to become pt's full- time caregiver. M2 OT-IP Current Condition Start: 08/16/21 11:29 Freq: Status: Active Protocol: Document 08/16/21 10:00 [facility] (Rec: 08/16/21 11:40 [facility] [id number]) Occupational Therapy Current Condition Current Condition Evaluation Date 08/16/21 Treatment Diagnosis UTi/sepsis Diagnosis Onset Date 08/14/21 M3 OT- IP Subjective and Pain Start: 08/16/21 11:29 Freq: Status: Active Protocol: Document 08/16/21 10:00 [facility] (Rec: 08/16/21 11:40 [facility] [id number]) OT- Subjective Occupational Therapy Visit Type Type Initial Evaluation Visit Start Time 10:00 Visit Stop Time 10:21 Total Visit Minutes 21 Occupational Therapy Visit Comments Patient Comments Pt agreed to get up to brush here teeth. Patient/Caregiver Goals To go home. OT Pain Assessment Pain When Pain Assessed At Rest Pain Present Pain Present Denied Pain M4 OT- IP ADL's Start: 08/16/21 11:29 Freq: Status: Active Protocol: Document 08/16/21 10:00 [facility] (Rec: 08/16/21 11:40 [facility] [id number]) OT [id number] Comments OT Self-Feeding Comments Not at meal time. OT ADL-Grooming General Evaluation Grooming Ability Standby Assistance Areas Needing Assistance Retrieving/Set-up of Grooming Items Comments OT Grooming Comments set-up assist OT ADL-Oral Care General Eval Oral Care Ability Independent OT ADL-Dressing General Eval Lower Body Dressing Ability Independent Comments OT Dressing Comments Pt able to heavenly/doff her socks from the edge of the bed. OT ADL-Toileting Comments OT Toileting Comments Pt states not having to go at this time. M5 OT- IP IADL's Start: 08/16/21 11:29 Freq: Status: Active Protocol: Document 08/16/21 10:00 [facility] (Rec: 08/16/21 11:40 [facility] [id number]) OT-Instrumental Activities of Daily Living Home Safety Awareness Awareness of Need for Assistance at Home Decreased Awareness Ability to Problem Solve Emergency Unable to Problem Solve Situations Home Safety Comments Pt has dementia/memory issues from history of TBI and that her friend and family provide care for all her needs. Medication Management Medication Management Caregiver Administers Money Management Money Management Caregiver Provides Assistance Meal Preparation Meal Preparation Caregiver Provides Assist House Supervisor House Supervisor Caregiver Provides Assist Driving Driving Caregiver Provides Assist M6 OT- IP Functional Cognition Start: 08/16/21 11:29 Freq: Status: Active Protocol: Document 08/16/21 10:00 [facility] (Rec: 08/16/21 11:40 [facility] [id number]) Cognitive Factors Limiting Selfcare Function Cognitive Ability Level of Alertness Alert,Confusional State Patient Orientation Name Attention Span Ability Capable of Focused Attention, Capable of Sustained Attention Ability to Follow Commands Able to Follow One Step Commands Memory Description Short Term Impaired,Working Impaired Cognitive Comments Cognitive Assessment Comments Pt able to follow routine tasks of ADl needs. Pt is a poor historian and has decreased STM. M7 OT- IP Mobility and Balance Start: 08/16/21 11:29 Freq: Status: Active Protocol: Document 08/16/21 10:00 [facility] (Rec: 08/16/21 11:40 [facility] [id number]) OT- Bed Mobility Assessment Supine to Sit Supine to Sit Assist Standby Assistance Sit to Supine Sit to Supine Assist Standby Assistance OT-Transfer Assessment Sit to and From Stand Sit to and from Stand Contact Guard Assistance Transfers Transfer Ability Standby Assistance,Contact Guard Assistance Technique Transfer Destination Bed Transfer Technique Stand Step Pivot Devices Transfer Assistive Devices None,Gait Belt,Front Wheeled Walker Comments Mobility Comments Pt needing CGA without use of FWW and with FWW occasional CGA much mostly able to walk in the room with SBA. OT- Balance Assessment Sitting Balance and Reactions Static Sitting Balance Ability Normal Dynamic Sitting Balance Ability Good Standing Balance and Reactions Static Standing Balance Ability Fair M8 OT- IP Objective Assessments Start: 08/16/21 11:29 Freq: Status: Active Protocol: Document 08/16/21 10:00 [facility] (Rec: 08/16/21 11:40 [facility] [id number]) OT Gross Range of Motion Upper Extremity Range of Motion Assessment Within Functional Limits OT Strength Upper Extremity Strength Assessment Within Functional Limits OT-Muscle Tone Assessment Muscle Tone WNL Yes M9 OT- IP Assessment and Plan Start: 08/16/21 11:29 Freq: Status: Active Protocol: Document 08/16/21 10:00 [facility] (Rec: 08/16/21 11:40 [facility] [id number]) OT Summary Assessment and Plan Potential Rehabilitation Potential Good Analytic Complexity at Evaluation Moderate Summary OT Impairments Balance,Functional Cognition, Functional Mobility,Toileting, Bathing,Toilet Transfers, Shower Transfers Progress Towards Goals Progressing Toward Goals Assessment Summary Pt MOD complexity and here due to UTI/sepsis. Pt has a supportive family to assist her at home for all needs, especially as pt has dementia/ memory issues from history of TBI. Goals Dressing Goal Independent Toileting Goal Independent Bathing Goal Standby Assistance Toilet Transfer Goal Independent Shower Transfer Goal Standby Assistance Days to Meet Goals 5 Frequency of Treatment Frequency Of Treatment Once a Day Treatment Plan OT Treatment Plan ADL Training,Functional Cognition Training,Functional Mobility,Patient/Family Education,Discharge Planning Other Treatment Recommendations and Next toileting needs Treatment Focus Discharge Recommendations OT Discharge Recommendations Home with 05/03 Assist Available Transportation Needs at Discharge Private Vehicle
--- NOTE | 2021-08-16 11:02 | PT.IPTN ---
Physical Therapy Treatment Note M2 PT-IP Current Condition Start: 08/15/21 14:25 Freq: NEEDED Status: Active Protocol: Document 08/15/21 15:20 AW (Rec: 08/15/21 15:46 AW [id number]) Physical Therapy Current Condition Current Condition Evaluation Date 08/15/21 Treatment Diagnosis sepsis, UTI, impaired mobility and gait Onset Date 08/14/21 M3 PT-IP Subjective Start: 08/15/21 14:25 Freq: NEEDED Status: Active Protocol: Document 08/16/21 10:39 KS (Rec: 08/16/21 12:14 KS [id number]) Subjective Physical Therapy Visit Type Type Treatment Note Visit Start Time 10:39 Visit Stop Time 11:02 Total Visit Minutes 23 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 of 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 HELPER Visits 1 Physical Therapy Visit Comments Patient Comments Pt is willing to participate with PT M4 PT-IP Mobility and Gait Start: 08/15/21 14:25 Freq: NEEDED Status: Active Protocol: Document 08/16/21 10:39 KS (Rec: 08/16/21 12:14 KS [id number]) PT-Transfer Assessment Sit to and From Stand Sit to and from Stand Contact Guard Assistance,Use of Upper Extremities Equipment Transfer Assistive Device Gait Belt,Front Wheeled Walker Orthotic/Prosthetic Devices or Brace: No Transfers Transfer Destination Chair Transfer Technique Pt ambulated w/ FWW Transfer Ability Level of Assist Contact Guard Assistance Comments Mobility Comments Pt in bathroo w/ RN FIRST ASSIST upon arrival from therapy and agreeable to ambulation. Pt sit<>stand CGA w/ use of hand rail. She then ambulated to sink w/ gait belt but no AD CGA. After hand washing, she ambulated ~80 ft to stairs and ascended/descended 9 steps total w/ step to pattern R hand rail and cues for sequencing. She then ambualted additional 80 ft back to room CGA no AD and sat in chair and then completed 1x10 bilateral ankle pumps, SLR, and glute sets. Pt left in chair w/ alarm on and all needs in reach. Gait Assessment Gait Gait Assistance Required: Contact Guard Assist,Minimum Assistance Distance (Feet) 160 Assistive Devices Assistive Device None,Gait Belt Orthotic/Prosthetic Devices or Brace: No Gait Deviations General Gait Pattern Antalgic,Decreased Stride Length,Decreased Feet Clearance,Flexed Trunk Factors Limiting Gait Function Factors Limiting Gait Function Decreased Activity Tolerance, Poor Balance,Poor Safety Awareness Comments Gait Comments Pt ambulated ~160 ft w/o AD and CGA. She was slightly unsteady, but had no LOB and denied fatigue. Pt denies any recent falls. Stair Climbing Assessment Evaluation Level of Assist On Stairs Contact Guard Assistance,1 Person Assistance Devices Stair Climbing Assistive Devices Right Railing Technique/Endurance Stair Climbing Direction Ascend and Descend Stair Climbing Technique Step to Step Number of Steps Climbed 3 Stair Climbing Set # Repetitions (reps) 3 Comments Stair Climbing Comments Pt ascended/descended 3 steps x3 w/ R rail and step to pattern w/ cues for safety and sequencing and CGA. PT-Balance Assessment Sitting Balance and Reactions Static Sitting Balance Ability Good Dynamic Sitting Balance Ability Good Standing Balance and Reactions Static Standing Balance Ability Fair Dynamic Standing Balance Ability Fair Device Used with and without FWW M5 PT-IP Objective Assessments Start: 08/15/21 14:25 Freq: NEEDED Status: Active Protocol: Document 08/15/21 15:20 AW (Rec: 08/15/21 16:00 AW [id number]) Orientation Orientation/Cognition Level of Alertness Confusional State Orientation Name Language Function Ability No Deficits Noted Safety Awareness Decreased Safety Awareness Memory Description Short Term Impaired Comments Oriented to self only. Gross Range of Motion Lower Extremity ROM Assessment Within Functional Limits Strength Lower Extremity Strength Assessment Within Functional Limits Sensation Assessment Sensation Gross Sensation WNL Muscle Tone Muscle Tone WNL Yes M6 PT-IP Treatment Start: 08/15/21 14:25 Freq: NEEDED Status: Active Protocol: Document 08/16/21 10:39 KS (Rec: 08/16/21 12:14 KS [id number]) Physical Therapy Treatment Exercises Exercises Ankle Pumps,Gluteal Sets,Quad Sets Education Education Provided Safety M7 PT-IP Assessment and Plan Start: 08/15/21 14:25 Freq: NEEDED Status: Active Protocol: Document 08/16/21 10:39 KS (Rec: 08/16/21 12:14 KS [id number]) PT Summary Assessment and Plan Potential Rehabilitation Potential Fair Status of Condition at Evaluation Evolving Summary Impairments Balance,Cognition,Gait, Activity Tolerance Assessment Summary Pt is CGA for mobility and able to ambulate w/o AD and completed 9 total steps w/ R rail today. She continues to be confused and disoriented and needs frequent instructions during mobility, but demonstrated good tolerance. Will continue to assess, but at this time pt would require 24/7 assist and would benefit from HHPt to improve balance, strength, and gait. Goals Bed Mobility Goal Independent Transfer Goal Standby Assistance Gait Goal Standby Assistance,Front Wheel Walker Gait Distance 150 Other Goals - up/down 15 steps with unilateral rail SBA - improve gait to 150 feet without AD SBA Days to Meet Goals 5 Frequency of Treatment Frequency Of Treatment Once a Day Treatment Plan Physical Therapy Treatment Plan Bed Mobility Training,Transfer Training,Gait Training, Therapeutic Exercise,Balance Retraining,Discharge Planning, Hot or Cold Pack,Neuromuscular Re-ed Other Recommendations and Next Treatment gait training with and without Focus FWW; assess for safety at home without AD; stairs when able Precautions Other Precautions falls risk Recommendations To Nursing Amount of Assist Needed 1 Person Assist Discharge Recommendations PT Discharge Recommendations Home with 24/7 Assist Available,Home Health Equipment Needed for Home Before FWW if unsafe without Discharge Transportation Needs at Discharge Private Vehicle
--- NOTE | 2021-08-16 11:19 | P.DS_ITS ---
History of Present Illness History of Present Illness Date Patient Seen: 08/16/21 Chief complaint: throwing up and diarreha Narrative: History of Present Illness History of Present Illness Date Patient Seen:?08/15/21 Time Patient Seen:?00:30 Narrative: Marlin Aleman is a 71 y.o. 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 He had left before the patient arrived to the floor, history is provided by the ED provider and review of her internal medical record. Per the ED provider, she was in her usual state of health yesterday, but today, she slept in until noon, then he apparently thought she went to her bedroom to take a nap. He went in to check in on her and found her in the bathroom lying in vomit, urine and stool which is new for her. SO told the ED provider that he did not hear her fall or any signs of falling. She does not recall what happened. She recently had a urethral stent placed on July 04 and removed in the urologist's office on August 03. CT of the abdomen and pelvic, CT of the head and chest xray were negative for any acute process.? She is afebrile, blood pressure 108/67, heart rate 73, respiratory rate 16, oxygen saturation of 97% on room air, she weighs 64.5 kg with a BMI of 24.4.? She does have a elevated white count at 17.4, hemoglobin and hematocrit are 11.2 and 35 respectively, platelet count 316, she does have a left shift with a neutrophil count of 16,200, chloride is 112, her GFR is 53 though BUN creatinine are within normal limits, glucose 139, procalcitonin is 8.68, C difficile PCR was negative, viral PCR was negative including COVID-19 PCR.? Stool PCR was negative for any bacterial organisms. Discharge Providers Provider Date of admission: 08/14/21 23:58 Discharge Date: 08/16/21 Primary care physician: LYNDON López Consults: 08/15/21 00:48 Consult to Dietitian, Adult Routine Comment: Reason For Exam: Emmett score 15 08/15/21 14:19 Consult to Occupational Therapy Evaluate & Treat Comment: Physician Instructions: Evaluate and treat Consult to Physical Therapy Evaluate & Treat Comment: Physician Instructions: Evaluate and Treat Discharge provider: Asuncion Wyatt, Summary Hospital Course Discharge Diagnosis: POSSIBLE METABOLIC ENCEPHALOPATHY.? RESOLVED ?SEPSIS. ? ASSOCIATED W/? TRACT INFECTION.? PRESENT ON ARRIVAL. RESOLVED URINARY TRACT INFECTION. ? G NEGATIVE? BACTERIA SUSPECTED. INITIAL CULTURE IS N EGATIVE HOWEVER ?DEMENTIA.? PER HISTORY. BACK TO BASELINE MENTALLY ?PHYSICAL DEBILITY/DECONDITIONING.? PHYSICAL THERAPY?IN OCCUPATIONAL THERAPY OUTPATIENT ?DIARRHEA.? RESOLVED ?POSSIBLE FALL.? NO S/S OF TRAUMA DID LIKELY RELATED TO PHYSICAL DECONDITIONING/DEBILITY Hospital Course: THIS IS A 71-YEAR-OLD FEMALE ADMITTED TO THE HOSPITAL WITH MULTIPLE SYMPTOMS SHE HAS BEEN TREATED FOR PRESUMED URINARY TRACT INFECTION HOWEVER URINE IS NOT SHOWING ANY SIGNIFICANT CARDIZEM. SHE HAD SIGNIFICANT LEUKOCYTOSIS ON ADMISSION WHICH INDICATED POSSIBLE DEVELOPING SEPSIS. IN ANY CASE AT THIS TIME HER WBC LEVEL IS BACK TO BEING WITHIN NORMAL LIMIT. THE REMAINDER OF HER LABS AND VITAL SIGNS ARE STABLE WELL. SHE WILL BE DISCHARGED ON ANTIBIOTICS DUE TO THE PRESENTING SYMPTOMS. BEING A FEMALE, SHE COULD HAVE A YEAST INFECTION NOT EVIDENT ON CULTURE. THUS SHE WILL BE DISCHARGED ON A 3 DOSE COURSE OF ANTIFUNGAL THERAPY WELL IN ANY CASE PATIENT WILL BE ALSO DISCHARGED ON SEROQUEL AND RISPERDAL DUE TO SUSPECTED UNDERLYING DEMENTIA SHE ALSO BE DISCHARGED ON VITAMIN SUPPLEMENTS. ADDITIONAL MANAGEMENT WILL BE DEFERRED TO OUTPATIENT PROVIDERS. RECOMMEND STRICT SUPERVISION DUE TO THE UNDERLYING DEMENTIA. Status at Discharge Cognitive/behavioral status at discharge: oriented Functional status at discharge: independent ambulation Overall status at discharge: patient is progressing back to baseline Time Spent with Patient Time spent: Greater than 30 minutes Exam Vital Signs (past 8 hours): - 08/16/21 05:21 08/16/21 08:36 08/16/21 09:00 Temperature 99.4 F 97.8 F Pulse Rate 73 70 Respiratory Rate 22 16 Blood Pressure 114/59 L 119/52 L Pulse Oximetry 96 96 94 Oxygen Delivery Method Room Air Oxygen Flow Rate 0 Narrative Exam Narrative: NO ACUTE DISTRESS.? .? WELL NOURISHED. VITAL SIGNS STABLE? /AFEBRILE HEAD ATRAUMATIC NORMOCEPHALIC NECK : SUPPLE WITHOUT ADENOPATHY NO CAROTID BRUITS EYE:? EOMI, PERRLA, NORMAL CONJUNCTIVA; NO JAUNDICE CHEST:? REGULAR RATE.? ? NO RUBS.? PMI IS NON DISPLACED.? NO MURMURS; NORMAL S1- S2 PULMONARY:? DECREASED BS OVER THE BASES.? MILD BIBASILAR CRACKLES NOTED; NO INCREASED DULLNESS TO PERCUSSION ABDOMEN:? SOFT.? NONTENDER.? NONDISTENDED.? BOWEL SOUNDS ARE PRESENT IN ALL 4 QUADRANTS.? NO MASS. EXTREMITIES:? 1+ NONPITTING BILATERAL? LOWER EXTREMITY EDEMA..? NO CYANOSIS OR CLUBBING NOTED. NEURO:? CRANIAL NERVES 2-12 GROSSLY INTACT. NO FOCAL NEUROLOGICAL DEFICIT NOTED. MSK:? NORMAL RANGE OF MOTION FOR AGE.? NO JOINT EFFUSION. NO GROSS DEFORMITIES.? POOR MUSCULATURE SKIN: ? FAIR SKIN TURGOR.? NO RASH :? NORMAL EXTERNAL GENITALIA. PSYCH :? APPROPRIATE MOOD AND AFFECT.? ALERT AWAKE ORIENTED X3 Objective Labs Result Diagrams: 08/16/21 06:15 08/16/21 06:15 Labs: Laboratory Results - last 24 hr 08/16/21 08/16/21 06:15 06:15 WBC 6.2 D RBC 3.44 L Hgb 9.2 L Hct 28.5 L MCV 82.9 MCH 26.6 MCHC 32.1 RDW 16.2 H Plt Count 218 Neut % (Auto) 62.2 D Lymph % (Auto) 26.7 D [place] % (Auto) 8.4 Eos % (Auto) 2.4 Baso % (Auto) 0.3 Neut # (Auto) 3900 Lymph # (Auto) 1700 [place] # (Auto) 500 Eos # (Auto) 100 Baso # (Auto) 0 Sodium 144 Potassium 3.4 Chloride 117 H Carbon Dioxide 21 L BUN 8 Creatinine 0.87 Estimated GFR > 60.0 BUN/Creatinine Ratio 9.2 Glucose 80 Calcium 8.5 Phosphorus 3.1 Total Bilirubin 0.3 AST 20 ALT 9 Alkaline Phosphatase 57 Total Protein 5.9 L Albumin 3.0 L Globulin 2.9 Albumin/Globulin Ratio 1.0 [facility] Medical History Adnexal cyst (06/2020) Allergies (~1975) Blood glucose elevated Chicken pox (~1950) Chronic back pain (~2014) Colitis, infectious Constipation Decreased GFR Dementia (~2014) Depression (~2014) Diverticulitis Esophageal thickening (04/2021) Frequent headaches Headache (~2014) Hearing loss History of musculoskeletal disorder (~2014) Mixed hyperlipidemia Mumps (~1949) Pain Retroperitoneal mass Right knee pain TBI (traumatic brain injury) Tinnitus (~2014) Surgical History Anesthesia History of hand surgery (~1998) History of removal of skin mole (~2016) Hx of laparoscopic gastric banding (~2002) Retained ureteral stent Family History Family/Other Kidney stones Urinary tract infection Social History household members: significant other and none Previous occupational history: retired Smoking Status: Never smoker alcohol intake: never substance use type: does not use Discharge Plan Discharge Plan Patient Disposition: Home Health Service Discharge orders & Medications Prescriptions: New Bacid 1 billion cell- 250 mg Tablet 1 ea PO TIDWM Qty: 90 0RF memantine [Namenda] 5 mg tablet 5 mg PO QAM 7 Days Qty: 7 0RF multivit no.83-xcuv-ttvkuq-dha 38-1-225 mg capsule 1 cap PO DAILY Qty: 60 0RF cholecalciferol (vitamin D3) [Vitamin D3] 125 mcg (5,000 unit) tablet 125 mcg PO DAILY Qty: 60 0RF vitamin B complex [B Complex-Vitamin B12] Tablet 1 tab PO DAILY Qty: 60 0RF quetiapine [Seroquel] 25 mg tablet 12.5 mg PO BEDTIME Qty: 30 0RF risperidone 0.25 mg tablet 0.25 mg PO BID Qty: 30 0RF melatonin 10 mg tablet 10 mg PO BEDTIME PRN (Reason: sleep) Qty: 60 0RF cefdinir 300 mg capsule 300 mg PO BID Qty: 14 0RF ascorbic acid (vitamin C) [Vitamin C] 500 mg tablet 500 mg PO DAILY Qty: 60 0RF fluconazole [Diflucan] 100 mg tablet 100 mg PO Q72H Qty: 3 0RF Follow up/Referrals: Tasneem Romero ARNP [Primary Care Provider] - Diet/Activity/Treatments Diet: Low-fat, Low-sodium and Low-cholesterol Diet comment: GI SOFT Activity: TOLERATED Skin/Wound/Dressing Care Report to your healthcare provider any signs of infection, such as:: chills, fever and night sweats Discharge Data Primary Care Provider: Tasneem Romero VTE Deep Vein Thrombosis/Pulmonary Embolism Present on Admission: No
[2021-08-16] MEDS: SODIUM CHLORIDE 0.9% 1,000 ML 50 ML IV (13:53)
--- NOTE | 2021-08-16 15:14 | PC.NURSE ---
A&Ox2. Very confused and requires constant redirection. Impulsive and will get out of bed and start walking around, pulling IV line. Bed and chair alarms on. Frequent checks. VSS. Had some mild chest pain after using the restroom, EKG ordered and was normal. Has a cough and belching with food intake. Ate less than 25% of meals. Iv removed. Discharge instructions given to significant other. Wheeled off of unit at 13:14 to personal vehicle, S.O. driving home.
== END 2021-08-16 15:15 | disposition home health service (06) | DRG 871 ==
LOC: ED 23:49 → AC 23:59
PROVIDERS: Emergency Medicine; Hospitalist; Admitting Provider Nurse Practitioner Family; Emergency Provider Emergency Medicine; Family Provider Family Medicine; PCP Nurse Practitioner Family; Referring Provider Emergency Medicine; Visit Provider Nurse Practitioner Family
DX: A41.9 Sepsis, unspecified organism (principal); G93.41 Metabolic encephalopathy; R65.20 Severe sepsis without septic shock; N39.0 Urinary tract infection, site not specified; I95.9 Hypotension, unspecified; E86.0 Dehydration; R11.2 Nausea with vomiting, unspecified; R19.7 Diarrhea, unspecified; F03.90 Unspecified dementia, unspecified severity, without behavioral disturbance, psychotic disturbance, mood disturbance, and anxiety; Z20.822 Contact with and (suspected) exposure to COVID-19
CPT/HCPCS: 36415; 36592; 70450; 71045; 74177; 80053; 81001; 82550; 83605; 83690; 84100; 84145; 84484; 85025; 87040; 87086; 87507; 87633; 87635; 93005; 93010; 94760; 96361; 96365; 96375; 97116; 97162; 97166; 97530; 99284; 99285; C9803; J0696; J1642; J1650; J2405; J2543; J2765; Q9967

== ENCOUNTER 2021-08-26 22:37 | Emergency (ER) | payer MEDICARE, OTHER, SELFPAY ==
[2021-08-15 00:41] VITALS: BMI 24.4
[2021-08-26 23:21] VITALS: BP 117/57; PULSE 82; RESP 20; TEMP 36.6; O2SAT 99; BMI 24.9
[2021-08-27] MEDS: ONDANSETRON 4 MG/2 ML INJ IV (00:10)
[2021-08-27] MEDS: SODIUM CHLORIDE 0.9% 500 ML 1000 ML IV (00:10)
--- NOTE | 2021-08-27 00:45 | ED_ITS ---
HPI - Nausea/Vomiting/Diarrhea General Chief complaint: Nausea/Vomiting/Diarrhea Stated complaint: v/d and fell Time Seen by Provider: 08/26/21 23:18 Source: family Mode of arrival: Wheelchair History of Present Illness HPI Narrative: 71-year-old female nonsmoker with extensive recent urinary tract infections including ureteral stents presents with her and a chief complaint of nausea, vomiting and multiple episodes of loose stools today. She has become dizzy, weak and lightheaded and fell to the ground due to this weakness earlier tonight. She suffered no injury and denies head, neck or back pain. She has had no fever or chills. She denies any chest pain or shortness of breath. Related Data Previous Rx's Medication Instructions Recorded L.acidophilus-L.bulgar-B.bifid-S.thermoph 1 ea PO TIDWM #90 tab 08/16/21 1 billion cell-250 mg tablet (Bacid) ascorbic acid (vitamin C) 500 mg 500 mg PO DAILY #60 tab 08/16/21 tablet (Vitamin C) cefdinir 300 mg capsule 300 mg PO BID #14 cap 08/16/21 cholecalciferol (vitamin D3) 125 125 mcg PO DAILY #60 tab 08/16/21 mcg (5,000 unit) tablet (Vitamin D3) fluconazole 100 mg tablet 100 mg PO Q72H #3 tab 08/16/21 (Diflucan) melatonin 10 mg tablet 10 mg PO BEDTIME PRN #60 tab 08/16/21 multivit no.42-iron 38 1 cap PO DAILY #60 cap 08/16/21 mg-methyltetrahydfolate 1 mg-dha 225 mg capsule quetiapine 25 mg tablet (Seroquel) 12.5 mg PO BEDTIME #30 tab 08/16/21 risperidone 0.25 mg tablet 0.25 mg PO BID #30 tab 08/16/21 vitamin B complex (B 1 tab PO DAILY #60 tab 08/16/21 Complex-Vitamin B12) fidaxomicin 200 mg tablet 200 mg PO BID 10 Days #20 tab 08/27/21 Allergies Allergy/AdvReac Type Severity Reaction Status Date / Time sulfite Allergy Severe anaphylactic Verified 08/14/21 17:29 shock adhesive AdvReac Mild takes my Verified 08/14/21 17:29 skin off msg Allergy Severe Anaphylaxis Uncoded 08/14/21 17:29 nitrite AdvReac Diarrhea Uncoded 08/14/21 17:29 Review of Systems Review of Systems Narrative: GENERAL: See HPI HEENT: Denies sinus pain, ear pain, sore throat, difficulty swallowing, dizziness. RESPIRATORY: Denies dyspnea, cough, wheezing, hemoptysis, sputum. CARDIOVASCULAR: Denies chest pain, palpitations, orthopnea, edema, GASTROINTESTINAL: See HPI. : Denies dysuria, frequency, incontinence, hematuria, urinary retention. MUSCULOSKELETAL: denies weakness, joint pain, or bony pain SKIN: Denies rash, skin lesions, or other NEUROLOGIC: Denies weakness, headache, numbness, change in speech, confusion, seizures, incoordination. PSYCHIATRIC: No concerning psychosocial issues. 12 point review of systems is negative except for those stated above Patient History Medical History Adnexal cyst (06/2020) Allergies (~1974) Blood glucose elevated Chicken pox (~1949) Chronic back pain (~2014) Colitis, infectious Constipation Decreased GFR Dementia (~2014) Depression (~2014) Diverticulitis Esophageal thickening (04/2021) Frequent headaches Headache (~2014) Hearing loss History of musculoskeletal disorder (~2014) Mixed hyperlipidemia Mumps (~1949) Pain Retroperitoneal mass Right knee pain TBI (traumatic brain injury) Tinnitus (~2014) Surgical History Anesthesia History of hand surgery (~1998) History of removal of skin mole (~2016) Hx of laparoscopic gastric banding (~2002) Retained ureteral stent Family History Family/Other Kidney stones Urinary tract infection Social History household members: significant other and none Previous occupational history: retired Smoking Status: Never smoker alcohol intake: never substance use type: does not use Smoking Status: Never smoker Substance Use Type: does not use Exam Narrative Exam Narrative: GENERAL: 71 year old patient appears stated age. Well-developed patient, in mild distress. HEAD: Atraumatic. Normocephalic. EYES: Pupils equal round and reactive. Extraocular motions intact. No scleral icterus. No injection or drainage. ENT: Dry mucous membranes Nose without bleeding, purulent drainage. Throat with out erythema, tonsillar hypertrophy or exudate. Airway patent. NECK: Trachea midline. Non tender CARDIOVASCULAR: Regular rate and rhythm without murmurs, gallops, or rubs. RESPIRATORY: Clear to auscultation. Breath sounds equal bilaterally. No wheezes, rales, or rhonchi. GASTROINTESTINAL: Abdomen soft, non-tender, nondistended. EXTREMITIES: No edema or joint tenderness. BACK: Nontender without deformity or crepitance. No flank tenderness. NEURO: AOx3. SKIN: Poor skin turgor No rash or erythema of visible areas Initial Vital Signs Initial Vital Signs: Vital Signs Temperature 97.8 F 08/26/21 23:21 Pulse Rate 82 08/26/21 23:21 Respiratory Rate 20 08/26/21 23:21 Blood Pressure 117/57 L 08/26/21 23:21 Pulse Oximetry 99 08/26/21 23:21 Course Orders Ordered: Discontinued Medications Sodium Chloride (Normal Saline 0.9%) 500 mls @ 1,000 mls/hr IV BOLUS ONE Stop: 08/27/21 01:33 Last Infusion: 08/27/21 03:42 Dose: 0 mls/hr Documented by: Admin: 08/27/21 00:10 Dose: 1,000 mls/hr Documented by: CONRAD Ondansetron HCl (Ondansetron 4 Mg/2 Ml Inj) 4 mg IV NOW ONE Stop: 08/27/21 01:05 Last Admin: 08/27/21 00:10 Dose: 4 mg Documented by: CONRAD Vital Signs Vital signs: Vital Signs - 8 hr 08/26/21 23:21 Temperature 97.8 F Pulse Rate 82 Respiratory Rate 20 Blood Pressure 117/57 L Pulse Oximetry 99 MDM - Nausea/Vomiting/Diarrhea Lab Data Result diagrams: 08/27/21 02:15 08/27/21 02:15 Labs: Lab Results 08/26/21 08/27/21 08/27/21 Range/Units 23:50 02:15 02:15 WBC 20.9 H (4.5-11.0) X10^3/uL RBC 4.22 (4.0-5.2) X10^6/uL Hgb 11.0 L (12.0-16.0) g/dL Hct 34.3 L (36-46) % MCV 81.4 (80-100) fL MCH 26.0 (26-34) PG MCHC 31.9 (30-36) % RDW 15.6 H (11.6-14.8) % Plt Count 302 (150-400) X10^3/uL Neut % (Auto) 91.9 H (50-75) % Lymph % (Auto) 4.9 L (25-40) % [place] % (Auto) 3.1 (3-14) % Eos % (Auto) 0.0 L (2-4) % Baso % (Auto) 0.1 (0-2) % Neut # (Auto) 34531 H (6372-2642) /uL Lymph # (Auto) 1000 L (6783-3286) /uL [place] # (Auto) 700 (0-900) /uL Eos # (Auto) 0 (0-450) /uL Baso # (Auto) 0 (0-100) /uL Sodium 139 (137-145) mmol/L Potassium 3.6 (3.4-5.1) mmol/L Chloride 109 H (98-107) mmol/L Carbon Dioxide 28 (22-32) mmol/L BUN 14 (7-17) mg/dL Creatinine 0.88 (0.52-1.04) mg/dL Estimated GFR > 60.0 (>60) mL/min BUN/Creatinine Ratio 15.9 (6-22) Glucose 140 H (80-110) mg/dL Calcium 8.9 (8.4-10.2) mg/dL Total Bilirubin 0.6 (0.2-1.3) mg/dL AST 22 (14-36) IU/L ALT 12 (<35) IU/L Alkaline Phosphatase 68 (38-126) U/L Total Protein 7.0 (6.3-8.2) g/dL Albumin 3.7 (3.5-5.0) g/dL Globulin 3.3 (1.7-4.1) g/dL Albumin/Globulin Ratio 1.1 (1.0-2.8) C. difficile Tox (PCR) Positive for c. diff H (Negative) [facility] Narrative Medical decision making narrative: Patient presents with nausea, vomiting diarrhea and a fall from weakness. She has had extensive recent antibiotic use and stool sample notes C diff colitis. She is given IV fluids, and has significant improvement in her symptoms. She is able to ambulate through the department and is largely at her baseline. feels comfortable and in fact request take her home. This is an appropriate decision. They were given return precautions and questions have been answered to their apparent satisfaction. Discharge Plan Departure Patient Disposition: Home Clinical Impression: C. difficile colitis Instructions: DI for Antibiotic -- associated Colitis -- C difficile Activity Restrictions/Additional Instructions: *You have been diagnosed with [C. diff colitis ] *What to do: *Please continue to take your regular medications as directed. [ x] New medication prescriptions sent to your pharmacy: [ ] [ ] New medication written as a paper prescription [ ] No new medications given *Please follow up with your primary care provider in 2-3 days, call for an appointment. Let them know you were seen in the Emergency Department and that we ask that you be seen in follow up. We will electronically transmit a record of today's note if your PCP is in our system *If you do not have a primary care provider please contact the [facility] Resource line at [phone]. They will ask some questions about your medical history and help get you set up with a doctor in the community. *Return to Emergency Department if you should have any new, worsening or concerning symptoms, such as [fever greater than 101 F, shaking chills, worsening pain, persistent vomiting or other bothersome symptoms] Prescriptions: New fidaxomicin 200 mg tablet 200 mg PO BID 10 Days Qty: 20 0RF No Action Bacid 1 billion cell- 250 mg Tablet 1 ea PO TIDWM Qty: 90 0RF multivit no.33-lvce-wqoupi-dha 38-1-225 mg capsule 1 cap PO DAILY Qty: 60 0RF cholecalciferol (vitamin D3) [Vitamin D3] 125 mcg (5,000 unit) tablet 125 mcg PO DAILY Qty: 60 0RF vitamin B complex [B Complex-Vitamin B12] Tablet 1 tab PO DAILY Qty: 60 0RF quetiapine [Seroquel] 25 mg tablet 12.5 mg PO BEDTIME Qty: 30 0RF risperidone 0.25 mg tablet 0.25 mg PO BID Qty: 30 0RF melatonin 10 mg tablet 10 mg PO BEDTIME PRN (Reason: sleep) Qty: 60 0RF cefdinir 300 mg capsule 300 mg PO BID Qty: 14 0RF ascorbic acid (vitamin C) [Vitamin C] 500 mg tablet 500 mg PO DAILY Qty: 60 0RF fluconazole [Diflucan] 100 mg tablet 100 mg PO Q72H Qty: 3 0RF Referrals: Tasneem Romero ARNP [Primary Care Provider] -
[2021-08-27 00:54] LABS: Clostridium Difficile Tox PCR Positive for C. diff (Negative)
[2021-08-27 02:31] LABS: Add Manual Diff / Slide Review NO; Basophils Absolute Auto 0 /uL (0-100); Basophils Percent Auto 0.1 % (0-2); Eosinophils Absolute Auto 0 /uL (0-450); Hematocrit 34.3 % (36-46); Lymphocytes Absolute Auto 1000 /uL (1100-4500); Lymphocytes Percent Auto 4.9 % (25-40); Mean Corpuscular HGB Conc 31.9 % (30-36); Mean Corpuscular Volume 81.4 fL (80-100); Monocytes Absolute Auto 700 /uL (0-900); Monocytes Percent Auto 3.1 % (3-14); Neutrophils Absolute Auto 19200 /uL (1500-7000); Neutrophils Percent Auto 91.9 % (50-75); Platelet Count 302 X10^3/uL (150-400); Red Blood Cell Count 4.22 X10^6/uL (4.0-5.2); Red Cell Distribution Width 15.6 % (11.6-14.8); White Blood Cell Count 20.9 X10^3/uL (4.5-11.0)
[2021-08-27 02:34] LABS: Alanine Aminotransferase 12 IU/L (<35); Albumin 3.7 g/dL (3.5-5.0); Albumin Globulin Ratio 1.1 (1.0-2.8); Alkaline Phosphatase 68 U/L (38-126); Aspartate Aminotransferase 22 IU/L (14-36); BUN Creatinine Ratio 15.9 (6-22); Bilirubin Total 0.6 mg/dL (0.2-1.3); Blood Urea Nitrogen 14 mg/dL (7-17); Calcium 8.9 mg/dL (8.4-10.2); Carbon Dioxide 28 mmol/L (22-32); Chloride 109 mmol/L (98-107); Estimated Glomerular Filt Rate > 60.0 mL/min (>60); Globulin 3.3 g/dL (1.7-4.1); Glucose 140 mg/dL (80-110); HEMOLYSIS < 15 (0-50); Potassium 3.6 mmol/L (3.4-5.1); Sodium 139 mmol/L (137-145)
--- NOTE | 2021-08-27 02:34 | PC.NURSE ---
pt has been on antibiotics for kidney issues and now is having diarrhea
--- NOTE | 2021-08-27 04:21 | PC.NURSE ---
pt given cranberry juice, instructed to drink slowly not to drink it fast
[2021-08-27 04:39] VITALS: BP 135/61; PULSE 85; RESP 16; O2SAT 99
[2021-08-29 15:09] LABS: C difficie Toxins A and B, EIA Negative (Negative)
== END 2021-08-27 04:42 | disposition home or self-care (01) ==
PROVIDERS: Emergency Provider Emergency Medicine; Family Provider Family Medicine; PCP Nurse Practitioner Family
DX: A04.72 Enterocolitis due to Clostridium difficile, not specified as recurrent (principal)
CPT/HCPCS: 36415; 80053; 85025; 87324; 87493; 96361; 96374; 99284; J2405

== ENCOUNTER → 2021-08-31 18:14 | Outpatient (CLI) | payer MEDICARE, OTHER, SELFPAY ==
[2021-08-15 00:41] VITALS: BMI 24.4
--- NOTE | 2021-08-31 18:16 | DI.RAD.S_ITS ---
PROCEDURE: XR KUB INDICATIONS: Kidney stone TECHNIQUE: One view of the abdomen acquired. COMPARISON: [facility], , XR KUB, 07/21/2021, 13:18. FINDINGS: Surgical changes and devices: Left-sided lap band is again seen and unchanged. There is interval removal of previously noted right-sided renal stent. Bowel: Bowel gas pattern is normal. Soft tissues: No suspicious abdominal calcifications. Small calcifications are seen in bilateral lower pelvis which may represent phleboliths. Visualized solid organ contours appear normal in size. Bones: No suspicious bony lesions. Mild rightward curvature of lower lumbar spine centered at L3-4 level is seen. IMPRESSION: No definite renal calcification is seen on the current study. Likely phleboliths in lower pelvis bilaterally. Dictated by: Mason Paula M.D. on 08/31/2021 at 20:06 Approved by: Mason Paula M.D. on 08/31/2021 at 20:07
== END ==
PROVIDERS: Family Provider Family Medicine; PCP Nurse Practitioner Family; Referring Provider Urology; Visit Provider Urology
DX: N20.1 Calculus of ureter (principal)
CPT/HCPCS: 74018

== ENCOUNTER → 2021-09-13 15:56 | Outpatient (CLI) | payer MEDICARE, OTHER, SELFPAY ==
[2021-09-07 11:26] VITALS: BMI 24.4
[2021-09-13 16:41] LABS: Hematocrit 36.8 % (36-46); Mean Corpuscular HGB Conc 32.7 % (30-36); Mean Corpuscular Hemoglobin 26.6 PG (26-34); Mean Corpuscular Volume 81.5 fL (80-100); Platelet Count 365 X10^3/uL (150-400); Red Blood Cell Count 4.51 X10^6/uL (4.0-5.2); Red Cell Distribution Width 15.5 % (11.6-14.8)
[2021-09-13 16:59] LABS: Alanine Aminotransferase 12 IU/L (<35); Albumin 4.2 g/dL (3.5-5.0); Albumin Globulin Ratio 1.1 (1.0-2.8); Alkaline Phosphatase 84 U/L (38-126); Aspartate Aminotransferase 29 IU/L (14-36); BUN Creatinine Ratio 15.5 (6-22); Bilirubin Total 0.4 mg/dL (0.2-1.3); Blood Urea Nitrogen 13 mg/dL (7-17); Calcium 9.1 mg/dL (8.4-10.2); Carbon Dioxide 29 mmol/L (22-32); Chloride 105 mmol/L (98-107); Cholesterol 192 mg/dL (140-199); Estimated Glomerular Filt Rate > 60.0 mL/min (>60); Globulin 3.7 g/dL (1.7-4.1); Glucose 93 mg/dL (80-110); HDL Cholesterol 56 mg/dL (40-60); HEMOLYSIS < 15 (0-50); LDL Cholesterol Calculated 124 mg/dL (<100); Potassium 4.3 mmol/L (3.4-5.1); Sodium 138 mmol/L (137-145); Total Protein 7.9 g/dL (6.3-8.2); Triglycerides 62 mg/dL (35-150)
[2021-09-13 17:27] LABS: TSH w/ Reflex to FT4 1.71 uIU/mL (0.47-4.68)
[2021-09-14 05:58] LABS: RPR Screen Non Reactive (Non Reactive)
== END ==
PROVIDERS: Family Provider Family Medicine; PCP Nurse Practitioner Family; Referring Provider Registered Nurse; Visit Provider Registered Nurse
DX: R41.3 Other amnesia (principal); E78.2 Mixed hyperlipidemia; F32.9 Major depressive disorder, single episode, unspecified; R53.83 Other fatigue; R94.4 Abnormal results of kidney function studies; Z00.00 Encounter for general adult medical examination without abnormal findings
CPT/HCPCS: 36415; 80053; 80061; 84443; 85027; 86592

== ENCOUNTER → 2021-09-20 15:15 | Outpatient (CLI) | payer MEDICARE, OTHER, SELFPAY ==
[2021-09-07 11:26] VITALS: BMI 24.4
--- NOTE | 2021-09-20 15:22 | DI.MRI.S_ITS ---
PROCEDURE: MR HEAD/BRAIN WO/W CON INDICATIONS: memory loss TECHNIQUE: Noncontrast axial T1 spin echo, axial T2 fast spin echo, sagittal and axial FLAIR, coronal T2 fast spin echo, axial gradient echo, axial diffusion and ADC through the brain. After the administration of contrast, axial and coronal T1 spin echo with fat saturation through the brain. COMPARISON: [facility], MR, BRAIN W&WO CONTRAST, 04/20/2015, 18:03. [facility], CT, CT HEAD/BRAIN WO CON, 08/14/2021, 19:23. FINDINGS: Image quality: Excellent. CSF spaces: Basal cisterns are patent. No extra-axial fluid collections. Ventricles are normal in size and shape. Brain: No midline shift. No intracranial bleeds or masses. No abnormal intracranial enhancement. There is cerebral volume loss for age. There is periventricular white matter chronic small vessel ischemic change. The brainstem appears normal. Diffusion-weighted images demonstrate no acute ischemic insults. No chronic ischemic insults. Normal intravascular flow voids are present. Skull and face: Calvarial marrow is normal in signal. Orbits appear normal. Sinuses: Sinuses and mastoids appear clear. IMPRESSION: Unremarkable intracranial study for age, with note made of brain parenchymal volume loss and chronic small vessel ischemic change. No findings of acute or subacute infarction can be seen. No masses or abnormal enhancement can be seen. Dictated by: Don Covington M.D. on 09/20/2021 at 15:19 Approved by: Don Covington M.D. on 09/20/2021 at 15:21
== END ==
PROVIDERS: Family Provider Family Medicine; PCP Nurse Practitioner Family; Referring Provider Registered Nurse; Visit Provider Registered Nurse
DX: R41.3 Other amnesia (principal)
CPT/HCPCS: 70553

== ENCOUNTER 2021-10-19 19:20 | Emergency (ER) | payer MEDICARE, OTHER, SELFPAY ==
[2021-09-07 11:26] VITALS: BMI 24.4
[2021-10-19] VITALS (51 sets, daily range): BP systolic 99–155; BP diastolic 51–80; PULSE 93–165; RESP 10–47; TEMP 36.3; O2SAT 89–100; BMI 24.9
--- NOTE | 2021-10-19 19:30 | DI.RAD.S_ITS ---
PROCEDURE: XR CHEST 1V INDICATIONS: chest pain TECHNIQUE: One view of the chest was acquired. COMPARISON: [facility], CR, XR CHEST 1V, 08/14/2021, 21:27. FINDINGS: Surgical changes and devices: None. Lungs and pleura: Lungs are clear. No pleural effusions or pneumothorax. Mediastinum: Mediastinal contours appear normal. Heart size is normal. Mild aortic atherosclerotic calcifications. Bones and chest wall: No suspicious bony lesions. Overlying soft tissues appear unremarkable. Age related degenerative changes are seen in the spine. IMPRESSION: No acute cardiopulmonary abnormality. Dictated by: Tera Bosch M.D. on 10/19/2021 at 20:16 Approved by: Tera Bosch M.D. on 10/19/2021 at 20:16
[2021-10-19] MEDS: SODIUM CHLORIDE 0.9% 1,000 ML 1000 ML IV (19:38)
[2021-10-19] MEDS: ONDANSETRON 4 MG/2 ML INJ IV ×2 (19:38→23:05)
--- NOTE | 2021-10-19 19:50 | ED.NAVMDI ---
HPI - Nausea/Vomiting/Diarrhea General Chief complaint: Nausea/Vomiting/Diarrhea Stated complaint: vomiting, loosing control of bowels Time Seen by Provider: 10/19/21 19:32 Source: patient and family Mode of arrival: Wheelchair History of Present Illness HPI Narrative: 71 year old female nonsmoker with history of dementia, UTIs, recent C diff presents with her in the chief complaint of nausea, vomiting and diarrhea for at least the past few hours. She has a very poor historian and contributes little to the story. She denies any chest pain or shortness of breath. She denies any palpitations. denies any known history of atrial fibrillation, she is not anticoagulated. She has had no recent medication change or dietary change. She has had no recent travel Related Data Previous Rx's Medication Instructions Recorded L.acidophilus-L.bulgar-B.bifid-S.thermoph 1 ea PO TIDWM #90 tab 08/16/21 1 billion cell-250 mg tablet (Bacid) ascorbic acid (vitamin C) 500 mg 500 mg PO DAILY #60 tab 08/16/21 tablet (Vitamin C) cholecalciferol (vitamin D3) 125 125 mcg PO DAILY #60 tab 08/16/21 mcg (5,000 unit) tablet (Vitamin D3) fluconazole 100 mg tablet 100 mg PO Q72H #3 tab 08/16/21 (Diflucan) melatonin 10 mg tablet 10 mg PO BEDTIME PRN #60 tab 08/16/21 multivit no.42-iron 38 1 cap PO DAILY #60 cap 08/16/21 mg-methyltetrahydfolate 1 mg-dha 225 mg capsule quetiapine 25 mg tablet (Seroquel) 12.5 mg PO BEDTIME #30 tab 08/16/21 risperidone 0.25 mg tablet 0.25 mg PO BID #30 tab 08/16/21 vitamin B complex (B 1 tab PO DAILY #60 tab 08/16/21 Complex-Vitamin B12) cyanocobalamin (vitamin B-12) 1,000 mcg IM QMONTH #1 ml 10/18/21 1,000 mcg/mL injection solution Allergies Allergy/AdvReac Type Severity Reaction Status Date / Time sulfite Allergy Severe anaphylactic Verified 10/19/21 19:31 shock adhesive AdvReac Mild takes my Verified 10/19/21 19:31 skin off msg Allergy Severe Anaphylaxis Uncoded 09/13/21 14:59 nitrite AdvReac Diarrhea Uncoded 09/13/21 14:59 Review of Systems Review of Systems Narrative: GENERAL: Denies chills, fatigue, malaise, fever, sweats. HEENT: Denies sinus pain, ear pain, sore throat, difficulty swallowing, dizziness. RESPIRATORY: Denies dyspnea, cough, wheezing, hemoptysis, sputum. CARDIOVASCULAR: Denies chest pain, palpitations, orthopnea, edema, GASTROINTESTINAL: See HPI : Denies dysuria, frequency, incontinence, hematuria, urinary retention. MUSCULOSKELETAL: denies weakness, joint pain, or bony pain SKIN: Denies rash, skin lesions, or other NEUROLOGIC: Denies weakness, headache, numbness, change in speech, confusion, seizures, incoordination. PSYCHIATRIC: No concerning psychosocial issues. 12 point review of systems is negative except for those stated above Patient History Medical History Adnexal cyst (06/2020) Allergies (~1974) Blood glucose elevated C. difficile colitis Chicken pox (~1949) Chronic back pain (~2014) Colitis, infectious Constipation Decreased GFR Dementia (~2014) Depression (~2014) Diverticulitis Esophageal thickening (04/2021) Frequent headaches Headache (~2014) Hearing loss History of musculoskeletal disorder (~2014) History of sepsis History of urinary calculi Mixed hyperlipidemia Mumps (~1949) Pain Retroperitoneal mass Right knee pain TBI (traumatic brain injury) Tinnitus (~2014) Vitamin B deficiency Surgical History Anesthesia History of hand surgery (~1998) History of removal of skin mole (~2016) Hx of laparoscopic gastric banding (~2002) Retained ureteral stent Family History Family/Other Kidney stones Urinary tract infection Social History household members: significant other and none Previous occupational history: retired Smoking Status: Never smoker alcohol intake: never substance use type: does not use Smoking Status: Never smoker alcohol intake frequency: holidays/special occasions only Substance Use Type: does not use Exam Narrative Exam Narrative: GENERAL: [71] year old patient appears stated age. Well-developed patient, in mild distress. HEAD: Atraumatic. Normocephalic. EYES: Pupils equal round and reactive. Extraocular motions intact. No scleral icterus. No injection or drainage. ENT: Nose without bleeding, purulent drainage. Throat without erythema, tonsillar hypertrophy or exudate. Airway patent. NECK: Trachea midline. Non tender CARDIOVASCULAR: Tachycardic and irregular rhythm without murmurs, gallops, or rubs. RESPIRATORY: Clear to auscultation. Breath sounds equal bilaterally. No wheezes, rales, or rhonchi. GASTROINTESTINAL: Abdomen soft, non-tender, nondistended. EXTREMITIES: No edema or joint tenderness. BACK: Nontender without deformity or crepitance. No flank tenderness. NEURO: Cranial nerves 2-12 grossly intact, patient is confused but at baseline per SKIN: No rash or erythema of visible areas Initial Vital Signs Initial Vital Signs: Vital Signs Temperature 97.3 F L 10/19/21 19:21 Pulse Rate 97 H 10/19/21 19:21 Respiratory Rate 17 10/19/21 19:21 Blood Pressure 131/80 10/19/21 19:21 Pulse Oximetry 100 10/19/21 19:21 Course Course Course Narrative: Patient and are poor historians. Is unclear how long the patient has been in atrial fibrillation, she has no ST changes on EKG and is hemodynamically stable. She is not a good candidate for cardioversion. Fluids, antiemetics and rate control initiated, patient will require hospitalization for ongoing evaluation and treatment Orders Ordered: Discontinued Medications Diltiazem HCl (Diltiazem 5 Mg/Ml Sdv) 10 mg IV NOW ONE Stop: 10/19/21 19:58 Last Admin: 10/19/21 20:14 Dose: 10 mg Documented by: DANIEL Heparin Sodium (Porcine) (Heparin 5,000 Unit/Ml Vial) 5,300 unit 80 unit/kg (5300 unit) IV NOW ONE Stop: 10/19/21 21:04 Last Admin: 10/19/21 21:39 Dose: 5,300 unit Documented by: DANIEL Sodium Chloride (Normal Saline 0.9%) 1,000 mls @ 1,000 mls/hr IV BOLUS ONE Stop: 10/19/21 20:32 Last Infusion: 10/19/21 21:35 Dose: 0 mls/hr Documented by: Admin: 10/19/21 19:38 Dose: 1,000 mls/hr Documented by: DONTAE Diltiazem HCl 125 mg/ Dextrose 125 mls @ 5 mls/hr IV TITRATE DOMINGO; Protocol Last Titration: 10/19/21 20:30 Dose: 0 mg/hr, 0 mls/hr Documented by: Titration: 10/19/21 20:30 Dose: 0 mg/hr, 0 mls/hr Documented by: Titration: 10/19/21 20:23 Dose: 10 mg/hr, 10 mls/hr Documented by: Admin: 10/19/21 20:14 Dose: 5 mg/hr, 5 mls/hr Documented by: DANIEL POTASSIUM CHLORIDE IN WATER (Potassium Cl 10 Meq/100 Ml Michelle) 10 meq in 100 mls @ 100 mls/hr IV Q1H DOMINGO Stop: 10/20/21 00:59 Last Infusion: 10/19/21 23:08 Dose: 0 mls/hr Documented by: Admin: 10/19/21 22:04 Dose: 100 mls/hr Documented by: Infusion: 10/19/21 22:02 Dose: 100 mls/hr Documented by: Admin: 10/19/21 21:02 Dose: 100 mls/hr Documented by: DANIEL Heparin Sodium/Dextrose (Heparin Drip) 25,000 unit in 500 mls @ 23.678 mls/hr IV CONT DOMINGO; Protocol Last Titration: 10/19/21 21:49 Dose: 0 units/kg/hr, 0 mls/hr Documented by: Titration: 10/19/21 21:48 Dose: 15.2 units/kg/hr, 20 mls/hr Documented by: Admin: 10/19/21 21:43 Dose: 18 units/kg/hr, 23.678 mls/hr Documented by: DANIEL Heparin Sodium/Dextrose (Heparin Drip) 25,000 unit in 500 mls @ 20 mls/hr IV CONT DOMINGO; Protocol Last Admin: 10/19/21 21:49 Dose: 1,000 units/hr, 20 mls/hr Documented by: DANIEL Metoprolol Tartrate (Metoprolol Ir 25 Mg Tablet) 25 mg PO NOW ONE Stop: 10/19/21 21:03 Last Admin: 10/19/21 21:05 Dose: 25 mg Documented by: DANIEL Ondansetron HCl (Ondansetron 4 Mg/2 Ml Inj) 4 mg IV NOW ONE Stop: 10/19/21 19:34 Last Admin: 10/19/21 19:38 Dose: 4 mg Documented by: DONTAE Ondansetron HCl (Ondansetron 4 Mg/2 Ml Inj) 4 mg IV NOW ONE Stop: 10/19/21 23:01 Last Admin: 10/19/21 23:05 Dose: 4 mg Documented by: DANIEL Reevaluation(s) Reevaluation #1: called to see patient for unresponsive episode. She'd received Diltiazem 10mg IVP and was on Diltiazem drip at 5 and had bradycardia down to 40 then vomited and became unresponsive. rhythm strip notes a pause of about 7-8 seconds. Dilt was stopped. She promptly woke up and asked where she was and what had happened. Quickly back to Atrial fibrillation at rate of 110s Consultations Consultation #1: after above described episode I placed a call to electronic warfare specialist cardio at [facility] ([facility]). He agrees with stopping dilt, adding Metop 25 PO, Heparin drip and transfer to [facility] Consultation #2: [id number] - [facility]. Boarding 18. No beds. 2119 - [facility] No Beds. 2129 - [facility] to page Cardio ([facility]) happy to be involved, will likely get a pacer tomorrow 2214 - [facility] hospitalist wishes patient to go to ICU 2219 - Dr. Arteaga ([facility] ICU) happy to accept. Vital Signs Vital signs: Vital Signs - 8 hr 10/19/21 23:05 10/19/21 23:10 Pulse Rate 165 H 144 H Respiratory Rate 47 H 37 H Pulse Oximetry 100 100 MDM - Nausea/Vomiting/Diarrhea Lab Data Result diagrams: 10/19/21 19:35 10/19/21 19:35 Labs: Lab Results 10/19/21 10/19/21 10/19/21 Range/Units 19:35 19:35 19:35 WBC 9.1 (4.5-11.0) X10^3/uL RBC 4.78 (4.0-5.2) X10^6/uL Hgb 12.6 (12.0-16.0) g/dL Hct 39.2 (36-46) % MCV 82.0 (80-100) fL MCH 26.3 (26-34) PG MCHC 32.1 (30-36) % RDW 14.6 (11.6-14.8) % Plt Count 382 (150-400) X10^3/uL Neut % (Auto) 73.3 (50-75) % Lymph % (Auto) 20.4 L (25-40) % [place] % (Auto) 5.3 (3-14) % Eos % (Auto) 0.5 L (2-4) % Baso % (Auto) 0.5 (0-2) % Neut # (Auto) 6700 (1939-9146) /uL Lymph # (Auto) 1900 (6540-2358) /uL [place] # (Auto) 500 (0-900) /uL Eos # (Auto) 0 (0-450) /uL Baso # (Auto) 0 (0-100) /uL PT 12.3 (10.1-12.7) SECONDS INR 1.1 (0.9-1.3) APTT 30 D (26.4-36.2) SECONDS Sodium 140 (137-145) mmol/L Potassium 3.2 L (3.4-5.1) mmol/L Chloride 106 (98-107) mmol/L Carbon Dioxide 23 (22-32) mmol/L BUN 12 (7-17) mg/dL Creatinine 0.82 (0.52-1.04) mg/dL Estimated GFR > 60.0 (>60) mL/min BUN/Creatinine Ratio 14.6 (6-22) Glucose 151 H (80-110) mg/dL Calcium 9.4 (8.4-10.2) mg/dL Magnesium 2.0 (1.6-2.3) mg/dL Total Bilirubin 0.7 (0.2-1.3) mg/dL AST 28 (14-36) IU/L ALT 15 (<35) IU/L Alkaline Phosphatase 111 (38-126) U/L Total Creatine Kinase 102 (30-135) U/L CK-MB (CK-2) 0.87 (<2.37) ng/mL CK-MB (CK-2) Rel Index 0.9 L (1.5-5.0) % Troponin I < 0.012 (0.01-0.034) ng/mL Total Protein 8.8 H (6.3-8.2) g/dL Albumin 4.6 (3.5-5.0) g/dL Globulin 4.2 H (1.7-4.1) g/dL Albumin/Globulin Ratio 1.1 (1.0-2.8) Lipase 110 (23-300) U/L SARS-CoV-2 (PCR) (Negative) 10/19/21 10/19/21 Range/Units 20:18 21:25 WBC (4.5-11.0) X10^3/uL RBC (4.0-5.2) X10^6/uL Hgb (12.0-16.0) g/dL Hct (36-46) % MCV (80-100) fL MCH (26-34) PG MCHC (30-36) % RDW (11.6-14.8) % Plt Count (150-400) X10^3/uL Neut % (Auto) (50-75) % Lymph % (Auto) (25-40) % [place] % (Auto) (3-14) % Eos % (Auto) (2-4) % Baso % (Auto) (0-2) % Neut # (Auto) (7813-6645) /uL Lymph # (Auto) (6568-6383) /uL [place] # (Auto) (0-900) /uL Eos # (Auto) (0-450) /uL Baso # (Auto) (0-100) /uL PT (10.1-12.7) SECONDS INR (0.9-1.3) APTT 30 (26.4-36.2) SECONDS Sodium (137-145) mmol/L Potassium (3.4-5.1) mmol/L Chloride (98-107) mmol/L Carbon Dioxide (22-32) mmol/L BUN (7-17) mg/dL Creatinine (0.52-1.04) mg/dL Estimated GFR (>60) mL/min BUN/Creatinine Ratio (6-22) Glucose (80-110) mg/dL Calcium (8.4-10.2) mg/dL Magnesium (1.6-2.3) mg/dL Total Bilirubin (0.2-1.3) mg/dL AST (14-36) IU/L ALT (<35) IU/L Alkaline Phosphatase (38-126) U/L Total Creatine Kinase (30-135) U/L CK-MB (CK-2) (<2.37) ng/mL CK-MB (CK-2) Rel Index (1.5-5.0) % Troponin I (0.01-0.034) ng/mL Total Protein (6.3-8.2) g/dL Albumin (3.5-5.0) g/dL Globulin (1.7-4.1) g/dL Albumin/Globulin Ratio (1.0-2.8) Lipase (23-300) U/L SARS-CoV-2 (PCR) Negative (Negative) Critical Care Time Critical Care Time Critical Care Time: Yes Total Critical Care Time: 45 Attestation: The high probability of a clinically significant, sudden or life threatening deterioration of the [CV] system(s) required my full and direct attention, intervention and personal management. The aggregate critical care time was [45] minutes. This time is in addition to time spent performing reported procedures but includes the following: [x] Data Review and interpretation [x] Patient assessment and monitoring of vital signs [x] Documentation x] Medication orders and management Discharge Plan Departure Patient Disposition: Admitted As Inpatient Clinical Impression: Evangelista-tachy syndrome, Atrial fibrillation with rapid ventricular response, Vomiting
[2021-10-19 19:59] LABS: Add Manual Diff / Slide Review NO; Basophils Absolute Auto 0 /uL (0-100); Basophils Percent Auto 0.5 % (0-2); Eosinophils Absolute Auto 0 /uL (0-450); Eosinophils Percent Auto 0.5 % (2-4); Hematocrit 39.2 % (36-46); Hemoglobin 12.6 g/dL (12.0-16.0); Lymphocytes Absolute Auto 1900 /uL (1100-4500); Lymphocytes Percent Auto 20.4 % (25-40); Mean Corpuscular HGB Conc 32.1 % (30-36); Mean Corpuscular Hemoglobin 26.3 PG (26-34); Monocytes Absolute Auto 500 /uL (0-900); Monocytes Percent Auto 5.3 % (3-14); Neutrophils Absolute Auto 6700 /uL (1500-7000); Neutrophils Percent Auto 73.3 % (50-75); Platelet Count 382 X10^3/uL (150-400); Red Blood Cell Count 4.78 X10^6/uL (4.0-5.2); Red Cell Distribution Width 14.6 % (11.6-14.8); White Blood Cell Count 9.1 X10^3/uL (4.5-11.0)
[2021-10-19 20:09] LABS: INR 1.1 (0.9-1.3); Prothrombin Time 12.3 SECONDS (10.1-12.7)
[2021-10-19 20:12] LABS: PTT Partial Thromboplastin Tim 30 SECONDS (26.4-36.2)
[2021-10-19] MEDS: dilTIAZem 5 MG/ML SDV 10 MG IV (20:14)
[2021-10-19] MEDS: dilTIAZem 125 MG in DEXTROSE 5 % IN WATER 100 ML IV (20:14)
[2021-10-19 20:15] LABS: Alanine Aminotransferase 15 IU/L (<35); Albumin 4.6 g/dL (3.5-5.0); Albumin Globulin Ratio 1.1 (1.0-2.8); Alkaline Phosphatase 111 U/L (38-126); Aspartate Aminotransferase 28 IU/L (14-36); BUN Creatinine Ratio 14.6 (6-22); Bilirubin Total 0.7 mg/dL (0.2-1.3); Blood Urea Nitrogen 12 mg/dL (7-17); Calcium 9.4 mg/dL (8.4-10.2); Carbon Dioxide 23 mmol/L (22-32); Chloride 106 mmol/L (98-107); Creatine Kinase 102 U/L (30-135); Estimated Glomerular Filt Rate > 60.0 mL/min (>60); Globulin 4.2 g/dL (1.7-4.1); Glucose 151 mg/dL (80-110); HEMOLYSIS < 15 (0-50); Lipase 110 U/L (23-300); Potassium 3.2 mmol/L (3.4-5.1); Sodium 140 mmol/L (137-145); Total Protein 8.8 g/dL (6.3-8.2)
[2021-10-19 20:26] LABS: Troponin I < 0.012 ng/mL (0.01-0.034)
[2021-10-19 20:30] LABS: CKMB % Relative Index 0.9 % (1.5-5.0); Creatine Kinase MB 0.87 ng/mL (<2.37)
[2021-10-19] MEDS: POTASSIUM CHLORIDE IN WATER 10 MEQ/100 ML PIGGYBACK 100 MEQ IV ×2 (21:02→22:04)
[2021-10-19] MEDS: METOPROLOL IR 25 MG TABLET PO (21:05)
[2021-10-19] MEDS: HEPARIN 5,000 UNIT/ML VIAL 5300 UNIT IV (21:39)
[2021-10-19 21:41] LABS: PTT Partial Thromboplastin Tim 30 SECONDS (26.4-36.2)
[2021-10-19] MEDS: HEPARIN DRIP 25,000 UNIT/500 ML IV.SOLN 23.678 UNIT IV (21:43)
[2021-10-19] MEDS: HEPARIN DRIP 25,000 UNIT/500 ML IV.SOLN 20 UNIT IV (21:49)
[2021-10-19 21:51] LABS: COVID19 - ADMIT (NP swab/PCR) Negative (Negative)
== END 2021-10-19 23:24 | disposition short-term general hospital (02) ==
PROVIDERS: Emergency Provider Emergency Medicine; Family Provider Family Medicine; PCP Nurse Practitioner Family
DX: I49.5 Sick sinus syndrome (principal); I48.91 Unspecified atrial fibrillation; R11.2 Nausea with vomiting, unspecified; R19.7 Diarrhea, unspecified; Z20.822 Contact with and (suspected) exposure to COVID-19
CPT/HCPCS: 36415; 71045; 80053; 82550; 82553; 83690; 83735; 84484; 85025; 85610; 85730; 87635; 92950; 93005; 93010; 96361; 96365; 96366; 96367; 96375; 96376; 99284; 99291; C9803; J1644; J2405

== ENCOUNTER 2021-10-24 11:30 | Emergency (ER) | payer MEDICARE, OTHER, SELFPAY ==
[2021-09-07 11:26] VITALS: BMI 24.4
[2021-10-24] VITALS (14 sets, daily range): BP systolic 120–152; BP diastolic 58–67; PULSE 68–83; RESP 14–30; TEMP 36.9; O2SAT 83–99; BMI 24.9
--- NOTE | 2021-10-24 11:52 | DI.RAD.S_ITS ---
PROCEDURE: XR CHEST 1V INDICATIONS: shortness of breath TECHNIQUE: One view of the chest was acquired. COMPARISON: [facility], CR, XR CHEST 1V, 10/19/2021, 20:01. FINDINGS: Surgical changes and devices: None. Lungs and pleura: Lungs are clear. No pleural effusions or pneumothorax. Mediastinum: Mediastinal contours appear normal. Heart size is normal. Mild aortic atherosclerotic calcifications. Mitral annular calcifications are seen. Bones and chest wall: No suspicious bony lesions. Overlying soft tissues appear unremarkable. IMPRESSION: No acute cardiopulmonary abnormality. Dictated by: Tera Bosch M.D. on 10/24/2021 at 12:36 Approved by: Tera Bosch M.D. on 10/24/2021 at 12:36
[2021-10-24 12:22] LABS: Add Manual Diff / Slide Review NO; Basophils Absolute Auto 100 /uL (0-100); Basophils Percent Auto 0.5 % (0-2); Eosinophils Absolute Auto 100 /uL (0-450); Eosinophils Percent Auto 1.3 % (2-4); Hematocrit 35.2 % (36-46); Hemoglobin 11.6 g/dL (12.0-16.0); Lymphocytes Absolute Auto 1500 /uL (1100-4500); Lymphocytes Percent Auto 14.5 % (25-40); Mean Corpuscular HGB Conc 32.8 % (30-36); Mean Corpuscular Hemoglobin 26.3 PG (26-34); Mean Corpuscular Volume 80.2 fL (80-100); Monocytes Absolute Auto 1100 /uL (0-900); Neutrophils Absolute Auto 7800 /uL (1500-7000); Neutrophils Percent Auto 73.7 % (50-75); Platelet Count 350 X10^3/uL (150-400); Red Blood Cell Count 4.39 X10^6/uL (4.0-5.2); Red Cell Distribution Width 14.3 % (11.6-14.8); White Blood Cell Count 10.6 X10^3/uL (4.5-11.0)
--- NOTE | 2021-10-24 12:31 | PC.NURSE ---
Per caregiver at bedside, patient has baseline dementia. Suffered a cardiac arrest and was hospitalized at [facility] from October 20-. Was not intubated. Was diagnosed with A. Fib. and sent home. She states she brought the patient to the ER because the patient's boyfriend called and said she has been weaker than usual with a cough. I spoke with the boyfriend of the patient on speaker phone and he reports she was up and out of bed all night complaining about her legs being in pain. He states at one point he looked at her leg and noted that there was a lump the size of an orange and red and painful, she wouldn't let me touch her legs. Patient is unsure of which calf it was. At this time, legs look baseline for patient. No lumps, redness, or tenderness to touch in either leg.
[2021-10-24 12:33] LABS: Alanine Aminotransferase 11 IU/L (<35); Albumin 4.1 g/dL (3.5-5.0); Albumin Globulin Ratio 1.1 (1.0-2.8); Alkaline Phosphatase 84 U/L (38-126); Aspartate Aminotransferase 19 IU/L (14-36); BUN Creatinine Ratio 11.7 (6-22); Bilirubin Total 0.8 mg/dL (0.2-1.3); Blood Urea Nitrogen 9 mg/dL (7-17); Calcium 8.9 mg/dL (8.4-10.2); Carbon Dioxide 24 mmol/L (22-32); Chloride 105 mmol/L (98-107); Estimated Glomerular Filt Rate > 60.0 mL/min (>60); Globulin 3.6 g/dL (1.7-4.1); Glucose 103 mg/dL (80-110); HEMOLYSIS < 15 (0-50); Lactate (Lactic Acid) 0.9 mmol/L (0.7-2.1); Potassium 3.5 mmol/L (3.4-5.1); Sodium 138 mmol/L (137-145); Total Protein 7.7 g/dL (6.3-8.2)
[2021-10-24 12:44] LABS: COVID19 -Nasal RAPID Negative (Negative)
[2021-10-24 13:03] LABS: NT-proBNP (BNP-Adult 18+) 249 pg/mL (<125)
--- NOTE | 2021-10-24 14:32 | ED.URI ---
HPI - URI/Sore Throat General Chief Complaint: Upper Respiratory Symptoms Stated Complaint: Lumps on legs/pain post hospital admit cardiac Time Seen by Provider: 10/24/21 12:41 Source: patient and family Mode of arrival: Wheelchair History of Present Illness HPI Narrative: The patient is a 71-year-old female with history of dementia and atrial fibrillation had a recent episode and tachy-maria elena syndrome was actually sent to [facility] for further evaluation. She was in the ED when she was found have extremely long pauses after diltiazem. She was released from the hospital 3 days ago. She does have somebody stay with her 05/03. Her lifelong partner was concerned because she had some pain in her right leg and thought that there was swelling there this morning. According to the daughter in-law who is with her now she states that she is not quite back to normal she has not taken any of her medications that she is supposed to after being released from hospital. He currently denies any pain she is able to follow some commands and answer some questions. Related Data Previous Rx's Medication Instructions Recorded L.acidophilus-L.bulgar-B.bifid-S.thermoph 1 ea PO TIDWM #90 tab 08/16/21 1 billion cell-250 mg tablet (Bacid) ascorbic acid (vitamin C) 500 mg 500 mg PO DAILY #60 tab 08/16/21 tablet (Vitamin C) cholecalciferol (vitamin D3) 125 125 mcg PO DAILY #60 tab 08/16/21 mcg (5,000 unit) tablet (Vitamin D3) fluconazole 100 mg tablet 100 mg PO Q72H #3 tab 08/16/21 (Diflucan) melatonin 10 mg tablet 10 mg PO BEDTIME PRN #60 tab 08/16/21 multivit no.42-iron 38 1 cap PO DAILY #60 cap 08/16/21 mg-methyltetrahydfolate 1 mg-dha 225 mg capsule quetiapine 25 mg tablet (Seroquel) 12.5 mg PO BEDTIME #30 tab 08/16/21 risperidone 0.25 mg tablet 0.25 mg PO BID #30 tab 08/16/21 vitamin B complex (B 1 tab PO DAILY #60 tab 08/16/21 Complex-Vitamin B12) cyanocobalamin (vitamin B-12) 1,000 mcg IM QMONTH #1 ml 10/18/21 1,000 mcg/mL injection solution Allergies Allergy/AdvReac Type Severity Reaction Status Date / Time sulfite Allergy Severe anaphylactic Verified 10/19/21 19:31 shock adhesive AdvReac Mild takes my Verified 10/19/21 19:31 skin off msg Allergy Severe Anaphylaxis Uncoded 09/13/21 14:59 nitrite AdvReac Diarrhea Uncoded 09/13/21 14:59 Review of Systems Review of Systems ROS Unobtainable: Unobtainable due to medical condition Patient History Medical History Adnexal cyst (06/2020) Allergies (~1974) Blood glucose elevated C. difficile colitis Chicken pox (~1949) Chronic back pain (~2014) Colitis, infectious Constipation Decreased GFR Dementia (~2014) Depression (~2014) Diverticulitis Esophageal thickening (04/2021) Frequent headaches Headache (~2014) Hearing loss History of musculoskeletal disorder (~2014) History of sepsis History of urinary calculi Mixed hyperlipidemia Mumps (~1949) Pain Retroperitoneal mass Right knee pain TBI (traumatic brain injury) Tinnitus (~2014) Vitamin B deficiency Surgical History Anesthesia History of hand surgery (~1998) History of removal of skin mole (~2016) Hx of laparoscopic gastric banding (~2002) Retained ureteral stent Family History Family/Other Kidney stones Urinary tract infection Social History household members: significant other and none Previous occupational history: retired Smoking Status: Never smoker alcohol intake: never substance use type: does not use Smoking Status: Never smoker alcohol intake frequency: holidays/special occasions only Substance Use Type: does not use Exam Initial Vital Signs Initial Vital Signs: Vital Signs Temperature 98.5 F 10/24/21 11:37 Pulse Rate 81 10/24/21 11:37 Respiratory Rate 18 10/24/21 11:37 Blood Pressure 124/58 L 10/24/21 11:37 Pulse Oximetry 98 10/24/21 11:37 GENERAL: Alert 71-year-old female in no acute] distress. HEENT: Head atraumatic,EOMI, pupils reactive, face symmetric, moist mucous membranes Neck is supple CARDIOVASCULAR: Regular rate and rhythm without murmurs, rubs or gallops. RESPIRATORY: Breath sounds equal bilaterally, no wheezes rales or rhonchi. ABDOMEN: Soft EXTREMITIES: Normal range of motion, no clubbing or edema. Neurovascularly intact Right lower extremity no swelling or calf pain tenderness posterior right knee distal pedal pulse intact. Left leg no cough pain soft, swelling NEUROLOGICAL: Alert and oriented x4.Normal gait and speech. SKIN: Warm, dry, no laceration, no petechiae, no rashes or lesions. Course Orders Ordered: ED Orders 10/24/21 11:52 XR chest 1V Stat Measure peak expiratory flow ONCE RT Consult Eval and Treat Now 10/24/21 12:10 BNP [NT-proBNP (BNP-Adult 18+)] Stat Complete Blood Count AUTO DIFF Stat Comprehensive Metabolic Panel Stat Lactate (Lactic Acid) Stat Troponin & CK Cardiac Panel Stat 10/24/21 12:20 COVID19 -Nasal swab/Pre-Proc Stat 10/24/21 12:30 EKG-12 Lead Stat 10/24/21 14:50 CT head/brain wo con Stat 10/24/21 15:22 US periph venous low extrem rt Stat Vital Signs Vital signs: Vital Signs - 8 hr 10/24/21 11:37 10/24/21 12:18 10/24/21 12:21 Temperature 98.5 F Pulse Rate 81 79 80 Respiratory Rate 18 14 Blood Pressure 124/58 L 138/61 Pulse Oximetry 98 98 97 10/24/21 12:30 10/24/21 13:00 10/24/21 13:30 Temperature Pulse Rate 74 68 68 Respiratory Rate 30 H 20 19 Blood Pressure 126/59 L 120/61 122/58 L Pulse Oximetry 97 97 97 10/24/21 14:00 10/24/21 14:30 10/24/21 15:00 Temperature Pulse Rate 71 73 80 Respiratory Rate 20 20 25 H Blood Pressure 122/59 L 126/61 Pulse Oximetry 99 97 10/24/21 15:30 10/24/21 16:08 10/24/21 16:09 Temperature Pulse Rate 75 83 Respiratory Rate 23 30 H Blood Pressure 138/65 Pulse Oximetry 98 83 L 98 10/24/21 16:30 10/24/21 17:00 Temperature Pulse Rate 75 78 Respiratory Rate 23 24 Blood Pressure 152/66 H 152/67 H Pulse Oximetry 99 99 MDM - URI/Sore Throat Lab Data Result diagrams: 10/24/21 12:10 10/24/21 12:10 Labs: Lab Results 10/24/21 10/24/21 10/24/21 Range/Units 12:10 12:10 12:10 WBC 10.6 (4.5-11.0) X10^3/uL RBC 4.39 (4.0-5.2) X10^6/uL Hgb 11.6 L (12.0-16.0) g/dL Hct 35.2 L (36-46) % MCV 80.2 (80-100) fL MCH 26.3 (26-34) PG MCHC 32.8 (30-36) % RDW 14.3 (11.6-14.8) % Plt Count 350 (150-400) X10^3/uL Neut % (Auto) 73.7 (50-75) % Lymph % (Auto) 14.5 L (25-40) % [place] % (Auto) 10.0 (3-14) % Eos % (Auto) 1.3 L (2-4) % Baso % (Auto) 0.5 (0-2) % Neut # (Auto) 7800 H (1856-3850) /uL Lymph # (Auto) 1500 (3334-1874) /uL [place] # (Auto) 1100 H (0-900) /uL Eos # (Auto) 100 (0-450) /uL Baso # (Auto) 100 (0-100) /uL Sodium 138 (137-145) mmol/L Potassium 3.5 (3.4-5.1) mmol/L Chloride 105 (98-107) mmol/L Carbon Dioxide 24 (22-32) mmol/L BUN 9 (7-17) mg/dL Creatinine 0.77 (0.52-1.04) mg/dL Estimated GFR > 60.0 (>60) mL/min BUN/Creatinine Ratio 11.7 (6-22) Glucose 103 (80-110) mg/dL Lactate 0.9 (0.7-2.1) mmol/L Calcium 8.9 (8.4-10.2) mg/dL Total Bilirubin 0.8 (0.2-1.3) mg/dL AST 19 (14-36) IU/L ALT 11 (<35) IU/L Alkaline Phosphatase 84 (38-126) U/L Total Creatine Kinase (30-135) U/L CK-MB (CK-2) CK-MB (CK-2) Rel Index Troponin I (0.01-0.034) ng/mL NT-Pro-B Natriuret Pep (<125) pg/mL Total Protein 7.7 (6.3-8.2) g/dL Albumin 4.1 (3.5-5.0) g/dL Globulin 3.6 (1.7-4.1) g/dL Albumin/Globulin Ratio 1.1 (1.0-2.8) SARS-CoV-2 (PCR) (Negative) 10/24/21 10/24/21 10/24/21 Range/Units 12:10 12:10 12:20 WBC (4.5-11.0) X10^3/uL RBC (4.0-5.2) X10^6/uL Hgb (12.0-16.0) g/dL Hct (36-46) % MCV (80-100) fL MCH (26-34) PG MCHC (30-36) % RDW (11.6-14.8) % Plt Count (150-400) X10^3/uL Neut % (Auto) (50-75) % Lymph % (Auto) (25-40) % [place] % (Auto) (3-14) % Eos % (Auto) (2-4) % Baso % (Auto) (0-2) % Neut # (Auto) (0836-9352) /uL Lymph # (Auto) (2330-7612) /uL [place] # (Auto) (0-900) /uL Eos # (Auto) (0-450) /uL Baso # (Auto) (0-100) /uL Sodium (137-145) mmol/L Potassium (3.4-5.1) mmol/L Chloride (98-107) mmol/L Carbon Dioxide (22-32) mmol/L BUN (7-17) mg/dL Creatinine (0.52-1.04) mg/dL Estimated GFR (>60) mL/min BUN/Creatinine Ratio (6-22) Glucose (80-110) mg/dL Lactate (0.7-2.1) mmol/L Calcium (8.4-10.2) mg/dL Total Bilirubin (0.2-1.3) mg/dL AST (14-36) IU/L ALT (<35) IU/L Alkaline Phosphatase (38-126) U/L Total Creatine Kinase 77 (30-135) U/L CK-MB (CK-2) TNP CK-MB (CK-2) Rel Index TNP Troponin I < 0.012 (0.01-0.034) ng/mL NT-Pro-B Natriuret Pep 249 H (<125) pg/mL Total Protein (6.3-8.2) g/dL Albumin (3.5-5.0) g/dL Globulin (1.7-4.1) g/dL Albumin/Globulin Ratio (1.0-2.8) SARS-CoV-2 (PCR) Negative (Negative) Imaging Data Chest x-ray: Radiologist's Impression: PROCEDURE:? XR CHEST 1V ? INDICATIONS:? shortness of breath ? TECHNIQUE:? One view of the chest was acquired.? ? COMPARISON:? [facility], CR, XR CHEST 1V, 10/19/2021, 20:01. ? FINDINGS:? ? Surgical changes and devices:? None.? ? Lungs and pleura:? Lungs are clear.? No pleural effusions or pneumothorax.? ? Mediastinum:? Mediastinal contours appear normal.? Heart size is normal.? Mild aortic atherosclerotic calcifications.? Mitral annular calcifications are seen. ? Bones and chest wall:? No suspicious bony lesions.? Overlying soft tissues appear unremarkable.? ? IMPRESSION:? No acute cardiopulmonary abnormality. ? ? Dictated by: Tera Bosch M.D. on 10/24/2021 at 12:36 ? ? CT scan - head: Radiologist's Impression: PROCEDURE:? CT HEAD/BRAIN WO CON ? INDICATIONS:? decreasing mental status post hospital ? TECHNIQUE:? Noncontrast 4.5 mm thick angled axial sections acquired from the foramen magnum to the vertex, with coronal and sagittal reformats.? For radiation dose reduction, the following was used:? automated exposure control, adjustment of mA and/or kV according to patient size.? ? COMPARISON:? [facility], , MR HEAD/BRAIN WO/W CON, 09/20/2021, 15:30. ? FINDINGS:? Image quality:? Excellent.? ? CSF spaces:? Basal cisterns are patent.? No extra-axial fluid collections.? The ventricles are symmetric in size and shape.? ? Brain:? No intracranial bleeds or masses.? There is cerebral volume loss for age, with resultant ventricular and sulcal prominence.? There are periventricular and deep white matter chronic small vessel ischemic changes.? There is intracranial internal carotid artery atherosclerosis.? ? Skull and face:? Calvarium and visualized facial bones appear intact, without suspicious lesions.? ? Sinuses:? Visualized sinuses and mastoids are clear.? ? IMPRESSION:? No acute intracranial abnormality demonstrated. ? ? Dictated by: Jameel Ghotra M.D. on 10/24/2021 at 15:59 ?? US - DVT: Radiologist's Impression: PROCEDURE:? US PERIPH VENOUS LOW EXTREM RT ? INDICATIONS:? KNEE PAIN ? TECHNIQUE:? Real-time imaging, as well as color and pulse Doppler interrogation, were performed of the lower extremity deep veins from the inguinal ligament to the popliteal fossa.? ? COMPARISON:? None. ? FINDINGS:? The common femoral, femoral and popliteal veins are normally compressible, and free of intraluminal thrombus.? Color and pulse Doppler demonstrate normal phasic intraluminal flow.? There is normal augmentation response to distal compression maneuver. ? ? IMPRESSION:? No evidence of DVT in visualized right lower extremity veins. ? ? Dictated by: Mason Paula M.D. on 10/24/2021 at 16:16 ECG Data Interpretation: Normal sinus rhythm rate 73 NH interval 122 QRS [address] changes MDM Narrative Medical decision making narrative: Patient is overall feeling the same. She this found to be normal sinus rhythm she is not in atrial fibrillation. Ultrasound does not show any DVT. Her generalized Weakness is getting worse her head CT is negative. She does not appear to have any infection. Cardiac workup is stable at this time. According to family member in the room by it was thought her the dementia medicine and probably diltiazem caused her symptoms initially. This time patient can follow-up as an outpatient. 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 Discharge Plan Departure Patient Disposition: Home Clinical Impression: Cramps of right lower extremity Instructions: DI for Leg Pain Activity Restrictions/Additional Instructions: *You have been diagnosed with right leg pain *What to do: At this time no evidence of blood clot or cause for pain. Elevate ice or heat whichever makes it feel better. Increase walking as tolerated may need walker or assistive device. *Continue to take medications as directed Tylenol 325-650 mg every 6 hours if needed for pain *Follow up with your primary care provider in 2-3 days or call [phone] *Return to ER if you should have increasing pain, redness, weakness, confusion or any new, worsening or concerning symptoms Prescriptions: No Action cyanocobalamin (vitamin B-12) 1,000 mcg/mL solution 1,000 mcg IM QMONTH Qty: 1 0RF Rx Instructions: 10/18/21 1000mcg weekly x4 doses, then monthly. Recheck labs in one month. Bacid 1 billion cell- 250 mg Tablet 1 ea PO TIDWM Qty: 90 0RF multivit no.76-lryi-zhloxy-dha 38-1-225 mg capsule 1 cap PO DAILY Qty: 60 0RF cholecalciferol (vitamin D3) [Vitamin D3] 125 mcg (5,000 unit) tablet 125 mcg PO DAILY Qty: 60 0RF vitamin B complex [B Complex-Vitamin B12] Tablet 1 tab PO DAILY Qty: 60 0RF quetiapine [Seroquel] 25 mg tablet 12.5 mg PO BEDTIME Qty: 30 0RF risperidone 0.25 mg tablet 0.25 mg PO BID Qty: 30 0RF melatonin 10 mg tablet 10 mg PO BEDTIME PRN (Reason: sleep) Qty: 60 0RF ascorbic acid (vitamin C) [Vitamin C] 500 mg tablet 500 mg PO DAILY Qty: 60 0RF fluconazole [Diflucan] 100 mg tablet 100 mg PO Q72H Qty: 3 0RF Referrals: Tasneem Romero ARNP [Primary Care Provider] -
--- NOTE | 2021-10-24 14:50 | DI.CT.S_ITS ---
PROCEDURE: CT HEAD/BRAIN WO CON INDICATIONS: decreasing mental status post hospital TECHNIQUE: Noncontrast 4.5 mm thick angled axial sections acquired from the foramen magnum to the vertex, with coronal and sagittal reformats. For radiation dose reduction, the following was used: automated exposure control, adjustment of mA and/or kV according to patient size. COMPARISON: [facility], , MR HEAD/BRAIN WO/W CON, 09/20/2021, 15:30. FINDINGS: Image quality: Excellent. CSF spaces: Basal cisterns are patent. No extra-axial fluid collections. The ventricles are symmetric in size and shape. Brain: No intracranial bleeds or masses. There is cerebral volume loss for age, with resultant ventricular and sulcal prominence. There are periventricular and deep white matter chronic small vessel ischemic changes. There is intracranial internal carotid artery atherosclerosis. Skull and face: Calvarium and visualized facial bones appear intact, without suspicious lesions. Sinuses: Visualized sinuses and mastoids are clear. IMPRESSION: No acute intracranial abnormality demonstrated. Dictated by: Jameel Ghotra M.D. on 10/24/2021 at 15:59 Approved by: Jameel Ghotra M.D. on 10/24/2021 at 16:10
[2021-10-24 15:06] LABS: Creatine Kinase 77 U/L (30-135)
[2021-10-24 15:18] LABS: Troponin I < 0.012 ng/mL (0.01-0.034)
--- NOTE | 2021-10-24 15:22 | DI.US.S_ITS ---
PROCEDURE: US PERIPH VENOUS LOW EXTREM RT INDICATIONS: KNEE PAIN TECHNIQUE: Real-time imaging, as well as color and pulse Doppler interrogation, were performed of the lower extremity deep veins from the inguinal ligament to the popliteal fossa. COMPARISON: None. FINDINGS: The common femoral, femoral and popliteal veins are normally compressible, and free of intraluminal thrombus. Color and pulse Doppler demonstrate normal phasic intraluminal flow. There is normal augmentation response to distal compression maneuver. IMPRESSION: No evidence of DVT in visualized right lower extremity veins. Dictated by: Mason Paula M.D. on 10/24/2021 at 16:16 Approved by: Mason Paula M.D. on 10/24/2021 at 16:17
== END 2021-10-24 17:20 | disposition home or self-care (01) ==
PROVIDERS: Emergency Provider Emergency Medicine; Family Provider Family Medicine; PCP Nurse Practitioner Family
DX: R25.2 Cramp and spasm (principal); Z20.822 Contact with and (suspected) exposure to COVID-19; Z86.79 Personal history of other diseases of the circulatory system; R03.1 Nonspecific low blood-pressure reading
CPT/HCPCS: 36415; 70450; 71045; 80053; 82550; 83605; 83880; 84484; 85025; 87635; 93005; 93010; 93971; 99284; C9803

== ENCOUNTER → 2021-12-19 09:54 | Outpatient (CLI) | payer MEDICARE, OTHER, SELFPAY ==
[2021-09-07 11:26] VITALS: BMI 24.4
[2021-12-19 12:37] LABS: Vitamin B12 528 pg/mL (239-931)
== END ==
PROVIDERS: Family Provider Family Medicine; PCP Nurse Practitioner Family; Referring Provider Nurse Practitioner Family; Visit Provider Nurse Practitioner Family
DX: E53.9 Vitamin B deficiency, unspecified (principal)
CPT/HCPCS: 36415; 82607

== ENCOUNTER → 2022-03-06 15:27 | Outpatient (CLI) | payer MEDICARE, OTHER, SELFPAY ==
[2021-09-07 11:26] VITALS: BMI 24.4
--- NOTE | 2022-03-06 15:29 | DI.RAD.S_ITS ---
PROCEDURE: XR KUB INDICATIONS: History of renal calculi TECHNIQUE: One view of the abdomen acquired. COMPARISON: [facility], CT, CT ABDOMEN PELVIS W CON, 08/14/2021, 22:21. [facility], CR, XR KUB, 08/31/2021, 18:08. FINDINGS: Surgical changes and devices: Gastric lap band redemonstrated. Bowel: Bowel gas pattern is normal. Soft tissues: No suspicious abdominal calcifications. Visualized solid organ contours appear normal in size. Bones: No suspicious bony lesions. IMPRESSION: No definitive radiopaque renal, ureteral or bladder calculi. Dictated by: Teodoro Amin RRA Interpreted: Marc Aldana MD on 03/06/2022 at 16:27 Transcribed by: JOSE on 03/06/2022 at 16:28 Approved by: Marc Aldana M.D. on 03/06/2022 at 16:55
== END ==
PROVIDERS: Family Provider Family Medicine; PCP Family Medicine; Referring Provider Urology; Visit Provider Urology
DX: Z87.442 Personal history of urinary calculi (principal); Z09 Encounter for follow-up examination after completed treatment for conditions other than malignant neoplasm
CPT/HCPCS: 74018

== ENCOUNTER 2022-04-20 11:04 | Observation (INO) | payer MEDICARE, OTHER, SELFPAY ==
[2021-09-07 11:26] VITALS: BMI 24.4
[2022-04-20] VITALS (22 sets, daily range): BP systolic 90–148; BP diastolic 51–68; PULSE 59–71; RESP 12–29; TEMP 36.1–36.8; O2SAT 92–100; BMI 23.3; BMI 22.4
--- NOTE | 2022-04-20 11:15 | DI.RAD.S_ITS ---
PROCEDURE: XR CHEST 1V INDICATIONS: suspected sepsis TECHNIQUE: One view of the chest was acquired. COMPARISON: [facility], CR, XR CHEST 1V, 10/24/2021, 12:14. FINDINGS: Surgical changes and devices: None. Lungs and pleura: Lungs are clear. No pleural effusions or pneumothorax. Mediastinum: Mediastinal contours appear normal. Heart size is normal. Bones and chest wall: No suspicious bony lesions. Overlying soft tissues appear unremarkable. IMPRESSION: No acute process. Dictated by: Emily Massey M.D. on 04/20/2022 at 11:45 Approved by: Emily Massey M.D. on 04/20/2022 at 11:45
[2022-04-20 11:29] LABS: Hematocrit 35.3 % (36-46); Hemoglobin 11.4 g/dL (12.0-16.0); Mean Corpuscular HGB Conc 32.3 % (30-36); Mean Corpuscular Hemoglobin 25.5 PG (26-34); Mean Corpuscular Volume 79.1 fL (80-100); Platelet Count 247 X10^3/uL (150-400); Red Blood Cell Count 4.46 X10^6/uL (4.0-5.2); Red Cell Distribution Width 15.5 % (11.6-14.8); White Blood Cell Count 11.6 X10^3/uL (4.5-11.0)
[2022-04-20 11:34] LABS: PTT Partial Thromboplastin Tim 27 SECONDS (26-36)
[2022-04-20 11:37] LABS: Alanine Aminotransferase 10 IU/L (<35); Albumin 3.9 g/dL (3.5-5.0); Alkaline Phosphatase 68 U/L (38-126); Aspartate Aminotransferase 20 IU/L (14-36); BUN Creatinine Ratio 12.5 (6-22); Bilirubin Total 0.9 mg/dL (0.2-1.3); Blood Urea Nitrogen 11 mg/dL (7-17); Calcium 8.7 mg/dL (8.4-10.2); Carbon Dioxide 25 mmol/L (22-32); Chloride 103 mmol/L (98-107); Estimated Glomerular Filt Rate > 60 mL/min (>60); Globulin 3.9 g/dL (1.7-4.1); Glucose 92 mg/dL (80-110); HEMOLYSIS < 15 (0-50); Lipase 32 U/L (23-300); Potassium 3.5 mmol/L (3.4-5.1); Sodium 137 mmol/L (137-145); Total Protein 7.8 g/dL (6.3-8.2)
[2022-04-20 11:38] LABS: Lactate (Lactic Acid) 0.7 mmol/L (0.7-2.1)
[2022-04-20 11:41] LABS: INR 1.2 (0.9-1.3); Prothrombin Time 13.8 SECONDS (10.1-12.7)
[2022-04-20 11:43] LABS: Add Manual Diff / Slide Review YES
[2022-04-20 11:54] LABS: Procalcitonin 0.12 ng/mL (<0.5)
[2022-04-20] MEDS: SODIUM CHLORIDE 0.9% 1,000 ML 1000 ML IV ×2 (11:55→15:52)
[2022-04-20 12:05] LABS: COVID19 -Nasal RAPID Negative (Negative)
[2022-04-20 12:11] LABS: Neutrophils Absolute Manual 9280 /uL (3000-5900); Total Cells Counted 100
[2022-04-20 12:13] LABS: Hypochromasia 1+; Microcytosis 1+
--- NOTE | 2022-04-20 13:05 | ED_ITS ---
HPI - Weakness General Chief complaint: Weakness Stated complaint: Fever, Diarrhea, dizziness/fall x 3 days Time Seen by Provider: 04/20/22 11:56 Source: family Mode of arrival: Ambulatory History of Present Illness HPI Narrative: Patient here, with family, daughter, complaints 3 days of dizziness diarrhea fever. No cough cold or congestion. Patient has history of brain injury and is usually confused. However is usually up and walking and interacting. Daughter states in the past UTIs have cause these type of problems for her before. Bladder scan complete here by nurse. No retention. Does not see any urine in the bladder. Attempted to take patient to the bathroom for urine sample but able to void. Patient denies any pain in the chest back abdomen. No headache. Related Data Previous Rx's Medication Instructions Recorded L.acidophilus-L.bulgar-B.bifid-S.thermoph 1 ea PO TIDWM #90 tabs 08/16/21 1 billion cell-250 mg tablet (Bacid) ascorbic acid (vitamin C) 500 mg 500 mg PO DAILY #60 tabs 08/16/21 tablet (Vitamin C) cholecalciferol (vitamin D3) 125 125 mcg PO DAILY #60 tabs 08/16/21 mcg (5,000 unit) tablet (Vitamin D3) melatonin 10 mg tablet 10 mg PO BEDTIME PRN sleep #60 tabs 08/16/21 multivit no.42-iron 38 1 cap PO DAILY #60 caps 08/16/21 mg-methyltetrahydfolate 1 mg-dha 225 mg capsule quetiapine 25 mg tablet (Seroquel) 12.5 mg PO BEDTIME #30 tabs 08/16/21 vitamin B complex (B 1 tab PO DAILY #60 tabs 08/16/21 Complex-Vitamin B12 tablet) cyanocobalamin (vitamin B-12) 1,000 mcg IM QMONTH #1 mL 10/18/21 1,000 mcg/mL injection solution guaifenesin 200 mg/5 mL oral liquid 200 mg (5 mL) PO Q6H PRN 10/27/21 congestion #118 mL diclofenac sodium 1 % topical gel 2 g topical QID #100 grams 11/15/21 Allergies Allergy/AdvReac Type Severity Reaction Status Date / Time sulfite Allergy Severe anaphylactic Verified 04/20/22 11:16 shock adhesive AdvReac Mild takes my Verified 04/20/22 11:16 skin off msg Allergy Severe Anaphylaxis Uncoded 03/07/22 15:43 nitrite AdvReac Diarrhea Uncoded 03/07/22 15:43 Review of Systems Review of Systems Narrative: GENERAL: Denies chills, positive fatigue, malaise, fever, negative sweats. HEENT: Denies sinus pain, ear pain, sore throat RESPIRATORY: Denies dyspnea, cough CARDIOVASCULAR: Denies chest pain, palpitations GASTROINTESTINAL: Denies nausea, vomiting, abdominal pain, positive diarrhea, negative bloody stool : Denies dysuria, frequency, hematuria MUSCULOSKELETAL: denies muscle or bony pain SKIN: Denies rash, skin lesions NEUROLOGIC: Denies weakness, numbness, positive dizziness ROS Unobtainable: All systems reviewed & are unremarkable except as noted in HPI and below Patient History Medical History Adnexal cyst (06/2020) Allergies (~1974) Hale's cyst of knee Blood glucose elevated C. difficile colitis Chicken pox (~1949) Chronic back pain (~2014) Colitis, infectious Constipation Decreased GFR Dementia (~2014) Dementia without behavioral disturbance Dependent family member needing care at home Depression (~2014) Diverticulitis Esophageal thickening (04/2021) Excessive mucus secretion (~2009) Frequent headaches Headache (~2014) Hearing loss History of musculoskeletal disorder (~2014) History of sepsis History of urinary calculi Mixed hyperlipidemia Mumps (~1949) Pain Retroperitoneal mass Right knee pain TBI (traumatic brain injury) Tinnitus (~2014) Vitamin B deficiency Surgical History Anesthesia History of hand surgery (~1998) History of removal of skin mole (~2016) Hx of laparoscopic gastric banding (~2002) Retained ureteral stent Family History Family/Other Kidney stones Urinary tract infection Social History household members: significant other and none Previous occupational history: retired Smoking Status: Never smoker alcohol intake: never substance use type: does not use Smoking Status: Never smoker alcohol intake frequency: holidays/special occasions only Substance Use Type: does not use Exam Narrative Exam Narrative: GENERAL: in no distress, not toxic not dyspneic HEAD: Normocephalic. EYES: Pupils equal round No scleral icterus. ENT: Dry lips and tongue NECK: Trachea midline. CARDIOVASCULAR: Regular rate and rhythm without murmurs RESPIRATORY: Clear to auscultation. Breath sounds equal bilaterally. No wheezes, rales, or rhonchi. GASTROINTESTINAL: Abdomen soft, non-tender EXTREMITIES: No gross deformities. BACK: No flank tenderness. NEURO: Clear speech no facial droop, awake alert oriented self and date of only. SKIN: Warm and dry PSYCH: Not anxious, is cooperative Initial Vital Signs Initial Vital Signs: Vital Signs Temperature 98.3 F 04/20/22 11:10 Pulse Rate 69 04/20/22 11:10 Respiratory Rate 14 04/20/22 11:10 Blood Pressure 102/51 L 04/20/22 11:10 Pulse Oximetry 98 04/20/22 11:10 Oxygen Delivery Method 04/20/22 11:10 Course Course Course Narrative: No new issues during course of stay Orders Ordered: ED Orders 04/20/22 11:15 XR chest 1V Stat Blood Culture Stat 04/20/22 11:17 Complete Blood Count AUTO DIFF Stat Comprehensive Metabolic Panel Stat Lactate (Lactic Acid) Stat Lipase Stat Partial Thromboplastin Time Stat Procalcitonin Stat Prothrombin Time INR Stat 04/20/22 11:18 COVID19 -Nasal RAPID/Pre-Proc Stat 04/20/22 11:20 Troponin & CK Cardiac Panel Stat 04/20/22 11:39 EKG-12 Lead Stat 04/20/22 13:04 GI Panel (Film Array) Stat 04/20/22 13:38 Respiratory Panel (Film Array) Stat 04/20/22 15:14 CT abdomen pelvis w con Stat 04/20/22 16:00 Urinalysis and Microscopic Stat Urine Culture Stat Acetaminophen (Acetaminophen 325 Mg Tablet) 650 mg PO Q6HR PRN PRN Reason: Fever/Mild Pain (1-3) Heparin Sodium (Porcine) (Heparin 5,000 Unit/Ml Vial) 5,000 unit SUBCUT BID DOMINGO Ceftriaxone Sodium 1,000 mg/ (Sodium Chloride) 100 mls @ 200 mls/hr IV Q24H DOMINGO Stop: 04/23/22 18:59 Metronidazole (Flagyl) 500 mg in 100 mls @ 100 mls/hr IV Q8H DOMINGO Melatonin (Melatonin 3 Mg Tablet) 9 mg PO BEDTIME PRN PRN Reason: sleep Ondansetron HCl (Ondansetron 4 Mg/2 Ml Inj) 4 mg IV Q8HR PRN PRN Reason: Nausea And Vomiting Quetiapine Fumarate (Quetiapine 25 Mg Tablet) 12.5 mg PO BEDTIME DOMINGO Discontinued Medications Sodium Chloride (Normal Saline 0.9%) 1,000 mls @ 1,000 mls/hr IV BOLUS ONE Stop: 04/20/22 12:14 Last Infusion: 04/20/22 14:52 Dose: 0 mls/hr Documented By: Admin: 04/20/22 11:55 Dose: 1,000 mls/hr Documented By: NICO Sodium Chloride (Normal Saline 0.9%) 1,000 mls @ 1,000 mls/hr IV BOLUS ONE Stop: 04/20/22 16:14 Last Admin: 04/20/22 15:52 Dose: 1,000 mls/hr Documented By: JARRELL Ceftriaxone Sodium 2,000 mg/ (Sodium Chloride) 100 mls @ 200 mls/hr IV NOW ONE Stop: 04/20/22 17:05 Metronidazole (Flagyl) 500 mg in 100 mls @ 100 mls/hr IV NOW ONE Stop: 04/20/22 18:03 Reevaluation(s) Reevaluation #1: Spoke with patient and [id number] at results and treatment plan. They agree for admission for IV antibiotics Time: 17:09 Consultations Consultation #1: Spoke with Dr. Christian, recommends IV antibiotics tonight observation and re- evaluate blood work in the morning. May not need repeat CT scan. She will follow as consult. Time: 16:45 Consultation #2: Spoke with hospitalist, Dr. Chaudhary, agrees for admission, agrees with Rocephin and Flagyl Time: 17:06 Vital Signs Vital signs: Vital Signs - 8 hr 04/20/22 11:10 04/20/22 11:12 04/20/22 11:13 Temperature 98.3 F Pulse Rate 69 69 Respiratory Rate 14 Blood Pressure 102/51 L Pulse Oximetry 98 92 98 Oxygen Delivery Method Room Air 04/20/22 11:13 04/20/22 11:30 04/20/22 11:31 Temperature Pulse Rate 70 Respiratory Rate Blood Pressure 102/51 L 97/54 L Pulse Oximetry 98 Oxygen Delivery Method 04/20/22 11:31 04/20/22 11:57 04/20/22 11:57 Temperature Pulse Rate 67 65 Respiratory Rate 20 Blood Pressure 96/54 L Pulse Oximetry 98 99 Oxygen Delivery Method 04/20/22 12:00 04/20/22 12:00 04/20/22 12:30 Temperature Pulse Rate 61 Respiratory Rate 16 Blood Pressure 93/51 L 101/57 L Pulse Oximetry 97 Oxygen Delivery Method 04/20/22 12:30 04/20/22 13:00 04/20/22 13:00 Temperature Pulse Rate 60 60 Respiratory Rate 17 21 Blood Pressure 101/55 L Pulse Oximetry 99 100 Oxygen Delivery Method 04/20/22 13:30 04/20/22 13:30 04/20/22 14:00 Temperature Pulse Rate 66 60 Respiratory Rate 22 24 Blood Pressure 90/52 L Pulse Oximetry 100 99 Oxygen Delivery Method 04/20/22 14:30 04/20/22 14:30 04/20/22 15:00 Temperature Pulse Rate 59 L 59 L Respiratory Rate 16 18 Blood Pressure 100/53 L Pulse Oximetry 100 100 Oxygen Delivery Method 04/20/22 15:01 04/20/22 15:01 04/20/22 15:30 Temperature Pulse Rate 59 L 59 L Respiratory Rate 16 17 Blood Pressure 108/55 L Pulse Oximetry 100 99 Oxygen Delivery Method 04/20/22 15:31 04/20/22 15:31 Temperature Pulse Rate 59 L Respiratory Rate 16 Blood Pressure 111/55 L Pulse Oximetry 99 Oxygen Delivery Method MDM - Weakness Differential Diagnosis Differential diagnosis: Likely acute myocardial infarction, anemia, hypoglycemia , sepsis, dehydration and other (Acute UTI) Lab Data Result diagrams: 04/20/22 11:17 04/20/22 11:17 Labs: Lab Results 04/20/22 04/20/22 04/20/22 Range/Units 11:17 11:17 11:17 WBC 11.6 H (4.5-11.0) X10^3/uL RBC 4.46 (4.0-5.2) X10^6/uL Hgb 11.4 L (12.0-16.0) g/dL Hct 35.3 L (36-46) % MCV 79.1 L (80-100) fL MCH 25.5 L (26-34) PG MCHC 32.3 (30-36) % RDW 15.5 H (11.6-14.8) % Plt Count 247 (150-400) X10^3/uL Neut % (Auto) Not Reportable Lymph % (Auto) Not Reportable Franklin % (Auto) Not Reportable Eos % (Auto) Not Reportable Baso % (Auto) Not Reportable Lymph # (Auto) Not Reportable Franklin # (Auto) Not Reportable Baso # (Auto) Not Reportable Total Counted 100 Seg Neutrophils % 76.0 H (38-70) % Band Neutrophils % 4.0 (3-7) % Lymphocytes % (Manual) 12.0 L (25-45) % Monocytes % (Manual) 7.0 (2-11) % Eosinophils % (Manual) 1.0 L (2-4) % Neutrophils # (Manual) 9280 H (8633-4875) /uL RBC Morphology See below Hypochromasia 1+ H Microcytosis 1+ H PT 13.8 H (10.1-12.7) SECONDS INR 1.2 (0.9-1.3) APTT 27 (26-36) SECONDS Sodium 137 (137-145) mmol/L Potassium 3.5 (3.4-5.1) mmol/L Chloride 103 (98-107) mmol/L Carbon Dioxide 25 (22-32) mmol/L BUN 11 (7-17) mg/dL Creatinine 0.88 (0.52-1.04) mg/dL Estimated GFR > 60 (>60) mL/min BUN/Creatinine Ratio 12.5 (6-22) Glucose 92 (80-110) mg/dL Lactate (0.7-2.1) mmol/L Calcium 8.7 (8.4-10.2) mg/dL Total Bilirubin 0.9 (0.2-1.3) mg/dL AST 20 (14-36) IU/L ALT 10 (<35) IU/L Alkaline Phosphatase 68 (38-126) U/L Total Creatine Kinase (30-135) U/L CK-MB (CK-2) CK-MB (CK-2) Rel Index Troponin I (0.01-0.034) ng/mL Total Protein 7.8 (6.3-8.2) g/dL Albumin 3.9 (3.5-5.0) g/dL Globulin 3.9 (1.7-4.1) g/dL Albumin/Globulin Ratio 1.0 (1.0-2.8) Lipase 32 (23-300) U/L Procalcitonin 0.12 (<0.5) ng/mL Urine Color Urine Appearance Urine pH (4.5-8.0) Ur Specific [place] (1.000-1.035) Urine Protein (Negative) Urine Glucose (UA) (Negative) g/dL Urine Ketones (NEGATIVE) Urine Occult Blood (Negative) Urine Nitrate (Negative) Urine Bilirubin (NEGATIVE) Urine Urobilinogen (0.2) E.U./dL Ur Leukocyte Esterase (NEGATIVE) Urine RBC (0-5/HPF) Urine WBC (0-5/HPF) Amorphous Sediment Urine Bacteria (None) Ur Culture Indicated? Chlamy pneumoniae PCR (Not Detect) Adenovirus (PCR) (Not Detect) B. pertussis DNA (PCR) (Not Detecte) B.parapertussis DNA PCR (Not Detecte) Coronavirus OC43 (PCR) (Not Detect) Coronavirus HKU1 (PCR) (Not Detect) Coronavirus 229E (PCR) (Not Detect) SARS-CoV-2 (PCR) (Negative) Coronavirus NL63 (PCR) (Not Detect) Human Metapneumovir PCR (Not Detect) Influenza Type A (PCR) (Not Detect) Influenza Type B (PCR) (Not Detect) M. pneumoniae (PCR) (Not Detect) Parainfluenza 1 (PCR) (Not Detect) Parainfluenza 2 (PCR) (Not Detect) Parainfluenza 3 (PCR) (Not Detect) Parainfluenza 4 (PCR) (Not Detect) RSV (PCR) (Not Detect) Entero/Rhino (PCR) (Not Detect) 04/20/22 04/20/22 04/20/22 Range/Units 11:17 11:18 11:20 WBC (4.5-11.0) X10^3/uL RBC (4.0-5.2) X10^6/uL Hgb (12.0-16.0) g/dL Hct (36-46) % MCV (80-100) fL MCH (26-34) PG MCHC (30-36) % RDW (11.6-14.8) % Plt Count (150-400) X10^3/uL Neut % (Auto) Lymph % (Auto) Franklin % (Auto) Eos % (Auto) Baso % (Auto) Lymph # (Auto) Franklin # (Auto) Baso # (Auto) Total Counted Seg Neutrophils % (38-70) % Band Neutrophils % (3-7) % Lymphocytes % (Manual) (25-45) % Monocytes % (Manual) (2-11) % Eosinophils % (Manual) (2-4) % Neutrophils # (Manual) (5814-8968) /uL RBC Morphology Hypochromasia Microcytosis PT (10.1-12.7) SECONDS INR (0.9-1.3) APTT (26-36) SECONDS Sodium (137-145) mmol/L Potassium (3.4-5.1) mmol/L Chloride (98-107) mmol/L Carbon Dioxide (22-32) mmol/L BUN (7-17) mg/dL Creatinine (0.52-1.04) mg/dL Estimated GFR (>60) mL/min BUN/Creatinine Ratio (6-22) Glucose (80-110) mg/dL Lactate 0.7 (0.7-2.1) mmol/L Calcium (8.4-10.2) mg/dL Total Bilirubin (0.2-1.3) mg/dL AST (14-36) IU/L ALT (<35) IU/L Alkaline Phosphatase (38-126) U/L Total Creatine Kinase 66 (30-135) U/L CK-MB (CK-2) TNP CK-MB (CK-2) Rel Index TNP Troponin I < 0.012 (0.01-0.034) ng/mL Total Protein (6.3-8.2) g/dL Albumin (3.5-5.0) g/dL Globulin (1.7-4.1) g/dL Albumin/Globulin Ratio (1.0-2.8) Lipase (23-300) U/L Procalcitonin (<0.5) ng/mL Urine Color Urine Appearance Urine pH (4.5-8.0) Ur Specific [place] (1.000-1.035) Urine Protein (Negative) Urine Glucose (UA) (Negative) g/dL Urine Ketones (NEGATIVE) Urine Occult Blood (Negative) Urine Nitrate (Negative) Urine Bilirubin (NEGATIVE) Urine Urobilinogen (0.2) E.U./dL Ur Leukocyte Esterase (NEGATIVE) Urine RBC (0-5/HPF) Urine WBC (0-5/HPF) Amorphous Sediment Urine Bacteria (None) Ur Culture Indicated? Chlamy pneumoniae PCR (Not Detect) Adenovirus (PCR) (Not Detect) B. pertussis DNA (PCR) (Not Detecte) B.parapertussis DNA PCR (Not Detecte) Coronavirus OC43 (PCR) (Not Detect) Coronavirus HKU1 (PCR) (Not Detect) Coronavirus 229E (PCR) (Not Detect) SARS-CoV-2 (PCR) Negative (Negative) Coronavirus NL63 (PCR) (Not Detect) Human Metapneumovir PCR (Not Detect) Influenza Type A (PCR) (Not Detect) Influenza Type B (PCR) (Not Detect) M. pneumoniae (PCR) (Not Detect) Parainfluenza 1 (PCR) (Not Detect) Parainfluenza 2 (PCR) (Not Detect) Parainfluenza 3 (PCR) (Not Detect) Parainfluenza 4 (PCR) (Not Detect) RSV (PCR) (Not Detect) Entero/Rhino (PCR) (Not Detect) 04/20/22 04/20/22 Range/Units 13:38 16:00 WBC (4.5-11.0) X10^3/uL RBC (4.0-5.2) X10^6/uL Hgb (12.0-16.0) g/dL Hct (36-46) % MCV (80-100) fL MCH (26-34) PG MCHC (30-36) % RDW (11.6-14.8) % Plt Count (150-400) X10^3/uL Neut % (Auto) Lymph % (Auto) Franklin % (Auto) Eos % (Auto) Baso % (Auto) Lymph # (Auto) Franklin # (Auto) Baso # (Auto) Total Counted Seg Neutrophils % (38-70) % Band Neutrophils % (3-7) % Lymphocytes % (Manual) (25-45) % Monocytes % (Manual) (2-11) % Eosinophils % (Manual) (2-4) % Neutrophils # (Manual) (1944-8695) /uL RBC Morphology Hypochromasia Microcytosis PT (10.1-12.7) SECONDS INR (0.9-1.3) APTT (26-36) SECONDS Sodium (137-145) mmol/L Potassium (3.4-5.1) mmol/L Chloride (98-107) mmol/L Carbon Dioxide (22-32) mmol/L BUN (7-17) mg/dL Creatinine (0.52-1.04) mg/dL Estimated GFR (>60) mL/min BUN/Creatinine Ratio (6-22) Glucose (80-110) mg/dL Lactate (0.7-2.1) mmol/L Calcium (8.4-10.2) mg/dL Total Bilirubin (0.2-1.3) mg/dL AST (14-36) IU/L ALT (<35) IU/L Alkaline Phosphatase (38-126) U/L Total Creatine Kinase (30-135) U/L CK-MB (CK-2) CK-MB (CK-2) Rel Index Troponin I (0.01-0.034) ng/mL Total Protein (6.3-8.2) g/dL Albumin (3.5-5.0) g/dL Globulin (1.7-4.1) g/dL Albumin/Globulin Ratio (1.0-2.8) Lipase (23-300) U/L Procalcitonin (<0.5) ng/mL Urine Color Yellow Urine Appearance Cloudy Urine pH 6.0 (4.5-8.0) Ur Specific [place] <=1.005 (1.000-1.035) Urine Protein Negative (Negative) Urine Glucose (UA) Negative (Negative) g/dL Urine Ketones Negative (NEGATIVE) Urine Occult Blood 3+ H (Negative) Urine Nitrate Positive H (Negative) Urine Bilirubin Negative (NEGATIVE) Urine Urobilinogen 0.2 (0.2) E.U./dL Ur Leukocyte Esterase 3+ H (NEGATIVE) Urine RBC 5-10/hpf H (0-5/HPF) Urine WBC 5-10/hpf H (0-5/HPF) Amorphous Sediment 1+ Urine Bacteria Moderate (10-30) H (None) Ur Culture Indicated? Specimen cultured Chlamy pneumoniae PCR Not detected (Not Detect) Adenovirus (PCR) Not detected (Not Detect) B. pertussis DNA (PCR) Not detected (Not Detecte) B.parapertussis DNA PCR Not detected (Not Detecte) Coronavirus OC43 (PCR) Not detected (Not Detect) Coronavirus HKU1 (PCR) Not detected (Not Detect) Coronavirus 229E (PCR) Not detected (Not Detect) SARS-CoV-2 (PCR) Not detected (Negative) Coronavirus NL63 (PCR) Not detected (Not Detect) Human Metapneumovir PCR Not detected (Not Detect) Influenza Type A (PCR) Not detected (Not Detect) Influenza Type B (PCR) Not detected (Not Detect) M. pneumoniae (PCR) Not detected (Not Detect) Parainfluenza 1 (PCR) Not detected (Not Detect) Parainfluenza 2 (PCR) Not detected (Not Detect) Parainfluenza 3 (PCR) Not detected (Not Detect) Parainfluenza 4 (PCR) Not detected (Not Detect) RSV (PCR) Not detected (Not Detect) Entero/Rhino (PCR) Not detected (Not Detect) Imaging Data Chest x-ray: Radiologist Impression: [address] [id number] XRay Report Signed Patient: Marlin Aleman MR#: [id number] : 1950 Acct:[id number] Age/Sex: 71 / F Date of Service: 04/20/22 Loc: Accession Number: [id number] ?? Procedure: XR chest 1V Ordering Provider: Paul Biggs MD PROCEDURE:? XR CHEST 1V ? INDICATIONS:? suspected sepsis ? TECHNIQUE:? One view of the chest was acquired.? ? COMPARISON:? [facility], , XR CHEST 1V, 10/24/2021, 12:14. ? FINDINGS:? ? Surgical changes and devices:? None.? ? Lungs and pleura:? Lungs are clear.? No pleural effusions or pneumothorax.? ? Mediastinum:? Mediastinal contours appear normal.? Heart size is normal.? ? Bones and chest wall:? No suspicious bony lesions.? Overlying soft tissues appear unremarkable.? ? IMPRESSION:? No acute process. ? ? Dictated by: Emily Massey M.D. on 04/20/2022 at 11:45 ? ? Approved by: Emily Massey M.D. on 04/20/2022 at 11:45 ? CT scan - abdomen/pelvis: Radiologist Impression: [address] [address] [address] Scan Report Signed Patient: Marlin Aleman MR#: [id number] : 1950 Acct:[id number] Age/Sex: 71 / F Date of Service: 04/20/22 Loc: ED Accession Number: [id number] ?? Procedure: CT abdomen pelvis w con Ordering Provider: Paul Biggs MD PROCEDURE:? CT ABDOMEN PELVIS W CON ? INDICATIONS:? IV contrast only/diarrhea ? TECHNIQUE:? After the administration of intravenous contrast, axial sections acquired from the lung bases to the pubic symphysis.? Coronal and sagittal reformats were performed.? For radiation dose reduction, the following was used:? automated exposure control, adjustment of mA and/or kV according to patient size.? ? COMPARISON:? [facility], CT, CT ABDOMEN PELVIS W CON, 08/14/2021, 22:21. ? FINDINGS:? Image quality:? Excellent.? ? Lung bases:? Unremarkable. Heart:? No significant findings. ? ABDOMEN: Liver:? Unremarkable.? ? Gallbladder:? Is within normal limits? ? Biliary ducts:? Unremarkable.? ? Pancreas:? Unremarkable.? ? Spleen:? Unremarkable.? ? Adrenal Glands:? Unremarkable.? ? Kidneys and Ureters:? Moderate multifocal left renal scarring is present, as before.? No hydronephrosis.? Right kidney is grossly unremarkable. ? Stomach and Bowel:? Gastric lap band is present.? There is a soft tissue nodular density within the gastric antrum measuring roughly 14 mm.? Stomach, small bowel loops, and colon are normal in caliber.? There are multiple fluid-filled distal small bowel loops within the pelvis.? The appendix is mildly distended measuring 6 mm and demonstrates mild surrounding fat stranding. Peritoneum:? No abnormal intraperitoneal fluid.? No free air.? ? Ventral Wall: ? No hernias.? Abdominal Nodes:? No retroperitoneal or mesenteric adenopathy by size criteria.? Vessels:? Aorta and inferior vena cava are normal in size.? ? PELVIS: Pelvic Organs:? There is a right adnexal mass, as before, containing soft tissue density, fat density and calcifications, measuring roughly 66 mm, which is increased in size. Bladder:? Unremarkable.? ? Pelvic Nodes: No enlarged lymph nodes.? Miscellaneous: No hernias are seen. ? ? ? Bones:? Unremarkable.? IMPRESSION:? 1. Mildly prominent appendix with surrounding fat stranding.? Findings may indicated normal variation, but could indicate mild/early appendicitis.? Close clinical follow-up is recommended with repeat imaging, if clinically warranted. 2. Findings suggestive of gastroenteritis. 3. Possible gastric antral mass.? Further assessment with endoscopy is recommended. 4. Increased right adnexal teratoma. 5. Left renal scarring.? Dictated by: Emily Massey M.D. on 04/20/2022 at 16:21 ? ? Approved by: Emily Massey M.D. on 04/20/2022 at 16:24 ? ECG Data Interpretation: Normal sinus rhythm rate 62, normal EKG, no ST elevation or depression MDM Narrative Medical decision making narrative: Appropriate for admission for observation for gastroenteritis as well as poss ible early appendicitis but review with General surgery likely not appendicitis. However would recommend medical management possible early appendicitis develops. She will follow as consult. Spoke with family agree for admit. Spoke with hospitalist and agree for admit. Discharge Plan Departure Patient Disposition: Admitted as Observation Clinical Impression: Abdominal pain, Gastroenteritis, Acute UTI Admit Date/Time: 04/20/22 17:01 Admit Provider: Maureen Johnson
[2022-04-20 13:30] LABS: Creatine Kinase 66 U/L (30-135)
[2022-04-20 13:43] LABS: Troponin I < 0.012 ng/mL (0.01-0.034)
[2022-04-20 15:09] LABS: Adenovirus Not Detected (Not Detect); B. parapertussis Not Detected (Not Detecte); Bordetella pertussis Not Detected (Not Detecte); Chlamydophila pneumoniae Not Detected (Not Detect); Coronavirus 229E Not Detected (Not Detect); Coronavirus HKU1 Not Detected (Not Detect); Coronavirus NL 63 Not Detected (Not Detect); Coronavirus OC43 Not Detected (Not Detect); Human Metapneumovirus Not Detected (Not Detect); Human Rhinovirus/Enterovirus Not Detected (Not Detect); Influenza A Not Detected (Not Detect); Influenza B Not Detected (Not Detect); Mycoplasma pneumoniae Not Detected (Not Detect); Parainfluenza Virus 1 Not Detected (Not Detect); Parainfluenza Virus 2 Not Detected (Not Detect); Parainfluenza Virus 3 Not Detected (Not Detect); Parainfluenza Virus 4 Not Detected (Not Detect); Respiratory Syncytial Virus Not Detected (Not Detect); SARS- CoV-2 Not Detected (Not Detecte)
--- NOTE | 2022-04-20 15:14 | DI.CT.S_ITS ---
PROCEDURE: CT ABDOMEN PELVIS W CON INDICATIONS: IV contrast only/diarrhea TECHNIQUE: After the administration of intravenous contrast, axial sections acquired from the lung bases to the pubic symphysis. Coronal and sagittal reformats were performed. For radiation dose reduction, the following was used: automated exposure control, adjustment of mA and/or kV according to patient size. COMPARISON: [facility], CT, CT ABDOMEN PELVIS W CON, 08/14/2021, 22:21. FINDINGS: Image quality: Excellent. Lung bases: Unremarkable. Heart: No significant findings. ABDOMEN: Liver: Unremarkable. Gallbladder: Is within normal limits Biliary ducts: Unremarkable. Pancreas: Unremarkable. Spleen: Unremarkable. Adrenal Glands: Unremarkable. Kidneys and Ureters: Moderate multifocal left renal scarring is present, as before. No hydronephrosis. Right kidney is grossly unremarkable. Stomach and Bowel: Gastric lap band is present. There is a soft tissue nodular density within the gastric antrum measuring roughly 14 mm. Stomach, small bowel loops, and colon are normal in caliber. There are multiple fluid-filled distal small bowel loops within the pelvis. The appendix is mildly distended measuring 6 mm and demonstrates mild surrounding fat stranding. Peritoneum: No abnormal intraperitoneal fluid. No free air. Ventral Wall: No hernias. Abdominal Nodes: No retroperitoneal or mesenteric adenopathy by size criteria. Vessels: Aorta and inferior vena cava are normal in size. PELVIS: Pelvic Organs: There is a right adnexal mass, as before, containing soft tissue density, fat density and calcifications, measuring roughly 66 mm, which is increased in size. Bladder: Unremarkable. Pelvic Nodes: No enlarged lymph nodes. Miscellaneous: No hernias are seen. Bones: Unremarkable. IMPRESSION: 1. Mildly prominent appendix with surrounding fat stranding. Findings may indicated normal variation, but could indicate mild/early appendicitis. Close clinical follow-up is recommended with repeat imaging, if clinically warranted. 2. Findings suggestive of gastroenteritis. 3. Possible gastric antral mass. Further assessment with endoscopy is recommended. 4. Increased right adnexal teratoma. 5. Left renal scarring. Dictated by: Emily Massey M.D. on 04/20/2022 at 16:21 Approved by: Emily Massey M.D. on 04/20/2022 at 16:24
[2022-04-20 16:29] LABS: Appearance Urine UA CLOUDY; Bilirubin Urine UA NEGATIVE (NEGATIVE); Color Urine UA YELLOW; Glucose Urine UA NEGATIVE (Negative); Ketones Urine UA NEGATIVE (NEGATIVE); Leukocyte Esterase Urine UA 3+ (NEGATIVE); Nitrite Urine UA POSITIVE (Negative); Occult Blood Urine UA 3+ (Negative); Protein Urine UA NEGATIVE (Negative); Specific Gravity Urine UA <=1.005 (1.000-1.035); Urobilinogen Urine UA 0.2 E.U./dL (0.2)
[2022-04-20 16:36] LABS: Amorphous Sediment Urine 1+; Bacteria Urine Moderate (10-30); Culture Indicated Urine Specimen Cultured; RBC Urine 5-10/HPF (0-5/HPF); WBC Urine 5-10/HPF (0-5/HPF)
--- NOTE | 2022-04-20 18:02 | PM.HP.1 ---
History of Present Illness History of Present Illness Date Patient Seen: 04/20/22 Time Patient Seen: 18:40 Chief complaint: Fever, Diarrhea, dizziness/fall x 3 days Narrative: Marlin naylor is a 71-year-old female with past medical history of traumatic brain injury with severe cognitive decline and short term memory loss, kidney stones, C diff, gastric bypass surgery who presents with acute diarrhea for 3 days. Patient lives with her son and [id number] who are full-time caregivers. She is unable to provide history secondary to her cognitive deficits. The daughter in-law states she developed 3-4 episodes per day of diarrhea with consistency of pea soup. Due to this they brought her in with concern for possible UTI. Unclear if patient was having abdominal pain and she can not tell me. No nausea or vomiting. In the ED found to have white count of 11.6. CT abdomen and pelvis showed likely gastroenteritis with possible developing appendicitis. Also noted possible gastric antral mass measuring 1.4 cm. Patient History Medical History Adnexal cyst (06/2020) Allergies (~1974) Hale's cyst of knee Blood glucose elevated C. difficile colitis Chicken pox (~1949) Chronic back pain (~2014) Colitis, infectious Constipation Decreased GFR Dementia (~2014) Dementia without behavioral disturbance Dependent family member needing care at home Depression (~2014) Diverticulitis Esophageal thickening (04/2021) Excessive mucus secretion (~2009) Frequent headaches Headache (~2014) Hearing loss History of musculoskeletal disorder (~2014) History of sepsis History of urinary calculi Mixed hyperlipidemia Mumps (~1949) Pain Retroperitoneal mass Right knee pain TBI (traumatic brain injury) Tinnitus (~2014) Vitamin B deficiency Surgical History Anesthesia History of hand surgery (~1998) History of removal of skin mole (~2016) Hx of laparoscopic gastric banding (~2002) Retained ureteral stent Family & Social History Family History Family/Other Kidney stones Urinary tract infection Social History: household members significant other,none Safety & Behavioral: Feels Safe in Current Yes Environment Been Physically Hurt or No Threatened By a Person Tobacco & Substance use: Smoking Status Never smoker alcohol intake never alcohol intake frequency holiday/special occasion Substance Use Type does not use Meds Home Medications and Allergies Home Medications Medication Instructions Recorded Confirmed Type L.acidophilus-L.bulgar-B.bifid-S.thermoph 1 ea PO TIDWM #90 tabs 08/16/21 03/07/22 Rx 1 billion cell-250 mg tablet (Bacid) ascorbic acid (vitamin C) 500 mg 500 mg PO DAILY #60 tabs 08/16/21 03/07/22 Rx tablet (Vitamin C) cholecalciferol (vitamin D3) 125 125 mcg PO DAILY #60 tabs 08/16/21 03/07/22 Rx mcg (5,000 unit) tablet (Vitamin D3) melatonin 10 mg tablet 10 mg PO BEDTIME PRN sleep #60 tabs 08/16/21 03/07/22 Rx multivit no.42-iron 38 1 cap PO DAILY #60 caps 08/16/21 03/07/22 Rx mg-methyltetrahydfolate 1 mg-dha 225 mg capsule quetiapine 25 mg tablet (Seroquel) 12.5 mg PO BEDTIME #30 tabs 08/16/21 03/07/22 Rx vitamin B complex (B 1 tab PO DAILY #60 tabs 08/16/21 03/07/22 Rx Complex-Vitamin B12 tablet) cyanocobalamin (vitamin B-12) 1,000 mcg IM QMONTH #1 mL 10/18/21 03/07/22 Rx 1,000 mcg/mL injection solution guaifenesin 200 mg/5 mL oral liquid 200 mg (5 mL) PO Q6H PRN 10/27/21 03/07/22 Rx congestion #118 mL diclofenac sodium 1 % topical gel 2 g topical QID #100 grams 11/15/21 03/07/22 Rx Allergies Allergy/AdvReac Type Severity Reaction Status Date / Time sulfite Allergy Severe anaphylactic Verified 04/20/22 11:16 shock adhesive AdvReac Mild takes my Verified 04/20/22 11:16 skin off msg Allergy Severe Anaphylaxis Uncoded 03/07/22 15:43 nitrite AdvReac Diarrhea Uncoded 03/07/22 15:43 Review of Systems Review of Systems Narrative: All other systems reviewed with the patient and are negative unless otherwise stated. Exam Vital Signs (past 8 hours): - 04/20/22 11:10 04/20/22 11:12 04/20/22 11:13 Temperature 98.3 F Pulse Rate 69 69 Respiratory Rate 14 Blood Pressure 102/51 L Pulse Oximetry 98 92 98 Oxygen Delivery Method Room Air 04/20/22 11:13 04/20/22 11:30 04/20/22 11:31 Temperature Pulse Rate 70 Respiratory Rate Blood Pressure 102/51 L 97/54 L Pulse Oximetry 98 Oxygen Delivery Method 04/20/22 11:31 04/20/22 11:57 04/20/22 11:57 Temperature Pulse Rate 67 65 Respiratory Rate 20 Blood Pressure 96/54 L Pulse Oximetry 98 99 Oxygen Delivery Method 04/20/22 12:00 04/20/22 12:00 04/20/22 12:30 Temperature Pulse Rate 61 Respiratory Rate 16 Blood Pressure 93/51 L 101/57 L Pulse Oximetry 97 Oxygen Delivery Method 04/20/22 12:30 04/20/22 13:00 04/20/22 13:00 Temperature Pulse Rate 60 60 Respiratory Rate 17 21 Blood Pressure 101/55 L Pulse Oximetry 99 100 Oxygen Delivery Method 04/20/22 13:30 04/20/22 13:30 04/20/22 14:00 Temperature Pulse Rate 66 60 Respiratory Rate 22 24 Blood Pressure 90/52 L Pulse Oximetry 100 99 Oxygen Delivery Method 04/20/22 14:30 04/20/22 14:30 04/20/22 15:00 Temperature Pulse Rate 59 L 59 L Respiratory Rate 16 18 Blood Pressure 100/53 L Pulse Oximetry 100 100 Oxygen Delivery Method 04/20/22 15:01 04/20/22 15:01 04/20/22 15:30 Temperature Pulse Rate 59 L 59 L Respiratory Rate 16 17 Blood Pressure 108/55 L Pulse Oximetry 100 99 Oxygen Delivery Method 04/20/22 15:31 04/20/22 15:31 Temperature Pulse Rate 59 L Respiratory Rate 16 Blood Pressure 111/55 L Pulse Oximetry 99 Oxygen Delivery Method Oxygen Delivery Method Room Air Narrative Exam Narrative: GEN: no acute distress, patient is alert but oriented to self only HEENT: moist mucous membranes, PERRL NECK: trachea midline, no JVD CV: regular rate and rhythm, no murmurs PULM: clear bilaterally ABD: soft, nontender, nondistended, no organomegaly EXT: warm and well perfused with no edema NEURO: awake, alert, Objective Labs Result Diagrams: 04/20/22 11:17 04/20/22 11:17 Labs: Laboratory Results - last 24 hr 04/20/22 04/20/22 04/20/22 11:17 11:17 11:17 WBC 11.6 H RBC 4.46 Hgb 11.4 L Hct 35.3 L MCV 79.1 L MCH 25.5 L MCHC 32.3 RDW 15.5 H Plt Count 247 Neut % (Auto) Not Reportable Lymph % (Auto) Not Reportable [place] % (Auto) Not Reportable Eos % (Auto) Not Reportable Baso % (Auto) Not Reportable Lymph # (Auto) Not Reportable [place] # (Auto) Not Reportable Baso # (Auto) Not Reportable Total Counted 100 Seg Neutrophils % 76.0 H Band Neutrophils % 4.0 Lymphocytes % (Manual) 12.0 L Monocytes % (Manual) 7.0 Eosinophils % (Manual) 1.0 L Neutrophils # (Manual) 9280 H RBC Morphology See below Hypochromasia 1+ H Microcytosis 1+ H PT 13.8 H INR 1.2 APTT 27 Sodium 137 Potassium 3.5 Chloride 103 Carbon Dioxide 25 BUN 11 Creatinine 0.88 Estimated GFR > 60 BUN/Creatinine Ratio 12.5 Glucose 92 Lactate Calcium 8.7 Total Bilirubin 0.9 AST 20 ALT 10 Alkaline Phosphatase 68 Total Creatine Kinase CK-MB (CK-2) CK-MB (CK-2) Rel Index Troponin I Total Protein 7.8 Albumin 3.9 Globulin 3.9 Albumin/Globulin Ratio 1.0 Lipase 32 Procalcitonin 0.12 Urine Color Urine Appearance Urine pH Ur Specific [place] Urine Protein Urine Glucose (UA) Urine Ketones Urine Occult Blood Urine Nitrate Urine Bilirubin Urine Urobilinogen Ur Leukocyte Esterase Urine RBC Urine WBC Amorphous Sediment Urine Bacteria Ur Culture Indicated? Chlamy pneumoniae PCR Adenovirus (PCR) B. pertussis DNA (PCR) B.parapertussis DNA PCR Coronavirus OC43 (PCR) Coronavirus HKU1 (PCR) Coronavirus 229E (PCR) SARS-CoV-2 (PCR) Coronavirus NL63 (PCR) Human Metapneumovir PCR Influenza Type A (PCR) Influenza Type B (PCR) M. pneumoniae (PCR) Parainfluenza 1 (PCR) Parainfluenza 2 (PCR) Parainfluenza 3 (PCR) Parainfluenza 4 (PCR) RSV (PCR) Entero/Rhino (PCR) 04/20/22 04/20/22 04/20/22 11:17 11:18 11:20 WBC RBC Hgb Hct MCV MCH MCHC RDW Plt Count Neut % (Auto) Lymph % (Auto) [place] % (Auto) Eos % (Auto) Baso % (Auto) Lymph # (Auto) [place] # (Auto) Baso # (Auto) Total Counted Seg Neutrophils % Band Neutrophils % Lymphocytes % (Manual) Monocytes % (Manual) Eosinophils % (Manual) Neutrophils # (Manual) RBC Morphology Hypochromasia Microcytosis PT INR APTT Sodium Potassium Chloride Carbon Dioxide BUN Creatinine Estimated GFR BUN/Creatinine Ratio Glucose Lactate 0.7 Calcium Total Bilirubin AST ALT Alkaline Phosphatase Total Creatine Kinase 66 CK-MB (CK-2) TNP CK-MB (CK-2) Rel Index TNP Troponin I < 0.012 Total Protein Albumin Globulin Albumin/Globulin Ratio Lipase Procalcitonin Urine Color Urine Appearance Urine pH Ur Specific [place] Urine Protein Urine Glucose (UA) Urine Ketones Urine Occult Blood Urine Nitrate Urine Bilirubin Urine Urobilinogen Ur Leukocyte Esterase Urine RBC Urine WBC Amorphous Sediment Urine Bacteria Ur Culture Indicated? Chlamy pneumoniae PCR Adenovirus (PCR) B. pertussis DNA (PCR) B.parapertussis DNA PCR Coronavirus OC43 (PCR) Coronavirus HKU1 (PCR) Coronavirus 229E (PCR) SARS-CoV-2 (PCR) Negative Coronavirus NL63 (PCR) Human Metapneumovir PCR Influenza Type A (PCR) Influenza Type B (PCR) M. pneumoniae (PCR) Parainfluenza 1 (PCR) Parainfluenza 2 (PCR) Parainfluenza 3 (PCR) Parainfluenza 4 (PCR) RSV (PCR) Entero/Rhino (PCR) 04/20/22 04/20/22 13:38 16:00 WBC RBC Hgb Hct MCV MCH MCHC RDW Plt Count Neut % (Auto) Lymph % (Auto) [place] % (Auto) Eos % (Auto) Baso % (Auto) Lymph # (Auto) [place] # (Auto) Baso # (Auto) Total Counted Seg Neutrophils % Band Neutrophils % Lymphocytes % (Manual) Monocytes % (Manual) Eosinophils % (Manual) Neutrophils # (Manual) RBC Morphology Hypochromasia Microcytosis PT INR APTT Sodium Potassium Chloride Carbon Dioxide BUN Creatinine Estimated GFR BUN/Creatinine Ratio Glucose Lactate Calcium Total Bilirubin AST ALT Alkaline Phosphatase Total Creatine Kinase CK-MB (CK-2) CK-MB (CK-2) Rel Index Troponin I Total Protein Albumin Globulin Albumin/Globulin Ratio Lipase Procalcitonin Urine Color Yellow Urine Appearance Cloudy Urine pH 6.0 Ur Specific [place] <=1.005 Urine Protein Negative Urine Glucose (UA) Negative Urine Ketones Negative Urine Occult Blood 3+ H Urine Nitrate Positive H Urine Bilirubin Negative Urine Urobilinogen 0.2 Ur Leukocyte Esterase 3+ H Urine RBC 5-10/hpf H Urine WBC 5-10/hpf H Amorphous Sediment 1+ Urine Bacteria Moderate (10-30) H Ur Culture Indicated? Specimen cultured Chlamy pneumoniae PCR Not detected Adenovirus (PCR) Not detected B. pertussis DNA (PCR) Not detected B.parapertussis DNA PCR Not detected Coronavirus OC43 (PCR) Not detected Coronavirus HKU1 (PCR) Not detected Coronavirus 229E (PCR) Not detected SARS-CoV-2 (PCR) Not detected Coronavirus NL63 (PCR) Not detected Human Metapneumovir PCR Not detected Influenza Type A (PCR) Not detected Influenza Type B (PCR) Not detected M. pneumoniae (PCR) Not detected Parainfluenza 1 (PCR) Not detected Parainfluenza 2 (PCR) Not detected Parainfluenza 3 (PCR) Not detected Parainfluenza 4 (PCR) Not detected RSV (PCR) Not detected Entero/Rhino (PCR) Not detected Assessment & Plan Assessment & Plan narrative: # Acute gastroenteritis -3 days of diarrhea, CT abd with evidence of gastroenteritis -check GI panel -IVF -supportive care # Acute UTI -UA with pyuria -treat with rocephin for 3 days -f/u urine culture # possible appendicitis -CT abd pelvis with possible fat stranding of appendix suggesting appendicitis, however no abd pain per my exam in RLQ -continue rocephin and flagyl for now -General surgery consulted, recommended IV abx only at this time # TBI -monitor for -melatonin and seroquel 12.5mg nightly Code status is DNR/DNI. COVID negative. DVT prophylaxis with heparin subQ. Proxy is son Paul who is DPOA. I have reviewed home meds and used all available resources to reconcile the home meds. Time Spent With Patient Critical Care time: I spent a total of [] minutes of critical care time on this patient's care today; this time is exclusive of procedural time.
[2022-04-20] MEDS: SODIUM CHLORIDE 0.9% 1,000 ML 100 ML IV (18:46)
[2022-04-20] MEDS: cefTRIAXone 1,000 MG in SODIUM CHLORIDE 0.9% 100 ML 200 MG IV (18:49)
[2022-04-20] MEDS: HEPARIN 5,000 UNIT/ML VIAL 5000 UNIT SUBCUT (20:24)
[2022-04-20] MEDS: ACETAMINOPHEN 325 MG TABLET 650 MG PO (20:24)
[2022-04-20] MEDS: metroNIDAZOLE 500 MG/100 ML PIGGYBACK 100 MG IV (20:25)
[2022-04-20] MEDS: QUETIAPINE 25 MG TABLET 12.5 MG PO (20:25)
[2022-04-20] MEDS: MELATONIN 3 MG TABLET 9 MG PO (20:28)
[2022-04-21] VITALS: BP 124/58; PULSE 75; RESP 17; TEMP 36.6; O2SAT 97
--- NOTE | 2022-04-21 06:10 | PC.NURSE ---
Physical Security Engineer Note-Patient has been confused and impulsive. Frequently up to BSC with 1 person assist, bed alarm activated. Voiding cloudy khoi urine, has strong odor, no stools. Patient able to take HS meds with sips water but had some nausea and belching after. She pulled out 2 IV sites within 6 hour span, now has 1:1 sitter, unable to place another site, aware, okay to leave IV out for now Flagyl changed to PO.
[2022-04-21 07:55] VITALS: BP 105/55; PULSE 66; RESP 18; TEMP 36.9; O2SAT 96
[2022-04-21 07:55] LABS: Add Manual Diff / Slide Review NO; Basophils Absolute Auto 0 /uL (0-100); Basophils Percent Auto 0.3 % (0-2); Eosinophils Absolute Auto 100 /uL (0-450); Eosinophils Percent Auto 2.2 % (2-4); Hematocrit 30.8 % (36-46); Lymphocytes Absolute Auto 900 /uL (1100-4500); Lymphocytes Percent Auto 14.8 % (25-40); Mean Corpuscular HGB Conc 32.6 % (30-36); Mean Corpuscular Hemoglobin 25.7 PG (26-34); Mean Corpuscular Volume 78.9 fL (80-100); Monocytes Absolute Auto 700 /uL (0-900); Monocytes Percent Auto 11.2 % (3-14); Neutrophils Absolute Auto 4600 /uL (1500-7000); Neutrophils Percent Auto 71.5 % (50-75); Platelet Count 212 X10^3/uL (150-400); Red Cell Distribution Width 15.6 % (11.6-14.8); White Blood Cell Count 6.4 X10^3/uL (4.5-11.0)
[2022-04-21 08:14] LABS: Blood Urea Nitrogen 8 mg/dL (7-17); Calcium 8.1 mg/dL (8.4-10.2); Carbon Dioxide 21 mmol/L (22-32); Chloride 110 mmol/L (98-107); Estimated Glomerular Filt Rate > 60 mL/min (>60); Glucose 77 mg/dL (80-110); HEMOLYSIS < 15 (0-50); Potassium 3.2 mmol/L (3.4-5.1); Sodium 139 mmol/L (137-145)
[2022-04-21] MEDS: metroNIDAZOLE 500 MG TABLET PO (08:55)
[2022-04-21] MEDS: HEPARIN 5,000 UNIT/ML VIAL 5000 UNIT SUBCUT (08:55)
--- NOTE | 2022-04-21 09:26 | P.PN_ITS ---
Subjective Subjective Date Patient Seen: 04/21/22 Time Patient Seen: 13:00 Interval history: Patient has no complaints. She is sitting up in chair. Diarrhea improving. Exam Vital Signs (past 8 hours): - 04/21/22 07:00 04/21/22 07:55 Temperature 98.5 F Pulse Rate 66 Respiratory Rate 18 Blood Pressure 105/55 L Pulse Oximetry 96 Oxygen Delivery Method Room Air Oxygen Flow Rate 0 Oxygen Delivery Method Room Air Oxygen Flow Rate 0 Narrative Exam Narrative: GEN: no acute distress, patient is alert but oriented to self only HEENT: moist mucous membranes, PERRL NECK: trachea midline, no JVD CV: regular rate and rhythm, no murmurs PULM: clear bilaterally ABD: soft, nontender, nondistended, no organomegaly EXT: warm and well perfused with no edema NEURO: awake, alert. Intermittently agitated. Objective Labs Result Diagrams: 04/21/22 07:35 04/21/22 07:35 Labs: Laboratory Results - last 24 hr 04/20/22 04/20/22 04/20/22 11:17 11:17 11:17 WBC 11.6 H RBC 4.46 Hgb 11.4 L Hct 35.3 L MCV 79.1 L MCH 25.5 L MCHC 32.3 RDW 15.5 H Plt Count 247 Neut % (Auto) Not Reportable Lymph % (Auto) Not Reportable [place] % (Auto) Not Reportable Eos % (Auto) Not Reportable Baso % (Auto) Not Reportable Neut # (Auto) Lymph # (Auto) Not Reportable [place] # (Auto) Not Reportable Eos # (Auto) Baso # (Auto) Not Reportable Total Counted 100 Seg Neutrophils % 76.0 H Band Neutrophils % 4.0 Lymphocytes % (Manual) 12.0 L Monocytes % (Manual) 7.0 Eosinophils % (Manual) 1.0 L Neutrophils # (Manual) 9280 H RBC Morphology See below Hypochromasia 1+ H Microcytosis 1+ H PT 13.8 H INR 1.2 APTT 27 Sodium 137 Potassium 3.5 Chloride 103 Carbon Dioxide 25 BUN 11 Creatinine 0.88 Estimated GFR > 60 BUN/Creatinine Ratio 12.5 Glucose 92 Lactate Calcium 8.7 Total Bilirubin 0.9 AST 20 ALT 10 Alkaline Phosphatase 68 Total Creatine Kinase CK-MB (CK-2) CK-MB (CK-2) Rel Index Troponin I Total Protein 7.8 Albumin 3.9 Globulin 3.9 Albumin/Globulin Ratio 1.0 Lipase 32 Procalcitonin 0.12 Urine Color Urine Appearance Urine pH Ur Specific [place] Urine Protein Urine Glucose (UA) Urine Ketones Urine Occult Blood Urine Nitrate Urine Bilirubin Urine Urobilinogen Ur Leukocyte Esterase Urine RBC Urine WBC Amorphous Sediment Urine Bacteria Ur Culture Indicated? Nasal Screen MRSA (PCR) Chlamy pneumoniae PCR Adenovirus (PCR) B. pertussis DNA (PCR) B.parapertussis DNA PCR Coronavirus OC43 (PCR) Coronavirus HKU1 (PCR) Coronavirus 229E (PCR) SARS-CoV-2 (PCR) Coronavirus NL63 (PCR) Human Metapneumovir PCR Influenza Type A (PCR) Influenza Type B (PCR) M. pneumoniae (PCR) Parainfluenza 1 (PCR) Parainfluenza 2 (PCR) Parainfluenza 3 (PCR) Parainfluenza 4 (PCR) RSV (PCR) Entero/Rhino (PCR) 04/20/22 04/20/22 04/20/22 11:17 11:18 11:20 WBC RBC Hgb Hct MCV MCH MCHC RDW Plt Count Neut % (Auto) Lymph % (Auto) [place] % (Auto) Eos % (Auto) Baso % (Auto) Neut # (Auto) Lymph # (Auto) [place] # (Auto) Eos # (Auto) Baso # (Auto) Total Counted Seg Neutrophils % Band Neutrophils % Lymphocytes % (Manual) Monocytes % (Manual) Eosinophils % (Manual) Neutrophils # (Manual) RBC Morphology Hypochromasia Microcytosis PT INR APTT Sodium Potassium Chloride Carbon Dioxide BUN Creatinine Estimated GFR BUN/Creatinine Ratio Glucose Lactate 0.7 Calcium Total Bilirubin AST ALT Alkaline Phosphatase Total Creatine Kinase 66 CK-MB (CK-2) TNP CK-MB (CK-2) Rel Index TNP Troponin I < 0.012 Total Protein Albumin Globulin Albumin/Globulin Ratio Lipase Procalcitonin Urine Color Urine Appearance Urine pH Ur Specific [place] Urine Protein Urine Glucose (UA) Urine Ketones Urine Occult Blood Urine Nitrate Urine Bilirubin Urine Urobilinogen Ur Leukocyte Esterase Urine RBC Urine WBC Amorphous Sediment Urine Bacteria Ur Culture Indicated? Nasal Screen MRSA (PCR) Chlamy pneumoniae PCR Adenovirus (PCR) B. pertussis DNA (PCR) B.parapertussis DNA PCR Coronavirus OC43 (PCR) Coronavirus HKU1 (PCR) Coronavirus 229E (PCR) SARS-CoV-2 (PCR) Negative Coronavirus NL63 (PCR) Human Metapneumovir PCR Influenza Type A (PCR) Influenza Type B (PCR) M. pneumoniae (PCR) Parainfluenza 1 (PCR) Parainfluenza 2 (PCR) Parainfluenza 3 (PCR) Parainfluenza 4 (PCR) RSV (PCR) Entero/Rhino (PCR) 04/20/22 04/20/22 04/20/22 13:38 16:00 19:20 WBC RBC Hgb Hct MCV MCH MCHC RDW Plt Count Neut % (Auto) Lymph % (Auto) [place] % (Auto) Eos % (Auto) Baso % (Auto) Neut # (Auto) Lymph # (Auto) [place] # (Auto) Eos # (Auto) Baso # (Auto) Total Counted Seg Neutrophils % Band Neutrophils % Lymphocytes % (Manual) Monocytes % (Manual) Eosinophils % (Manual) Neutrophils # (Manual) RBC Morphology Hypochromasia Microcytosis PT INR APTT Sodium Potassium Chloride Carbon Dioxide BUN Creatinine Estimated GFR BUN/Creatinine Ratio Glucose Lactate Calcium Total Bilirubin AST ALT Alkaline Phosphatase Total Creatine Kinase CK-MB (CK-2) CK-MB (CK-2) Rel Index Troponin I Total Protein Albumin Globulin Albumin/Globulin Ratio Lipase Procalcitonin Urine Color Yellow Urine Appearance Cloudy Urine pH 6.0 Ur Specific [place] <=1.005 Urine Protein Negative Urine Glucose (UA) Negative Urine Ketones Negative Urine Occult Blood 3+ H Urine Nitrate Positive H Urine Bilirubin Negative Urine Urobilinogen 0.2 Ur Leukocyte Esterase 3+ H Urine RBC 5-10/hpf H Urine WBC 5-10/hpf H Amorphous Sediment 1+ Urine Bacteria Moderate (10-30) H Ur Culture Indicated? Specimen cultured Nasal Screen MRSA (PCR) Negative for mrsa Chlamy pneumoniae PCR Not detected Adenovirus (PCR) Not detected B. pertussis DNA (PCR) Not detected B.parapertussis DNA PCR Not detected Coronavirus OC43 (PCR) Not detected Coronavirus HKU1 (PCR) Not detected Coronavirus 229E (PCR) Not detected SARS-CoV-2 (PCR) Not detected Coronavirus NL63 (PCR) Not detected Human Metapneumovir PCR Not detected Influenza Type A (PCR) Not detected Influenza Type B (PCR) Not detected M. pneumoniae (PCR) Not detected Parainfluenza 1 (PCR) Not detected Parainfluenza 2 (PCR) Not detected Parainfluenza 3 (PCR) Not detected Parainfluenza 4 (PCR) Not detected RSV (PCR) Not detected Entero/Rhino (PCR) Not detected 04/21/22 04/21/22 07:35 07:35 WBC 6.4 RBC 3.90 L Hgb 10.0 L Hct 30.8 L MCV 78.9 L MCH 25.7 L MCHC 32.6 RDW 15.6 H Plt Count 212 Neut % (Auto) 71.5 Lymph % (Auto) 14.8 L [place] % (Auto) 11.2 Eos % (Auto) 2.2 Baso % (Auto) 0.3 Neut # (Auto) 4600 Lymph # (Auto) 900 L [place] # (Auto) 700 Eos # (Auto) 100 Baso # (Auto) 0 Total Counted Seg Neutrophils % Band Neutrophils % Lymphocytes % (Manual) Monocytes % (Manual) Eosinophils % (Manual) Neutrophils # (Manual) RBC Morphology Hypochromasia Microcytosis PT INR APTT Sodium 139 Potassium 3.2 L Chloride 110 H Carbon Dioxide 21 L BUN 8 Creatinine 0.73 Estimated GFR > 60 BUN/Creatinine Ratio 11.0 Glucose 77 L Lactate Calcium 8.1 L Total Bilirubin AST ALT Alkaline Phosphatase Total Creatine Kinase CK-MB (CK-2) CK-MB (CK-2) Rel Index Troponin I Total Protein Albumin Globulin Albumin/Globulin Ratio Lipase Procalcitonin Urine Color Urine Appearance Urine pH Ur Specific [place] Urine Protein Urine Glucose (UA) Urine Ketones Urine Occult Blood Urine Nitrate Urine Bilirubin Urine Urobilinogen Ur Leukocyte Esterase Urine RBC Urine WBC Amorphous Sediment Urine Bacteria Ur Culture Indicated? Nasal Screen MRSA (PCR) Chlamy pneumoniae PCR Adenovirus (PCR) B. pertussis DNA (PCR) B.parapertussis DNA PCR Coronavirus OC43 (PCR) Coronavirus HKU1 (PCR) Coronavirus 229E (PCR) SARS-CoV-2 (PCR) Coronavirus NL63 (PCR) Human Metapneumovir PCR Influenza Type A (PCR) Influenza Type B (PCR) M. pneumoniae (PCR) Parainfluenza 1 (PCR) Parainfluenza 2 (PCR) Parainfluenza 3 (PCR) Parainfluenza 4 (PCR) RSV (PCR) Entero/Rhino (PCR) [facility] Medical History Adnexal cyst (06/2020) Allergies (~1974) Hale's cyst of knee Blood glucose elevated C. difficile colitis Chicken pox (~1949) Chronic back pain (~2014) Colitis, infectious Constipation Decreased GFR Dementia (~2014) Dementia without behavioral disturbance Dependent family member needing care at home Depression (~2014) Diverticulitis Esophageal thickening (04/2021) Excessive mucus secretion (~2009) Frequent headaches Headache (~2014) Hearing loss History of musculoskeletal disorder (~2014) History of sepsis History of urinary calculi Mixed hyperlipidemia Mumps (~1949) Pain Retroperitoneal mass Right knee pain TBI (traumatic brain injury) Tinnitus (~2014) Vitamin B deficiency Surgical History Anesthesia History of hand surgery (~1998) History of removal of skin mole (~2016) Hx of laparoscopic gastric banding (~2002) Retained ureteral stent Family History Family/Other Kidney stones Urinary tract infection Social History household members: family Previous occupational history: retired Smoking Status: Never smoker alcohol intake: current substance use type: does not use Assessment & Plan Assessment & Plan narrative: # Acute gastroenteritis -3 days of diarrhea, CT abd with evidence of gastroenteritis -GI panel positive for campylobacter -IVF -supportive care # Acute UTI -UA with pyuria -treat with rocephin for 3 days -urine culture growing GNR's likely E. coli # possible appendicitis -CT abd pelvis with possible fat stranding of appendix suggesting appendicitis, however no abd pain per my exam in RLQ -continue rocephin and flagyl for now -General surgery consulted, recommended IV abx only at this time -low likelihood of appendicitis, dc flagyl # TBI with intermittent agitation -monitor for sundowning -melatonin and seroquel 25mg nightly -IM zyprexa given due to agitation on 04/21 Code status is DNR/DNI. COVID negative. DVT prophylaxis with heparin subQ. Proxy is son Paul who is DPOA. I have reviewed home meds and used all available resources to reconcile the home meds. Time Spent With Patient Critical Care time: I spent a total of [] minutes of critical care time on this patient's care today; this time is exclusive of procedural time. Quality VTE Deep Vein Thrombosis/Pulmonary Embolism Present on Admission: No
[2022-04-21] MEDS: cefTRIAXone 1,000 MG in SODIUM CHLORIDE 0.9% 100 ML 200 MG IV (09:59)
[2022-04-21 10:02] LABS: Magnesium 1.8 mg/dL (1.6-2.3)
[2022-04-21] MEDS: MAGNESIUM SULFATE 2 GM/50 ML PIGGYBACK IV (10:27)
[2022-04-21 11:15] VITALS: BP 107/56; PULSE 66; RESP 20; O2SAT 96
[2022-04-21] MEDS: SODIUM CHLORIDE 0.9% 1,000 ML 100 ML IV (12:28)
[2022-04-21] MEDS: metroNIDAZOLE 500 MG/100 ML PIGGYBACK 100 MG IV (12:29)
[2022-04-21] MEDS: POTASSIUM CHLORIDE IN WATER 10 MEQ/100 ML PIGGYBACK 100 MEQ IV ×2 (12:30→13:36)
--- NOTE | 2022-04-21 12:40 | PM.CN ---
History of Present Illness Consult details Date Patient Seen: 04/21/22 Time Patient Seen: 11:15 Chief complaint: Fever, Diarrhea, dizziness/fall x 3 days Reason for consult: eval for appy Requesting provider: Paul Biggs Narrative: abd pain, nausea,emesis for 3 days. weakness and falls. diarrhea, no constipation. H/o gastric band. CT scan c/w enteritis, possible addition of acute early appy, Antral gastriac mass, right adnexal mass. labs show UTI. Meds Home Medications and Allergies Home Medications Medication Instructions Recorded Confirmed Type L.acidophilus-L.bulgar-B.bifid-S.thermoph 1 ea PO TIDWM #90 tabs 08/16/21 03/07/22 Rx 1 billion cell-250 mg tablet (Bacid) ascorbic acid (vitamin C) 500 mg 500 mg PO DAILY #60 tabs 08/16/21 03/07/22 Rx tablet (Vitamin C) cholecalciferol (vitamin D3) 125 125 mcg PO DAILY #60 tabs 08/16/21 03/07/22 Rx mcg (5,000 unit) tablet (Vitamin D3) melatonin 10 mg tablet 10 mg PO BEDTIME PRN sleep #60 tabs 08/16/21 03/07/22 Rx multivit no.42-iron 38 1 cap PO DAILY #60 caps 08/16/21 03/07/22 Rx mg-methyltetrahydfolate 1 mg-dha 225 mg capsule quetiapine 25 mg tablet (Seroquel) 12.5 mg PO BEDTIME #30 tabs 08/16/21 03/07/22 Rx vitamin B complex (B 1 tab PO DAILY #60 tabs 08/16/21 03/07/22 Rx Complex-Vitamin B12 tablet) cyanocobalamin (vitamin B-12) 1,000 mcg IM QMONTH #1 mL 10/18/21 03/07/22 Rx 1,000 mcg/mL injection solution guaifenesin 200 mg/5 mL oral liquid 200 mg (5 mL) PO Q6H PRN 10/27/21 03/07/22 Rx congestion #118 mL diclofenac sodium 1 % topical gel 2 g topical QID #100 grams 11/15/21 03/07/22 Rx donepezil 10 mg tablet 10 mg PO BEDTIME 04/20/22 04/20/22 History Allergies Allergy/AdvReac Type Severity Reaction Status Date / Time sulfite Allergy Severe anaphylactic Verified 04/20/22 11:16 shock adhesive AdvReac Mild takes my Verified 04/20/22 11:16 skin off msg Allergy Severe Anaphylaxis Uncoded 03/07/22 15:43 nitrite AdvReac Diarrhea Uncoded 03/07/22 15:43 Review of Systems Review of Systems ROS: Yes All systems reviewed with the patient and are negative except as otherwise documented and unobtainable due to mental condition Exam Vital Signs (past 8 hours): - 04/21/22 07:00 04/21/22 07:55 04/21/22 11:15 Temperature 98.5 F Pulse Rate 66 66 Respiratory Rate 18 20 Blood Pressure 105/55 L 107/56 L Pulse Oximetry 96 96 Oxygen Delivery Method Room Air Oxygen Flow Rate 0 0 Oxygen Delivery Method Room Air Oxygen Flow Rate 0 Narrative Exam Narrative: Appendicitis is possible but none seen on Physcial exam. treating for UTI, would broaden antibiotif to cover both UTI and possible appy. Const General: cooperative, ill appearing and lethargic Limitations: behavioral limitations HENMT Head: normal to inspection Nose: external nose normal Face and sinus: normal facial exam, ecchymosis and tenderness Other: Pat Neck Neck: normal visual inspection and full ROM Resp Effort & Inspection: normal respiratory effort and able to speak in complete sentences Cardio Rate: regular rate Rhythm: abnormal rhythm GI Inspection: normal to inspection Palpation: soft and guarding Auscultation: bruit and hypoactive bowel sounds Rectal Exam: normal sphincter tone and heme negative stool Objective ECG Impression: not likely appendicitis but can not be sure. Medical treatment for now. Antral mass should have EGD, this hospital stay vs outpatient. Labs Result Diagrams: 04/21/22 07:35 04/21/22 07:35 Labs: Laboratory Results - last 24 hr 04/20/22 04/20/22 04/20/22 11:20 13:38 16:00 WBC RBC Hgb Hct MCV MCH MCHC RDW Plt Count Neut % (Auto) Lymph % (Auto) [place] % (Auto) Eos % (Auto) Baso % (Auto) Neut # (Auto) Lymph # (Auto) [place] # (Auto) Eos # (Auto) Baso # (Auto) Sodium Potassium Chloride Carbon Dioxide BUN Creatinine Estimated GFR BUN/Creatinine Ratio Glucose Calcium Magnesium Total Creatine Kinase 66 CK-MB (CK-2) TNP CK-MB (CK-2) Rel Index TNP Troponin I < 0.012 Urine Color Yellow Urine Appearance Cloudy Urine pH 6.0 Ur Specific [place] <=1.005 Urine Protein Negative Urine Glucose (UA) Negative Urine Ketones Negative Urine Occult Blood 3+ H Urine Nitrate Positive H Urine Bilirubin Negative Urine Urobilinogen 0.2 Ur Leukocyte Esterase 3+ H Urine RBC 5-10/hpf H Urine WBC 5-10/hpf H Amorphous Sediment 1+ Urine Bacteria Moderate (10-30) H Ur Culture Indicated? Specimen cultured Nasal Screen MRSA (PCR) Chlamy pneumoniae PCR Not detected Adenovirus (PCR) Not detected B. pertussis DNA (PCR) Not detected B.parapertussis DNA PCR Not detected Coronavirus OC43 (PCR) Not detected Coronavirus HKU1 (PCR) Not detected Coronavirus 229E (PCR) Not detected SARS-CoV-2 (PCR) Not detected Coronavirus NL63 (PCR) Not detected Human Metapneumovir PCR Not detected Influenza Type A (PCR) Not detected Influenza Type B (PCR) Not detected M. pneumoniae (PCR) Not detected Parainfluenza 1 (PCR) Not detected Parainfluenza 2 (PCR) Not detected Parainfluenza 3 (PCR) Not detected Parainfluenza 4 (PCR) Not detected RSV (PCR) Not detected Entero/Rhino (PCR) Not detected 04/20/22 04/21/22 04/21/22 19:20 07:35 07:35 WBC 6.4 RBC 3.90 L Hgb 10.0 L Hct 30.8 L MCV 78.9 L MCH 25.7 L MCHC 32.6 RDW 15.6 H Plt Count 212 Neut % (Auto) 71.5 Lymph % (Auto) 14.8 L [place] % (Auto) 11.2 Eos % (Auto) 2.2 Baso % (Auto) 0.3 Neut # (Auto) 4600 Lymph # (Auto) 900 L [place] # (Auto) 700 Eos # (Auto) 100 Baso # (Auto) 0 Sodium 139 Potassium 3.2 L Chloride 110 H Carbon Dioxide 21 L BUN 8 Creatinine 0.73 Estimated GFR > 60 BUN/Creatinine Ratio 11.0 Glucose 77 L Calcium 8.1 L Magnesium Total Creatine Kinase CK-MB (CK-2) CK-MB (CK-2) Rel Index Troponin I Urine Color Urine Appearance Urine pH Ur Specific [place] Urine Protein Urine Glucose (UA) Urine Ketones Urine Occult Blood Urine Nitrate Urine Bilirubin Urine Urobilinogen Ur Leukocyte Esterase Urine RBC Urine WBC Amorphous Sediment Urine Bacteria Ur Culture Indicated? Nasal Screen MRSA (PCR) Negative for mrsa Chlamy pneumoniae PCR Adenovirus (PCR) B. pertussis DNA (PCR) B.parapertussis DNA PCR Coronavirus OC43 (PCR) Coronavirus HKU1 (PCR) Coronavirus 229E (PCR) SARS-CoV-2 (PCR) Coronavirus NL63 (PCR) Human Metapneumovir PCR Influenza Type A (PCR) Influenza Type B (PCR) M. pneumoniae (PCR) Parainfluenza 1 (PCR) Parainfluenza 2 (PCR) Parainfluenza 3 (PCR) Parainfluenza 4 (PCR) RSV (PCR) Entero/Rhino (PCR) 04/21/22 07:35 WBC RBC Hgb Hct MCV MCH MCHC RDW Plt Count Neut % (Auto) Lymph % (Auto) [place] % (Auto) Eos % (Auto) Baso % (Auto) Neut # (Auto) Lymph # (Auto) [place] # (Auto) Eos # (Auto) Baso # (Auto) Sodium Potassium Chloride Carbon Dioxide BUN Creatinine Estimated GFR BUN/Creatinine Ratio Glucose Calcium Magnesium 1.8 Total Creatine Kinase CK-MB (CK-2) CK-MB (CK-2) Rel Index Troponin I Urine Color Urine Appearance Urine pH Ur Specific [place] Urine Protein Urine Glucose (UA) Urine Ketones Urine Occult Blood Urine Nitrate Urine Bilirubin Urine Urobilinogen Ur Leukocyte Esterase Urine RBC Urine WBC Amorphous Sediment Urine Bacteria Ur Culture Indicated? Nasal Screen MRSA (PCR) Chlamy pneumoniae PCR Adenovirus (PCR) B. pertussis DNA (PCR) B.parapertussis DNA PCR Coronavirus OC43 (PCR) Coronavirus HKU1 (PCR) Coronavirus 229E (PCR) SARS-CoV-2 (PCR) Coronavirus NL63 (PCR) Human Metapneumovir PCR Influenza Type A (PCR) Influenza Type B (PCR) M. pneumoniae (PCR) Parainfluenza 1 (PCR) Parainfluenza 2 (PCR) Parainfluenza 3 (PCR) Parainfluenza 4 (PCR) RSV (PCR) Entero/Rhino (PCR) [facility] Medical History Adnexal cyst (06/2020) Allergies (~1974) Hale's cyst of knee Blood glucose elevated C. difficile colitis Chicken pox (~1949) Chronic back pain (~2014) Colitis, infectious Constipation Decreased GFR Dementia (~2014) Dementia without behavioral disturbance Dependent family member needing care at home Depression (~2014) Diverticulitis Esophageal thickening (04/2021) Excessive mucus secretion (~2009) Frequent headaches Headache (~2014) Hearing loss History of musculoskeletal disorder (~2014) History of sepsis History of urinary calculi Mixed hyperlipidemia Mumps (~1949) Pain Retroperitoneal mass Right knee pain TBI (traumatic brain injury) Tinnitus (~2014) Vitamin B deficiency Surgical History Anesthesia History of hand surgery (~1998) History of removal of skin mole (~2016) Hx of laparoscopic gastric banding (~2002) Retained ureteral stent Family History Family/Other Kidney stones Urinary tract infection Social History household members: significant other and none Previous occupational history: retired Tobacco & Substance Use Smoking Status: Never smoker alcohol intake: current substance use type: does not use Assessment & Plan Assessment & Plan narrative: GAstroenteritis with possible appendicitis(no fecal lith). UTI, right adnexal mass and antral mass in stomach. resting in bed, feels betrer, Time Spent With Patient Critical Care time: I spent a total of [] minutes of critical care time on this patient's care today; this time is exclusive of procedural time.
--- NOTE | 2022-04-21 13:53 | CM.DANOTE ---
Patient is a 71 yo female who was admitted on 04/20/22 for Fever/Dizziness. Pt has [facility] and [facility] [employer] [employer] [employer] for insurance and her PCP is Talib Rodriguez. EMR was reviewed. Per MD, pt has a hx of significant TBI with cognitive decline and admitted for acute gastroenteritis, UTI, and possible appendicitis. Per Surgeon, conservative tx at this time and no surgery needed pending progress with IV-Abx. 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 Son states pt is independent with ambulation at baseline and does not use DME and very active but due to her cognition is not fully independent with ADLs. Son takes pt fishing and hiking and many outdoor activities and recently returned back to work but his spouse is still time broker CG to pt. They have a paid CG that helps when they need a date night or break from home. Jd Shah confirms that pt still has her Sig Other Paul Simental ([phone]) who is 2)DPOA and involved and pt was just recently at his house for the weekend. Paul and jd Shah coordinate well with pt together and seems to be working well. Pt currently not open with HH and has a hx of Sig HH and unclear if HH needed at d/c pending pt progress. Son plans to transport pt home at discharge and currently not anticipating any needs. Plan: SW to follow closely for pt progress to confirm safe plan of home with son and DIL and r/o any HH needs or further identified discharge planning needs. DOUGLAS Rasmussen Discharge Planning/Care Management CM Discharge Assessment Start: 04/21/22 13:49 Freq: Status: Active Protocol: Document 04/21/22 13:49 BF (Rec: 04/21/22 13:53 BF [id number]) Discharge Planning Assessment Assigned Whitesmith DOUGLAS Santos DPOA/Assigned Designee Name jd Shah and Sig Other Paul Contact Information [phone] and [phone] Advance Directives? Yes Advance Directives on File No History Provided By Patient,Family Member, Significant Other,Medical Record Has Patient been admitted in last 30 No days? Prior Living Arrangements House Household Members family Comment Lives with son and DIL who are her primary CG Type of transporation used prior to Relies on Others admit Independent with ADL's No: TBI Is patient alert and oriented? No: TBI Needs Assistance With Meal Prep,Managing Medications ,Home Chores / Shopping Caregiver for Another No Comment R/O HH pending progress Barriers to Discharge No Discharge Plan Home Transportation Arrangement Likely family to transport home when stable Referrals Initiated None needed Additional Comment follow to r/o HH Whiteboard Updated in Patient Room with Yes name and ext. # of Whitesmith Review Status In Process Please Provide Date Initial DC 04/21/22 Assessment Was Performed Next Review Type Continued Stay Review
[2022-04-21] MEDS: POTASSIUM CHLORIDE 20 MEQ/15 ML UDC PO (14:39)
[2022-04-21 15:08] LABS: Campylobacter Detected (Not Detect); Clostridium difficile toxin AB Not Detected (Not Detect); Plesiomonsa shigelloides Not Detected (Not Detect); Salmonella Not Detected (Not Detect)
[2022-04-21 15:09] LABS: Adenovirus F 40/41 Not Detected (Not Detect); Astrovirus Not Detected (Not Detect); Cryptosporidium Not Detected (Not Detect); Cyclospora cayetanensis Not Detected (Not Detect); Entamoeba histolytica Not Detected (Not Detect); Enteroaggregative E.coli Not Detected (Not Detect); Enteropathogenic E.coli Not Detected (Not Detect); Enterotoxigenic E.coli It/st Not Detected (Not Detect); Giardia lamblia Not Detected (Not Detect); Norovirus GI/GII Not Detected (Not Detect); Rotavirus A Not Detected (Not Detect); Sapovirus Not Detected (Not Detect); Shiga-like toxin-prod E.coli Not Detected (Not Detect); Shigella/Enteroinvasive E.coli Not Detected (Not Detect); Vibrio Not Detected (Not Detect); Vibrio cholerae Not Detected (Not Detect); Yersinia enterocolitica Not Detected (Not Detect)
[2022-04-21] MEDS: LORazepam 0.5 MG TABLET PO ×2 (15:46→21:16)
[2022-04-21] MEDS: POTASSIUM CHLORIDE 20 MEQ/15 ML UDC 10 MEQ PO (16:06)
--- NOTE | 2022-04-21 16:06 | DIET.CONS2 ---
Dietary Inpatient Consultation Note Admission Date: 04/20/2022 17:01 RD consulted for ONS reccs for this 71y F c gastroenteritis. Pt has hx TBI and gastric band. Recc ONS Keagan bid and ONS Ensure Clear tid to support nutrition status until diet advances. Diet: 04/20/22 Dinner Clear Liquid Diet Diet Modifications: May Advance Diet as Tolerated: Yes Electronically Signed by: Debbi Oakley 04/21/22 16:06 Clinical Dietitian [address] [address]
[2022-04-21] MEDS: OLANZapine 10 MG VIAL 5 MG IM (17:01)
[2022-04-21] MEDS: cefTRIAXone 2,000 MG VIAL 1000 MG IM (17:18)
[2022-04-21] MEDS: OLANZapine 10 MG VIAL IM (18:03)
--- NOTE | 2022-04-21 18:49 | P.CONS_ITS ---
History of Present Illness Consult details Chief complaint: Fever, Diarrhea, dizziness/fall x 3 days Meds Home Medications and Allergies Home Medications Medication Instructions Recorded Confirmed Type L.acidophilus-L.bulgar-B.bifid-S.thermoph 1 ea PO TIDWM #90 tabs 08/16/21 03/07/22 Rx 1 billion cell-250 mg tablet (Bacid) ascorbic acid (vitamin C) 500 mg 500 mg PO DAILY #60 tabs 08/16/21 03/07/22 Rx tablet (Vitamin C) cholecalciferol (vitamin D3) 125 125 mcg PO DAILY #60 tabs 08/16/21 03/07/22 Rx mcg (5,000 unit) tablet (Vitamin D3) melatonin 10 mg tablet 10 mg PO BEDTIME PRN sleep #60 tabs 08/16/21 03/07/22 Rx multivit no.42-iron 38 1 cap PO DAILY #60 caps 08/16/21 03/07/22 Rx mg-methyltetrahydfolate 1 mg-dha 225 mg capsule quetiapine 25 mg tablet (Seroquel) 12.5 mg PO BEDTIME #30 tabs 08/16/21 03/07/22 Rx vitamin B complex (B 1 tab PO DAILY #60 tabs 08/16/21 03/07/22 Rx Complex-Vitamin B12 tablet) cyanocobalamin (vitamin B-12) 1,000 mcg IM QMONTH #1 mL 10/18/21 03/07/22 Rx 1,000 mcg/mL injection solution guaifenesin 200 mg/5 mL oral liquid 200 mg (5 mL) PO Q6H PRN 10/27/21 03/07/22 Rx congestion #118 mL diclofenac sodium 1 % topical gel 2 g topical QID #100 grams 11/15/21 03/07/22 Rx donepezil 10 mg tablet 10 mg PO BEDTIME 04/20/22 04/20/22 History Allergies Allergy/AdvReac Type Severity Reaction Status Date / Time sulfite Allergy Severe anaphylactic Verified 04/20/22 11:16 shock adhesive AdvReac Mild takes my Verified 04/20/22 11:16 skin off msg Allergy Severe Anaphylaxis Uncoded 03/07/22 15:43 nitrite AdvReac Diarrhea Uncoded 03/07/22 15:43 Exam Vital Signs (past 8 hours): - 04/21/22 11:15 Pulse Rate 66 Respiratory Rate 20 Blood Pressure 107/56 L Pulse Oximetry 96 Oxygen Flow Rate 0 Oxygen Delivery Method Room Air Oxygen Flow Rate 0 Objective Labs Result Diagrams: 04/21/22 07:35 04/21/22 07:35 Labs: Laboratory Results - last 24 hr 04/20/22 04/21/22 04/21/22 19:20 07:35 07:35 WBC 6.4 RBC 3.90 L Hgb 10.0 L Hct 30.8 L MCV 78.9 L MCH 25.7 L MCHC 32.6 RDW 15.6 H Plt Count 212 Neut % (Auto) 71.5 Lymph % (Auto) 14.8 L [place] % (Auto) 11.2 Eos % (Auto) 2.2 Baso % (Auto) 0.3 Neut # (Auto) 4600 Lymph # (Auto) 900 L [place] # (Auto) 700 Eos # (Auto) 100 Baso # (Auto) 0 Sodium 139 Potassium 3.2 L Chloride 110 H Carbon Dioxide 21 L BUN 8 Creatinine 0.73 Estimated GFR > 60 BUN/Creatinine Ratio 11.0 Glucose 77 L Calcium 8.1 L Magnesium Nasal Screen MRSA (PCR) Negative for mrsa Stl C. cayetanensis PCR Stool Rotavirus (PCR) Stool Adenovirus (PCR) Stool Astrovirus (PCR) Stool Cryptosporidium PCR Stl E.coli Shiga Tox PCR St Sh/Enteroin Ecoli PCR Stool E coli O157 PCR Stl Enterotoxigenic E PCR Stool EPEC (PCR) Stl E. histolytica PCR Stool Giardia Lamblia PCR Stool Sapovirus (PCR) Stl P. shigelloides PCR St Y.enterocolitica PCR Stool Vibrio (PCR) Stl Vibrio cholerae PCR Stl Enteroaggr Ecoli PCR Stl Norovirus GI/GII PCR Campylobacter (PCR) C. difficile Tox (PCR) Salmonella (PCR) 04/21/22 04/21/22 07:35 13:22 WBC RBC Hgb Hct MCV MCH MCHC RDW Plt Count Neut % (Auto) Lymph % (Auto) [place] % (Auto) Eos % (Auto) Baso % (Auto) Neut # (Auto) Lymph # (Auto) [place] # (Auto) Eos # (Auto) Baso # (Auto) Sodium Potassium Chloride Carbon Dioxide BUN Creatinine Estimated GFR BUN/Creatinine Ratio Glucose Calcium Magnesium 1.8 Nasal Screen MRSA (PCR) Stl C. cayetanensis PCR Not detected Stool Rotavirus (PCR) Not detected Stool Adenovirus (PCR) Not detected Stool Astrovirus (PCR) Not detected Stool Cryptosporidium PCR Not detected Stl E.coli Shiga Tox PCR Not detected St Sh/Enteroin Ecoli PCR Not detected Stool E coli O157 PCR Not Reportable Stl Enterotoxigenic E PCR Not detected Stool EPEC (PCR) Not detected Stl E. histolytica PCR Not detected Stool Giardia Lamblia PCR Not detected Stool Sapovirus (PCR) Not detected Stl P. shigelloides PCR Not detected St Y.enterocolitica PCR Not detected Stool Vibrio (PCR) Not detected Stl Vibrio cholerae PCR Not detected Stl Enteroaggr Ecoli PCR Not detected Stl Norovirus GI/GII PCR Not detected Campylobacter (PCR) Detected H C. difficile Tox (PCR) Not detected Salmonella (PCR) Not detected PFSH Medical History Adnexal cyst (06/2020) Allergies (~1974) Hale's cyst of knee Blood glucose elevated C. difficile colitis Chicken pox (~1949) Chronic back pain (~2014) Colitis, infectious Constipation Decreased GFR Dementia (~2014) Dementia without behavioral disturbance Dependent family member needing care at home Depression (~2014) Diverticulitis Esophageal thickening (04/2021) Excessive mucus secretion (~2009) Frequent headaches Headache (~2014) Hearing loss History of musculoskeletal disorder (~2014) History of sepsis History of urinary calculi Mixed hyperlipidemia Mumps (~1949) Pain Retroperitoneal mass Right knee pain TBI (traumatic brain injury) Tinnitus (~2014) Vitamin B deficiency Surgical History Anesthesia History of hand surgery (~1998) History of removal of skin mole (~2016) Hx of laparoscopic gastric banding (~2002) Retained ureteral stent Family History Family/Other Kidney stones Urinary tract infection Social History household members: family Previous occupational history: retired Tobacco & Substance Use Smoking Status: Never smoker alcohol intake: current substance use type: does not use Assessment & Plan Assessment & Plan narrative: EGD may be challenging or impossible due to existing gastric band. Time Spent With Patient Critical Care time: I spent a total of [] minutes of critical care time on this patient's care today; this time is exclusive of procedural time.
[2022-04-21] MEDS: HALOPERIDOL 5 MG/ML VIAL 10 MG (18:51)
[2022-04-21] MEDS: QUETIAPINE 25 MG TABLET PO (21:15)
[2022-04-21] MEDS: ACETAMINOPHEN 325 MG TABLET 650 MG PO (21:16)
[2022-04-21] MEDS: MELATONIN 3 MG TABLET 9 MG PO (21:16)
[2022-04-21 22:00] VITALS: BP 129/59; PULSE 80; RESP 18; TEMP 36.6; O2SAT 98
[2022-04-22] VITALS: BP 132/62; PULSE 99; RESP 18; TEMP 36.8; O2SAT 96
[2022-04-22] MEDS: TRAZODONE 50 MG TABLET 150 MG PO (03:46)
[2022-04-22 05:30] LABS: Add Manual Diff / Slide Review NO; Basophils Absolute Auto 0 /uL (0-100); Basophils Percent Auto 0.4 % (0-2); Eosinophils Absolute Auto 200 /uL (0-450); Eosinophils Percent Auto 3.3 % (2-4); Hematocrit 31.9 % (36-46); Hemoglobin 10.6 g/dL (12.0-16.0); Lymphocytes Absolute Auto 1500 /uL (1100-4500); Lymphocytes Percent Auto 24.3 % (25-40); Mean Corpuscular HGB Conc 33.2 % (30-36); Mean Corpuscular Volume 78.2 fL (80-100); Monocytes Absolute Auto 900 /uL (0-900); Monocytes Percent Auto 15.6 % (3-14); Neutrophils Absolute Auto 3400 /uL (1500-7000); Neutrophils Percent Auto 56.4 % (50-75); Platelet Count 249 X10^3/uL (150-400); Red Blood Cell Count 4.08 X10^6/uL (4.0-5.2); Red Cell Distribution Width 15.6 % (11.6-14.8); White Blood Cell Count 6.1 X10^3/uL (4.5-11.0)
[2022-04-22 05:37] LABS: BUN Creatinine Ratio 6.5 (6-22); Blood Urea Nitrogen 5 mg/dL (7-17); Calcium 8.3 mg/dL (8.4-10.2); Carbon Dioxide 21 mmol/L (22-32); Chloride 110 mmol/L (98-107); Estimated Glomerular Filt Rate > 60 mL/min (>60); Glucose 107 mg/dL (80-110); HEMOLYSIS < 15 (0-50); Potassium 3.1 mmol/L (3.4-5.1); Sodium 144 mmol/L (137-145)
[2022-04-22 06:00] VITALS: BP 148/66; PULSE 78; RESP 18; TEMP 36.3; O2SAT 99
--- NOTE | 2022-04-22 06:22 | PC.NURSE ---
Andrea Shift Note-Patient has been awake throughout the night, confused, OOB frequently to wander in room with gait belt and SBA or to use BSC. Most times she is redirectable, few times she has become very agitated, 1:1 staff. HS meds and 1x dose Trazedone given with pudding and Clear Ensure, see Emar for other prn meds given. VSS. SLuzmariaOLuzmaria Paul into visit during evening.
--- NOTE | 2022-04-22 08:06 | PM.DS.1 ---
History of Present Illness History of Present Illness Date Patient Seen: 04/22/22 Time Patient Seen: 08:00 Chief complaint: Fever, Diarrhea, dizziness/fall x 3 days Narrative: Marlin naylor is a 71-year-old female with past medical history of traumatic brain injury with severe cognitive decline and short term memory loss, kidney stones, C diff, gastric bypass surgery who presents with acute diarrhea for 3 days. Patient lives with her son and [id number] who are full-time caregivers. She is unable to provide history secondary to her cognitive deficits. The daughter in-law states she developed 3-4 episodes per day of diarrhea with consistency of pea soup. Due to this they brought her in with concern for possible UTI. Unclear if patient was having abdominal pain and she can not tell me. No nausea or vomiting. In the ED found to have white count of 11.6. CT abdomen and pelvis showed likely gastroenteritis with possible developing appendicitis. Also noted possible gastric antral mass measuring 1.4 cm. Discharge Providers Provider Date of admission: 04/20/22 17:01 Discharge Date: 04/22/22 Primary care physician: Cam Rodriguez DO Consults: 04/20/22 17:48 Consult to General Surgery Routine Comment: Consulting Provider: Jaqui Christian Reason for consultation: possible appendicitis Has provider been notified: Yes 04/21/22 15:13 Consult to Dietitian, Adult Routine Comment: supliments of Ensure Reason For Exam: malnutrition Discharge provider: Rufus Lockett DO Summary Hospital Course Discharge Diagnosis: # Acute gastroenteritis, improved -3 days of diarrhea, CT abd with evidence of gastroenteritis -GI panel positive for campylobacter -IVF -supportive care # Acute UTI -UA with pyuria -treated with rocephin for 3 days -urine culture growing E. coli with intermed resistant to only levaquin and cipro # possible appendicitis -CT abd pelvis with possible fat stranding of appendix suggesting appendicitis, however no abd pain per my exam in RLQ -continue rocephin and flagyl for now -General surgery consulted, recommended IV abx only at this time and did not think appendicitis present -low likelihood of appendicitis, dc flagyl # TBI with intermittent agitation -monitor for sundowning -melatonin and seroquel 25mg nightly -IM zyprexa the haldol given due to agitation on 04/21 and 04/22 # gastric antral mass -incidentally noted on CT measuring 1.4cm -needs EGD however may be impossible per surgery given history of gastric band -patient also very unlikely to tolerate EGD given cognition Hospital Course: Patient admitted for diarrhea and found to have UTI and Campylobacter on stool PCR. Treated with supportive care for gastroenteritis and 3 days of IV Rocephin for E coli UTI. CT scan showed possible appendicitis but was not felt to be present by General surgery, and also noted in incidental antral mass measuring 1.4 cm. EGD recommended as outpatient to rule out malignancy however very unlikely patient would be able to tolerate the procedure. Time Spent with Patient Time spent: Greater than 30 minutes Exam Vital Signs (past 8 hours): - 04/22/22 06:00 Temperature 97.4 F L Pulse Rate 78 Respiratory Rate 18 Blood Pressure 148/66 H Pulse Oximetry 99 Oxygen Delivery Method Room Air Oxygen Flow Rate 0 Narrative Exam Narrative: GEN: no acute distress, patient is alert but oriented to self only HEENT: moist mucous membranes, PERRL NECK: trachea midline, no JVD CV: regular rate and rhythm, no murmurs PULM: clear bilaterally ABD: soft, nontender, nondistended, no organomegaly EXT: warm and well perfused with no edema NEURO: awake, alert. Intermittently agitated. Objective Labs Result Diagrams: 04/22/22 05:09 04/22/22 05:09 Labs: Laboratory Results - last 24 hr 04/21/22 04/21/22 04/21/22 07:35 07:35 13:22 WBC RBC Hgb Hct MCV MCH MCHC RDW Plt Count Neut % (Auto) Lymph % (Auto) [place] % (Auto) Eos % (Auto) Baso % (Auto) Neut # (Auto) Lymph # (Auto) [place] # (Auto) Eos # (Auto) Baso # (Auto) Sodium 139 Potassium 3.2 L Chloride 110 H Carbon Dioxide 21 L BUN 8 Creatinine 0.73 Estimated GFR > 60 BUN/Creatinine Ratio 11.0 Glucose 77 L Calcium 8.1 L Magnesium 1.8 Stl C. cayetanensis PCR Not detected Stool Rotavirus (PCR) Not detected Stool Adenovirus (PCR) Not detected Stool Astrovirus (PCR) Not detected Stool Cryptosporidium PCR Not detected Stl E.coli Shiga Tox PCR Not detected St Sh/Enteroin Ecoli PCR Not detected Stool E coli O157 PCR Not Reportable Stl Enterotoxigenic E PCR Not detected Stool EPEC (PCR) Not detected Stl E. histolytica PCR Not detected Stool Giardia Lamblia PCR Not detected Stool Sapovirus (PCR) Not detected Stl P. shigelloides PCR Not detected St Y.enterocolitica PCR Not detected Stool Vibrio (PCR) Not detected Stl Vibrio cholerae PCR Not detected Stl Enteroaggr Ecoli PCR Not detected Stl Norovirus GI/GII PCR Not detected Campylobacter (PCR) Detected H C. difficile Tox (PCR) Not detected Salmonella (PCR) Not detected 04/22/22 04/22/22 04/22/22 05:09 05:09 05:09 WBC 6.1 RBC 4.08 Hgb 10.6 L Hct 31.9 L MCV 78.2 L MCH 26.0 MCHC 33.2 RDW 15.6 H Plt Count 249 Neut % (Auto) 56.4 Lymph % (Auto) 24.3 L [place] % (Auto) 15.6 H Eos % (Auto) 3.3 Baso % (Auto) 0.4 Neut # (Auto) 3400 Lymph # (Auto) 1500 [place] # (Auto) 900 Eos # (Auto) 200 Baso # (Auto) 0 Sodium 144 Potassium 3.1 L Chloride 110 H Carbon Dioxide 21 L BUN 5 L Creatinine 0.77 Estimated GFR > 60 BUN/Creatinine Ratio 6.5 Glucose 107 Calcium 8.3 L Magnesium 2.0 Stl C. cayetanensis PCR Stool Rotavirus (PCR) Stool Adenovirus (PCR) Stool Astrovirus (PCR) Stool Cryptosporidium PCR Stl E.coli Shiga Tox PCR St Sh/Enteroin Ecoli PCR Stool E coli O157 PCR Stl Enterotoxigenic E PCR Stool EPEC (PCR) Stl E. histolytica PCR Stool Giardia Lamblia PCR Stool Sapovirus (PCR) Stl P. shigelloides PCR St Y.enterocolitica PCR Stool Vibrio (PCR) Stl Vibrio cholerae PCR Stl Enteroaggr Ecoli PCR Stl Norovirus GI/GII PCR Campylobacter (PCR) C. difficile Tox (PCR) Salmonella (PCR) [facility] Medical History Adnexal cyst (06/2020) Allergies (~1974) Hale's cyst of knee Blood glucose elevated C. difficile colitis Chicken pox (~1949) Chronic back pain (~2014) Colitis, infectious Constipation Decreased GFR Dementia (~2014) Dementia without behavioral disturbance Dependent family member needing care at home Depression (~2014) Diverticulitis Esophageal thickening (04/2021) Excessive mucus secretion (~2009) Frequent headaches Headache (~2014) Hearing loss History of musculoskeletal disorder (~2014) History of sepsis History of urinary calculi Mixed hyperlipidemia Mumps (~1949) Pain Retroperitoneal mass Right knee pain TBI (traumatic brain injury) Tinnitus (~2014) Vitamin B deficiency Surgical History Anesthesia History of hand surgery (~1998) History of removal of skin mole (~2016) Hx of laparoscopic gastric banding (~2002) Retained ureteral stent Family History Family/Other Kidney stones Urinary tract infection Social History household members: family Previous occupational history: retired Smoking Status: Never smoker alcohol intake: current substance use type: does not use Discharge Plan Discharge Plan Patient Disposition: Home Provider Discharge Comment: Patient had a UTI which was treated with 3 days of IV antibiotics. Her stool test showed campylobacter which can cause diarrhea. Only supportive care is needed for this. I've sent seroquel nightly if she has trouble at home with agitation or sundowning. You can choose whether to use 1-2 pills or not. I've also sent imodium for future episodes of diarrhea which can help slow it. Discharge orders & Medications Prescriptions: New loperamide [Imodium A-D] 2 mg capsule 2 mg PO QID PRN (Reason: loose stool) Qty: 30 0RF Continued cyanocobalamin (vitamin B-12) 1,000 mcg/mL solution 1,000 mcg IM QMONTH Qty: 1 0RF Rx Instructions: 10/18/21 1000mcg weekly x4 doses, then monthly. Recheck labs in one month. diclofenac sodium 1 % gel 2 g topical QID Qty: 100 0RF Rx Instructions: apply to knee guaifenesin 200 mg/5 mL liquid 200 mg PO Q6H PRN (Reason: congestion) Qty: 118 2RF Bacid 1 billion cell- 250 mg Tablet 1 ea PO TIDWM Qty: 90 0RF multivit [id number] mg capsule 1 cap PO DAILY Qty: 60 0RF cholecalciferol (vitamin D3) [Vitamin D3] 125 mcg (5,000 unit) tablet 125 mcg PO DAILY Qty: 60 0RF vitamin B complex [B Complex-Vitamin B12] Tablet 1 tab PO DAILY Qty: 60 0RF melatonin 10 mg tablet 10 mg PO BEDTIME PRN (Reason: sleep) Qty: 60 0RF ascorbic acid (vitamin C) [Vitamin C] 500 mg tablet 500 mg PO DAILY Qty: 60 0RF donepezil 10 mg tablet 10 mg PO BEDTIME Label Comments: Take 1 tablet (10 mg total) by mouth nightly Changed quetiapine [Seroquel] 25 mg tablet 25 mg PO BEDTIME Qty: 30 0RF Follow up/Referrals: Cam Rodriguez DO [Primary Care Provider] - Discharge Data Primary Care Provider: Cam Rodriguez Attending Provider: Maureen Johnson VTE Deep Vein Thrombosis/Pulmonary Embolism Present on Admission: No
[2022-04-22] MEDS: POTASSIUM CHLORIDE 20 MEQ/15 ML UDC 40 MEQ PO (08:43)
[2022-04-22] MEDS: HEPARIN 5,000 UNIT/ML VIAL 5000 UNIT SUBCUT (08:44)
--- NOTE | 2022-04-22 11:22 | P.PN_ITS ---
Subjective Subjective Date Patient Seen: 04/22/22 Time Patient Seen: 11:22 Interval history: No major changes overnight. White blood cell count remains normal and there is no shift. 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 No vomiting. Exam Vital Signs (past 8 hours): - 04/22/22 06:00 04/22/22 07:00 Temperature 97.4 F L Pulse Rate 78 Respiratory Rate 18 Blood Pressure 148/66 H Pulse Oximetry 99 Oxygen Delivery Method Room Air Oxygen Delivery Method Room Air Oxygen Flow Rate 0 Narrative Exam Narrative: Somnolent Abdomen is soft nontender with no guarding or rebound at [facility]'s point Examination is limited by the patient's altered mental status Objective Labs Result Diagrams: 04/22/22 05:09 04/22/22 05:09 Labs: Laboratory Results - last 24 hr 04/21/22 04/22/22 04/22/22 13:22 05:09 05:09 WBC 6.1 RBC 4.08 Hgb 10.6 L Hct 31.9 L MCV 78.2 L MCH 26.0 MCHC 33.2 RDW 15.6 H Plt Count 249 Neut % (Auto) 56.4 Lymph % (Auto) 24.3 L [place] % (Auto) 15.6 H Eos % (Auto) 3.3 Baso % (Auto) 0.4 Neut # (Auto) 3400 Lymph # (Auto) 1500 [place] # (Auto) 900 Eos # (Auto) 200 Baso # (Auto) 0 Sodium 144 Potassium 3.1 L Chloride 110 H Carbon Dioxide 21 L BUN 5 L Creatinine 0.77 Estimated GFR > 60 BUN/Creatinine Ratio 6.5 Glucose 107 Calcium 8.3 L Magnesium Stl C. cayetanensis PCR Not detected Stool Rotavirus (PCR) Not detected Stool Adenovirus (PCR) Not detected Stool Astrovirus (PCR) Not detected Stool Cryptosporidium PCR Not detected Stl E.coli Shiga Tox PCR Not detected St Sh/Enteroin Ecoli PCR Not detected Stool E coli O157 PCR Not Reportable Stl Enterotoxigenic E PCR Not detected Stool EPEC (PCR) Not detected Stl E. histolytica PCR Not detected Stool Giardia Lamblia PCR Not detected Stool Sapovirus (PCR) Not detected Stl P. shigelloides PCR Not detected St Y.enterocolitica PCR Not detected Stool Vibrio (PCR) Not detected Stl Vibrio cholerae PCR Not detected Stl Enteroaggr Ecoli PCR Not detected Stl Norovirus GI/GII PCR Not detected Campylobacter (PCR) Detected H C. difficile Tox (PCR) Not detected Salmonella (PCR) Not detected 04/22/22 05:09 WBC RBC Hgb Hct MCV MCH MCHC RDW Plt Count Neut % (Auto) Lymph % (Auto) [place] % (Auto) Eos % (Auto) Baso % (Auto) Neut # (Auto) Lymph # (Auto) [place] # (Auto) Eos # (Auto) Baso # (Auto) Sodium Potassium Chloride Carbon Dioxide BUN Creatinine Estimated GFR BUN/Creatinine Ratio Glucose Calcium Magnesium 2.0 Stl C. cayetanensis PCR Stool Rotavirus (PCR) Stool Adenovirus (PCR) Stool Astrovirus (PCR) Stool Cryptosporidium PCR Stl E.coli Shiga Tox PCR St Sh/Enteroin Ecoli PCR Stool E coli O157 PCR Stl Enterotoxigenic E PCR Stool EPEC (PCR) Stl E. histolytica PCR Stool Giardia Lamblia PCR Stool Sapovirus (PCR) Stl P. shigelloides PCR St Y.enterocolitica PCR Stool Vibrio (PCR) Stl Vibrio cholerae PCR Stl Enteroaggr Ecoli PCR Stl Norovirus GI/GII PCR Campylobacter (PCR) C. difficile Tox (PCR) Salmonella (PCR) COUNT INCLUDES THE [facility] Medical History Adnexal cyst (06/2020) Allergies (~1974) Hale's cyst of knee Blood glucose elevated C. difficile colitis Chicken pox (~1949) Chronic back pain (~2014) Colitis, infectious Constipation Decreased GFR Dementia (~2014) Dementia without behavioral disturbance Dependent family member needing care at home Depression (~2014) Diverticulitis Esophageal thickening (04/2021) Excessive mucus secretion (~2009) Frequent headaches Headache (~2014) Hearing loss History of musculoskeletal disorder (~2014) History of sepsis History of urinary calculi Mixed hyperlipidemia Mumps (~1949) Pain Retroperitoneal mass Right knee pain TBI (traumatic brain injury) Tinnitus (~2014) Vitamin B deficiency Surgical History Anesthesia History of hand surgery (~1998) History of removal of skin mole (~2016) Hx of laparoscopic gastric banding (~2002) Retained ureteral stent Family History Family/Other Kidney stones Urinary tract infection Social History household members: family Previous occupational history: retired Smoking Status: Never smoker alcohol intake: current substance use type: does not use Assessment & Plan Assessment and plan (1) Gastroenteritis: Status: Acute Plan: No indication for surgical intervention at this time. She can follow-up as an outpatient for an EGD to rule out a gastric lesion. Time Spent With Patient Critical Care time: I spent a total of [] minutes of critical care time on this patient's care to day; this time is exclusive of procedural time. Quality VTE Deep Vein Thrombosis/Pulmonary Embolism Present on Admission: No
--- NOTE | 2022-04-22 17:43 | PC.NURSE ---
1:1 sitter in room w/ patient. patient is drowsy from meds given last PM for . difficult to rouse at begin of shift. toileted a few times thru the day, using BSC w/ 1pa. continues w/ small loose bowel movements. kcl liquid given x 1. d/c orders. 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 d/c paperwork given to daughter in law. left floor via w/c and left facility in private car.
== END 2022-04-22 17:15 | disposition home or self-care (01) ==
LOC: ED 11:59 → AC 17:02 → ICU 17:29
PROVIDERS: Student in an Organized Health Care Education/Training Program; Admitting Provider Neuromusculoskeletal Medicine, Sports Medicine; Emergency Provider Emergency Medicine; Family Provider Family Medicine; PCP Family Medicine; Referring Provider Emergency Medicine; Visit Provider Neuromusculoskeletal Medicine, Sports Medicine
DX: K52.9 Noninfective gastroenteritis and colitis, unspecified (principal); R42 Dizziness and giddiness; N39.0 Urinary tract infection, site not specified; B96.20 Unspecified Escherichia coli [E. coli] as the cause of diseases classified elsewhere; R93.3 Abnormal findings on diagnostic imaging of other parts of digestive tract; Z87.820 Personal history of traumatic brain injury; Z20.822 Contact with and (suspected) exposure to COVID-19
CPT/HCPCS: 36415; 51798; 71045; 74177; 80048; 80053; 81001; 82550; 83605; 83690; 83735; 84145; 84484; 85007; 85025; 85610; 85730; 87040; 87077; 87086; 87186; 87507; 87633; 87635; 87797; 93005; 93010; 96361; 96365; 96366; 96367; 96372; 99224; 99284; C9803; G0378; J0696; J1630; J1644; J3475; Q9967; S0166

== ENCOUNTER 2022-09-15 10:36 | Emergency (ER) | payer MEDICARE, OTHER, SELFPAY ==
[2022-04-20 21:02] VITALS: BMI 22.4
[2022-09-15] VITALS (10 sets, daily range): BP systolic 89–136; BP diastolic 46–68; PULSE 56–77; RESP 15–30; TEMP 36.3; O2SAT 97–100
--- NOTE | 2022-09-15 10:43 | DI.RAD.S_ITS ---
PROCEDURE: XR CHEST 1V INDICATIONS: suspected sepsis TECHNIQUE: One view of the chest was acquired. COMPARISON: [facility], CR, XR CHEST 1V, 04/20/2022, 11:23. FINDINGS: Surgical changes and devices: None. Lungs and pleura: Lungs are clear. No pleural effusions or pneumothorax. Mediastinum: Mediastinal contours appear normal. Likely calcified granuloma versus calcified lymph nodes projecting in left infrahilar region are again seen unchanged from prior study. Heart size is normal. Bones and chest wall: No suspicious bony lesions. Overlying soft tissues appear unremarkable. IMPRESSION: No acute cardiopulmonary pathology. Dictated by: Mason Paula M.D. on 09/15/2022 at 11:37 Approved by: Mason Paula M.D. on 09/15/2022 at 11:38
--- NOTE | 2022-09-15 11:26 | ED.GENADULT ---
HPI - General Adult General Chief complaint: Urogenital-Female Stated complaint: nonresponsive for 24hrs signs of infections Time Seen by Provider: 09/15/22 11:01 Source: patient and family (Son) Mode of arrival: Wheelchair History of Present Illness HPI narrative: Patient is a 72-year-old female who is brought in by her son for evaluation of potential complications from a recent urinary tract infection. Two weeks ago the patient was admitted to an outside facility and spent a couple days and was treated for a urinary tract infection. Was not sent home with any medications. Over the past couple days patient's son has noticed that she is been less active. Has been sleeping a lot of the day. At 1 point was complaining of left arm pain. Also states that her urine is darker colored and has a foul odor. The patient has no specific complaints. She denies chest pain or shortness of breath. She denies any abdominal pain or nausea and vomiting. Patient does seem somewhat irritated about answering questions. She does have a history of a TBI Related Data Home Medications Medication Instructions Recorded Confirmed donepezil 10 mg tablet 10 mg PO BEDTIME 04/20/22 04/20/22 Previous Rx's Medication Instructions Recorded L.acidophilus-L.bulgar-B.bifid-S.thermoph 1 ea PO TIDWM #90 tabs 08/16/21 1 billion cell-250 mg tablet (Bacid) ascorbic acid (vitamin C) 500 mg 500 mg PO DAILY #60 tabs 08/16/21 tablet (Vitamin C) cholecalciferol (vitamin D3) 125 125 mcg PO DAILY #60 tabs 08/16/21 mcg (5,000 unit) tablet (Vitamin D3) melatonin 10 mg tablet 10 mg PO BEDTIME PRN sleep #60 tabs 08/16/21 multivit no.42-iron 38 1 cap PO DAILY #60 caps 08/16/21 mg-methyltetrahydfolate 1 mg-dha 225 mg capsule vitamin B complex (B 1 tab PO DAILY #60 tabs 08/16/21 Complex-Vitamin B12 tablet) cyanocobalamin (vitamin B-12) 1,000 mcg IM QMONTH #1 mL 10/18/21 1,000 mcg/mL injection solution guaifenesin 200 mg/5 mL oral liquid 200 mg (5 mL) PO Q6H PRN 10/27/21 congestion #118 mL diclofenac sodium 1 % topical gel 2 g topical QID #100 grams 11/15/21 loperamide 2 mg capsule (Imodium 2 mg PO QID PRN loose stool #30 04/22/22 A-D) caps quetiapine 25 mg tablet (Seroquel) 25 mg PO BEDTIME #30 tabs 04/22/22 Allergies Allergy/AdvReac Type Severity Reaction Status Date / Time sulfite Allergy Severe anaphylactic Verified 09/15/22 10:44 shock adhesive AdvReac Mild takes my Verified 09/15/22 10:44 skin off msg Allergy Severe Anaphylaxis Uncoded 03/07/22 15:43 nitrite AdvReac Diarrhea Uncoded 03/07/22 15:43 Review of Systems Review of Systems Narrative: Provided by patient and ROS Unobtainable: All systems reviewed & are unremarkable except as noted in HPI and below Patient History Medical History Adnexal cyst (06/2020) Allergies (~1974) Hale's cyst of knee Blood glucose elevated C. difficile colitis Chicken pox (~1949) Chronic back pain (~2014) Colitis, infectious Constipation Decreased GFR Dementia (~2014) Dementia without behavioral disturbance Dependent family member needing care at home Depression (~2014) Diverticulitis Esophageal thickening (04/2021) Excessive mucus secretion (~2009) Frequent headaches Headache (~2014) Hearing loss History of musculoskeletal disorder (~2014) History of sepsis History of urinary calculi Mixed hyperlipidemia Mumps (~1949) Pain Retroperitoneal mass Right knee pain TBI (traumatic brain injury) Tinnitus (~2014) Vitamin B deficiency Surgical History Anesthesia History of hand surgery (~1998) History of removal of skin mole (~2016) Hx of laparoscopic gastric banding (~2002) Retained ureteral stent Family History Family/Other Kidney stones Urinary tract infection Social History household members: family Previous occupational history: retired Smoking Status: Never smoker alcohol intake: current substance use type: does not use Smoking Status: Never smoker alcohol intake frequency: holidays/special occasions only Substance Use Type: does not use Exam Initial Vital Signs Initial Vital Signs: Vital Signs Temperature 97.4 F L 09/15/22 10:41 Pulse Rate 77 09/15/22 10:41 Respiratory Rate 15 09/15/22 10:41 Blood Pressure 89/46 L 09/15/22 10:41 Pulse Oximetry 99 09/15/22 10:41 Oxygen Delivery Method 09/15/22 10:41 Const General: cooperative, comfortable and No ill appearing HENMT Head: normal to inspection and normocephalic Resp Effort & Inspection: normal respiratory effort Auscultation: clear to auscultation bilaterally Cardio Rate: regular rate Rhythm: regular rhythm GI Inspection: normal to inspection Skin General: no rashes or lesions noted Neuro General: patient alert, patient awake and moves all extremities Extrem General: normal to inspection and capillary refill normal Psych Appearance: grossly normal and well kempt Course Orders Ordered: ED Orders 09/15/22 10:22 Complete Blood Count AUTO DIFF Stat Comprehensive Metabolic Panel Stat Lactate (Lactic Acid) Stat Lipase Stat Partial Thromboplastin Time Stat Procalcitonin Stat Prothrombin Time INR Stat 09/15/22 10:43 XR chest 1V Stat RT Consult Eval and Treat NOW 09/15/22 11:08 EKG-12 Lead Stat 09/15/22 11:54 Blood Culture Stat 09/15/22 12:50 COVID19 -Nasal RAPID/Pre-Proc Stat 09/15/22 14:29 Urine Microscopic Stat Discontinued Medications Sodium Chloride (Normal Saline 0.9%) 1,000 mls @ 1,000 mls/hr IV BOLUS ONE Stop: 09/15/22 11:42 Last Infusion: 09/15/22 12:49 Dose: 0 mls/hr Documented By: Admin: 09/15/22 11:44 Dose: 1,000 mls/hr Documented By: OLLIE Ondansetron HCl (Ondansetron 4 Mg/2 Ml Inj) 4 mg IV NOW PRN PRN Reason: Nausea And Vomiting Last Admin: 09/15/22 13:51 Dose: 4 mg Documented By: OLLIE(2) Vital Signs Vital signs: Vital Signs - 8 hr 09/15/22 10:41 09/15/22 11:02 09/15/22 11:30 Temperature 97.4 F L Pulse Rate 77 63 Respiratory Rate 15 16 Blood Pressure 89/46 L 111/56 L Pulse Oximetry 99 98 Oxygen Delivery Method Room Air 09/15/22 11:30 09/15/22 12:00 09/15/22 12:00 Temperature Pulse Rate 61 56 L Respiratory Rate 20 18 Blood Pressure 120/56 L Pulse Oximetry 99 99 Oxygen Delivery Method 09/15/22 12:30 09/15/22 12:30 09/15/22 13:00 Temperature Pulse Rate 59 L Respiratory Rate 30 H Blood Pressure 110/56 L 121/58 L Pulse Oximetry 99 Oxygen Delivery Method 09/15/22 13:00 09/15/22 13:30 09/15/22 13:30 Temperature Pulse Rate 58 L 68 Respiratory Rate 30 H 27 H Blood Pressure 132/64 Pulse Oximetry 100 100 Oxygen Delivery Method 09/15/22 14:00 09/15/22 14:00 09/15/22 14:30 Temperature Pulse Rate 75 Respiratory Rate 29 H Blood Pressure 128/62 136/66 Pulse Oximetry 100 Oxygen Delivery Method 09/15/22 14:30 09/15/22 15:00 09/15/22 15:00 Temperature Pulse Rate 67 61 Respiratory Rate 25 H Blood Pressure 128/68 Pulse Oximetry 100 97 Oxygen Delivery Method Medical Decision Making Medical Records Medical records reviewed: Yes I reviewed the patient's medical records. Lab Data Lab results reviewed: Yes I reviewed the patient's lab results. 09/15/22 10:22 09/15/22 10:22 Labs: Lab Results 09/15/22 09/15/22 09/15/22 Range/Units 10:22 10:22 10:22 WBC 10.2 (4.5-11.0) X10^3/uL RBC 4.44 (4.0-5.2) X10^6/uL Hgb 11.6 L (12.0-16.0) g/dL Hct 35.9 L (36-46) % MCV 80.8 (80-100) fL MCH 26.1 (26-34) PG MCHC 32.3 (30-36) % RDW 15.7 H (11.6-14.8) % Plt Count 299 (150-400) X10^3/uL Neut % (Auto) 76.4 H (50-75) % Lymph % (Auto) 14.5 L (25-40) % [place] % (Auto) 7.7 (3-14) % Eos % (Auto) 0.9 L (2-4) % Baso % (Auto) 0.5 (0-2) % Neut # (Auto) 7800 H (3645-3265) /uL Lymph # (Auto) 1500 (8921-8068) /uL [place] # (Auto) 800 (0-900) /uL Eos # (Auto) 100 (0-450) /uL Baso # (Auto) 100 (0-100) /uL PT 13.1 H (10.1-12.7) SECONDS INR 1.1 (0.9-1.3) APTT 28 (26-36) SECONDS Sodium 141 (137-145) mmol/L Potassium 3.5 (3.4-5.1) mmol/L Chloride 100 (98-107) mmol/L Carbon Dioxide 29 (22-32) mmol/L BUN 12 (7-17) mg/dL Creatinine 0.91 (0.52-1.04) mg/dL Estimated GFR > 60 (>60) mL/min BUN/Creatinine Ratio 13.2 (6-22) Glucose 104 (80-110) mg/dL Lactate (0.7-2.1) mmol/L Calcium 9.0 (8.4-10.2) mg/dL Total Bilirubin 0.7 (0.2-1.3) mg/dL AST 22 (14-36) IU/L ALT 14 (<35) IU/L Alkaline Phosphatase 72 (38-126) U/L Total Protein 7.5 (6.3-8.2) g/dL Albumin 3.8 (3.5-5.0) g/dL Globulin 3.7 (1.7-4.1) g/dL Albumin/Globulin Ratio 1.0 (1.0-2.8) Lipase 30 (23-300) U/L Procalcitonin 0.08 (<0.5) ng/mL Urine RBC (0-5/HPF) Urine WBC (0-5/HPF) Ur Squamous Epith Cells (0-5/HPF) Urine Bacteria (None) Ur Culture Indicated? SARS-CoV-2 (PCR) (Negative) 09/15/22 09/15/22 09/15/22 Range/Units 10:22 12:50 14:29 WBC (4.5-11.0) X10^3/uL RBC (4.0-5.2) X10^6/uL Hgb (12.0-16.0) g/dL Hct (36-46) % MCV (80-100) fL MCH (26-34) PG MCHC (30-36) % RDW (11.6-14.8) % Plt Count (150-400) X10^3/uL Neut % (Auto) (50-75) % Lymph % (Auto) (25-40) % [place] % (Auto) (3-14) % Eos % (Auto) (2-4) % Baso % (Auto) (0-2) % Neut # (Auto) (2993-0324) /uL Lymph # (Auto) (2203-2346) /uL [place] # (Auto) (0-900) /uL Eos # (Auto) (0-450) /uL Baso # (Auto) (0-100) /uL PT (10.1-12.7) SECONDS INR (0.9-1.3) APTT (26-36) SECONDS Sodium (137-145) mmol/L Potassium (3.4-5.1) mmol/L Chloride (98-107) mmol/L Carbon Dioxide (22-32) mmol/L BUN (7-17) mg/dL Creatinine (0.52-1.04) mg/dL Estimated GFR (>60) mL/min BUN/Creatinine Ratio (6-22) Glucose (80-110) mg/dL Lactate 1.3 (0.7-2.1) mmol/L Calcium (8.4-10.2) mg/dL Total Bilirubin (0.2-1.3) mg/dL AST (14-36) IU/L ALT (<35) IU/L Alkaline Phosphatase (38-126) U/L Total Protein (6.3-8.2) g/dL Albumin (3.5-5.0) g/dL Globulin (1.7-4.1) g/dL Albumin/Globulin Ratio (1.0-2.8) Lipase (23-300) U/L Procalcitonin (<0.5) ng/mL Urine RBC 5-10/hpf H (0-5/HPF) Urine WBC 1-5/hpf (0-5/HPF) Ur Squamous Epith Cells 1-5 /hpf (0-5/HPF) Urine Bacteria None seen (None) Ur Culture Indicated? Cult not indicated SARS-CoV-2 (PCR) Negative (Negative) Urine Dip Bedside Urine Glucose Negative Bedside Urine Bilirubin - Negative Bedside Urine Ketone - Negative Urine Specific [place] 1.020 Bedside Urine Occult Blood ++ Bedside Urine pH 6.0 Bedside Urine Protein - Negative Bedside Urine Urobilinogen - Negative Bedside Urine Nitrite - Negative Bedside Urine Leukocytes - Negative Esterase Point of care testing: Urine Dip Bedside Urine Glucose Negative Bedside Urine Bilirubin - Negative Bedside Urine Ketone - Negative Urine Specific [place] 1.020 Bedside Urine Occult Blood ++ Bedside Urine pH 6.0 Bedside Urine Protein - Negative Bedside Urine Urobilinogen - Negative Bedside Urine Nitrite - Negative Bedside Urine Leukocytes - Negative Esterase Imaging Data Chest x-ray: Radiologist's Impression: [address] [address] XRay Report Signed Patient: Marlin Aleman MR#: [id number] : 1950 Acct:[id number] Age/Sex: 72 / F Date of Service: 09/15/22 Loc: ED Accession Number: [id number] ?? Procedure: XR chest 1V Ordering Provider: Radames Harden D.O. PROCEDURE:? XR CHEST 1V ? INDICATIONS:? suspected sepsis ? TECHNIQUE:? One view of the chest was acquired.? ? COMPARISON:? [facility], , XR CHEST 1V, 04/20/2022, 11:23. ? FINDINGS:? ? Surgical changes and devices:? None.? ? Lungs and pleura:? Lungs are clear.? No pleural effusions or pneumothorax.? ? Mediastinum:? Mediastinal contours appear normal.? Likely calcified granuloma versus calcified lymph nodes projecting in left infrahilar region are again seen unchanged from prior study.? Heart size is normal.? ? Bones and chest wall:? No suspicious bony lesions.? Overlying soft tissues appear unremarkable.? ? IMPRESSION:? No acute cardiopulmonary pathology. ? ? Dictated by: Mason Paula M.D. on 09/15/2022 at 11:37 ? ? Approved by: Mason Paula M.D. on 09/15/2022 at 11:38 ECG Data Attestation: I personally reviewed and interpreted this ECG as follows: Interpretation: Sinus rhythm Ventricular rate is 64 Normal axis Normal QRS Normal QTC Nonspecific ST T wave changes MDM Narrative Medical decision making narrative: Patient's workup here in the emergency department today does not show any specific source of an infection. It is not a urinary tract infection. She is no upper respiratory tract infection like symptoms. She is tolerating oral intake. No indication for antibiotics. I had a long discussion with the patient and family at bedside regarding the lack of a definitive diagnosis today. We did discuss that potentially this is her TBI/dementia causing these symptoms. They expressed understanding of this. Will discharge patient home. They were given specific return instructions. Expressed understanding and agreement. Discharge Plan Departure Patient Disposition: Home Clinical Impression: Fatigue Instructions: DI for Fatigue Activity Restrictions/Additional Instructions: Recommend that she continue to take all of her medications as directed. Contact her primary doctor for a follow-up. Return to the emergency department for new symptoms. Prescriptions: No Action cyanocobalamin (vitamin B-12) 1,000 mcg/mL solution 1,000 mcg IM QMONTH Qty: 1 0RF Rx Instructions: 10/18/21 1000mcg weekly x4 doses, then monthly. Recheck labs in one month. diclofenac sodium 1 % gel 2 g topical QID Qty: 100 0RF Rx Instructions: apply to knee guaifenesin 200 mg/5 mL liquid 200 mg PO Q6H PRN (Reason: congestion) Qty: 118 2RF Bacid 1 billion cell- 250 mg Tablet 1 ea PO TIDWM Qty: 90 0RF multivit no.[id number]-dha 38-1-225 mg capsule 1 cap PO DAILY Qty: 60 0RF cholecalciferol (vitamin D3) [Vitamin D3] 125 mcg (5,000 unit) tablet 125 mcg PO DAILY Qty: 60 0RF vitamin B complex [B Complex-Vitamin B12] Tablet 1 tab PO DAILY Qty: 60 0RF melatonin 10 mg tablet 10 mg PO BEDTIME PRN (Reason: sleep) Qty: 60 0RF ascorbic acid (vitamin C) [Vitamin C] 500 mg tablet 500 mg PO DAILY Qty: 60 0RF donepezil 10 mg tablet 10 mg PO BEDTIME Label Comments: Take 1 tablet (10 mg total) by mouth nightly loperamide [Imodium A-D] 2 mg capsule 2 mg PO QID PRN (Reason: loose stool) Qty: 30 0RF quetiapine [Seroquel] 25 mg tablet 25 mg PO BEDTIME Qty: 30 0RF Referrals: Cam Rodriguez DO [Primary Care Provider] - Stand Alone Forms: Patient Portal/API
[2022-09-15 11:36] LABS: Add Manual Diff / Slide Review NO; Basophils Absolute Auto 100 /uL (0-100); Basophils Percent Auto 0.5 % (0-2); Eosinophils Absolute Auto 100 /uL (0-450); Eosinophils Percent Auto 0.9 % (2-4); Hematocrit 35.9 % (36-46); Hemoglobin 11.6 g/dL (12.0-16.0); Lymphocytes Absolute Auto 1500 /uL (1100-4500); Lymphocytes Percent Auto 14.5 % (25-40); Mean Corpuscular HGB Conc 32.3 % (30-36); Mean Corpuscular Hemoglobin 26.1 PG (26-34); Mean Corpuscular Volume 80.8 fL (80-100); Monocytes Absolute Auto 800 /uL (0-900); Monocytes Percent Auto 7.7 % (3-14); Neutrophils Absolute Auto 7800 /uL (1500-7000); Neutrophils Percent Auto 76.4 % (50-75); Platelet Count 299 X10^3/uL (150-400); Red Blood Cell Count 4.44 X10^6/uL (4.0-5.2); Red Cell Distribution Width 15.7 % (11.6-14.8); White Blood Cell Count 10.2 X10^3/uL (4.5-11.0)
[2022-09-15 11:41] LABS: INR 1.1 (0.9-1.3); Prothrombin Time 13.1 SECONDS (10.1-12.7)
[2022-09-15 11:44] LABS: PTT Partial Thromboplastin Tim 28 SECONDS (26-36)
[2022-09-15] MEDS: SODIUM CHLORIDE 0.9% 1,000 ML 1000 ML IV (11:44)
[2022-09-15 11:49] LABS: Alanine Aminotransferase 14 IU/L (<35); Albumin 3.8 g/dL (3.5-5.0); Alkaline Phosphatase 72 U/L (38-126); Aspartate Aminotransferase 22 IU/L (14-36); BUN Creatinine Ratio 13.2 (6-22); Bilirubin Total 0.7 mg/dL (0.2-1.3); Blood Urea Nitrogen 12 mg/dL (7-17); Carbon Dioxide 29 mmol/L (22-32); Chloride 100 mmol/L (98-107); Estimated Glomerular Filt Rate > 60 mL/min (>60); Globulin 3.7 g/dL (1.7-4.1); Glucose 104 mg/dL (80-110); HEMOLYSIS < 15 (0-50); Lactate (Lactic Acid) 1.3 mmol/L (0.7-2.1); Lipase 30 U/L (23-300); Potassium 3.5 mmol/L (3.4-5.1); Sodium 141 mmol/L (137-145); Total Protein 7.5 g/dL (6.3-8.2)
[2022-09-15 12:04] LABS: Procalcitonin 0.08 ng/mL (<0.5)
[2022-09-15 13:32] LABS: COVID19 -Nasal RAPID Negative (Negative)
[2022-09-15] MEDS: ONDANSETRON 4 MG/2 ML INJ IV (13:51)
[2022-09-15 15:44] LABS: Bacteria Urine None Seen; Culture Indicated Urine Cult Not Indicated; RBC Urine 5-10/HPF (0-5/HPF); Squamous Epithelial Cell Urine 1-5 /HPF (0-5/HPF); WBC Urine 1-5/HPF (0-5/HPF)
== END 2022-09-15 15:40 | disposition home or self-care (01) ==
PROVIDERS: Emergency Provider Emergency Medicine; Family Provider Family Medicine; PCP Family Medicine
DX: R53.83 Other fatigue (principal); R79.89 Other specified abnormal findings of blood chemistry; Z20.822 Contact with and (suspected) exposure to COVID-19
CPT/HCPCS: 36415; 71045; 80053; 81003; 81015; 83605; 83690; 84145; 85025; 85610; 85730; 87040; 87635; 93005; 99284; C9803; J2405

== ENCOUNTER → 2023-05-30 14:36 | Outpatient (CLI) | payer MEDICARE, OTHER, SELFPAY ==
[2022-04-20 21:02] VITALS: BMI 22.4
[2023-05-30 15:30] LABS: Add Manual Diff / Slide Review NO; Basophils Absolute Auto 0 /uL (0-100); Basophils Percent Auto 0.4 % (0-2); Eosinophils Absolute Auto 300 /uL (0-450); Eosinophils Percent Auto 3.1 % (2-4); Hematocrit 29.7 % (36-46); Hemoglobin 9.4 g/dL (12.0-16.0); Lymphocytes Absolute Auto 2600 /uL (1100-4500); Lymphocytes Percent Auto 32.7 % (25-40); Mean Corpuscular HGB Conc 31.5 % (30-36); Mean Corpuscular Hemoglobin 24.3 PG (26-34); Mean Corpuscular Volume 77.1 fL (80-100); Monocytes Absolute Auto 900 /uL (0-900); Monocytes Percent Auto 10.8 % (3-14); Neutrophils Absolute Auto 4300 /uL (1500-7000); Platelet Count 439 X10^3/uL (150-400); Red Blood Cell Count 3.85 X10^6/uL (4.0-5.2); Red Cell Distribution Width 17.7 % (11.6-14.8)
[2023-05-30 15:38] LABS: Alanine Aminotransferase 18 IU/L (<35); Albumin 3.6 g/dL (3.5-5.0); Albumin Globulin Ratio 0.7 (1.0-2.8); Alkaline Phosphatase 91 U/L (38-126); Aspartate Aminotransferase 29 IU/L (14-36); BUN Creatinine Ratio 17.3 (6-22); Bilirubin Total 0.2 mg/dL (0.2-1.3); Blood Urea Nitrogen 17 mg/dL (7-17); Calcium 9.4 mg/dL (8.4-10.2); Carbon Dioxide 30 mmol/L (22-32); Chloride 102 mmol/L (98-107); Estimated Glomerular Filt Rate > 60 mL/min (>60); Globulin 4.9 g/dL (1.7-4.1); Glucose 93 mg/dL (80-110); HEMOLYSIS < 15 (0-50); Potassium 4.1 mmol/L (3.4-5.1); Sodium 140 mmol/L (137-145); Total Protein 8.5 g/dL (6.3-8.2)
[2023-05-30 16:28] LABS: Vitamin B12 918 pg/mL (239-931)
[2023-05-30 17:55] LABS: TSH w/ Reflex to FT4 2.19 uIU/mL (0.47-4.68)
== END ==
PROVIDERS: Family Provider Family Medicine; PCP Family Medicine; Referring Provider Physician Assistant; Visit Provider Physician Assistant
DX: R63.4 Abnormal weight loss (principal)
CPT/HCPCS: 36415; 80053; 82607; 84443; 85025